=== PATIENT | male | born 1960 | race American Indian/Alaskan Native ===

== ENCOUNTER 2019-10-13 06:28 | Emergency (ER) | payer MEDICARE, OTHER ==
[2019-10-13] MEDS ORDERED: SODIUM CHLORIDE 0.9% 1000 ML 1,000 ML IV ONE (10:43)
[2019-10-13] MEDS ORDERED: MORPHINE 4 MG/1 ML INJ IV ONE (10:43)
[2019-10-13 11:26] LABS: Basophils # (Auto) 0.1 K/mm3 (0.0-0.1); Basophils % (Auto) 0.8 % (0.0-1.8); Eosinophils # (Auto) 0.1 K/mm3 (0.0-0.4); Eosinophils % (Auto) 1.4 % (0.0-4.3); Hemoglobin 14.2 gm/dl (11.8-15.2); Lymphocytes # (Auto) 3.1 K/mm3 (1.2-5.4); Lymphocytes % (Auto) 33.9 % (13.4-35.0); Mean Corpuscular HGB Conc 36 % (32-34); Mean Corpuscular Volume 87 fl (84-94); Monocytes # (Auto) 0.6 K/mm3 (0.0-0.8); Monocytes % (Auto) 6.9 % (0.0-7.3); Platelet Count 213 K/mm3 (140-440); Red Blood Count 4.61 M/mm3 (3.65-5.03); Red Cell Distribution Width 14.7 % (13.2-15.2)
--- NOTE | 2019-10-13 11:32 | Emergency Department Report ---
Abscess Boil HPI - HPI Chief Complaint: Skin/Abscess/Foreign Body Stated Complaint: BOIL/FEVER Time Seen by Provider: 10/13/19 10:08 Duration: 4 Days Location: Perianal Severity: Mild History: Yes Pain, No Fever, No Purulent Drainage, No Numbness, No Foreign Body, No Previous History, No Insect Bite HPI: This is a 59-year-old male nontoxic, well nourished in appearance, no acute signs of distress presents to the ED with c/o of redness, swelling, and pain left buttock area. Patient stated has some driange noted. Patient denies any fever, chills, nausea, vomiting, chest pain, shortness of breath, headache or stiff neck. Patient denies any allergies. PMH includes HIV but is compliant with antiviral and undetectable CD4. Home Medications: Home Medications Medication Instructions Recorded Confirmed Last Taken Atazanavir (Nf) [Reyataz] mg PO QDAY 08/06/13 08/06/13 08/05/13 21:00 Emtricitabin/Tenofovir [TRUVADA 1 tab PO QDAY 08/06/13 08/06/13 08/05/13 21:00 200-300 mg] Ritonavir [Norvir] mg PO QDAY 08/06/13 08/06/13 08/05/13 20:00 Previous Rx's Medication Instructions Recorded Last Taken Type Hydrocodone Bit/Acetaminophen 1 each PO Q4-6H PRN #12 tablet 08/06/13 Unknown Rx [Lortab 5-500 Tablet] Ibuprofen [Motrin 800 MG tab] 800 mg PO TID #30 tablet 08/06/13 Unknown Rx Sulfamethoxazole/Trimethoprim 1 each PO BID #20 tablet 08/06/13 Unknown Rx [Bactrim DS] Acetaminophen/Codeine [Tylenol 1 tab PO Q6H PRN #12 tab 10/13/19 Unknown Rx /Codeine # 3 tab] Amoxicillin/K Clav Tab [Augmentin 1 tab PO Q12HR #20 tab 10/13/19 Unknown Rx 875 mg] Allergies/Adverse Reactions: Allergies Allergy/AdvReac Type Severity Reaction Status Date / Time No Known Allergies Allergy Unverified 08/06/13 14:52 ED Review of Systems ROS: Stated complaint: BOIL/FEVER Other details as noted in HPI Constitutional: denies: chills, fever Eyes: denies: eye pain, eye discharge, vision change ENT: denies: ear pain, throat pain Respiratory: denies: cough, shortness of breath, wheezing Cardiovascular: denies: chest pain, palpitations Endocrine: no symptoms reported Gastrointestinal: denies: abdominal pain, nausea, diarrhea Genitourinary: denies: urgency, dysuria Musculoskeletal: denies: back pain, joint swelling, arthralgia Skin: denies: rash, lesions Neurological: denies: headache, weakness, paresthesias Psychiatric: denies: anxiety, depression Hematological/Lymphatic: denies: easy bleeding, easy bruising ED Past Medical Hx - Past Medical History Previous Medical History?: Yes Hx HIV: Yes Additional medical history: hiv - Surgical History Past Surgical History?: Yes Additional Surgical History: lyphomas removed. right knee surgery - Social History Smoking Status: Never Smoker Substance Use Type: None - Medications Home Medications: Home Medications Medication Instructions Recorded Confirmed Last Taken Type Atazanavir (Nf) [Reyataz] mg PO QDAY 08/06/13 08/06/13 08/05/13 21:00 History Emtricitabin/Tenofovir [TRUVADA 1 tab PO QDAY 08/06/13 08/06/13 08/05/13 21:00 History 200-300 mg] Hydrocodone Bit/Acetaminophen 1 each PO Q4-6H PRN #12 tablet 08/06/13 Unknown Rx [Lortab 5-500 Tablet] Ibuprofen [Motrin 800 MG tab] 800 mg PO TID #30 tablet 08/06/13 Unknown Rx Ritonavir [Norvir] mg PO QDAY 08/06/13 08/06/13 08/05/13 20:00 History Sulfamethoxazole/Trimethoprim 1 each PO BID #20 tablet 08/06/13 Unknown Rx [Bactrim DS] Acetaminophen/Codeine [Tylenol 1 tab PO Q6H PRN #12 tab 10/13/19 Unknown Rx /Codeine # 3 tab] Amoxicillin/K Clav Tab [Augmentin 1 tab PO Q12HR #20 tab 10/13/19 Unknown Rx 875 mg] ED Abscess Boil Physical Exam - Exam General: Vital signs noted. No distress. Alert and acting appropriately. Front/Back of Body, Lg (Color): 1 - abscess present Size: 4 cm Exam: Yes Tenderness, Yes Fluctuance, Yes Surrounding Cellulites/Erythema, Yes Normal Neurologic Exam, Yes Normal Circulation, No Lymphangitis, No Crepitation, No Heart Murmur I & D Note - I & D Note I & D Note: Under sterile field, I used Betadine to cleanse the area. I then used 2% lidocaine plain with 25-gauge 5/8 needle to inject area for anesthetic purposes. Total volume injected 3 mL. I then used an 11 blade to make a 1 cm incision. About 2 mL's of purulent drainage has been noted. I then used a hemostat to break the abscess formation. I then used sterile 0.9% normal saline flush to flush the wound with total volume of 40 mL used. I then put a 1/4 iodoform packing to the incision. A sterile 4 x 4 with tape has been applied as dressing. Bleeding is under control. Patient tolerated the procedure well with no signs of distress noted. ED Course Vital Signs 10/13/19 10/13/19 10/13/19 06:32 11:10 11:15 Temperature 98.1 F 98.3 F Pulse Rate 70 63 Respiratory 18 18 18 Rate Blood Pressure 155/95 Blood Pressure 135/88 [Left] O2 Sat by Pulse 96 98 98 Oximetry - Reevaluation(s) Reevaluation #1: 10/13/19 11:31 Patient is speaking in full sentences with no signs of distress noted. Critical care attestation.: If time is entered above; I have spent that time in minutes in the direct care of this critically ill patient, excluding procedure time. ED Medical Decision Making - Lab Data Result diagrams: 10/13/19 11:06 10/13/19 11:06 - Medical Decision Making This is a 59-year-old male that presents with left buttock abscess. Patient is stable and was examined by me. CT with contrast obtained and dictated by the radiologist. This is incision and drainage and has been performed and patient tolerated well. A sterile dressing has been applied. Patient was educated on proper wound care. Patient is discharged with Augmentin and Tylenol with codeine and was instructed not to operate any machinery while taking Tylenol with codeine due to drowsiness. Patient was instructed to return in 2 days for packing removal. Patient was instructed to refer to Follow-up with a primary care doctor in 3-5 days or if symptoms worsen and continue return to emergency room as soon as possible. At time of discharge, the patient does not seem toxic or ill in appearance. No acute signs of distress noted. Patient agrees to discharge treatment plan of care. No further questions noted by the patient. ED Disposition Clinical Impression: Abscess of right buttock, Encounter for incision and drainage procedure Disposition: TO HOME OR SELFCARE Is pt being admited?: No Does the pt Need Aspirin: No Condition: Stable Instructions: Abscess (ED), Abscess Incision and Drainage (ED), Acetaminophen/Codeine (By mouth) Additional Instructions: Follow-up with a primary care doctor in 3-5 days or if symptoms worsen and continue return to emergency room as soon as possible. Do not operate any machinery while taking Tylenol with codeine as this may cause drowsiness. Return in 2 days for packing removal. Prescriptions: Amoxicillin/K Clav Tab [Augmentin 875 mg] 1 tab PO Q12HR #20 tab Acetaminophen/Codeine [Tylenol /Codeine # 3 tab] 1 tab PO Q6H PRN #12 tab PRN Reason: Pain, Moderate (4-6) Referrals: PRIMARY MD ALVARO [Primary Care Provider] - 3-5 Days OSIEL ALBARADO MD [Staff Physician] - 3-5 Days [facility] [Outside] - 3-5 Days Forms: Work/School Release Form(ED)
[2019-10-13 11:45] LABS: BUN/Creatinine Ratio 13; Blood Urea Nitrogen 10 mg/dL (9-20); Calcium 9.3 mg/dL (8.4-10.2); Hemolysis Index 15
--- NOTE | 2019-10-13 12:52 | Cat Scan Report ---
CT ABDOMEN AND PELVIS WITH CONTRAST INDICATION: perianal pain and swelling. COMPARISON: CT abdomen and pelvis with contrast from 06/24/2012. TECHNIQUE: Axial, coronal and sagittal CT imaging of the abdomen and pelvis was performed after inje ction of 100 mL Omnipaque [address] scans at this location are performed using CT dose re duction for ALARA by means of automated exposure control. FINDINGS: LOWER CHEST: No significant abnormality. LIVER: Numerous subcentimeter cyst are seen throughout the liver. Posteriorly and superiorly along th e right hepatic lobe is a hyperenhancing round lesion measuring 1.2 x 1.2 cm on image 38 of series 2. Another hyperenhancing lesion is seen anteriorly and inferiorly along the right hepatic lobe on imag e 84 of series 2 measuring 8 x 7 mm. No additional significant abnormality. BILIARY: No significant abnormality. PANCREAS: No significant abnormality. SPLEEN: No significant abnormality. ADRENALS: No significant abnormality. KIDNEYS AND URETERS: There are simple appearing subcentimeter right renal cysts. No additional signif icant abnormality. GI TRACT: There is a small hiatal hernia without associated inflammation. No additional significant a bnormality of the stomach. No significant abnormality of the small bowel. Sigmoid diverticulosis is n oted without evidence of diverticulitis. No additional significant abnormality of the colon. The appe ndix is unremarkable. PERITONEUM: No free fluid. No free air. No fluid collection. LYMPH NODES: No significant adenopathy. VASCULATURE: No significant abnormality. URINARY BLADDER: Collapsed without a distinct abnormality. REPRODUCTIVE ORGANS: No significant abnormality. ADDITIONAL FINDINGS: There is marked bilateral peritoneal edema, right greater than left, without an organized drainable fluid collection or soft tissue gas. SKELETAL SYSTEM: No significant abnormality. IMPRESSION: 1. Marked bilateral peritoneal edema, right greater than left, without an organized drainable fluid c ollection or significant soft tissue gas. 2. Small hyperenhancing liver lesions as above may represent flash filling hemangiomas. A nonemergent CT of the abdomen with and without contrast (liver protocol) would be helpful for complete evaluatio n. 3. Additional findings as above. Signer Name: Delon Marcano MD Signed: 10/13/2019 12:48 PM Workstation Name: [id number]
[2019-10-13 14:08] VITALS: BP 158/101
== END 2019-10-13 14:08 | disposition home or self-care (01) ==
LOC: ED 06:28
DX: L02.31 Cutaneous abscess of buttock (principal); Z79.899 Other long term (current) drug therapy; Z98.890 Other specified postprocedural states
CPT/HCPCS: 10060; 36415; 74177; 80048; 85025; 96361; 96374; 99284; J2270; J7030; Q9967

== ENCOUNTER 2019-10-15 07:35 | Emergency (ER) | payer SELFPAY ==
[2019-10-15 07:48] VITALS: BP 125/89
--- NOTE | 2019-10-15 09:30 | Emergency Department Report ---
Suture/Staple Removal - [facility] Chief Complaint: Skin/Abscess/Foreign Body Stated Complaint: REMOVAL OF PACKAGE Time Seen by Provider: 10/15/19 08:48 When Sutures or Trenary Placed: 2 days Wound Location: right buttock ED Review of Systems ROS: Stated complaint: REMOVAL OF PACKAGE Other details as noted in HPI Constitutional: denies: chills, fever Eyes: denies: eye pain, eye discharge, vision change ENT: denies: ear pain, throat pain Respiratory: denies: cough, shortness of breath, wheezing Cardiovascular: denies: chest pain, palpitations Endocrine: no symptoms reported Gastrointestinal: denies: abdominal pain, nausea, diarrhea Genitourinary: denies: urgency, dysuria Musculoskeletal: denies: back pain, joint swelling, arthralgia Skin: denies: rash, lesions Neurological: denies: headache, weakness, paresthesias Psychiatric: denies: anxiety, depression Hematological/Lymphatic: denies: easy bleeding, easy bruising ED Past Medical Hx - Past Medical History Previous Medical History?: Yes Hx HIV: Yes Additional medical history: hiv - Surgical History Past Surgical History?: Yes Additional Surgical History: lyphomas removed. right knee surgery - Social History Smoking Status: Never Smoker Substance Use Type: None - Medications Home Medications: Home Medications Medication Instructions Recorded Confirmed Last Taken Type Atazanavir (Nf) [Reyataz] mg PO QDAY 08/06/13 08/06/13 08/05/13 21:00 History Emtricitabin/Tenofovir [TRUVADA 1 tab PO QDAY 08/06/13 08/06/13 08/05/13 21:00 History 200-300 mg] Hydrocodone Bit/Acetaminophen 1 each PO Q4-6H PRN #12 tablet 08/06/13 Unknown Rx [Lortab 5-500 Tablet] Ibuprofen [Motrin 800 MG tab] 800 mg PO TID #30 tablet 08/06/13 Unknown Rx Ritonavir [Norvir] mg PO QDAY 08/06/13 08/06/13 08/05/13 20:00 History Sulfamethoxazole/Trimethoprim 1 each PO BID #20 tablet 08/06/13 Unknown Rx [Bactrim DS] Acetaminophen/Codeine [Tylenol 1 tab PO Q6H PRN #12 tab 10/13/19 Unknown Rx /Codeine # 3 tab] Amoxicillin/K Clav Tab [Augmentin 1 tab PO Q12HR #20 tab 10/13/19 Unknown Rx 875 mg] Suture Removal Exam - Exam General: Vital signs noted. No distress. Alert and acting appropriately. Wound: No Pathologic Erythema, No Tenderness, No Drainage, No Pus, No Wound Dehiscence Other Systems: All other systems reviewed and are unremarkable. ED Course Vital Signs 10/15/19 07:47 Temperature 97.9 F Pulse Rate 77 Respiratory 18 Rate Blood Pressure 125/89 [Right] O2 Sat by Pulse 96 Oximetry - Reevaluation(s) Reevaluation #1: 10/15/19 09:28 Patient is speaking in full sentences with no signs of distress noted. ED Recheck [facility] - Medical Decision Making Iodoform packing has been removed for right buttock area. Patient followed well. Currently there is no swelling. Abscess is resolving. Patient stated he is taking antibiotics. Patient was educated on proper wound care. Patient was instructed to Follow-up with a primary care doctor in 3-5 days or if symptoms worsen and continue return to emergency room as soon as possible. At time of discharge, the patient does not seem toxic or ill in appearance. No acute signs of distress noted. Patient agrees to discharge treatment plan of care. No further questions noted by the patient. Critical care attestation.: If time is entered above; I have spent that time in minutes in the direct care of this critically ill patient, excluding procedure time. ED Disposition Clinical Impression: Abscess packing removal Disposition: DC-01 TO HOME OR SELFCARE Is pt being admited?: No Does the pt Need Aspirin: No Condition: Stable Instructions: Acute Wound Care (ED) Additional Instructions: Follow-up with a primary care doctor in 3-5 days or if symptoms worsen and continue return to emergency room as soon as possible. Referrals: PRIMARY MD ALVARO [Referring] - 3-5 Days OSIEL ALBARADO MD [Staff Physician] - 3-5 Days [facility] [Outside] - 3-5 Days
== END 2019-10-15 10:28 | disposition home or self-care (01) ==
LOC: ED 07:35
DX: L02.31 Cutaneous abscess of buttock (principal); Z21 Asymptomatic human immunodeficiency virus [HIV] infection status; Z98.890 Other specified postprocedural states; Z79.899 Other long term (current) drug therapy

== ENCOUNTER 2021-04-30 18:04 | Inpatient (IN) | payer OTHER, SELFPAY ==
[2021-04-30 20:09] LABS: Basophils % (Auto) 0.3 % (0.0-1.8); Eosinophils # (Auto) 0.1 K/mm3 (0.0-0.4); Eosinophils % (Auto) 2.1 % (0.0-4.3); Hematocrit 46.7 % (35.5-45.6); Lymphocytes % (Auto) 30.5 % (13.4-35.0); Mean Corpuscular HGB Conc 34 % (32-34); Mean Corpuscular Volume 87 fl (84-94); Monocytes # (Auto) 0.5 K/mm3 (0.0-0.8); Monocytes % (Auto) 8.1 % (0.0-7.3); Platelet Count 251 K/mm3 (140-440); Red Blood Count 5.38 M/mm3 (3.65-5.03); Red Cell Distribution Width 15.8 % (13.2-15.2)
[2021-04-30 20:27] LABS: Alanine Aminotransferase 13 units/L (7-56); Albumin 3.8 g/dL (3.9-5); BUN/Creatinine Ratio 19; Blood Urea Nitrogen 21 mg/dL (9-20); Calcium 9.4 mg/dL (8.4-10.2); Hemolysis Index 45
[2021-04-30 20:42] LABS: Bilirubin,Urine NEG (Negative); Blood,Urine MOD (Negative); Color,Urine Amber (Yellow); Hyaline Casts,Urine 3 /LPF; Mucus,Urine 3+ /HPF
[2021-04-30] MEDS ORDERED: SODIUM CHLORIDE 0.9% 1000 ML 1,000 ML IV ONE (21:27)
--- NOTE | 2021-04-30 21:29 | Event Note ---
ED Screening Note Date of service: 04/30/21 Time: 21:27 ED Screening Note: 60-year-old female patient with history of HIV presents to the emergency department with complaints of progressively worsening abdominal pain, nausea, vomiting, and diarrhea starting 3 days ago. No known sick contacts. No current steroid or antibiotic use. No recent travel. Surgical history includes multiple lipoma excisions from his abdominal wall. Patient is compliant with his antiretroviral therapy medication. Unsure of last CD4 count. Patient states his roommate told him that his "abdomen was sticking out more than usual." No known history of liver disease. Tachycardic in triage. General: Awake, appropriately interactive, no acute distress. Neck: Supple. Full range of motion intact. Cardiovascular: Normal peripheral perfusion. Pulmonary: No respiratory distress. Patient is speaking normally without use of accessory muscles. Abdomen: Left lower quadrant tenderness without rebound or guarding. Skin: No apparent rashes or lesions. Neurological: No facial asymmetry. Speech is clear. Follows commands. Patient is alert and oriented. Musculoskeletal: Moves all four extremities spontaneously with normal range of motion. Psych: Cooperative. Appropriate mood and affect. I have greeted and performed a focused rapid initial assessment of this patient. A comprehensive ED assessment and evaluation of the patient, analysis of all test results, and completion of the medical decision-making process will be conducted by additional ED providers. This initial assessment/diagnostic orders/clinical plan/treatment(s) is/are subject to change based on patients health status, clinical progression and re-assessment. Further treatment and workup at subsequent clinical provider's discretion. Patient/guardian urged not to elope from the ED as their condition may be serious if not clinically asses sed and managed.
--- NOTE | 2021-05-01 12:55 | Cat Scan Report ---
CT ABDOMEN AND PELVIS WITH CONTRAST INDICATION: abd pain, N/V/D, (+) HIV OMNIPAQUE 300 100ML CONTRAST: 100 cc Omnipaque 300 IV COMPARISON: 10/13/[address] scans at this location are performed using CT dose reduction for ALARA by means of automated e xposure control. FINDINGS: Lung bases are clear of infiltrates. No pneumoperitoneum is seen. Small hepatic cysts and p robable tiny hemangiomata are again seen. Small right renal cysts are noted. Gallbladder is distended without definite wall thickening or calculi. No biliary dilatation is seen. Pancreas appears within normal limits. No other masses are seen. No lymphadenopathy is noted. No free fluid is seen. No focal inflammatory changes are noted. Small bowel dilatation is seen now involving mid loops without wall thickening. Distal loops appear n ondilated. The appendix is dilated and inflamed with surrounding inflammation is seen. No evidence of perforatio n or abscess is noted. IMPRESSION: 1. Acute uncomplicated appendicitis 2. Mid small bowel dilatation suggesting small bowel obstruction but in the setting of acute appendic itis may just relate to localized adynamic ileus. Signer Name: oCrnelius Walsh MD Signed: 05/01/2021 12:51 PM Workstation Name: [id number]
[2021-05-01] MEDS ORDERED: PIPERACILLIN/TAZOBACTAM 3.375 3.375 GM/50 ML BAG IV ONE (14:54)
[2021-05-01] MEDS ORDERED: SODIUM CHLORIDE 0.9% 1000 ML 1,000 ML IV ONE (14:54)
[2021-05-01] MEDS ORDERED: ONDANSETRON 4 MG/2 ML INJ IM ONE (14:54)
--- NOTE | 2021-05-01 15:00 | Emergency Department Report ---
ED General Adult HPI - General Chief complaint: Abdominal Pain Stated complaint: AB PAIN/HAVEN'T EATEN Time Seen by Provider: 05/01/21 14:47 Source: patient Mode of arrival: Ambulatory Limitations: No Limitations - History of Present Illness Initial comments: 60-year-old female patient with history of HIV presents to the emergency department with complaints of progressively worsening abdominal pain, nausea, vomiting, and diarrhea starting 3 days ago. No known sick contacts. No current steroid or antibiotic use. No recent travel. Surgical history includes multiple lipoma excisions from his abdominal wall. Patient is compliant with his antiretroviral therapy medication. Unsure of last CD4 count. Patient states his roommate told him that his "abdomen was sticking out more than usual." No known history of liver disease. Patient reports that his pain has improved since yesterday when he came in. Patient states at that time the pain was severe to where it was hard for him to move. Onset/Timin -: days(s) Location: abdomen Severity scale (0 -10): 8 Quality: stabbing, sharp Consistency: constant Improves with: none Worsens with: none Associated Symptoms: nausea/vomiting, other (Diarrhea) - Related Data Home Medications Medication Instructions Recorded Confirmed Last Taken Atazanavir (Nf) [Reyataz] mg PO QDAY 08/06/13 08/06/13 08/05/13 21:00 Emtricitabin/Tenofovir [TRUVADA 1 tab PO QDAY 08/06/13 08/06/13 08/05/13 21:00 200-300 mg] Ritonavir [Norvir] mg PO QDAY 08/06/13 08/06/13 08/05/13 20:00 Previous Rx's Medication Instructions Recorded Last Taken Type Hydrocodone Bit/Acetaminophen 1 each PO Q4-6H PRN #12 tablet 08/06/13 Unknown Rx [Lortab 5-500 Tablet] Ibuprofen [Motrin 800 MG tab] 800 mg PO TID #30 tablet 08/06/13 Unknown Rx Sulfamethoxazole/Trimethoprim 1 each PO BID #20 tablet 08/06/13 Unknown Rx [Bactrim DS] Acetaminophen/Codeine [Tylenol 1 tab PO Q6H PRN #12 tab 10/13/19 Unknown Rx /Codeine # 3 tab] Amoxicillin/K Clav Tab [Augmentin 1 tab PO Q12HR #20 tab 10/13/19 Unknown Rx 875 mg] Allergies Allergy/AdvReac Type Severity Reaction Status Date / Time No Known Allergies Allergy Unverified 08/06/13 14:52 ED Review of Systems ROS: Stated complaint: AB PAIN/HAVEN'T EATEN Other details as noted in HPI Comment: All other systems reviewed and negative ED Past Medical Hx - Past Medical History Previous Medical History?: Yes Hx HIV: Yes Additional medical history: hiv - Surgical History Past Surgical History?: Yes Additional Surgical History: lyphomas removed. right knee surgery - Social History Smoking Status: Never Smoker Substance Use Type: None - Medications Home Medications: Home Medications Medication Instructions Recorded Confirmed Last Taken Type Atazanavir (Nf) [Reyataz] mg PO QDAY 08/06/13 08/06/13 08/05/13 21:00 History Emtricitabin/Tenofovir [TRUVADA 1 tab PO QDAY 08/06/13 08/06/13 08/05/13 21:00 History 200-300 mg] Hydrocodone Bit/Acetaminophen 1 each PO Q4-6H PRN #12 tablet 08/06/13 Unknown Rx [Lortab 5-500 Tablet] Ibuprofen [Motrin 800 MG tab] 800 mg PO TID #30 tablet 08/06/13 Unknown Rx Ritonavir [Norvir] mg PO QDAY 08/06/13 08/06/13 08/05/13 20:00 History Sulfamethoxazole/Trimethoprim 1 each PO BID #20 tablet 08/06/13 Unknown Rx [Bactrim DS] Acetaminophen/Codeine [Tylenol 1 tab PO Q6H PRN #12 tab 10/13/19 Unknown Rx /Codeine # 3 tab] Amoxicillin/K Clav Tab [Augmentin 1 tab PO Q12HR #20 tab 10/13/19 Unknown Rx 875 mg] ED Physical Exam - General Limitations: No Limitations General appearance: alert, in no apparent distress - Head Head exam: Present: atraumatic, normocephalic - Eye Eye exam: Present: normal appearance - ENT ENT exam: Present: mucous membranes moist - Neck Neck exam: Present: normal inspection, full ROM - Respiratory Respiratory exam: Present: normal lung sounds bilaterally, chest wall tenderness. Absent: accessory muscle use - Cardiovascular Cardiovascular Exam: Present: tachycardia - GI/Abdominal GI/Abdominal exam: Present: soft, tenderness (Mild right lower quadrant). Absent: distended - Extremities Exam Extremities exam: Present: normal inspection, full ROM - Back Exam Back exam: Present: normal inspection, full ROM - Neurological Exam Neurological exam: Present: alert, oriented X3, normal gait - Psychiatric Psychiatric exam: Present: normal affect, normal mood - Skin Skin exam: Present: warm, dry, intact, normal color. Absent: rash ED Course Vital Signs 04/30/21 19:41 Temperature 98.2 F Pulse Rate 101 H Respiratory 18 Rate Blood Pressure 165/92 O2 Sat by Pulse 97 Oximetry - Reevaluation(s) Reevaluation #1: 05/01/21 1430 Reevaluated patient he states that his pain is much better. Complains of being hungry at this time. No nausea and vomiting the last 6 hours. - Consultations Consultation #1: 05/01/21 15:[address] Johnson regarding my findings of the patient having an acute uncomplicated appendicitis and admit to small bowel dilatation suggestion of a small bowel obstruction. She is aware spoke to Dr. Novak general surgeon he states admit the patient to [facility] place patient on IV Zosyn n.p.o. and he will see him in the morning. Consultation #2: 05/01/21 15:[address] Eubanks hospitalist regarding admission. States that he will put admission orders in and will see patient. ED Medical Decision Making - Lab Data Result diagrams: 04/30/21 19:52 04/30/21 19:52 - Medical Decision Making 60-year-old female patient with history of HIV presents to the emergency department with complaints of progressively worsening abdominal pain, nausea, vomiting, and diarrhea starting 3 days ago. No known sick contacts. No current steroid or antibiotic use. No recent travel. Surgical history includes multiple lipoma excisions from his abdominal wall. Patient is compliant with his antiretroviral therapy medication. Unsure of last CD4 count. Patient states his roommate told him that his "abdomen was sticking out more than usual." No known history of liver disease. Patient reports that his pain has improved since yesterday when he came in. Patient states at that time the pain was severe to where it was hard for him to move. Spoke to Dr. Johnson ER attending she is aware of the admission. Spoke to Dr. Novak general surgeon he is aware of patient's patient CT results recommend admission Zosyn n.p.o. after midnight and he will evaluate patient in the morning. Spoke to Dr. Eubanks hospitalist regarding patient needing to be admitted to [facility] and Dr. Novak has already been consulted and will see the patient in the morning. Critical Care Time: Yes (35) Critical care attestation.: If time is entered above; I have spent that time in minutes in the direct care of this critically ill patient, excluding procedure time. ED Disposition Clinical Impression: Acute appendicitis, uncomplicated, Small bowel obstruction, HIV (human immunodeficiency virus infection) Disposition: 09 ADMITTED INPATIENT Is pt being admited?: Yes Does the pt Need Aspirin: No Condition: Stable Referrals: ZHANE,CARO [Other] - 3-5 Days
[2021-05-01] MEDS ORDERED: HYDROmorphone 1 MG/1 ML INJ IV PRN (15:01)
[2021-05-01] MEDS ORDERED: MORPHINE 2 MG/1 ML INJ IV PRN (15:01)
--- NOTE | 2021-05-01 15:01 | History and Physical Report ---
History of Present Illness Chief complaint: My stomach hurts History of present illness: 60 YO Male with HIV presents to ED for evaluation. Patient reports "my stomach hurts". Patient states that he has experienced abdominal pain, multiple episodes of nausea, multiple episodes of vomiting, and multiple loose stools over the past 3 days with persistent symptoms over the same timeframe. Patient transported to [facility] via private vehicle for further care and evaluation of the aforementioned symptoms. The patient was seen and evaluated in the emergency department. All lab and imaging studies reviewed. Patient with CT scan of the abdomen and pelvis which revealed evidence of acute appendicitis as well as concomitant partial small bowel obstruction. Patient placed in observation status and admitted to surgical floor due to increased risk of worsening symptoms. Patient initiated on IV antibiotic therapy. Surgical team consulted in ED. Patient denies fever, chills, chest pain, palpitation, productive cough, skin rash, recent contact, or known exposure to COVID-19. No prior admission for review. All medication listed at time of admission has been reconciled. Advanced care planning conducted in ED. Past History Past Medical History: HIV/AIDS, other (See HPI) Past Surgical History: Other (Lipoma excision, right knee surgery) Social history: single. denies: smoking, alcohol abuse, prescription drug abuse Family history: hypertension Medications and Allergies Allergies Allergy/AdvReac Type Severity Reaction Status Date / Time No Known Allergies Allergy Unverified 08/06/13 14:52 Home Medications Medication Instructions Recorded Confirmed Last Taken Type Atazanavir (Nf) [Reyataz] mg PO QDAY 08/06/13 08/06/13 08/05/13 21:00 History Emtricitabin/Tenofovir [TRUVADA 1 tab PO QDAY 08/06/13 08/06/13 08/05/13 21:00 History 200-300 mg] Hydrocodone Bit/Acetaminophen 1 each PO Q4-6H PRN #12 tablet 08/06/13 Unknown Rx [Lortab 5-500 Tablet] Ibuprofen [Motrin 800 MG tab] 800 mg PO TID #30 tablet 08/06/13 Unknown Rx Ritonavir [Norvir] mg PO QDAY 08/06/13 08/06/13 08/05/13 20:00 History Sulfamethoxazole/Trimethoprim 1 each PO BID #20 tablet 08/06/13 Unknown Rx [Bactrim DS] Acetaminophen/Codeine [Tylenol 1 tab PO Q6H PRN #12 tab 10/13/19 Unknown Rx /Codeine # 3 tab] Amoxicillin/K Clav Tab [Augmentin 1 tab PO Q12HR #20 tab 10/13/19 Unknown Rx 875 mg] Active Meds: Active Medications Piperacillin Sod/Tazobactam Sod (Zosyn/Ns 3.375gm/50ml) 3.375 gm in 50 mls @ 100 mls/hr IV ONCE ONE; Protocol Stop: 05/01/21 15:23 Sodium Chloride (Nacl 0.9% 1000 Ml) 1,000 mls @ 999 mls/hr IV BOLUS ONE Stop: 05/01/21 15:54 Review of Systems Constitutional: no weight loss Ears, nose, mouth and throat: no ear pain, no decreased hearing, no nose pain Cardiovascular: no chest pain, no orthopnea, no rapid/irregular heart beat, no edema Respiratory: no cough, no cough with sputum, no hemoptysis Gastrointestinal: abdominal pain, nausea, vomiting, diarrhea, no constipation, no BRBPR, no melena Genitourinary Male: no hematuria, no flank pain, no discharge, no urinary frequency, no urinary hesitancy Rectal: no pain, no incontinence, no bleeding Musculoskeletal: no neck pain, no shooting arm pain, no arm numbness/tingling, no low back pain, no shooting leg pain Integumentary: no rash, no pruritis, no sores, no jaundice, no boils Neurological: no head injury, no weakness, no parathesias, no tremors Psychiatric: no anxiety, no change in sleep habits, no insomnia, no hypersomnia, no change in appetite Endocrine: no cold intolerance, no polyphagia, no excessive thirst, no polyuria, no excessive sweating, no flushing Hematologic/Lymphatic: no easy bruising, no easy bleeding, no lymphadenopathy, no lymphedema Allergic/Immunologic: no urticaria, no wheezing, no angioedema Exam - Constitutional Vitals: Temp Pulse Resp BP Pulse Ox 98.2 F 101 H 18 165/92 97 04/30/21 19:41 04/30/21 19:41 04/30/21 19:41 04/30/21 19:41 04/30/21 19:41 General appearance: Present: mild distress - EENT Eyes: Present: PERRL ENT: hearing intact, clear oral mucosa - Neck Neck: Present: supple, normal ROM - Respiratory Respiratory effort: normal Respiratory: bilateral: CTA - Cardiovascular Heart Sounds: Present: S1 & S2. Absent: rub, click - Extremities Extremities: pulses symmetrical, No edema Peripheral Pulses: within normal limits - Abdominal General gastrointestinal: Present: soft, tender, normal bowel sounds Localized gastrointestinal: tender: diffuse Male genitourinary: Present: normal - Integumentary Integumentary: Present: clear, warm, dry - Musculoskeletal Musculoskeletal: gait normal, strength equal bilaterally - Psychiatric Psychiatric: appropriate mood/affect, intact judgment & insight - Neurologic Neurologic: CNII-XII intact, moves all extremities Results - Labs CBC & Chem 7: 04/30/21 19:52 04/30/21 19:52 Labs: Abnormal lab results 04/30/21 04/30/21 04/30/21 Range/Units 19:52 19:52 Unknown RBC 5.38 H (3.65-5.03) M/mm3 Hgb 16.0 H (11.8-15.2) gm/dl Hct 46.7 H (35.5-45.6) % RDW 15.8 H (13.2-15.2) % [place] % (Auto) 8.1 H (0.0-7.3) % BUN 21 H (9-20) mg/dL Total Protein 9.1 H (6.3-8.2) g/dL Albumin 3.8 L (3.9-5) g/dL Urine WBC (Auto) 7.0 H (0.0-6.0) /HPF Assessment and Plan - Patient Problems (1) Acute appendicitis, uncomplicated Current Visit: Yes Status: Acute Plan to address problem: Bowel rest, IV antibiotic therapy, CT scan abdomen and pelvis, surgery team consulted, serial abdominal exam, further care and intervention as per surgical team. Pain control, (2) HIV (human immunodeficiency virus infection) Current Visit: Yes Status: Acute Qualifiers: HIV symptom status: asymptomatic, with no history of HIV-related illness Qualified Code(s): Z21 - Asymptomatic human immunodeficiency virus [HIV] infection status Plan to address problem: Continue prehospital antiretroviral therapy, outpatient infectious disease follow-up. (3) Small bowel obstruction Current Visit: Yes Status: Acute Plan to address problem: CT scan abdomen pelvis, serial abdominal exam as per surgical team, supportive care, surgical intervention as per surgical team. Bowel rest, n.p.o. (4) DVT prophylaxis Current Visit: Yes Status: Acute Plan to address problem: SCD to bilateral lower extremities while in bed, patient is ambulatory (5) Advance care planning Current Visit: Yes Status: Acute Plan to address problem: Disease education conducted, care plan discussed, diagnosis discussed, prognosis discussed, patient is full code, patient knowledges understanding and agreement with care plan, +30 minutes.
--- NOTE | 2021-05-01 16:29 | Consultation ---
History of Present Illness Consult date: 05/01/21 - History of present illness History of present illness: 60 yo HIV+ male with 4 days of abdominal pain, generalized but now most severe in the RLQ. Past History Past Medical History: other (HIV +) Medications and Allergies Allergies Allergy/AdvReac Type Severity Reaction Status Date / Time No Known Allergies Allergy Unverified 08/06/13 14:52 Home Medications Medication Instructions Recorded Confirmed Last Taken Type Atazanavir (Nf) [Reyataz] mg PO QDAY 08/06/13 08/06/13 08/05/13 21:00 History Emtricitabin/Tenofovir [TRUVADA 1 tab PO QDAY 08/06/13 08/06/13 08/05/13 21:00 History 200-300 mg] Hydrocodone Bit/Acetaminophen 1 each PO Q4-6H PRN #12 tablet 08/06/13 Unknown Rx [Lortab 5-500 Tablet] Ibuprofen [Motrin 800 MG tab] 800 mg PO TID #30 tablet 08/06/13 Unknown Rx Ritonavir [Norvir] mg PO QDAY 08/06/13 08/06/13 08/05/13 20:00 History Sulfamethoxazole/Trimethoprim 1 each PO BID #20 tablet 08/06/13 Unknown Rx [Bactrim DS] Acetaminophen/Codeine [Tylenol 1 tab PO Q6H PRN #12 tab 10/13/19 Unknown Rx /Codeine # 3 tab] Amoxicillin/K Clav Tab [Augmentin 1 tab PO Q12HR #20 tab 10/13/19 Unknown Rx 875 mg] Active Meds: Active Medications Acetaminophen (Acetaminophen 325 Mg Tab) 650 mg PO Q4H PRN PRN Reason: Pain MILD(1-3)/Fever >100.5/SMALLS Atazanavir (Atazanavir 150 Mg Cap) 300 mg PO DAILY [place] Emtricitabine (Emtricitabine 200 Mg Cap) 200 mg PO QDAY [place] Hydromorphone HCl (Hydromorphone 1 Mg/1 Ml Inj) 0.5 mg IV Q12H PRN PRN Reason: Pain , Severe (7-10) Sodium Chloride (Nacl 0.9% 1000 Ml) 1,000 mls @ 125 mls/hr IV DIRECT [place] Morphine Sulfate (Morphine 2 Mg/1 Ml Inj) 2 mg IV Q8H PRN PRN Reason: Pain, Moderate (4-6) Ondansetron HCl (Ondansetron 4 Mg/2 Ml Inj) 4 mg IV Q8H PRN PRN Reason: Nausea And Vomiting Ritonavir (Ritonavir 100 Mg Tab) 100 mg PO QDAY [facility] Sodium Chloride (Sodium Chloride 0.9% 10 Ml Flush Syringe) 10 ml IV BID [place] Sodium Chloride (Sodium Chloride 0.9% 10 Ml Flush Syringe) 10 ml IV PRN PRN PRN Reason: LINE FLUSH Tenofovir Disoproxil Fumarate (Tenofovir 300 Mg Tab) 300 mg PO QDAY [facility] Review of Systems All systems: negative (none) Exam Vital Signs Temp Pulse Resp BP Pulse Ox 98.2 F 101 H 18 165/92 97 04/30/21 19:41 04/30/21 19:41 04/30/21 19:41 04/30/21 19:41 04/30/21 19:41 - General physical appearance Positive: well developed, well nourished, no distress - Eyes Positive: PERRL, normal occular movement - ENT Positive: normal pinna, normal nares, normal mucosa, no hearing loss, no congestion - Neck Positive: no masses, no bruits, trachea midline, no venous distension - Respiratory Positive: normal expansion, normal respiratory effort, clear to auscultation - Cardiovascular Rhythm: regular Heart Sounds: Present: S1 & S2. Absent: rub, click - Extremities Extremities: no ischemia, pulses symmetrical, No edema - Breasts Breasts: normal, no mass, no skin changes - Abdomen Abdomen: Present: soft, bowel sounds normal, other (Mildly tender in the RLQ without rebound or guarding.). Absent: distended Hernia: none - Genitourinary Male Genitourinary: normal Female Genitourinary: normal - Integumentary no rash, no growths, no abnormal pigmentation - Neurologic Neurologic: alert and oriented to time, place and person, motor strength and sensation are grossly intact - Musculoskeletal normal gait, normal posture - Psychiatric Psychiatric: appropriate mood/affect, intact judgment & insight Results - Labs 04/30/21 19:52 04/30/21 19:52 Abnormal lab results 04/30/21 04/30/21 04/30/21 Range/Units 19:52 19:52 Unknown RBC 5.38 H (3.65-5.03) M/mm3 Hgb 16.0 H (11.8-15.2) gm/dl Hct 46.7 H (35.5-45.6) % RDW 15.8 H (13.2-15.2) % Walsh % (Auto) 8.1 H (0.0-7.3) % BUN 21 H (9-20) mg/dL Total Protein 9.1 H (6.3-8.2) g/dL Albumin 3.8 L (3.9-5) g/dL Urine WBC (Auto) 7.0 H (0.0-6.0) /HPF Diabetes panel 04/30/21 Range/Units 19:52 Sodium 139 (137-145) mmol/L Potassium 4.0 (3.6-5.0) mmol/L Chloride 103.1 (98-107) mmol/L Carbon Dioxide 24 (22-30) mmol/L BUN 21 H (9-20) mg/dL Creatinine 1.1 (0.8-1.3) mg/dL Glucose 99 (75-100) mg/dL Calcium 9.4 (8.4-10.2) mg/dL AST 15 (5-40) units/L ALT 13 (7-56) units/L Alkaline Phosphatase 86 (35-129) units/L Total Protein 9.1 H (6.3-8.2) g/dL Albumin 3.8 L (3.9-5) g/dL Calcium panel 04/30/21 Range/Units 19:52 Calcium 9.4 (8.4-10.2) mg/dL Albumin 3.8 L (3.9-5) g/dL Pituitary panel 04/30/21 Range/Units 19:52 Sodium 139 (137-145) mmol/L Potassium 4.0 (3.6-5.0) mmol/L Chloride 103.1 (98-107) mmol/L Carbon Dioxide 24 (22-30) mmol/L BUN 21 H (9-20) mg/dL Creatinine 1.1 (0.8-1.3) mg/dL Glucose 99 (75-100) mg/dL Calcium 9.4 (8.4-10.2) mg/dL Adrenal panel 04/30/21 Range/Units 19:52 Sodium 139 (137-145) mmol/L Potassium 4.0 (3.6-5.0) mmol/L Chloride 103.1 (98-107) mmol/L Carbon Dioxide 24 (22-30) mmol/L BUN 21 H (9-20) mg/dL Creatinine 1.1 (0.8-1.3) mg/dL Glucose 99 (75-100) mg/dL Calcium 9.4 (8.4-10.2) mg/dL Total Bilirubin 0.80 (0.1-1.2) mg/dL AST 15 (5-40) units/L ALT 13 (7-56) units/L Alkaline Phosphatase 86 (35-129) units/L Total Protein 9.1 H (6.3-8.2) g/dL Albumin 3.8 L (3.9-5) g/dL - Imaging CT scan - abdomen: report reviewed CT scan - pelvis: report reviewed Assessment and Plan - Patient Problems (1) Acute appendicitis, uncomplicated Current Visit: Yes Status: Acute Plan to address problem: 1) IV Zosyn 2) NPO 3) Lap appy tomorrow
[2021-05-01] MEDS: PIPERACILLIN/TAZOBACTAM 3.375 3.375 GM/50 ML BAG IV SCH (22:55)
[2021-05-02] MEDS: SODIUM CHLORIDE 0.9% 1000 ML 1,000 ML IV SCH ×3 (01:00→23:21)
[2021-05-02] MEDS: PIPERACILLIN/TAZOBACTAM 3.375 3.375 GM/50 ML BAG IV SCH ×3 (07:00→23:38)
[2021-05-02 10:00] LABS: Basophils % (Auto) 0.4 % (0.0-1.8); Eosinophils # (Auto) 0.2 K/mm3 (0.0-0.4); Eosinophils % (Auto) 3.8 % (0.0-4.3); Hematocrit 36.9 % (35.5-45.6); Hemoglobin 12.9 gm/dl (11.8-15.2); Lymphocytes # (Auto) 1.7 K/mm3 (1.2-5.4); Lymphocytes % (Auto) 27.1 % (13.4-35.0); Mean Corpuscular HGB Conc 35 % (32-34); Mean Corpuscular Volume 86 fl (84-94); Monocytes # (Auto) 0.3 K/mm3 (0.0-0.8); Monocytes % (Auto) 5.2 % (0.0-7.3); Platelet Count 218 K/mm3 (140-440); Red Blood Count 4.32 M/mm3 (3.65-5.03); Red Cell Distribution Width 15.3 % (13.2-15.2)
[2021-05-02] MEDS ORDERED: [UNRECOGNIZED DRUG - OTHER] PO SCH (10:00)
[2021-05-02] MEDS ORDERED: ATAZANAVIR 200 MG PO SCH (10:00)
[2021-05-02] MEDS ORDERED: EMTRICITABINE PO SCH (10:00)
[2021-05-02 10:06] LABS: BUN/Creatinine Ratio 13; Blood Urea Nitrogen 15 mg/dL (9-20); Calcium 8.9 mg/dL (8.4-10.2); Hemolysis Index 0
[2021-05-02] MEDS: EMTRICITABINE 200 MG CAP PO SCH (12:29)
[2021-05-02] MEDS: RITONAVIR 100 MG TAB PO SCH (12:39)
[2021-05-02] MEDS: ATAZANAVIR 150 MG CAP PO SCH (12:39)
[2021-05-02] MEDS: TENOFOVIR 300 MG TAB PO SCH (12:39)
[2021-05-02] MEDS ORDERED: BUPIVACAINE/PF (0.5%) 5 MG/1 ML 30 ML VIAL INFILTRATI ONE (14:59)
[2021-05-02] MEDS ORDERED: LIDOCAINE 1%/EPINEPHRINE 1:100,000 VIAL (20 ML) INFILTRATI ONE (15:15)
--- NOTE | 2021-05-02 15:24 | Anesthesia Consultation ---
Anesthesia Consult and Med Hx Date of service: 05/02/21 - Airway Anesthetic Teeth Evaluation: Chipped (#6) ROM Head & Neck: Adequate Mental/Hyoid Distance: Adequate Mallampati Class: Class II Intubation Access Assessment: Probably Good - Pre-Operative Health Status ASA Pre-Surgery Classification: ASA2 Proposed Anesthetic Plan: General - Pulmonary Hx Asthma: No COPD: No Hx Pneumonia: No - Endocrine Hx End Stage Renal Disease: No - Additional Comments Anesthesia Medical History Comments: HIV positive. Acute appendicitis
--- NOTE | 2021-05-02 15:31 | Anesthesia Day of Surgery ---
Anesthesia Day of Surgery - Day of Surgery Patient Examined: Yes Patient H&P Reviewed: Yes Patient is NPO: Yes
[2021-05-02] MEDS ORDERED: ONDANSETRON 4 MG/2 ML INJ IV PRN ×2 (16:30→20:01)
[2021-05-02] MEDS ORDERED: HYDROmorphone 1 MG/1 ML INJ IV PRN ×2 (16:30)
[2021-05-02] MEDS ORDERED: HYDROmorphone 1 MG/1 ML INJ ONE ×3 (16:40→20:13)
[2021-05-02] MEDS ORDERED: LIDOCAINE MPF (2%) 20 MG/1 ML VIAL 5 ML ONE (16:40)
[2021-05-02] MEDS ORDERED: ONDANSETRON 4 MG/2 ML INJ ONE (16:40)
[2021-05-02] MEDS ORDERED: ROCURONIUM 50 MG/5 ML INJ IV ONE (16:40)
[2021-05-02] MEDS ORDERED: propofoL 200 MG/20 ML VIAL IV ONE (16:41)
[2021-05-02] MEDS ORDERED: SODIUM CHLORIDE 0.9% IRR 1,500 ML BOTTLE IR ONE (18:10)
[2021-05-02] MEDS ORDERED: GLYCOPYRROLATE 0.4 MG/2 ML INJ ONE (19:21)
[2021-05-02] MEDS ORDERED: NEOSTIGMINE 10MG/10 ML INJ MDV ONE (19:21)
[2021-05-02] MEDS ORDERED: LACTATED RINGERS 1,000 ML ONE (19:27)
--- NOTE | 2021-05-02 19:27 | Procedure Note ---
Date of procedure: 05/02/21 Pre-op diagnosis: acute appendicitis Post-op diagnosis: other (1) Acute appendicitis with abscess 2) Iatrogenic sigmoid colon injury) Procedure: 1) Diagnostic laparoscopy 2) Open appendectomy with drainage of appendiceal abscess 3) Open repair of iatrogenic sigmoid colon injury Description of procedure: Pt was placed supine on the OR table. GETA was administered. Abdomen was prepped and draped. A small infraumbilical incision was made and the peritoneal cavity carefully entered. A Lu port was inserted into the peritoneal cavity and pneumoperitoneum established. 5 mm suprapubic and LLQ ports were inserted into the peritoneal cavity under direct vision without incident. Pt was placed head and left side down. The sigmoid colon was noted to be densely adherent to the cecum. While attempting to free the sigmoid colon from the cecum, a 1.5 cm full thickness tear was created in the sigmoid colon without gross contamination. Because of this and because the sigmoid colon was still adherent to the cecum, I decided to convert to an open procedure. Peritoneal cavity was then entered via a vertical midline incision from the suprapubic area to just above the umbilicus. The sigmoid colon tear was identified. A mucosal repair was performed with a running 3-0 Vicryl. A seromuscular 2nd layer repair was then performed with multiple interrupted Limbert sutures of 3-0 silk. Attention was then directed to the cecum. The sigmoid colon was bluntly freed from the cecum with digital dissection. During this maneuver, a 1.5 cm abscess was encountered. This was collected for C&S and quickly suctioned without gross intraperitoneal contamination. Once the sigmoid colon was freed up, the appendix could still not be readily identified. The cecal area consisted of an inflamed tennis ball sized area of induration. The right colic attachments were incised and the cecum delivered to the midline. The retroperitoneal area was explored but there was no evidence of a retrocecal appendix. Slow, careful dissection (lasting about 1 hour) eventually resulted in identification of the appendix. The appendix was freed from adjacent tissue and a viable appendiceal stump identified. This was ligated with a 2-0 silk tie. Peritoneal cavity was irrigated with warm saline. Midline fascia was approximated with a running, looped #1 PDS. SQ tissue was packed open with a dilute Betadine moistened Kerlix roll followed by dry 4 X 4's and Medipore tape. Pt tolerated the procedure well. Pt was extubated in the OR and was taken to PACU in stable condition. Findings: The sigmoid colon was adherent to the cecal area. The appendix was difficult to identify, even using an open technique. There was a 1.5 cm abscess at the base of the appendix. The iatrogenic sigmoid colon injury was clean, linear and about 1.5 cm in length. Anesthesia: GETA Surgeon: ANA MEDLEY Estimated blood loss: minimal Pathology: list (Appendix) Specimen disposition: to lab Condition: stable Disposition: PACU
[2021-05-02] MEDS ORDERED: dexAMETHasone 20 MG/5 ML VIAL ONE (19:30)
[2021-05-02] MEDS: HYDROmorphone 1 MG/1 ML INJ IV PRN ×5 (19:50→20:45)
--- NOTE | 2021-05-02 20:14 | Post Anesthesia Evaluation ---
- Post Anesthesia Evaluation Patient Participated: Yes Airway Patent: Yes Stable Respiratory Function: Yes Nausea/Vomiting: No Temp > 96.8F: Yes Pain Manageable: Yes Adequeate Hydration: Yes Anesthesia Complications: No Block Receding Appropriately: Not Applicable Patient on Ventilator: No
[2021-05-02] MEDS ORDERED: HYDROmorphone 2 MG/1 ML INJ ONE (20:50)
[2021-05-02] MEDS ORDERED: hydrALAZINE 20 MG/1 ML INJ IV ONE (21:00)
--- NOTE | 2021-05-02 21:03 | Progress Note ---
Assessment and Plan - Patient Problems (1) Acute appendicitis, uncomplicated Current Visit: Yes Status: Acute Plan to address problem: Bowel rest, IV antibiotic therapy, CT scan abdomen and pelvis, surgery team consulted, serial abdominal exam, further care and intervention as per surgical team. Pain control, (2) HIV (human immunodeficiency virus infection) Current Visit: Yes Status: Acute Qualifiers: HIV symptom status: asymptomatic, with no history of HIV-related illness Qualified Code(s): Z21 - Asymptomatic human immunodeficiency virus [HIV] infection status Plan to address problem: Continue prehospital antiretroviral therapy, outpatient infectious disease follow-up. (3) Small bowel obstruction Current Visit: Yes Status: Acute Plan to address problem: CT scan abdomen pelvis, serial abdominal exam as per surgical team, supportive care, surgical intervention as per surgical team. Bowel rest, n.p.o. (4) DVT prophylaxis Current Visit: Yes Status: Acute Plan to address problem: SCD to bilateral lower extremities while in bed, patient is ambulatory (5) Advance care planning Current Visit: Yes Status: Acute Plan to address problem: Disease education conducted, care plan discussed, diagnosis discussed, prognosis discussed, patient is full code, patient knowledges understanding and agreement with care plan, +30 minutes. History Interval history: 60 YO Male HD #2 with acute appendicitis, HIV infection. Patient denies abdominal pain. Patient pending surgical intervention as per surgical team. No reported nursing events. Hospitalist Physical - Constitutional Vitals: Temp Pulse Resp BP Pulse Ox 97.6 F 87 20 161/98 95 05/02/21 20:35 05/02/21 20:50 05/02/21 20:50 05/02/21 20:50 05/02/21 20:50 General appearance: Present: mild distress - EENT Eyes: Present: PERRL, EOM intact ENT: hearing intact - Neck Neck: Present: supple - Respiratory Respiratory effort: normal Respiratory: bilateral: CTA - Cardiovascular Rhythm: regular Heart Sounds: Present: S1 & S2 - Extremities Extremities: no ischemia Peripheral Pulses: within normal limits - Abdominal General gastrointestinal: soft, tender, non-distended - Integumentary Integumentary: Present: clear, dry - Psychiatric Psychiatric: appropriate mood/affect, cooperative - Neurologic Neurologic: CNII-XII intact Results - Labs CBC & Chem 7: 05/02/21 08:32 05/02/21 08:32 Labs: Laboratory Last Values WBC 6.4 K/mm3 (4.5-11.0) 05/02/21 08:32 RBC 4.32 M/mm3 (3.65-5.03) 05/02/21 08:32 Hgb 12.9 gm/dl (11.8-15.2) D 05/02/21 08:32 Hct 36.9 % (35.5-45.6) D 05/02/21 08:32 MCV 86 fl (84-94) 05/02/21 08:32 MCH 30 pg (28-32) 05/02/21 08:32 MCHC 35 % (32-34) H 05/02/21 08:32 RDW 15.3 % (13.2-15.2) H 05/02/21 08:32 Plt Count 218 K/mm3 (140-440) 05/02/21 08:32 Lymph % (Auto) 27.1 % (13.4-35.0) 05/02/21 08:32 [place] % (Auto) 5.2 % (0.0-7.3) 05/02/21 08:32 Eos % (Auto) 3.8 % (0.0-4.3) 05/02/21 08:32 Baso % (Auto) 0.4 % (0.0-1.8) 05/02/21 08:32 Lymph # (Auto) 1.7 K/mm3 (1.2-5.4) 05/02/21 08:32 [place] # (Auto) 0.3 K/mm3 (0.0-0.8) 05/02/21 08:32 Eos # (Auto) 0.2 K/mm3 (0.0-0.4) 05/02/21 08:32 Baso # (Auto) 0.0 K/mm3 (0.0-0.1) 05/02/21 08:32 Seg Neutrophils % 63.5 % (40.0-70.0) 05/02/21 08:32 Seg Neutrophils # 4.0 K/mm3 (1.8-7.7) 05/02/21 08:32 Sodium 144 mmol/L (137-145) 05/02/21 08:32 Potassium 3.8 mmol/L (3.6-5.0) 05/02/21 08:32 Chloride 109.2 mmol/L (98-107) H 05/02/21 08:32 Carbon Dioxide 27 mmol/L (22-30) 05/02/21 08:32 Anion Gap 12 mmol/L 05/02/21 08:32 BUN 15 mg/dL (9-20) 05/02/21 08:32 Creatinine 1.2 mg/dL (0.8-1.3) 05/02/21 08:32 Estimated GFR > 60 ml/min 05/02/21 08:32 BUN/Creatinine Ratio 13 % 05/02/21 08:32 Glucose 73 mg/dL (75-100) L 05/02/21 08:32 Calcium 8.9 mg/dL (8.4-10.2) 05/02/21 08:32 Total Bilirubin 0.80 mg/dL (0.1-1.2) 04/30/21 19:52 AST 15 units/L (5-40) 04/30/21 19:52 ALT 13 units/L (7-56) 04/30/21 19:52 Alkaline Phosphatase 86 units/L (35-129) 04/30/21 19:52 Total Protein 9.1 g/dL (6.3-8.2) H 04/30/21 19:52 Albumin 3.8 g/dL (3.9-5) L 04/30/21 19:52 Albumin/Globulin Ratio 0.7 % 04/30/21 19:52 Lipase 25 units/L (13-60) 04/30/21 19:52 Urine Color Dory (Yellow) 04/30/21 Unknown Urine Turbidity Slightly-cloudy (Clear) 04/30/21 Unknown Urine pH 5.0 (5.0-7.0) 04/30/21 Unknown Ur Specific [place] 1.026 (1.003-1.030) 04/30/21 Unknown Urine Protein 100 mg/dl mg/dL (Negative) 04/30/21 Unknown Urine Glucose (UA) Neg mg/dL (Negative) 04/30/21 Unknown Urine Ketones Neg mg/dL (Negative) 04/30/21 Unknown Urine Blood Mod (Negative) 04/30/21 Unknown Urine Nitrite Neg (Negative) 04/30/21 Unknown Urine Bilirubin Neg (Negative) 04/30/21 Unknown Urine Urobilinogen 2.0 mg/dL (<2.0) 04/30/21 Unknown Ur Leukocyte Esterase Neg (Negative) 04/30/21 Unknown Urine WBC (Auto) 7.0 /HPF (0.0-6.0) H 04/30/21 Unknown Urine RBC (Auto) 6.0 /HPF (0.0-6.0) 04/30/21 Unknown U Epithel Cells (Auto) 1.0 /HPF (0-13.0) 04/30/21 Unknown Hyaline Casts 3 /LPF 04/30/21 Unknown Urine Mucus 3+ /HPF 04/30/21 Unknown Montoya/IV: Voiding Method Urinal Active Medications - Current Medications Current Medications: Generic Name Dose Route Start Last Admin Trade Name Freq PRN Reason Stop Dose Admin Acetaminophen 650 mg 05/01/21 15:01 Acetaminophen 325 Mg Tab PO Q4H PRN Pain MILD(1-3)/Fever >100.5/SMALLS Atazanavir 300 mg 05/02/21 10:00 05/02/21 12:39 Atazanavir 150 Mg Cap PO Not Given DAILY GULSHAN Emtricitabine 200 mg 05/02/21 10:00 05/02/21 12:29 Emtricitabine 200 Mg Cap PO Not Given QDAY GULSHAN Hydromorphone HCl 0.25 mg 05/02/21 20:01 05/02/21 20:45 Hydromorphone 1 Mg/1 Ml Inj IV 05/03/21 20:00 0.25 mg Q10MIN PRN Administration Pain, Moderate (4-6) Sodium Chloride 1,000 mls @ 125 mls/hr 05/01/21 15:15 05/02/21 12:23 Nacl 0.9% 1000 Ml IV 125 mls/hr DIRECT GULSHAN Administration Piperacillin Sod/Tazobactam Sod 3.375 gm in 50 mls @ 100 mls/hr 05/02/21 15:00 05/02/21 20:17 Zosyn/Ns 3.375gm/50ml IV 100 mls/hr Q6H GULSHAN Administration Protocol Morphine Sulfate 4 mg 05/02/21 19:33 Morphine 4 Mg/1 Ml Inj IV Q3H PRN Pain , Severe (7-10) Ondansetron HCl 4 mg 05/01/21 15:01 Ondansetron 4 Mg/2 Ml Inj IV Q8H PRN Nausea And Vomiting Ondansetron HCl 4 mg 05/02/21 16:30 Ondansetron 4 Mg/2 Ml Inj IV 05/03/21 16:29 ONCE PRN Nausea And Vomiting Ritonavir 100 mg 05/02/21 10:00 05/02/21 12:39 Ritonavir 100 Mg Tab PO Not Given QDAY GULSHAN Sodium Chloride 10 ml 05/01/21 22:00 05/02/21 12:24 Sodium Chloride 0.9% 10 Ml Flush Syringe IV 10 ml BID GULSHAN Administration Sodium Chloride 10 ml 05/01/21 15:01 Sodium Chloride 0.9% 10 Ml Flush Syringe IV PRN PRN LINE FLUSH Tenofovir Disoproxil Fumarate 300 mg 05/02/21 10:00 05/02/21 12:39 Tenofovir 300 Mg Tab PO Not Given QDAY GULSHAN Nutrition/Malnutrition Assess - Dietary Evaluation Nutrition/Malnutrition Findings: Nutrition Notes Start: 05/02/21 14:43 Freq: Status: Active Protocol: Document 05/02/21 14:43 (Rec: 05/02/21 14:51 [id number]) Nutrition Notes Need for Assessment generated from: 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 Pt reports not eating/drinking since the 04/26. Pt NPO for surgry this afternoon. Pt would like to speak with RD tomorrow to ensure diet advancement. He states he is very hungry. Current % PO Negligible Minimum of two criteria Yes Energy Intake (severe) < or equal to 50% Estimated Energy Requirement > or equal to 5 days Interpretation of Weight Loss (severe) >2% in 1 week #1 Nutrition Diagnosis Malnutrition Etiology SBO, acute appendicitis As Evidenced by Signs and Symptoms pt eating <50% of EER in >5 days, >2% wt loss in 1 week Is patient on ventilator? No Is Patient Ambulatory and/or Out of Bed Yes REE-([place]-ambulatory/OOB) [ 1941.511 NUTR.MSJOOB] Calculation Used for Recommendations Kristin Langford Additional Notes Protein: (1.2-1.5g/kg) 81-101g Fluid: 1 ml/kcal or per MD Nutrition Intervention Change Diet Order: Diet advancement as able Goal #1 Diet advancement Anticipated Discharge Needs: Regular Follow-Up By: 05/03/21 Additional Comments F/u: diet advancement and PO tolerance
[2021-05-02] MEDS: MORPHINE 4 MG/1 ML INJ IV PRN (23:23)
[2021-05-03] MEDS: PIPERACILLIN/TAZOBACTAM 3.375 3.375 GM/50 ML BAG IV SCH ×5 (03:24→21:26)
[2021-05-03] MEDS: HYDROmorphone 1 MG/1 ML INJ IV PRN (03:43)
--- NOTE | 2021-05-03 09:32 | Progress Note ---
Assessment and Plan - Patient Problems (1) Acute appendicitis, uncomplicated Current Visit: Yes Status: Acute (2) Acute appendicitis with appendiceal abscess Current Visit: Yes Status: Acute Plan to address problem: 1) Continue IV Zosyn 2) Begin dressing changes 3) Ambulate in halls qid 4) IS q1h [place] 5) F/u abscess C&S 6) Ice chips only Subjective Date of service: 05/03/21 Patient Reports: Positive: no new complaints, no flatus, no bowel movement, other (C/o mild nausea) Objective Vital Signs - 12hr 05/02/21 05/02/21 05/02/21 21:35 23:22 23:23 Temperature 97.8 F Pulse Rate 93 H 96 H 86 Respiratory 16 20 18 Rate Blood Pressure 149/63 155/101 155/101 O2 Sat by Pulse 99 99 Oximetry 05/03/21 05/03/21 05/03/21 00:00 03:43 03:51 Temperature 98.9 F Pulse Rate 86 110 H Respiratory 18 20 18 Rate Blood Pressure 140/92 O2 Sat by Pulse 98 98 Oximetry 05/03/21 05/03/21 07:28 08:28 Temperature 98.4 F Pulse Rate 102 H 102 H Respiratory 18 Rate Blood Pressure 144/93 O2 Sat by Pulse 98 100 Oximetry - Abdomen soft, bowel sounds hypoactive (Appropriately TTP), other (Appropriately TTP) - Labs 05/02/21 08:32 05/02/21 08:32 Diabetes panel 05/02/21 Range/Units 08:32 Sodium 144 (137-145) mmol/L Potassium 3.8 (3.6-5.0) mmol/L Chloride 109.2 H (98-107) mmol/L Carbon Dioxide 27 (22-30) mmol/L BUN 15 (9-20) mg/dL Creatinine 1.2 (0.8-1.3) mg/dL Glucose 73 L (75-100) mg/dL Calcium 8.9 (8.4-10.2) mg/dL Calcium panel 05/02/21 Range/Units 08:32 Calcium 8.9 (8.4-10.2) mg/dL Pituitary panel 05/02/21 Range/Units 08:32 Sodium 144 (137-145) mmol/L Potassium 3.8 (3.6-5.0) mmol/L Chloride 109.2 H (98-107) mmol/L Carbon Dioxide 27 (22-30) mmol/L BUN 15 (9-20) mg/dL Creatinine 1.2 (0.8-1.3) mg/dL Glucose 73 L (75-100) mg/dL Calcium 8.9 (8.4-10.2) mg/dL Adrenal panel 05/02/21 Range/Units 08:32 Sodium 144 (137-145) mmol/L Potassium 3.8 (3.6-5.0) mmol/L Chloride 109.2 H (98-107) mmol/L Carbon Dioxide 27 (22-30) mmol/L BUN 15 (9-20) mg/dL Creatinine 1.2 (0.8-1.3) mg/dL Glucose 73 L (75-100) mg/dL Calcium 8.9 (8.4-10.2) mg/dL
[2021-05-03] MEDS: MORPHINE 4 MG/1 ML INJ IV PRN ×3 (10:35→20:36)
--- NOTE | 2021-05-03 10:47 | Progress Note ---
Assessment and Plan Assessment and plan: -- Acute appendicitis with abscess Iatrogenic sigmoid colon injury Current Visit: Yes Status: Acute Surgery evaluated the patient s/p 1) Diagnostic laparoscopy 2) Open appendectomy with drainage of appendiceal abscess 3) Open repair of iatrogenic sigmoid colon injury Continue postop care patient is n.p.o. status Continue IV fluids, IV antibiotics Supportive care --Small bowel obstruction Current Visit: Yes Status: Acute Plan to address problem: CT scan abdomen pelvis, serial abdominal exam as per surgical team, supportive care, surgical intervention as per surgical team. Bowel rest, n.p.o. --History of HIV (human immunodeficiency virus infection) Current Visit: Yes Status: Chronic Continue prehospital antiretroviral therapy, outpatient infectious disease follow-up. Upon discharge --DVT prophylaxis Current Visit: Yes Status: Acute SCD to bilateral lower extremities while in bed, patient is ambulatory --Advance care planning Current Visit: Yes Status: Acute Disease education conducted, care plan discussed, diagnosis discussed, prognosis discussed, patient is full code, patient knowledges understanding and agreement with care plan, +30 minutes. History Interval history: I have seen and examined the patient at the bedside Patient's chart and medications reviewed Patient underwent open appendectomy retrocolic sigmoid: Injury Abscess base of the appendix. Patient complains of some pain Did not have flatus or bowel movement N.p.o. status Vital signs noted Hospitalist Physical - Constitutional Vitals: Temp Pulse Resp BP Pulse Ox 98.4 F 102 H 18 144/93 100 05/03/21 07:28 05/03/21 08:28 05/03/21 07:28 05/03/21 07:28 05/03/21 08:28 General appearance: Present: mild distress, well-nourished, obese - EENT Eyes: Present: PERRL, EOM intact - Neck Neck: Present: supple, normal ROM - Respiratory Respiratory effort: normal Respiratory: bilateral: diminished, negative: rales, rhonchi, wheezing - Cardiovascular Rhythm: regular Heart Sounds: Present: S1 & S2 - Extremities Extremities: no ischemia, No edema - Abdominal General gastrointestinal: soft, non-tender, non-distended, normal bowel sounds - Integumentary Integumentary: Present: clear, warm - Psychiatric Psychiatric: appropriate mood/affect, cooperative - Neurologic Neurologic: CNII-XII intact, moves all extremities Results - Labs CBC & Chem 7: 05/02/21 08:32 05/02/21 08:32 Labs: Laboratory Last Values WBC 6.4 K/mm3 (4.5-11.0) 05/02/21 08:32 RBC 4.32 M/mm3 (3.65-5.03) 05/02/21 08:32 Hgb 12.9 gm/dl (11.8-15.2) D 05/02/21 08:32 Hct 36.9 % (35.5-45.6) D 05/02/21 08:32 MCV 86 fl (84-94) 05/02/21 08:32 MCH 30 pg (28-32) 05/02/21 08:32 MCHC 35 % (32-34) H 05/02/21 08:32 RDW 15.3 % (13.2-15.2) H 05/02/21 08:32 Plt Count 218 K/mm3 (140-440) 05/02/21 08:32 Lymph % (Auto) 27.1 % (13.4-35.0) 05/02/21 08:32 [place] % (Auto) 5.2 % (0.0-7.3) 05/02/21 08:32 Eos % (Auto) 3.8 % (0.0-4.3) 05/02/21 08:32 Baso % (Auto) 0.4 % (0.0-1.8) 05/02/21 08:32 Lymph # (Auto) 1.7 K/mm3 (1.2-5.4) 05/02/21 08:32 [place] # (Auto) 0.3 K/mm3 (0.0-0.8) 05/02/21 08:32 Eos # (Auto) 0.2 K/mm3 (0.0-0.4) 05/02/21 08:32 Baso # (Auto) 0.0 K/mm3 (0.0-0.1) 05/02/21 08:32 Seg Neutrophils % 63.5 % (40.0-70.0) 05/02/21 08:32 Seg Neutrophils # 4.0 K/mm3 (1.8-7.7) 05/02/21 08:32 Sodium 144 mmol/L (137-145) 05/02/21 08:32 Potassium 3.8 mmol/L (3.6-5.0) 05/02/21 08:32 Chloride 109.2 mmol/L (98-107) H 05/02/21 08:32 Carbon Dioxide 27 mmol/L (22-30) 05/02/21 08:32 Anion Gap 12 mmol/L 05/02/21 08:32 BUN 15 mg/dL (9-20) 05/02/21 08:32 Creatinine 1.2 mg/dL (0.8-1.3) 05/02/21 08:32 Estimated GFR > 60 ml/min 05/02/21 08:32 BUN/Creatinine Ratio 13 % 05/02/21 08:32 Glucose 73 mg/dL (75-100) L 05/02/21 08:32 Calcium 8.9 mg/dL (8.4-10.2) 05/02/21 08:32 Total Bilirubin 0.80 mg/dL (0.1-1.2) 04/30/21 19:52 AST 15 units/L (5-40) 04/30/21 19:52 ALT 13 units/L (7-56) 04/30/21 19:52 Alkaline Phosphatase 86 units/L (35-129) 04/30/21 19:52 Total Protein 9.1 g/dL (6.3-8.2) H 04/30/21 19:52 Albumin 3.8 g/dL (3.9-5) L 04/30/21 19:52 Albumin/Globulin Ratio 0.7 % 04/30/21 19:52 Lipase 25 units/L (13-60) 04/30/21 19:52 Urine Color Dory (Yellow) 04/30/21 Unknown Urine Turbidity Slightly-cloudy (Clear) 04/30/21 Unknown Urine pH 5.0 (5.0-7.0) 04/30/21 Unknown Ur Specific [place] 1.026 (1.003-1.030) 04/30/21 Unknown Urine Protein 100 mg/dl mg/dL (Negative) 04/30/21 Unknown Urine Glucose (UA) Neg mg/dL (Negative) 04/30/21 Unknown Urine Ketones Neg mg/dL (Negative) 04/30/21 Unknown Urine Blood Mod (Negative) 04/30/21 Unknown Urine Nitrite Neg (Negative) 04/30/21 Unknown Urine Bilirubin Neg (Negative) 04/30/21 Unknown Urine Urobilinogen 2.0 mg/dL (<2.0) 04/30/21 Unknown Ur Leukocyte Esterase Neg (Negative) 04/30/21 Unknown Urine WBC (Auto) 7.0 /HPF (0.0-6.0) H 04/30/21 Unknown Urine RBC (Auto) 6.0 /HPF (0.0-6.0) 04/30/21 Unknown U Epithel Cells (Auto) 1.0 /HPF (0-13.0) 04/30/21 Unknown Hyaline Casts 3 /LPF 04/30/21 Unknown Urine Mucus 3+ /HPF 04/30/21 Unknown Montoya/IV: Voiding Method Urinal Active Medications - Current Medications Current Medications: Generic Name Dose Route Start Last Admin Trade Name Freq PRN Reason Stop Dose Admin Acetaminophen 650 mg 05/01/21 15:01 Acetaminophen 325 Mg Tab PO Q4H PRN Pain MILD(1-3)/Fever >100.5/SMALLS Atazanavir 300 mg 05/02/21 10:00 05/02/21 12:39 Atazanavir 150 Mg Cap PO Not Given DAILY GULSHAN Emtricitabine 200 mg 05/02/21 10:00 05/02/21 12:29 Emtricitabine 200 Mg Cap PO Not Given QDAY GULSHAN Hydromorphone HCl 0.25 mg 05/02/21 20:01 05/03/21 03:43 Hydromorphone 1 Mg/1 Ml Inj IV 05/03/21 20:00 0.25 mg Q10MIN PRN Administration Pain, Moderate (4-6) Sodium Chloride 1,000 mls @ 125 mls/hr 05/01/21 15:15 05/02/21 23:21 Nacl 0.9% 1000 Ml IV 125 mls/hr DIRECT GULSHAN Administration Piperacillin Sod/Tazobactam Sod 3.375 gm in 50 mls @ 100 mls/hr 05/02/21 15:00 05/03/21 10:35 Zosyn/Ns 3.375gm/50ml IV 100 mls/hr Q6H GULSHAN Administration Protocol Morphine Sulfate 4 mg 05/02/21 19:33 05/03/21 10:35 Morphine 4 Mg/1 Ml Inj IV 4 mg Q3H PRN Administration Pain , Severe (7-10) Ondansetron HCl 4 mg 05/01/21 15:01 Ondansetron 4 Mg/2 Ml Inj IV Q8H PRN Nausea And Vomiting Ondansetron HCl 4 mg 05/02/21 16:30 Ondansetron 4 Mg/2 Ml Inj IV 05/03/21 16:29 ONCE PRN Nausea And Vomiting Ritonavir 100 mg 05/02/21 10:00 05/02/21 12:39 Ritonavir 100 Mg Tab PO Not Given QDAY GULSHAN Sodium Chloride 10 ml 05/01/21 22:00 05/02/21 23:31 Sodium Chloride 0.9% 10 Ml Flush Syringe IV 10 ml BID GULSHAN Administration Sodium Chloride 10 ml 05/01/21 15:01 05/03/21 03:46 Sodium Chloride 0.9% 10 Ml Flush Syringe IV 10 ml PRN PRN Administration LINE FLUSH Sodium Hypochlorite 1 applic 05/03/21 10:00 Sodium Hypochlorite, Dakin's Full Strength (0.5%) 473 Ml Topical Soln TP Q12H PRN Wound Care Tenofovir Disoproxil Fumarate 300 mg 05/02/21 10:00 05/02/21 12:39 Tenofovir 300 Mg Tab PO Not Given QDAY GULSHAN Nutrition/Malnutrition Assess - Dietary Evaluation Nutrition/Malnutrition Findings: Nutrition Notes Start: 05/02/21 14:43 Freq: Status: Active Protocol: Document 05/02/21 14:43 (Rec: 05/02/21 14:51 [id number]) Nutrition Notes Need for Assessment generated from: 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 Pt reports not eating/drinking since the 04/26. Pt NPO for surgry this afternoon. Pt would like to speak with RD tomorrow to ensure diet advancement. He states he is very hungry. Current % PO Negligible Minimum of two criteria Yes Energy Intake (severe) < or equal to 50% Estimated Energy Requirement > or equal to 5 days Interpretation of Weight Loss (severe) >2% in 1 week #1 Nutrition Diagnosis Malnutrition Etiology SBO, acute appendicitis As Evidenced by Signs and Symptoms pt eating <50% of EER in >5 days, >2% wt loss in 1 week Is patient on ventilator? No Is Patient Ambulatory and/or Out of Bed Yes REE-([facility]-ambulatory/OOB) [ 1941.511 NUTR.MSJOOB] Calculation Used for Recommendations [facility] Additional Notes Protein: (1.2-1.5g/kg) 81-101g Fluid: 1 ml/kcal or per MD Nutrition Intervention Change Diet Order: Diet advancement as able Goal #1 Diet advancement Anticipated Discharge Needs: Regular Follow-Up By: 05/03/21 Additional Comments F/u: diet advancement and PO tolerance
[2021-05-03] MEDS: SODIUM CHLORIDE 0.9% 1000 ML 1,000 ML IV SCH (16:26)
[2021-05-03] MEDS: EMTRICITABINE 200 MG CAP PO SCH (16:27)
[2021-05-03] MEDS: RITONAVIR 100 MG TAB PO SCH (16:27)
[2021-05-03] MEDS: ATAZANAVIR 150 MG CAP PO SCH (16:27)
[2021-05-03] MEDS: TENOFOVIR 300 MG TAB PO SCH (16:28)
[2021-05-04] MEDS: PIPERACILLIN/TAZOBACTAM 3.375 3.375 GM/50 ML BAG IV SCH ×4 (02:27→22:14)
[2021-05-04] MEDS: MORPHINE 4 MG/1 ML INJ IV PRN ×3 (02:27→15:55)
[2021-05-04] MEDS: SODIUM CHLORIDE 0.9% 1000 ML 1,000 ML IV SCH ×3 (06:22→22:15)
[2021-05-04 06:34] LABS: Basophils % (Auto) 0.3 % (0.0-1.8); Eosinophils # (Auto) 0.2 K/mm3 (0.0-0.4); Eosinophils % (Auto) 1.9 % (0.0-4.3); Hematocrit 40.2 % (35.5-45.6); Hemoglobin 13.9 gm/dl (11.8-15.2); Lymphocytes # (Auto) 2.1 K/mm3 (1.2-5.4); Lymphocytes % (Auto) 25.4 % (13.4-35.0); Mean Corpuscular HGB Conc 35 % (32-34); Mean Corpuscular Volume 86 fl (84-94); Monocytes # (Auto) 0.7 K/mm3 (0.0-0.8); Monocytes % (Auto) 8.3 % (0.0-7.3); Platelet Count 234 K/mm3 (140-440); Red Blood Count 4.69 M/mm3 (3.65-5.03)
[2021-05-04 06:37] LABS: BUN/Creatinine Ratio 11; Blood Urea Nitrogen 10 mg/dL (9-20); Calcium 8.6 mg/dL (8.4-10.2); Hemolysis Index 3
[2021-05-04] MEDS: RITONAVIR 100 MG TAB PO SCH (09:49)
[2021-05-04] MEDS: ATAZANAVIR 150 MG CAP PO SCH (09:50)
[2021-05-04] MEDS: EMTRICITABINE 200 MG CAP PO SCH (09:50)
[2021-05-04] MEDS: TENOFOVIR 300 MG TAB PO SCH (09:58)
--- NOTE | 2021-05-04 10:42 | Progress Note ---
Assessment and Plan - Patient Problems (1) Acute appendicitis, uncomplicated Current Visit: Yes Status: Acute (2) Acute appendicitis with appendiceal abscess Current Visit: Yes Status: Acute Plan to address problem: 1) FLD 2) Percocet 3) Ambulate in halls 4) Pt to learn wound care 5) F/u abscess C&S 6) Possible discharge tomorrow Subjective Date of service: 05/04/21 Patient Reports: Positive: no new complaints, feels better, pain is less, tolerating liquids well, no flatus, no bowel movement Objective Vital Signs - 12hr 05/03/21 05/03/21 05/04/21 23:12 23:20 03:27 Temperature 98.1 F 98.0 F Pulse Rate 106 H 98 H Respiratory 16 14 Rate Blood Pressure 143/92 146/89 O2 Sat by Pulse 99 94 96 Oximetry 05/04/21 04:00 Temperature Pulse Rate 98 H Respiratory Rate Blood Pressure O2 Sat by Pulse Oximetry - Abdomen soft, bowel sounds normal (Minimally TTP) - Labs 05/04/21 05:49 05/04/21 05:49 Diabetes panel 05/04/21 Range/Units 05:49 Sodium 139 (137-145) mmol/L Potassium 3.6 (3.6-5.0) mmol/L Chloride 105.3 (98-107) mmol/L Carbon Dioxide 22 (22-30) mmol/L BUN 10 (9-20) mg/dL Creatinine 0.9 (0.8-1.3) mg/dL Glucose 77 (75-100) mg/dL Calcium 8.6 (8.4-10.2) mg/dL Calcium panel 05/04/21 Range/Units 05:49 Calcium 8.6 (8.4-10.2) mg/dL Pituitary panel 05/04/21 Range/Units 05:49 Sodium 139 (137-145) mmol/L Potassium 3.6 (3.6-5.0) mmol/L Chloride 105.3 (98-107) mmol/L Carbon Dioxide 22 (22-30) mmol/L BUN 10 (9-20) mg/dL Creatinine 0.9 (0.8-1.3) mg/dL Glucose 77 (75-100) mg/dL Calcium 8.6 (8.4-10.2) mg/dL Adrenal panel 08/25/21 Range/Units 05:49 Sodium 139 (137-145) mmol/L Potassium 3.6 (3.6-5.0) mmol/L Chloride 105.3 (98-107) mmol/L Carbon Dioxide 22 (22-30) mmol/L BUN 10 (9-20) mg/dL Creatinine 0.9 (0.8-1.3) mg/dL Glucose 77 (75-100) mg/dL Calcium 8.6 (8.4-10.2) mg/dL
[2021-05-04] MEDS: oxyCODONE /ACETAMINOPHEN 5-325MG TAB PO PRN ×2 (18:14→22:15)
--- NOTE | 2021-05-04 18:53 | Progress Note ---
Assessment and Plan Assessment and plan: -- Acute appendicitis with abscess Iatrogenic sigmoid colon injury Current Visit: Yes Status: Acute Surgery evaluated the patient s/p 1) Diagnostic laparoscopy 2) Open appendectomy with drainage of appendiceal abscess 3) Open repair of iatrogenic sigmoid colon injury Continue postop care Patient tolerated clear liquids, advance to full liquids today Continue IV fluids, IV antibiotics Supportive care --Small bowel obstruction Current Visit: Yes Status: Acute CT scan abdomen pelvis, serial abdominal exam as per surgical team, supportive care, surgical intervention as per surgical team. Advance diet to full liquid --History of HIV (human immunodeficiency virus infection) Current Visit: Yes Status: Chronic Continue prehospital antiretroviral therapy, outpatient infectious disease follow-up. Upon discharge --DVT prophylaxis Current Visit: Yes Status: Acute SCD to bilateral lower extremities while in bed, patient is ambulatory We will closely monitor the patient and adjust management as needed Crease ambulation as tolerated Possible discharge tomorrow if patient is stable and cleared by surgeon Plan of care reviewed with the patient and his nurse History Interval history: I seen and examined the patient at the bedside this morning during morning rounds Patient's chart and medications reviewed Patient tolerated clear liquids, pain little less Vital signs noted Hospitalist Physical - Constitutional Vitals: Temp Pulse Resp BP Pulse Ox 98.4 F 101 H 18 159/98 99 05/04/21 09:07 05/04/21 09:07 05/04/21 09:07 05/04/21 09:07 05/04/21 11:00 General appearance: Present: no acute distress, well-nourished, obese - EENT Eyes: Present: PERRL, EOM intact - Neck Neck: Present: supple, normal ROM - Respiratory Respiratory effort: normal Respiratory: bilateral: diminished, negative: rales, rhonchi, wheezing - Cardiovascular Rhythm: regular Heart Sounds: Present: S1 & S2 - Extremities Extremities: no ischemia, No edema - Abdominal General gastrointestinal: soft, non-tender, non-distended, normal bowel sounds, other (Surgical dressing in place) - Integumentary Integumentary: Present: clear, warm - Psychiatric Psychiatric: appropriate mood/affect, cooperative - Neurologic Neurologic: CNII-XII intact, moves all extremities Results - Labs CBC & Chem 7: 05/04/21 05:49 05/04/21 05:49 Labs: Laboratory Last Values WBC 8.1 K/mm3 (4.5-11.0) 05/04/21 05:49 RBC 4.69 M/mm3 (3.65-5.03) 05/04/21 05:49 Hgb 13.9 gm/dl (11.8-15.2) 05/04/21 05:49 Hct 40.2 % (35.5-45.6) 05/04/21 05:49 MCV 86 fl (84-94) 05/04/21 05:49 MCH 30 pg (28-32) 05/04/21 05:49 MCHC 35 % (32-34) H 05/04/21 05:49 RDW 15.0 % (13.2-15.2) 05/04/21 05:49 Plt Count 234 K/mm3 (140-440) 05/04/21 05:49 Lymph % (Auto) 25.4 % (13.4-35.0) 05/04/21 05:49 [place] % (Auto) 8.3 % (0.0-7.3) H 05/04/21 05:49 Eos % (Auto) 1.9 % (0.0-4.3) 05/04/21 05:49 Baso % (Auto) 0.3 % (0.0-1.8) 05/04/21 05:49 Lymph # (Auto) 2.1 K/mm3 (1.2-5.4) 05/04/21 05:49 [place] # (Auto) 0.7 K/mm3 (0.0-0.8) 05/04/21 05:49 Eos # (Auto) 0.2 K/mm3 (0.0-0.4) 05/04/21 05:49 Baso # (Auto) 0.0 K/mm3 (0.0-0.1) 05/04/21 05:49 Seg Neutrophils % 64.1 % (40.0-70.0) 05/04/21 05:49 Seg Neutrophils # 5.2 K/mm3 (1.8-7.7) 05/04/21 05:49 Sodium 139 mmol/L (137-145) 05/04/21 05:49 Potassium 3.6 mmol/L (3.6-5.0) 05/04/21 05:49 Chloride 105.3 mmol/L (98-107) 05/04/21 05:49 Carbon Dioxide 22 mmol/L (22-30) 05/04/21 05:49 Anion Gap 15 mmol/L 05/04/21 05:49 BUN 10 mg/dL (9-20) 05/04/21 05:49 Creatinine 0.9 mg/dL (0.8-1.3) 05/04/21 05:49 Estimated GFR > 60 ml/min 05/04/21 05:49 BUN/Creatinine Ratio 11 % 05/04/21 05:49 Glucose 77 mg/dL (75-100) 05/04/21 05:49 Calcium 8.6 mg/dL (8.4-10.2) 05/04/21 05:49 Total Bilirubin 0.80 mg/dL (0.1-1.2) 04/30/21 19:52 AST 15 units/L (5-40) 04/30/21 19:52 ALT 13 units/L (7-56) 04/30/21 19:52 Alkaline Phosphatase 86 units/L (35-129) 04/30/21 19:52 Total Protein 9.1 g/dL (6.3-8.2) H 04/30/21 19:52 Albumin 3.8 g/dL (3.9-5) L 04/30/21 19:52 Albumin/Globulin Ratio 0.7 % 04/30/21 19:52 Lipase 25 units/L (13-60) 04/30/21 19:52 Urine Color Dory (Yellow) 04/30/21 Unknown Urine Turbidity Slightly-cloudy (Clear) 04/30/21 Unknown Urine pH 5.0 (5.0-7.0) 04/30/21 Unknown Ur Specific [place] 1.026 (1.003-1.030) 04/30/21 Unknown Urine Protein 100 mg/dl mg/dL (Negative) 04/30/21 Unknown Urine Glucose (UA) Neg mg/dL (Negative) 04/30/21 Unknown Urine Ketones Neg mg/dL (Negative) 04/30/21 Unknown Urine Blood Mod (Negative) 04/30/21 Unknown Urine Nitrite Neg (Negative) 04/30/21 Unknown Urine Bilirubin Neg (Negative) 04/30/21 Unknown Urine Urobilinogen 2.0 mg/dL (<2.0) 04/30/21 Unknown Ur Leukocyte Esterase Neg (Negative) 04/30/21 Unknown Urine WBC (Auto) 7.0 /HPF (0.0-6.0) H 04/30/21 Unknown Urine RBC (Auto) 6.0 /HPF (0.0-6.0) 04/30/21 Unknown U Epithel Cells (Auto) 1.0 /HPF (0-13.0) 04/30/21 Unknown Hyaline Casts 3 /LPF 04/30/21 Unknown Urine Mucus 3+ /HPF 04/30/21 Unknown Microbiology: Microbiology 05/02/21 Unknown Abdomen Surgical Culture - Preliminary Beta Hemolytic Strep Group C Gram Negative Deepak 05/02/21 Unknown Abdomen Anaerobic Culture - Preliminary Montoya/IV: Voiding Method Urinal Active Medications - Current Medications Current Medications: Generic Name Dose Route Start Last Admin Trade Name Freq PRN Reason Stop Dose Admin Acetaminophen 650 mg 05/01/21 15:01 Acetaminophen 325 Mg Tab PO Q4H PRN Pain MILD(1-3)/Fever >100.5/SMALLS Atazanavir 300 mg 05/02/21 10:00 05/04/21 09:50 Atazanavir 150 Mg Cap PO 300 mg DAILY GULSHAN Administration Emtricitabine 200 mg 05/02/21 10:00 05/04/21 09:50 Emtricitabine 200 Mg Cap PO 200 mg QDAY GULSHAN Administration Sodium Chloride 1,000 mls @ 125 mls/hr 05/01/21 15:15 05/04/21 16:11 Nacl 0.9% 1000 Ml IV 125 mls/hr DIRECT GULSHAN Administration Piperacillin Sod/Tazobactam Sod 3.375 gm in 50 mls @ 100 mls/hr 05/02/21 15:00 05/04/21 16:11 Zosyn/Ns 3.375gm/50ml IV 100 mls/hr Q6H GULSHAN Administration Protocol Morphine Sulfate 4 mg 05/02/21 19:33 05/04/21 15:55 Morphine 4 Mg/1 Ml Inj IV 4 mg Q3H PRN Administration Pain , Severe (7-10) Ondansetron HCl 4 mg 05/01/21 15:01 Ondansetron 4 Mg/2 Ml Inj IV Q8H PRN Nausea And Vomiting Oxycodone/Acetaminophen 2 tab 05/04/21 11:00 05/04/21 18:14 Oxycodone /Acetaminophen 5-325mg Tab PO 2 tab Q4H PRN Administration Pain, Moderate (4-6) Ritonavir 100 mg 05/02/21 10:00 05/04/21 09:49 Ritonavir 100 Mg Tab PO 100 mg QDAY GULSHAN Administration Sodium Chloride 10 ml 05/01/21 22:00 05/04/21 09:53 Sodium Chloride 0.9% 10 Ml Flush Syringe IV 10 ml BID GULSHAN Administration Sodium Chloride 10 ml 05/01/21 15:01 05/03/21 03:46 Sodium Chloride 0.9% 10 Ml Flush Syringe IV 10 ml PRN PRN Administration LINE FLUSH Sodium Hypochlorite 1 applic 05/03/21 10:00 Sodium Hypochlorite, Dakin's Full Strength (0.5%) 473 Ml Topical Soln TP Q12H PRN Wound Care Tenofovir Disoproxil Fumarate 300 mg 05/02/21 10:00 05/04/21 09:58 Tenofovir 300 Mg Tab PO Not Given QDAY GULSHAN Nutrition/Malnutrition Assess - Dietary Evaluation Nutrition/Malnutrition Findings: Nutrition Notes Start: 05/02/21 14:43 Freq: Status: Active Protocol: Document 05/03/21 11:15 MARIPOSA (Rec: 05/03/21 11:16 [facility] [id number]) Nutrition Notes Initial or Follow up Brief Note Current Diet NPO Subjective/Other Information Pt remains on bowel rest. Pt s/p appendectomy and repair of sigmoid colon injury. Nutrition Intervention Follow-Up By: 05/05/21 Additional Comments F/U: diet advancement, POC
[2021-05-05] MEDS: oxyCODONE /ACETAMINOPHEN 5-325MG TAB PO PRN (02:20)
[2021-05-05] MEDS: PIPERACILLIN/TAZOBACTAM 3.375 3.375 GM/50 ML BAG IV SCH ×4 (02:20→23:06)
[2021-05-05 05:41] LABS: Basophils % (Auto) 0.5 % (0.0-1.8); Eosinophils # (Auto) 0.2 K/mm3 (0.0-0.4); Eosinophils % (Auto) 3.7 % (0.0-4.3); Hematocrit 40.8 % (35.5-45.6); Hemoglobin 14.1 gm/dl (11.8-15.2); Lymphocytes # (Auto) 1.5 K/mm3 (1.2-5.4); Lymphocytes % (Auto) 26.3 % (13.4-35.0); Mean Corpuscular HGB Conc 35 % (32-34); Mean Corpuscular Volume 86 fl (84-94); Monocytes # (Auto) 0.6 K/mm3 (0.0-0.8); Monocytes % (Auto) 10.9 % (0.0-7.3); Platelet Count 234 K/mm3 (140-440); Red Blood Count 4.77 M/mm3 (3.65-5.03); Red Cell Distribution Width 15.2 % (13.2-15.2)
[2021-05-05 05:56] LABS: BUN/Creatinine Ratio 9; Blood Urea Nitrogen 7 mg/dL (9-20); Calcium 9.1 mg/dL (8.4-10.2); Hemolysis Index 2
[2021-05-05] MEDS: MORPHINE 4 MG/1 ML INJ IV PRN ×2 (11:25→18:52)
[2021-05-05] MEDS: EMTRICITABINE 200 MG CAP PO SCH (11:30)
[2021-05-05] MEDS: ATAZANAVIR 150 MG CAP PO SCH (11:30)
[2021-05-05] MEDS: RITONAVIR 100 MG TAB PO SCH (11:31)
[2021-05-05] MEDS: TENOFOVIR 300 MG TAB PO SCH (11:31)
[2021-05-05] MEDS: ONDANSETRON 4 MG/2 ML INJ IV PRN (11:43)
--- NOTE | 2021-05-05 12:08 | Progress Note ---
Assessment and Plan - Patient Problems (1) Acute appendicitis, uncomplicated Current Visit: Yes Status: Acute (2) Acute appendicitis with appendiceal abscess Current Visit: Yes Status: Acute Plan to address problem: 1) Okay for discharge from my perspective. Pt says he doesn't have a ride home until tomorrow. 2) F/u in my office in 2 weeks. 3) No lifting or straining 4) Regular diet 5) Pt to do daily dressing changes with 0.5% Dakin's solution 6) Discharge Rx's: 1) Percocet 5/325, 1-2 po q4h prn pain, #40. 2) Cipro, 500 mg po bid X 7 days, #14 (unless indicated otherwise by C&S results). 7) I will be out of town tomorrow and will not round on pt. Hospitalist can call me if any questions arise at [phone]. Subjective Date of service: 05/05/21 Patient Reports: Positive: no new complaints, feels better, pain is less, flatus (Tolerating FLD without problems. Tolerated dressing change without problems.) Objective Vital Signs - 12hr 05/05/21 05/05/21 05/05/21 03:04 07:50 11:28 Temperature 98.0 F 98.0 F 97.9 F Pulse Rate 87 104 H 93 H Respiratory 14 18 18 Rate Blood Pressure 132/84 137/101 146/93 O2 Sat by Pulse 97 96 95 Oximetry - Abdomen soft, bowel sounds normal (NT, ND) - Labs 05/05/21 04:37 05/05/21 04:37 Diabetes panel 05/05/21 Range/Units 04:37 Sodium 138 (137-145) mmol/L Potassium 3.7 (3.6-5.0) mmol/L Chloride 102.1 (98-107) mmol/L Carbon Dioxide 28 (22-30) mmol/L BUN 7 L (9-20) mg/dL Creatinine 0.8 (0.8-1.3) mg/dL Glucose 92 (75-100) mg/dL Calcium 9.1 (8.4-10.2) mg/dL Calcium panel 05/05/21 Range/Units 04:37 Calcium 9.1 (8.4-10.2) mg/dL Pituitary panel 05/05/21 Range/Units 04:37 Sodium 138 (137-145) mmol/L Potassium 3.7 (3.6-5.0) mmol/L Chloride 102.1 (98-107) mmol/L Carbon Dioxide 28 (22-30) mmol/L BUN 7 L (9-20) mg/dL Creatinine 0.8 (0.8-1.3) mg/dL Glucose 92 (75-100) mg/dL Calcium 9.1 (8.4-10.2) mg/dL Adrenal panel 05/05/21 Range/Units 04:37 Sodium 138 (137-145) mmol/L Potassium 3.7 (3.6-5.0) mmol/L Chloride 102.1 (98-107) mmol/L Carbon Dioxide 28 (22-30) mmol/L BUN 7 L (9-20) mg/dL Creatinine 0.8 (0.8-1.3) mg/dL Glucose 92 (75-100) mg/dL Calcium 9.1 (8.4-10.2) mg/dL
[2021-05-05] MEDS: SODIUM CHLORIDE 0.9% 1000 ML 1,000 ML IV SCH ×2 (12:09→22:00)
--- NOTE | 2021-05-05 15:18 | Progress Note ---
Assessment and Plan Assessment and plan: -- Acute appendicitis with abscess Iatrogenic sigmoid colon injury Current Visit: Yes Status: Acute Surgery evaluated the patient s/p 1) Diagnostic laparoscopy 2) Open appendectomy with drainage of appendiceal abscess 3) Open repair of iatrogenic sigmoid colon injury Continue postop care Surgeon evaluated the patient today, cleared for discharge today However patient reported that he did not have a ride Hence discharge postponed to tomorrow by Dr. Novak's Diet advanced to regular diet Continue IV fluids, IV antibiotics Supportive care --Small bowel obstruction Current Visit: Yes Status: Acute CT scan abdomen pelvis, serial abdominal exam as per surgical team, supportive care, surgical intervention as per surgical team. Advance diet to full liquid --History of HIV (human immunodeficiency virus infection) Current Visit: Yes Status: Chronic Continue prehospital antiretroviral therapy, outpatient infectious disease follow-up. Upon discharge --DVT prophylaxis Current Visit: Yes Status: Acute SCD to bilateral lower extremities while in bed, patient is ambulatory We will closely monitor the patient and adjust management as needed Crease ambulation as tolerated Possible discharge tomorrow if patient is stable and cleared by surgeon Plan of care reviewed with the patient and his nurse 05/05/2021; Dr. Novak evaluated the patient, cleared for discharge for tomorrow However no ride available Plan of care reviewed with the patient and his nurse I also discussed the DC planning with case management Possible discharge tomorrow morning if stable History Interval history: I have seen and examined the patient at the bedside this morning Patient's chart and medications reviewed Patient complains of pain and asking for more morphine Also has mild nausea Vital signs noted Hospitalist Physical - Constitutional Vitals: Temp Pulse Resp BP Pulse Ox 97.9 F 93 H 18 146/93 95 05/05/21 11:28 05/05/21 11:28 05/05/21 11:28 05/05/21 11:28 05/05/21 11:28 General appearance: Present: mild distress, well-nourished, obese - EENT Eyes: Present: PERRL, EOM intact ENT: hearing intact, clear oral mucosa, dentition normal - Respiratory Respiratory effort: normal Respiratory: bilateral: diminished, rales, negative: rhonchi, wheezing - Cardiovascular Rhythm: regular Heart Sounds: Present: S1 & S2 - Extremities Extremities: no ischemia, No edema - Abdominal General gastrointestinal: soft, non-tender, non-distended, normal bowel sounds - Integumentary Integumentary: Present: clear, warm - Psychiatric Psychiatric: appropriate mood/affect, cooperative - Neurologic Neurologic: CNII-XII intact, moves all extremities Results - Labs CBC & Chem 7: 05/05/21 04:37 05/05/21 04:37 Labs: Laboratory Last Values WBC 5.8 K/mm3 (4.5-11.0) 05/05/21 04:37 RBC 4.77 M/mm3 (3.65-5.03) 05/05/21 04:37 Hgb 14.1 gm/dl (11.8-15.2) 05/05/21 04:37 Hct 40.8 % (35.5-45.6) 05/05/21 04:37 MCV 86 fl (84-94) 05/05/21 04:37 MCH 30 pg (28-32) 05/05/21 04:37 MCHC 35 % (32-34) H 05/05/21 04:37 RDW 15.2 % (13.2-15.2) 05/05/21 04:37 Plt Count 234 K/mm3 (140-440) 05/05/21 04:37 Lymph % (Auto) 26.3 % (13.4-35.0) 05/05/21 04:37 [place] % (Auto) 10.9 % (0.0-7.3) H 05/05/21 04:37 Eos % (Auto) 3.7 % (0.0-4.3) 05/05/21 04:37 Baso % (Auto) 0.5 % (0.0-1.8) 05/05/21 04:37 Lymph # (Auto) 1.5 K/mm3 (1.2-5.4) 05/05/21 04:37 [place] # (Auto) 0.6 K/mm3 (0.0-0.8) 05/05/21 04:37 Eos # (Auto) 0.2 K/mm3 (0.0-0.4) 05/05/21 04:37 Baso # (Auto) 0.0 K/mm3 (0.0-0.1) 05/05/21 04:37 Seg Neutrophils % 58.6 % (40.0-70.0) 05/05/21 04:37 Seg Neutrophils # 3.4 K/mm3 (1.8-7.7) 05/05/21 04:37 Sodium 138 mmol/L (137-145) 05/05/21 04:37 Potassium 3.7 mmol/L (3.6-5.0) 05/05/21 04:37 Chloride 102.1 mmol/L (98-107) 05/05/21 04:37 Carbon Dioxide 28 mmol/L (22-30) 05/05/21 04:37 Anion Gap 12 mmol/L 05/05/21 04:37 BUN 7 mg/dL (9-20) L 05/05/21 04:37 Creatinine 0.8 mg/dL (0.8-1.3) 05/05/21 04:37 Estimated GFR > 60 ml/min 05/05/21 04:37 BUN/Creatinine Ratio 9 % 05/05/21 04:37 Glucose 92 mg/dL (75-100) 05/05/21 04:37 Calcium 9.1 mg/dL (8.4-10.2) 05/05/21 04:37 Total Bilirubin 0.80 mg/dL (0.1-1.2) 04/30/21 19:52 AST 15 units/L (5-40) 04/30/21 19:52 ALT 13 units/L (7-56) 04/30/21 19:52 Alkaline Phosphatase 86 units/L (35-129) 04/30/21 19:52 Total Protein 9.1 g/dL (6.3-8.2) H 04/30/21 19:52 Albumin 3.8 g/dL (3.9-5) L 04/30/21 19:52 Albumin/Globulin Ratio 0.7 % 04/30/21 19:52 Lipase 25 units/L (13-60) 04/30/21 19:52 Urine Color [place] (Yellow) 04/30/21 Unknown Urine Turbidity Slightly-cloudy (Clear) 04/30/21 Unknown Urine pH 5.0 (5.0-7.0) 04/30/21 Unknown Ur Specific [place] 1.026 (1.003-1.030) 04/30/21 Unknown Urine Protein 100 mg/dl mg/dL (Negative) 04/30/21 Unknown Urine Glucose (UA) Neg mg/dL (Negative) 04/30/21 Unknown Urine Ketones Neg mg/dL (Negative) 04/30/21 Unknown Urine Blood Mod (Negative) 04/30/21 Unknown Urine Nitrite Neg (Negative) 04/30/21 Unknown Urine Bilirubin Neg (Negative) 04/30/21 Unknown Urine Urobilinogen 2.0 mg/dL (<2.0) 04/30/21 Unknown Ur Leukocyte Esterase Neg (Negative) 04/30/21 Unknown Urine WBC (Auto) 7.0 /HPF (0.0-6.0) H 04/30/21 Unknown Urine RBC (Auto) 6.0 /HPF (0.0-6.0) 04/30/21 Unknown U Epithel Cells (Auto) 1.0 /HPF (0-13.0) 04/30/21 Unknown Hyaline Casts 3 /LPF 04/30/21 Unknown Urine Mucus 3+ /HPF 04/30/21 Unknown Microbiology: Microbiology 05/02/21 Unknown Abdomen Surgical Culture - Preliminary Beta Hemolytic Strep Group C Gram Negative Deepak Montoya/IV: Voiding Method Urinal Active Medications - Current Medications Current Medications: Generic Name Dose Route Start Last Admin Trade Name Freq PRN Reason Stop Dose Admin Acetaminophen 650 mg 05/01/21 15:01 Acetaminophen 325 Mg Tab PO Q4H PRN Pain MILD(1-3)/Fever >100.5/SMALLS Atazanavir 300 mg 05/02/21 10:00 05/05/21 11:30 Atazanavir 150 Mg Cap PO Not Given DAILY GULSHAN Emtricitabine 200 mg 05/02/21 10:00 05/05/21 11:30 Emtricitabine 200 Mg Cap PO Not Given QDAY GULSHAN Sodium Chloride 1,000 mls @ 125 mls/hr 05/01/21 15:15 05/05/21 12:09 Nacl 0.9% 1000 Ml IV 125 mls/hr DIRECT GULSHAN Administration Piperacillin Sod/Tazobactam Sod 3.375 gm in 50 mls @ 100 mls/hr 05/02/21 15:00 05/05/21 12:08 Zosyn/Ns 3.375gm/50ml IV 100 mls/hr Q6H GULSHAN Administration Protocol Magnesium Hydroxide 30 ml 05/05/21 13:00 Magnesium Hydroxide (Mom) Oral Liqd Udc PO QDAY PRN Constipation Morphine Sulfate 4 mg 05/02/21 19:33 05/05/21 11:25 Morphine 4 Mg/1 Ml Inj IV 4 mg Q3H PRN Administration Pain , Severe (7-10) Ondansetron HCl 4 mg 05/01/21 15:01 05/05/21 11:43 Ondansetron 4 Mg/2 Ml Inj IV 4 mg Q8H PRN Administration Nausea And Vomiting Oxycodone/Acetaminophen 2 tab 05/04/21 11:00 05/05/21 02:20 Oxycodone /Acetaminophen 5-325mg Tab PO 2 tab Q4H PRN Administration Pain, Moderate (4-6) Ritonavir 100 mg 05/02/21 10:00 05/05/21 11:31 Ritonavir 100 Mg Tab PO Not Given QDAY GULSHAN Sodium Chloride 10 ml 05/01/21 22:00 05/05/21 11:29 Sodium Chloride 0.9% 10 Ml Flush Syringe IV 10 ml BID GULSHAN Administration Sodium Chloride 10 ml 05/01/21 15:01 05/03/21 03:46 Sodium Chloride 0.9% 10 Ml Flush Syringe IV 10 ml PRN PRN Administration LINE FLUSH Sodium Hypochlorite 1 applic 05/03/21 10:00 Sodium Hypochlorite, Dakin's Full Strength (0.5%) 473 Ml Topical Soln TP Q12H PRN Wound Care Tenofovir Disoproxil Fumarate 300 mg 05/02/21 10:00 05/05/21 11:31 Tenofovir 300 Mg Tab PO Not Given QDAY [facility] Nutrition/Malnutrition Assess - Dietary Evaluation Nutrition/Malnutrition Findings: Nutrition Notes Start: 05/02/21 14:43 Freq: Status: Active Protocol: Document 05/05/21 12:49 MARIPOSA (Rec: 05/05/21 12:50 MARIPOSA [id number]) Nutrition Notes Initial or Follow up Brief Note Current Diet [place] Weight change and time frame Pt tolerating PO diet. May D/ C tomorrow. Nutrition Intervention Follow-Up By: 05/09/21 Additional Comments F/U: intakes, diet advancement
--- NOTE | 2021-05-05 15:33 | Discharge Summary ---
Providers - Providers Date of Admission: 05/03/21 11:28 Date of discharge: 05/06/21 Attending physician: BEBE FLORES 05/01/21 14:55 Consult to Physician [CONS] Urgent Comment: Consulting Provider: ANA NOVAK Physician Instructions: Reason For Exam: Acute uncomplicated appendicitis , sbo Hospitalization Condition: Stable Core Measure Documentation - Palliative Care Palliative Care/ Comfort Measures: Not Applicable - Core Measures Any of the following diagnoses?: none Exam - Constitutional Vitals: Temp Pulse Resp BP Pulse Ox 97.9 F 93 H 18 146/93 95 05/05/21 11:28 05/05/21 11:28 05/05/21 11:28 05/05/21 11:28 05/05/21 11:28 Plan Activity: advance as tolerated Diet: regular Additional Instructions: F/u in Dr. Novak office in 2 weeks. No lifting or straining. Regular diet as tolerated. Advised pt to do daily dressing changes with 0.5% Dakin's solution Follow up with: CARO PHELAN [Other] - 3-5 Days ANA NOVAK MD [Staff Physician] - 14 Days Prescriptions: Ciprofloxacin HCl 500 mg PO BID #14 tablet oxyCODONE /ACETAMINOPHEN [Percocet 5/325 mg] 1 tab PO Q6H PRN #20 tablet PRN Reason: Pain, Moderate (4-6)
[2021-05-05] MEDS: MAGNESIUM HYDROXIDE (MOM) ORAL LIQD UDC PO PRN (18:52)
[2021-05-05] MEDS: chlorproMAZINE 25 MG TAB PO PRN (23:07)
[2021-05-06] MEDS: MORPHINE 4 MG/1 ML INJ IV PRN (02:01)
[2021-05-06] MEDS ORDERED: MORPHINE 2 MG/1 ML INJ IV PRN (02:21)
[2021-05-06] MEDS: PIPERACILLIN/TAZOBACTAM 3.375 3.375 GM/50 ML BAG IV SCH ×2 (06:11→10:35)
--- NOTE | 2021-05-06 09:26 | Event Note ---
Date: 05/06/21 Patient is discharged this morning cleared by surgeon, however surgical cultures came back ESBL positive Consult ID, informed Dr. Caballero, any possible oral antibiotics at discharge as patient is hemodynamically and clinically stable. If none feasible, will hold discharge and start IV antibiotics Informed the patient and his nurse
[2021-05-06] MEDS: oxyCODONE /ACETAMINOPHEN 5-325MG TAB PO PRN (10:35)
--- NOTE | 2021-05-06 12:53 | Consultation ---
History of Present Illness - Reason for Consult Consult date: 05/06/21 abx recs Requesting physician: BEBE FLORES - History of Present Illness The patient is a 61-year-old male with HIV was admitted to the hospital on 05/01/[address] scan showed acute appendicitis. Was seen by general surgery, underwent an open appendectomy with drainage of appendiceal abscess. As per the operative report, sigmoid colon was densely adherent to the cecum, while attempting to free the sigmoid colon from the cecum, a 1.5 cm full- thickness tear was created in the sigmoid colon without cross-contamination. The sigmoid colon was bluntly freed from the cecum, subsequently a 1.5 cm abscess was encountered and was sent for culture. Cultures grew ESBL producing E. coli, group C streptococcus, infectious diseases was consulted for antibiotic recommendations. Patient otherwise has been afebrile. Labs without leukocytosis. Reports some abdominal discomfort, has not had a bowel movement since the surgery. Regarding HIV, reports being on treatment for almost 30+ years, well-controlled, on Biktarvy. Follows at [facility]. Review of Systems: Per HPI Past History Past Medical History: HIV/AIDS, other (See HPI) Past Surgical History: Other (Lipoma excision, right knee surgery) Social history: single. denies: smoking, alcohol abuse, prescription drug abuse Family history: hypertension Medications and Allergies Allergies Allergy/AdvReac Type Severity Reaction Status Date / Time No Known Allergies Allergy Unverified 08/06/13 14:52 Home Medications Medication Instructions Recorded Confirmed Last Taken Type Atazanavir (Nf) [Reyataz] 200 mg PO QDAY 08/06/13 05/04/21 08/05/13 21:00 History Emtricitabin/Tenofovir [TRUVADA 1 tab PO QDAY 08/06/13 05/04/21 08/05/13 21:00 History 200-300 mg] Ibuprofen [Motrin 800 MG tab] 800 mg PO TID #30 tablet 08/06/13 05/04/21 Unknown Rx Ritonavir [Norvir] 100 mg PO QDAY 08/06/13 05/04/21 08/05/13 20:00 History oxyCODONE /ACETAMINOPHEN [Percocet 1 tab PO Q6H PRN #20 tablet 05/05/21 Unknown Rx 5/325 mg] Active Meds: Active Medications Acetaminophen (Acetaminophen 325 Mg Tab) 650 mg PO Q4H PRN PRN Reason: Pain MILD(1-3)/Fever >100.5/SMALLS Atazanavir (Atazanavir 150 Mg Cap) 300 mg PO DAILY [facility] Last Admin: 05/05/21 11:30 Dose: Not Given Documented by: Chlorpromazine HCl (Chlorpromazine 25 Mg Tab) 25 mg PO Q6H PRN PRN Reason: Hiccups Last Admin: 05/05/21 23:07 Dose: 25 mg Documented by: Emtricitabine (Emtricitabine 200 Mg Cap) 200 mg PO QDAY [facility] Last Admin: 05/05/21 11:30 Dose: Not Given Documented by: Sodium Chloride (Nacl 0.9% 1000 Ml) 1,000 mls @ 125 mls/hr IV DIRECT [facility] Last Admin: 05/05/21 22:00 Dose: 125 mls/hr Documented by: Piperacillin Sod/Tazobactam Sod (Zosyn/Ns 3.375gm/50ml) 3.375 gm in 50 mls @ 100 mls/hr IV Q6H [facility]; Protocol Last Admin: 05/06/21 10:35 Dose: 100 mls/hr Documented by: Magnesium Hydroxide (Magnesium Hydroxide (Mom) Oral Liqd Udc) 30 ml PO QDAY PRN PRN Reason: Constipation Last Admin: 05/05/21 18:52 Dose: 30 ml Documented by: Morphine Sulfate (Morphine 2 Mg/1 Ml Inj) 2 mg IV Q6H PRN PRN Reason: Pain, Moderate (4-6) Ondansetron HCl (Ondansetron 4 Mg/2 Ml Inj) 4 mg IV Q8H PRN PRN Reason: Nausea And Vomiting Last Admin: 05/05/21 11:43 Dose: 4 mg Documented by: Oxycodone/Acetaminophen (Oxycodone /Acetaminophen 5-325mg Tab) 2 tab PO Q4H PRN PRN Reason: Pain, Moderate (4-6) Last Admin: 05/06/21 10:35 Dose: 2 tab Documented by: Ritonavir (Ritonavir 100 Mg Tab) 100 mg PO QDAY [facility] Last Admin: 05/05/21 11:31 Dose: Not Given Documented by: Sodium Chloride (Sodium Chloride 0.9% 10 Ml Flush Syringe) 10 ml IV BID [facility] Last Admin: 05/05/21 22:00 Dose: Not Given Documented by: Sodium Chloride (Sodium Chloride 0.9% 10 Ml Flush Syringe) 10 ml IV PRN PRN PRN Reason: LINE FLUSH Last Admin: 05/03/21 03:46 Dose: 10 ml Documented by: Sodium Hypochlorite (Sodium Hypochlorite, Dakin's Full Strength (0.5%) 473 Ml Topical Soln) 1 applic TP Q12H PRN PRN Reason: Wound Care Tenofovir Disoproxil Fumarate (Tenofovir 300 Mg Tab) 300 mg PO QDAY [facility] Last Admin: 05/05/21 11:31 Dose: Not Given Documented by: Physical Examination - Physical Exam Narrative exam: Physical Exam: Constitutional: Alert, cooperative. No acute distress Head, Ears, Nose: Normocephalic, atraumatic. External ears, nose normal Eyes: Conjunctivae/corneas clear. No icterus. No ptosis. Neck: Supple, no meningeal signs Cardiovascular: S1, S2 + Respiratory: Good air entry, clear to auscultation bilaterally GI: Soft, large midline incision with dressing. Mild distention. Bowel sounds present Musculoskeletal: No pedal edema, no cyanosis. Skin: No rash or abscess Hem/Lymphatic: No palpable cervical or supraclavicular nodes. No lymphangitis Psych: Mood ok. Affect normal Neurological: Awake, alert, oriented. No gross abnormality - Constitutional Vitals: Vital Signs Temp Pulse Resp BP Pulse Ox 97.9 F 63 16 125/92 99 05/06/21 12:02 05/06/21 12:02 05/06/21 12:02 05/06/21 12:02 05/06/21 12:02 Temperature -Last 24 Hours Temperature 97.9 F Temperature 98.1 F Temperature 98.6 F Temperature 98.4 F Temperature 98.9 F Temperature 97.9 F Results - Labs CBC & Chem 7: 05/05/21 04:37 05/05/21 04:37 Assessment and Plan Cultures: 05/02/2021 surgical culture: ESBL E. coli, group C streptococcus A/P: 61-year-old male with HIV admitted with: #Acute appendicitis, appendiceal abscess: Surgery complicated by "1.5 cm full- thickness tear was created in the sigmoid colon without cross-contamination", needed open appendectomy. 1.5 cm appendiceal abscess which was drained. #HIV: reports being on treatment for almost 30+ years, well-controlled, on Biktarvy. Follows at [facility] Recs: -Considering above, will set up IV meropenem 1 g every 8 hours for 7 days via midline ending 05/13/2021. Patient has no transportation for IV abx at an infusion center -Case management orders placed -Midline ordered -Patient is taking his own Biktarvy, continue since it is non-formulary here Hugh Caballero MD, FACP [facility] ([facility] O: [phone] F: [phone]
[2021-05-06] MEDS ORDERED: MEROPENEM/NS 1 GRAM/100 ML 1 GRAM/100 ML BAG IV SCH (13:00)
[2021-05-06] MEDS: EMTRICITABINE 200 MG CAP PO SCH (14:51)
[2021-05-06] MEDS: RITONAVIR 100 MG TAB PO SCH (14:51)
[2021-05-06] MEDS: ATAZANAVIR 150 MG CAP PO SCH (14:51)
[2021-05-06] MEDS: TENOFOVIR 300 MG TAB PO SCH (14:52)
[2021-05-06] MEDS: MORPHINE 2 MG/1 ML INJ IV PRN ×2 (15:35→21:29)
[2021-05-06] MEDS: SODIUM CHLORIDE 0.9% 1000 ML 1,000 ML IV SCH ×2 (15:47→21:49)
--- NOTE | 2021-05-06 16:38 | Progress Note ---
Assessment and Plan Assessment and plan: -ESBL positive surgical wound culture; Current Visit: Yes Status: Acute ID evaluation recommendation noted and appreciated Antibiotics changed to IV meropenem Supportive care -- Acute appendicitis with abscess Iatrogenic sigmoid colon injury Current Visit: Yes Status: Acute Surgery evaluated the patient s/p 1) Diagnostic laparoscopy 2) Open appendectomy with drainage of appendiceal abscess 3) Open repair of iatrogenic sigmoid colon injury Plan to discharge the patient today per Dr. Novak's recommendation However wound cultures came back positive for ESBL Discharge held ID evaluated, started on meropenem Contact isolation, closely monitor --Small bowel obstruction Current Visit: Yes Status: Acute Resolved, surgeon advance diet --History of HIV (human immunodeficiency virus infection) Current Visit: Yes Status: Chronic Continue prehospital antiretroviral therapy, outpatient infectious disease follow-up. Upon discharge --DVT prophylaxis Current Visit: Yes Status: Acute SCD to bilateral lower extremities while in bed, patient is ambulatory Discharge held due to positive ESBL surgical cultures, ID consulted Plan of care reviewed with the patient and his nurse 05/05/2021; Dr. Novak evaluated the patient, cleared for discharge for tomorrow However no ride available 05/06/2021; Patient's discharge is held due to positive ESBL surgical cultures ID consulted, started on meropenem, continue supportive care History Interval history: I seen and examined the patient at the bedside early this morning. Initially planned discharge on oral antibiotics and pain medications per surgery Dr. Novak's recommendation However even as before processing discharge, blood cultures came positive for ESBL ID consulted, has no oral antibiotics are available to treat this infection, decided to hold the discharge And follow IDs recommendations Hospitalist Physical - Constitutional Vitals: Temp Pulse Resp BP Pulse Ox 98.9 F 112 H 18 145/97 100 05/06/21 15:41 05/06/21 15:41 05/06/21 15:41 05/06/21 15:41 05/06/21 15:41 General appearance: Present: mild distress, well-nourished, obese - EENT Eyes: Present: PERRL, EOM intact - Neck Neck: Present: supple, normal ROM - Respiratory Respiratory effort: normal Respiratory: bilateral: diminished, negative: rales, rhonchi, wheezing - Cardiovascular Rhythm: regular Heart Sounds: Present: S1 & S2 - Extremities Extremities: no ischemia, No edema - Abdominal General gastrointestinal: soft, non-tender, non-distended, normal bowel sounds, other (Surgical dressing in place) - Integumentary Integumentary: Present: clear, warm - Psychiatric Psychiatric: appropriate mood/affect, cooperative - Neurologic Neurologic: moves all extremities Results - Labs CBC & Chem 7: 05/05/21 04:37 05/05/21 04:37 Labs: Laboratory Last Values WBC 5.8 K/mm3 (4.5-11.0) 05/05/21 04:37 RBC 4.77 M/mm3 (3.65-5.03) 05/05/21 04:37 Hgb 14.1 gm/dl (11.8-15.2) 05/05/21 04:37 Hct 40.8 % (35.5-45.6) 05/05/21 04:37 MCV 86 fl (84-94) 05/05/21 04:37 MCH 30 pg (28-32) 05/05/21 04:37 MCHC 35 % (32-34) H 05/05/21 04:37 RDW 15.2 % (13.2-15.2) 05/05/21 04:37 Plt Count 234 K/mm3 (140-440) 05/05/21 04:37 Lymph % (Auto) 26.3 % (13.4-35.0) 05/05/21 04:37 [place] % (Auto) 10.9 % (0.0-7.3) H 05/05/21 04:37 Eos % (Auto) 3.7 % (0.0-4.3) 05/05/21 04:37 Baso % (Auto) 0.5 % (0.0-1.8) 05/05/21 04:37 Lymph # (Auto) 1.5 K/mm3 (1.2-5.4) 05/05/21 04:37 [place]da # (Auto) 0.6 K/mm3 (0.0-0.8) 05/05/21 04:37 Eos # (Auto) 0.2 K/mm3 (0.0-0.4) 05/05/21 04:37 Baso # (Auto) 0.0 K/mm3 (0.0-0.1) 05/05/21 04:37 Seg Neutrophils % 58.6 % (40.0-70.0) 05/05/21 04:37 Seg Neutrophils # 3.4 K/mm3 (1.8-7.7) 05/05/21 04:37 Sodium 138 mmol/L (137-145) 05/05/21 04:37 Potassium 3.7 mmol/L (3.6-5.0) 05/05/21 04:37 Chloride 102.1 mmol/L (98-107) 05/05/21 04:37 Carbon Dioxide 28 mmol/L (22-30) 05/05/21 04:37 Anion Gap 12 mmol/L 05/05/21 04:37 BUN 7 mg/dL (9-20) L 05/05/21 04:37 Creatinine 0.8 mg/dL (0.8-1.3) 05/05/21 04:37 Estimated GFR > 60 ml/min 05/05/21 04:37 BUN/Creatinine Ratio 9 % 05/05/21 04:37 Glucose 92 mg/dL (75-100) 05/05/21 04:37 Calcium 9.1 mg/dL (8.4-10.2) 05/05/21 04:37 Total Bilirubin 0.80 mg/dL (0.1-1.2) 04/30/21 19:52 AST 15 units/L (5-40) 04/30/21 19:52 ALT 13 units/L (7-56) 04/30/21 19:52 Alkaline Phosphatase 86 units/L (35-129) 04/30/21 19:52 Total Protein 9.1 g/dL (6.3-8.2) H 04/30/21 19:52 Albumin 3.8 g/dL (3.9-5) L 04/30/21 19:52 Albumin/Globulin Ratio 0.7 % 04/30/21 19:52 Lipase 25 units/L (13-60) 04/30/21 19:52 Urine Color Dory (Yellow) 04/30/21 Unknown Urine Turbidity Slightly-cloudy (Clear) 04/30/21 Unknown Urine pH 5.0 (5.0-7.0) 04/30/21 Unknown Ur Specific [place] 1.026 (1.003-1.030) 04/30/21 Unknown Urine Protein 100 mg/dl mg/dL (Negative) 04/30/21 Unknown Urine Glucose (UA) Neg mg/dL (Negative) 04/30/21 Unknown Urine Ketones Neg mg/dL (Negative) 04/30/21 Unknown Urine Blood Mod (Negative) 04/30/21 Unknown Urine Nitrite Neg (Negative) 04/30/21 Unknown Urine Bilirubin Neg (Negative) 04/30/21 Unknown Urine Urobilinogen 2.0 mg/dL (<2.0) 04/30/21 Unknown Ur Leukocyte Esterase Neg (Negative) 04/30/21 Unknown Urine WBC (Auto) 7.0 /HPF (0.0-6.0) H 04/30/21 Unknown Urine RBC (Auto) 6.0 /HPF (0.0-6.0) 04/30/21 Unknown U Epithel Cells (Auto) 1.0 /HPF (0-13.0) 04/30/21 Unknown Hyaline Casts 3 /LPF 04/30/21 Unknown Urine Mucus 3+ /HPF 04/30/21 Unknown Microbiology: Microbiology 05/02/21 Unknown Abdomen Surgical Culture - Final Beta Hemolytic Strep Group C Escherichia Coli 05/02/21 Unknown Abdomen Anaerobic Culture - Final Montoya/IV: Voiding Method Urinal Active Medications - Current Medications Current Medications: Generic Name Dose Route Start Last Admin Trade Name Freq PRN Reason Stop Dose Admin Acetaminophen 650 mg 05/01/21 15:01 Acetaminophen 325 Mg Tab PO Q4H PRN Pain MILD(1-3)/Fever >100.5/SMALLS Atazanavir 300 mg 05/02/21 10:00 05/06/21 14:51 Atazanavir 150 Mg Cap PO Not Given DAILY [facility] Chlorpromazine HCl 25 mg 05/05/21 22:15 05/05/21 23:07 Chlorpromazine 25 Mg Tab PO 25 mg Q6H PRN Administration Hiccups Emtricitabine 200 mg 05/02/21 10:00 05/06/21 14:51 Emtricitabine 200 Mg Cap PO Not Given QDAY [facility] Sodium Chloride 1,000 mls @ 125 mls/hr 05/01/21 15:15 05/05/21 22:00 Nacl 0.9% 1000 Ml IV 125 mls/hr DIRECT [facility] Administration MEROPENEM/NS 1 GRAM/100 ML 1 gram in 100 mls @ 100 mls/hr 05/06/21 13:00 Merrem/Ns 1 Gram/100 Ml IV Q8H [facility] Protocol Magnesium Hydroxide 30 ml 05/05/21 13:00 05/05/21 18:52 Magnesium Hydroxide (Mom) Oral Liqd Udc PO 30 ml QDAY PRN Administration Constipation Morphine Sulfate 2 mg 05/06/21 09:30 Morphine 2 Mg/1 Ml Inj IV Q6H PRN Pain, Moderate (4-6) Ondansetron HCl 4 mg 05/01/21 15:01 05/05/21 11:43 Ondansetron 4 Mg/2 Ml Inj IV 4 mg Q8H PRN Administration Nausea And Vomiting Oxycodone/Acetaminophen 2 tab 05/04/21 11:00 05/06/21 10:35 Oxycodone /Acetaminophen 5-325mg Tab PO 2 tab Q4H PRN Administration Pain, Moderate (4-6) Ritonavir 100 mg 05/02/21 10:00 05/06/21 14:51 Ritonavir 100 Mg Tab PO Not Given QDAY [facility] Sodium Chloride 10 ml 05/01/21 22:00 05/05/21 22:00 Sodium Chloride 0.9% 10 Ml Flush Syringe IV Not Given BID GUL[facility]AN Sodium Chloride 10 ml 05/01/21 15:01 05/03/21 03:46 Sodium Chloride 0.9% 10 Ml Flush Syringe IV 10 ml PRN PRN Administration LINE FLUSH Sodium Hypochlorite 1 applic 05/03/21 10:00 Sodium Hypochlorite, Dakin's Full Strength (0.5%) 473 Ml Topical Soln TP Q12H PRN Wound Care Tenofovir Disoproxil Fumarate 300 mg 05/02/21 10:00 05/06/21 14:52 Tenofovir 300 Mg Tab PO Not Given QDAY [facility] Nutrition/Malnutrition Assess - Dietary Evaluation Nutrition/Malnutrition Findings: Nutrition Notes Start: 05/02/21 14:43 Freq: Status: Active Protocol: Document 05/05/21 12:49 MARIPOSA (Rec: 05/05/21 12:50 MARIPOSA [id number]) Nutrition Notes Initial or Follow up Brief Note Current Diet [place] Weight change and time frame Pt tolerating PO diet. May D/ C tomorrow. Nutrition Intervention Follow-Up By: 05/09/21 Additional Comments F/U: intakes, diet advancement
[2021-05-06] MEDS: ONDANSETRON 4 MG/2 ML INJ IV PRN ×2 (16:56→21:28)
[2021-05-06] MEDS: ENOXAPARIN 40 MG/0.4 ML INJ SUB-Q SCH (21:27)
[2021-05-06] MEDS: MAGNESIUM HYDROXIDE (MOM) ORAL LIQD UDC PO PRN (21:39)
[2021-05-06] MEDS: MEROPENEM/NS 1 GRAM/100 ML 1 GRAM/100 ML BAG IV SCH (21:43)
[2021-05-07] MEDS: MORPHINE 2 MG/1 ML INJ IV PRN ×4 (02:55→23:08)
[2021-05-07] MEDS: SIMETHICONE 80 MG CHEW TAB PO PRN ×2 (03:12→09:44)
[2021-05-07] MEDS: chlorproMAZINE 25 MG TAB PO PRN ×2 (04:47→21:20)
[2021-05-07] MEDS: MEROPENEM/NS 1 GRAM/100 ML 1 GRAM/100 ML BAG IV SCH ×3 (06:34→21:20)
--- NOTE | 2021-05-07 08:12 | Progress Note ---
Assessment and Plan Assessment and plan: --Hiccups; Current Visit: Yes Status: Acute IV and oral Thorazine Advised to drink plenty of oral fluids Sitting the chair upright after every meal for half an hour --ESBL positive surgical wound culture; Current Visit: Yes Status: Acute ID evaluation recommendation noted and appreciated Antibiotics changed to IV meropenem for total 7 days Midline is placed Case management to assist with setting up IV meds and discharge planning --Sepsis due to ESBL infection Current Visit: Yes Status: Acute ID evaluation noted, total 7 days of IV meropenem every 8 hours -- Acute appendicitis with abscess Iatrogenic sigmoid colon injury Current Visit: Yes Status: Acute Surgery evaluated the patient s/p surgery 05/02/2021 1) Diagnostic laparoscopy 2) Open appendectomy with drainage of appendiceal abscess 3) Open repair of iatrogenic sigmoid colon injury Plan to discharge the patient today per Dr. Novak's recommendation However wound cultures came back positive for ESBL Discharge held ID evaluated, started on meropenem Contact isolation, closely monitor --Small bowel obstruction Current Visit: Yes Status: Acute Resolved, surgeon advance diet --History of HIV (human immunodeficiency virus infection) Current Visit: Yes Status: Chronic Continue prehospital antiretroviral therapy, outpatient infectious disease follow-up. Upon discharge --DVT prophylaxis Current Visit: Yes Status: Acute Subcu Lovenox Discharge held due to positive ESBL surgical cultures, ID recommend total 7 days of IV meropenem Midline requested, DC planning per case management We will closely monitor the patient and adjust the management as needed Daily hospital course; 05/05/2021; Dr. Novak evaluated the patient, cleared for discharge for tomorrow However no ride available 05/06/2021; Patient's discharge is held due to positive ESBL surgical cultures ID consulted, started on meropenem, continue supportive care 05/07/2021; Patient is receiving imipenem as recommended by ID Total 8 days of IV meropenem, midline requested case management to assist with discharge planning and medications DC planning per CM ,disposition per surgery Patient has hiccups, Thorazine ordered History Interval history: I seen and examined the patient at the bedside Patient's chart and medications reviewed Patient status post appendectomy, ESBL positive cultures On meropenem IV antibiotics Patient feels slightly better tolerating diet. However he complains of hiccups Vital signs reviewed Hospitalist Physical - Constitutional Vitals: Temp Pulse Resp BP Pulse Ox 98.0 F 105 H 18 133/93 98 05/07/21 04:38 05/07/21 07:41 05/07/21 04:38 05/07/21 04:38 05/07/21 07:41 General appearance: Present: no acute distress, well-nourished, obese - EENT Eyes: Present: PERRL, EOM intact - Neck Neck: Present: supple, normal ROM - Respiratory Respiratory effort: normal Respiratory: bilateral: diminished, negative: rales, rhonchi, wheezing - Cardiovascular Rhythm: regular Heart Sounds: Present: S1 & S2 - Extremities Extremities: no ischemia, No edema - Abdominal General gastrointestinal: soft, non-tender, non-distended, normal bowel sounds - Integumentary Integumentary: Present: clear, warm - Psychiatric Psychiatric: appropriate mood/affect, cooperative - Neurologic Neurologic: moves all extremities Results - Labs CBC & Chem 7: 05/05/21 04:37 05/05/21 04:37 Labs: Laboratory Last Values WBC 5.8 K/mm3 (4.5-11.0) 05/05/21 04:37 RBC 4.77 M/mm3 (3.65-5.03) 05/05/21 04:37 Hgb 14.1 gm/dl (11.8-15.2) 05/05/21 04:37 Hct 40.8 % (35.5-45.6) 05/05/21 04:37 MCV 86 fl (84-94) 05/05/21 04:37 MCH 30 pg (28-32) 05/05/21 04:37 MCHC 35 % (32-34) H 05/05/21 04:37 RDW 15.2 % (13.2-15.2) 05/05/21 04:37 Plt Count 234 K/mm3 (140-440) 05/05/21 04:37 Lymph % (Auto) 26.3 % (13.4-35.0) 05/05/21 04:37 [place] % (Auto) 10.9 % (0.0-7.3) H 05/05/21 04:37 Eos % (Auto) 3.7 % (0.0-4.3) 05/05/21 04:37 Baso % (Auto) 0.5 % (0.0-1.8) 05/05/21 04:37 Lymph # (Auto) 1.5 K/mm3 (1.2-5.4) 05/05/21 04:37 [place] # (Auto) 0.6 K/mm3 (0.0-0.8) 05/05/21 04:37 Eos # (Auto) 0.2 K/mm3 (0.0-0.4) 05/05/21 04:37 Baso # (Auto) 0.0 K/mm3 (0.0-0.1) 05/05/21 04:37 Seg Neutrophils % 58.6 % (40.0-70.0) 05/05/21 04:37 Seg Neutrophils # 3.4 K/mm3 (1.8-7.7) 05/05/21 04:37 Sodium 138 mmol/L (137-145) 05/05/21 04:37 Potassium 3.7 mmol/L (3.6-5.0) 05/05/21 04:37 Chloride 102.1 mmol/L (98-107) 05/05/21 04:37 Carbon Dioxide 28 mmol/L (22-30) 05/05/21 04:37 Anion Gap 12 mmol/L 05/05/21 04:37 BUN 7 mg/dL (9-20) L 05/05/21 04:37 Creatinine 0.8 mg/dL (0.8-1.3) 05/05/21 04:37 Estimated GFR > 60 ml/min 05/05/21 04:37 BUN/Creatinine Ratio 9 % 05/05/21 04:37 Glucose 92 mg/dL (75-100) 05/05/21 04:37 Calcium 9.1 mg/dL (8.4-10.2) 05/05/21 04:37 Total Bilirubin 0.80 mg/dL (0.1-1.2) 04/30/21 19:52 AST 15 units/L (5-40) 04/30/21 19:52 ALT 13 units/L (7-56) 04/30/21 19:52 Alkaline Phosphatase 86 units/L (35-129) 04/30/21 19:52 Total Protein 9.1 g/dL (6.3-8.2) H 04/30/21 19:52 Albumin 3.8 g/dL (3.9-5) L 04/30/21 19:52 Albumin/Globulin Ratio 0.7 % 04/30/21 19:52 Lipase 25 units/L (13-60) 04/30/21 19:52 Urine Color Dory (Yellow) 04/30/21 Unknown Urine Turbidity Slightly-cloudy (Clear) 04/30/21 Unknown Urine pH 5.0 (5.0-7.0) 04/30/21 Unknown Ur Specific [place] 1.026 (1.003-1.030) 04/30/21 Unknown Urine Protein 100 mg/dl mg/dL (Negative) 04/30/21 Unknown Urine Glucose (UA) Neg mg/dL (Negative) 04/30/21 Unknown Urine Ketones Neg mg/dL (Negative) 04/30/21 Unknown Urine Blood Mod (Negative) 04/30/21 Unknown Urine Nitrite Neg (Negative) 04/30/21 Unknown Urine Bilirubin Neg (Negative) 04/30/21 Unknown Urine Urobilinogen 2.0 mg/dL (<2.0) 04/30/21 Unknown Ur Leukocyte Esterase Neg (Negative) 04/30/21 Unknown Urine WBC (Auto) 7.0 /HPF (0.0-6.0) H 04/30/21 Unknown Urine RBC (Auto) 6.0 /HPF (0.0-6.0) 04/30/21 Unknown U Epithel Cells (Auto) 1.0 /HPF (0-13.0) 04/30/21 Unknown Hyaline Casts 3 /LPF 04/30/21 Unknown Urine Mucus 3+ /HPF 04/30/21 Unknown Microbiology: Microbiology 05/02/21 Unknown Abdomen Surgical Culture - Final Beta Hemolytic Strep Group C Escherichia Coli 05/02/21 Unknown Abdomen Anaerobic Culture - Final Montoya/IV: Voiding Method Urinal Active Medications - Current Medications Current Medications: Generic Name Dose Route Start Last Admin Trade Name Freq PRN Reason Stop Dose Admin Acetaminophen 650 mg 05/01/21 15:01 Acetaminophen 325 Mg Tab PO Q4H PRN Pain MILD(1-3)/Fever >100.5/SMALLS Atazanavir 300 mg 05/02/21 10:00 05/06/21 14:51 Atazanavir 150 Mg Cap PO Not Given DAILY [facility] Chlorpromazine HCl 25 mg 05/05/21 22:15 05/07/21 04:47 Chlorpromazine 25 Mg Tab PO 25 mg Q6H PRN Administration Hiccups Emtricitabine 200 mg 05/02/21 10:00 05/06/21 14:51 Emtricitabine 200 Mg Cap PO Not Given QDAY [facility] Enoxaparin Sodium 40 mg 05/06/21 22:00 05/06/21 21:27 Enoxaparin 40 Mg/0.4 Ml Inj SUB-Q 40 mg QDAY@2200 GUL[facility] Administration Protocol Sodium Chloride 1,000 mls @ 125 mls/hr 05/01/21 15:15 05/06/21 21:49 Nacl 0.9% 1000 Ml IV 125 mls/hr DIRECT G[facility] Administration MEROPENEM/NS 1 GRAM/100 ML 1 gram in 100 mls @ 100 mls/hr 05/06/21 22:00 05/07/21 06:34 Merrem/Ns 1 Gram/100 Ml IV 100 mls/hr Q8H [facility] Administration Protocol Magnesium Hydroxide 30 ml 05/05/21 13:00 05/06/21 21:39 Magnesium Hydroxide (Mom) Oral Liqd Udc PO 30 ml QDAY PRN Administration Constipation Morphine Sulfate 2 mg 05/06/21 09:30 05/07/21 02:55 Morphine 2 Mg/1 Ml Inj IV 2 mg Q6H PRN Administration Pain, Moderate (4-6) Ondansetron HCl 4 mg 05/01/21 15:01 05/06/21 21:28 Ondansetron 4 Mg/2 Ml Inj IV 4 mg Q8H PRN Administration Nausea And Vomiting Oxycodone/Acetaminophen 2 tab 05/04/21 11:00 05/06/21 10:35 Oxycodone /Acetaminophen 5-325mg Tab PO 2 tab Q4H PRN Administration Pain, Moderate (4-6) Ritonavir 100 mg 05/02/21 10:00 05/06/21 14:51 Ritonavir 100 Mg Tab PO Not Given QDAY [facility] Simethicone 80 mg 05/07/21 03:05 05/07/21 03:12 Simethicone 80 Mg Chew Tab PO 80 mg Q6H PRN Administration Gas pain Sodium Chloride 10 ml 05/01/21 22:00 05/06/21 21:27 Sodium Chloride 0.9% 10 Ml Flush Syringe IV 10 ml BID [facility] Administration Sodium Chloride 10 ml 05/01/21 15:01 05/03/21 03:46 Sodium Chloride 0.9% 10 Ml Flush Syringe IV 10 ml PRN PRN Administration LINE FLUSH Sodium Hypochlorite 1 applic 05/03/21 10:00 Sodium Hypochlorite, Dakin's Full Strength (0.5%) 473 Ml Topical Soln TP Q12H PRN Wound Care Tenofovir Disoproxil Fumarate 300 mg 05/02/21 10:00 05/06/21 14:52 Tenofovir 300 Mg Tab PO Not Given QDAY [facility] Nutrition/Malnutrition Assess - Dietary Evaluation Nutrition/Malnutrition Findings: Nutrition Notes Start: 05/02/21 14:43 Freq: Status: Active Protocol: Document 05/05/21 12:49 MARIPOSA (Rec: 05/05/21 12:50 MARIPOSA [id number]) Nutrition Notes Initial or Follow up Brief Note Current Diet [place] Weight change and time frame Pt tolerating PO diet. May D/ C tomorrow. Nutrition Intervention Follow-Up By: 05/09/21 Additional Comments F/U: intakes, diet advancement
[2021-05-07] MEDS: ONDANSETRON 4 MG/2 ML INJ IV PRN ×2 (09:44→18:31)
[2021-05-07] MEDS: EMTRICITABINE 200 MG CAP PO SCH (16:30)
[2021-05-07] MEDS: ATAZANAVIR 150 MG CAP PO SCH (16:30)
[2021-05-07] MEDS: RITONAVIR 100 MG TAB PO SCH (16:31)
[2021-05-07] MEDS: TENOFOVIR 300 MG TAB PO SCH (16:31)
[2021-05-07] MEDS: SODIUM CHLORIDE 0.9% 1000 ML 1,000 ML IV SCH (16:52)
[2021-05-07] MEDS ORDERED: chlorproMAZINE 25 MG in SODIUM CHLORIDE 0.9% 50 ML IV ONE (19:06)
--- NOTE | 2021-05-07 19:18 | Event Note ---
Date: 05/07/21 After I took permission from the patient ,I called and spoke to the patient's sister Katie Jung at [phone] and discussed in detail patient's condition, tests and reports, positive cultures Klebsiella, ID recommendations of IV meropenem for 7 days, midline placement and discharge planning. Ms. Jung has numerous questions about discharge planning, I encouraged her to call back in the morning to discuss with the case management. She verbalized understanding. I informed the patient about my conversation with his sister
[2021-05-07] MEDS: ENOXAPARIN 40 MG/0.4 ML INJ SUB-Q SCH (21:20)
[2021-05-08] MEDS: MORPHINE 2 MG/1 ML INJ IV PRN ×3 (05:00→22:31)
[2021-05-08] MEDS: ONDANSETRON 4 MG/2 ML INJ IV PRN ×3 (05:00→23:07)
[2021-05-08] MEDS: MEROPENEM/NS 1 GRAM/100 ML 1 GRAM/100 ML BAG IV SCH ×3 (05:00→22:15)
--- NOTE | 2021-05-08 07:54 | Progress Note ---
Assessment and Plan Assessment and plan: --Hiccups; Current Visit: Yes Status: Acute IV and oral Thorazine Advised to drink plenty of oral fluids Sitting the chair upright after every meal for half an hour --ESBL positive surgical wound culture; Current Visit: Yes Status: Acute ID evaluation recommendation noted and appreciated Antibiotics changed to IV meropenem for total 7 days Midline is placed Case management to assist with setting up IV meds and discharge planning --Sepsis due to ESBL infection Current Visit: Yes Status: Acute ID evaluation noted, total 7 days of IV meropenem every 8 hours -- Acute appendicitis with abscess Iatrogenic sigmoid colon injury Current Visit: Yes Status: Acute Surgery evaluated the patient s/p surgery 05/02/2021 1) Diagnostic laparoscopy 2) Open appendectomy with drainage of appendiceal abscess 3) Open repair of iatrogenic sigmoid colon injury Plan to discharge the patient today per Dr. Novak's recommendation However wound cultures came back positive for ESBL Discharge held ID evaluated, started on meropenem Contact isolation, closely monitor --Small bowel obstruction Current Visit: Yes Status: Acute Resolved, surgeon advance diet --History of HIV (human immunodeficiency virus infection) Current Visit: Yes Status: Chronic Continue prehospital antiretroviral therapy, outpatient infectious disease follow-up. Upon discharge --DVT prophylaxis Current Visit: Yes Status: Acute Subcu Lovenox Discharge held due to positive ESBL surgical cultures, ID recommend total 7 days of IV meropenem Midline requested, DC planning per case management We will closely monitor the patient and adjust the management as needed Daily hospital course; 05/05/2021; Dr. Novak evaluated the patient, cleared for discharge for tomorrow However no ride available 05/06/2021; Patient's discharge is held due to positive ESBL surgical cultures ID consulted, started on meropenem, continue supportive care 05/07/2021; Patient is receiving imipenem as recommended by ID Total 8 days of IV meropenem, midline requested case management to assist with discharge planning and medications DC planning per CM ,disposition per surgery Patient has hiccups, Thorazine ordered I spoke with patient's sister Ms. Jung and discussed in detail patient's condition treatment and discharge plan She had many questions about DC planning, advised her to call back tomorrow and speak with the case management. She verbalized understanding 05/08/2021; Patient is receiving meropenem day 2/7 Case management assisting with home antibiotics Received midline,Intermittent hiccups, continue Thorazine Ambulate in the hallway as tolerated History Interval history: I have seen and examined the patient at the bedside Patient's chart and medications reviewed Patient complains of some heartburn and gas Had bowel movement vital signs noted Hospitalist Physical - Constitutional Vitals: Temp Pulse Resp BP Pulse Ox 99.6 F 133 H 18 132/96 98 05/08/21 03:56 05/08/21 07:43 05/08/21 05:00 05/08/21 03:56 05/08/21 07:43 General appearance: Present: mild distress, well-nourished, obese - EENT Eyes: Present: PERRL, EOM intact - Neck Neck: Present: supple, normal ROM - Respiratory Respiratory effort: normal Respiratory: bilateral: diminished, negative: rales, rhonchi, wheezing - Cardiovascular Rhythm: regular Heart Sounds: Present: S1 & S2 - Extremities Extremities: no ischemia, No edema - Abdominal General gastrointestinal: soft, non-tender, non-distended, normal bowel sounds, other (Surgical dressing in place) - Integumentary Integumentary: Present: clear, warm - Psychiatric Psychiatric: appropriate mood/affect, cooperative - Neurologic Neurologic: CNII-XII intact, moves all extremities Results - Labs CBC & Chem 7: 05/05/21 04:37 05/05/21 04:37 Labs: Laboratory Last Values WBC 5.8 K/mm3 (4.5-11.0) 05/05/21 04:37 RBC 4.77 M/mm3 (3.65-5.03) 05/05/21 04:37 Hgb 14.1 gm/dl (11.8-15.2) 05/05/21 04:37 Hct 40.8 % (35.5-45.6) 05/05/21 04:37 MCV 86 fl (84-94) 05/05/21 04:37 MCH 30 pg (28-32) 05/05/21 04:37 MCHC 35 % (32-34) H 05/05/21 04:37 RDW 15.2 % (13.2-15.2) 05/05/21 04:37 Plt Count 234 K/mm3 (140-440) 05/05/21 04:37 Lymph % (Auto) 26.3 % (13.4-35.0) 05/05/21 04:37 [place] % (Auto) 10.9 % (0.0-7.3) H 05/05/21 04:37 Eos % (Auto) 3.7 % (0.0-4.3) 05/05/21 04:37 Baso % (Auto) 0.5 % (0.0-1.8) 05/05/21 04:37 Lymph # (Auto) 1.5 K/mm3 (1.2-5.4) 05/05/21 04:37 [place] # (Auto) 0.6 K/mm3 (0.0-0.8) 05/05/21 04:37 Eos # (Auto) 0.2 K/mm3 (0.0-0.4) 05/05/21 04:37 Baso # (Auto) 0.0 K/mm3 (0.0-0.1) 05/05/21 04:37 Seg Neutrophils % 58.6 % (40.0-70.0) 05/05/21 04:37 Seg Neutrophils # 3.4 K/mm3 (1.8-7.7) 05/05/21 04:37 Sodium 138 mmol/L (137-145) 05/05/21 04:37 Potassium 3.7 mmol/L (3.6-5.0) 05/05/21 04:37 Chloride 102.1 mmol/L (98-107) 05/05/21 04:37 Carbon Dioxide 28 mmol/L (22-30) 05/05/21 04:37 Anion Gap 12 mmol/L 05/05/21 04:37 BUN 7 mg/dL (9-20) L 05/05/21 04:37 Creatinine 0.8 mg/dL (0.8-1.3) 05/05/21 04:37 Estimated GFR > 60 ml/min 05/05/21 04:37 BUN/Creatinine Ratio 9 % 05/05/21 04:37 Glucose 92 mg/dL (75-100) 05/05/21 04:37 Calcium 9.1 mg/dL (8.4-10.2) 05/05/21 04:37 Total Bilirubin 0.80 mg/dL (0.1-1.2) 04/30/21 19:52 AST 15 units/L (5-40) 04/30/21 19:52 ALT 13 units/L (7-56) 04/30/21 19:52 Alkaline Phosphatase 86 units/L (35-129) 04/30/21 19:52 Total Protein 9.1 g/dL (6.3-8.2) H 04/30/21 19:52 Albumin 3.8 g/dL (3.9-5) L 04/30/21 19:52 Albumin/Globulin Ratio 0.7 % 04/30/21 19:52 Lipase 25 units/L (13-60) 04/30/21 19:52 Urine Color Dory (Yellow) 04/30/21 Unknown Urine Turbidity Slightly-cloudy (Clear) 04/30/21 Unknown Urine pH 5.0 (5.0-7.0) 04/30/21 Unknown Ur Specific [place] 1.026 (1.003-1.030) 04/30/21 Unknown Urine Protein 100 mg/dl mg/dL (Negative) 04/30/21 Unknown Urine Glucose (UA) Neg mg/dL (Negative) 04/30/21 Unknown Urine Ketones Neg mg/dL (Negative) 04/30/21 Unknown Urine Blood Mod (Negative) 04/30/21 Unknown Urine Nitrite Neg (Negative) 04/30/21 Unknown Urine Bilirubin Neg (Negative) 04/30/21 Unknown Urine Urobilinogen 2.0 mg/dL (<2.0) 04/30/21 Unknown Ur Leukocyte Esterase Neg (Negative) 04/30/21 Unknown Urine WBC (Auto) 7.0 /HPF (0.0-6.0) H 04/30/21 Unknown Urine RBC (Auto) 6.0 /HPF (0.0-6.0) 04/30/21 Unknown U Epithel Cells (Auto) 1.0 /HPF (0-13.0) 04/30/21 Unknown Hyaline Casts 3 /LPF 04/30/21 Unknown Urine Mucus 3+ /HPF 04/30/21 Unknown Montoya/IV: Voiding Method Urinal Active Medications - Current Medications Current Medications: Generic Name Dose Route Start Last Admin Trade Name Freq PRN Reason Stop Dose Admin Acetaminophen 650 mg 05/01/21 15:01 Acetaminophen 325 Mg Tab PO Q4H PRN Pain MILD(1-3)/Fever >100.5/SMALLS Atazanavir 300 mg 05/02/21 10:00 05/07/21 16:30 Atazanavir 150 Mg Cap PO Not Given DAILY GULSHAN Chlorpromazine HCl 25 mg 05/05/21 22:15 05/07/21 21:20 Chlorpromazine 25 Mg Tab PO 25 mg Q6H PRN Administration Hiccups Emtricitabine 200 mg 05/02/21 10:00 05/07/21 16:30 Emtricitabine 200 Mg Cap PO Not Given QDAY GULSHAN Enoxaparin Sodium 40 mg 05/06/21 22:00 05/07/21 21:20 Enoxaparin 40 Mg/0.4 Ml Inj SUB-Q 40 mg QDAY@2200 GULSHAN Administration Protocol Sodium Chloride 1,000 mls @ 125 mls/hr 05/01/21 15:15 05/07/21 16:52 Nacl 0.9% 1000 Ml IV 125 mls/hr DIRECT GULSHAN Administration MEROPENEM/NS 1 GRAM/100 ML 1 gram in 100 mls @ 100 mls/hr 05/06/21 22:00 05/08/21 05:00 Merrem/Ns 1 Gram/100 Ml IV 05/13/21 14:59 100 mls/hr Q8H GULSHAN Administration Protocol Magnesium Hydroxide 30 ml 05/05/21 13:00 05/06/21 21:39 Magnesium Hydroxide (Mom) Oral Liqd Udc PO 30 ml QDAY PRN Administration Constipation Morphine Sulfate 2 mg 05/08/21 07:42 Morphine 2 Mg/1 Ml Inj IV Q12H PRN Pain, Moderate (4-6) Ondansetron HCl 4 mg 05/01/21 15:01 05/08/21 05:00 Ondansetron 4 Mg/2 Ml Inj IV 4 mg Q8H PRN Administration Nausea And Vomiting Oxycodone/Acetaminophen 2 tab 05/04/21 11:00 05/06/21 10:35 Oxycodone /Acetaminophen 5-325mg Tab PO 2 tab Q4H PRN Administration Pain, Moderate (4-6) Ritonavir 100 mg 05/02/21 10:00 05/07/21 16:31 Ritonavir 100 Mg Tab PO Not Given QDAY [facility] Simethicone 80 mg 05/07/21 03:05 05/07/21 09:44 Simethicone 80 Mg Chew Tab PO 80 mg Q6H PRN Administration Gas pain Sodium Chloride 10 ml 05/01/21 22:00 05/07/21 21:21 Sodium Chloride 0.9% 10 Ml Flush Syringe IV 10 ml BID GULSHAN Administration Sodium Chloride 10 ml 05/01/21 15:01 05/03/21 03:46 Sodium Chloride 0.9% 10 Ml Flush Syringe IV 10 ml PRN PRN Administration LINE FLUSH Sodium Hypochlorite 1 applic 05/03/21 10:00 Sodium Hypochlorite, Dakin's Full Strength (0.5%) 473 Ml Topical Soln TP Q12H PRN Wound Care Tenofovir Disoproxil Fumarate 300 mg 05/02/21 10:00 05/07/21 16:31 Tenofovir 300 Mg Tab PO Not Given QDAY [facility] Nutrition/Malnutrition Assess - Dietary Evaluation Nutrition/Malnutrition Findings: Nutrition Notes Start: 05/02/21 14:43 Freq: Status: Active Protocol: Document 05/05/21 12:49 MARIPOSA (Rec: 05/05/21 12:50 [email or web address] [id number]) Nutrition Notes Initial or Follow up Brief Note Current Diet [place] Weight change and time frame Pt tolerating PO diet. May D/ C tomorrow. Nutrition Intervention Follow-Up By: 05/09/21 Additional Comments F/U: intakes, diet advancement
[2021-05-08] MEDS: MAGNESIUM HYDROXIDE (MOM) ORAL LIQD UDC PO PRN (08:19)
[2021-05-08] MEDS: SIMETHICONE 80 MG CHEW TAB PO PRN ×2 (08:19→17:30)
[2021-05-08] MEDS: ATAZANAVIR 150 MG CAP PO SCH (12:49)
[2021-05-08] MEDS: RITONAVIR 100 MG TAB PO SCH (12:49)
[2021-05-08] MEDS: EMTRICITABINE 200 MG CAP PO SCH (12:49)
[2021-05-08] MEDS: TENOFOVIR 300 MG TAB PO SCH (12:50)
[2021-05-08] MEDS: SODIUM HYPOCHLORITE, DAKIN'S FULL STRENGTH (0.5%) 473 ML TOPICAL SOLN TP PRN (16:02)
[2021-05-08] MEDS: chlorproMAZINE 25 MG TAB PO PRN (17:31)
[2021-05-08] MEDS: ENOXAPARIN 40 MG/0.4 ML INJ SUB-Q SCH (22:14)
[2021-05-08] MEDS: SODIUM CHLORIDE 0.9% 1000 ML 1,000 ML IV SCH (22:16)
[2021-05-09] MEDS: MEROPENEM/NS 1 GRAM/100 ML 1 GRAM/100 ML BAG IV SCH ×3 (05:07→22:02)
[2021-05-09] MEDS: MORPHINE 2 MG/1 ML INJ IV PRN ×2 (05:07→17:15)
[2021-05-09] MEDS: MAGNESIUM HYDROXIDE (MOM) ORAL LIQD UDC PO PRN (05:08)
[2021-05-09] MEDS: ONDANSETRON 4 MG/2 ML INJ IV PRN (05:08)
[2021-05-09 06:30] LABS: Basophils % (Auto) 0.3 % (0.0-1.8); Eosinophils % (Auto) 0.1 % (0.0-4.3); Hematocrit 41.7 % (35.5-45.6); Hemoglobin 14.3 gm/dl (11.8-15.2); Lymphocytes # (Auto) 2.3 K/mm3 (1.2-5.4); Lymphocytes % (Auto) 28.9 % (13.4-35.0); Mean Corpuscular HGB Conc 34 % (32-34); Mean Corpuscular Volume 86 fl (84-94); Monocytes # (Auto) 0.6 K/mm3 (0.0-0.8); Monocytes % (Auto) 7.2 % (0.0-7.3); Platelet Count 266 K/mm3 (140-440); Red Blood Count 4.84 M/mm3 (3.65-5.03); Red Cell Distribution Width 14.9 % (13.2-15.2)
[2021-05-09 06:43] LABS: BUN/Creatinine Ratio 14; Blood Urea Nitrogen 13 mg/dL (9-20); Calcium 8.6 mg/dL (8.4-10.2); Hemolysis Index 2
[2021-05-09] MEDS ORDERED: POTASSIUM CHLORIDE ER 20 MEQ TAB PO NR (10:32)
[2021-05-09] MEDS: ATAZANAVIR 150 MG CAP PO SCH ×2 (10:39→10:47)
[2021-05-09] MEDS: TENOFOVIR 300 MG TAB PO SCH ×2 (10:39→10:44)
[2021-05-09] MEDS: EMTRICITABINE 200 MG CAP PO SCH ×2 (10:39→10:47)
[2021-05-09] MEDS: RITONAVIR 100 MG TAB PO SCH (10:40)
--- NOTE | 2021-05-09 13:04 | Progress Note ---
Assessment and Plan Cultures: 05/02/2021 surgical culture: ESBL E. coli, group C streptococcus A/P: 61-year-old male with HIV admitted with: #Acute appendicitis, appendiceal abscess: Surgery complicated by "1.5 cm full- thickness tear was created in the sigmoid colon without cross-contamination", needed open appendectomy. 1.5 cm appendiceal abscess which was drained. #HIV: reports being on treatment for almost 30+ years, well-controlled, on Biktarvy. Follows at [place] AID Recs: -Considering above, will set up IV meropenem 1 g every 8 hours for 7 days via midline ending 05/13/2021. Patient has no transportation for IV abx at an infusion center -Case management orders placed -Midline ordered -Patient is taking his own Biktarvy, continue since it is non-formulary here Okay for discharge midline in place and home antibiotics arranged. ID will sign off, please call if questions. Brett Manzo MD [facility], [place], [facility] ([facility] O: [phone] F: [phone] Subjective Date of service: 05/09/21 Interval history: Afebrile, normal white count. Objective - Exam Narrative Exam: Physical Exam: Constitutional: Alert, cooperative. No acute distress Head, Ears, Nose: Normocephalic, atraumatic. External ears, nose normal Eyes: Conjunctivae/corneas clear. No icterus. No ptosis. Neck: Supple, no meningeal signs Oral: dentition fair, no thrush Cardiovascular: S1, S2 normal. Respiratory: Good air entry, clear to auscultation bilaterally GI: Midline incision with surgical dressing Musculoskeletal: No pedal edema, no cyanosis. Skin: No rash or abscess Hem/Lymphatic: No palpable cervical or supraclavicular nodes. No lymphangitis Psych: Mood ok. Affect normal Neurological: Awake, alert, oriented. No gross abnormality - Constitutional Vitals: Vital Signs Temp Pulse Resp BP Pulse Ox 98.7 F 115 H 16 138/94 93 05/09/21 11:03 05/09/21 11:03 05/09/21 11:03 05/09/21 11:03 05/09/21 11:03 Temperature -Last 24 Hours Temperature 98.7 F Temperature 98.2 F Temperature 99.4 F Temperature 98.0 F - Labs CBC & Chem 7: 05/09/21 04:27 05/09/21 04:27 Labs: Abnormal lab results 05/09/21 Range/Units 04:27 Potassium 3.1 L (3.6-5.0) mmol/L Magnesium 2.50 H (1.7-2.3) mg/dL
[2021-05-09] MEDS: SODIUM CHLORIDE 0.9% 1000 ML 1,000 ML IV SCH (17:16)
--- NOTE | 2021-05-09 20:41 | Progress Note ---
Assessment and Plan Assessment and plan: --Hiccups; Current Visit: Yes Status: Acute IV and oral Thorazine Advised to drink plenty of oral fluids Sitting the chair upright after every meal for half an hour --ESBL positive surgical wound culture; Current Visit: Yes Status: Acute ID evaluation recommendation noted and appreciated Antibiotics changed to IV meropenem for total 7 days Midline is placed Case management to assist with setting up IV meds and discharge planning --Sepsis due to ESBL infection Current Visit: Yes Status: Acute ID evaluation noted, total 7 days of IV meropenem every 8 hours -- Acute appendicitis with abscess Iatrogenic sigmoid colon injury Current Visit: Yes Status: Acute Surgery evaluated the patient s/p surgery 05/02/2021 1) Diagnostic laparoscopy 2) Open appendectomy with drainage of appendiceal abscess 3) Open repair of iatrogenic sigmoid colon injury Plan to discharge the patient today per Dr. Novak's recommendation However wound cultures came back positive for ESBL Discharge held ID evaluated, started on meropenem Contact isolation, closely monitor --Small bowel obstruction Current Visit: Yes Status: Acute Resolved, surgeon advance diet --History of HIV (human immunodeficiency virus infection) Current Visit: Yes Status: Chronic Continue prehospital antiretroviral therapy, outpatient infectious disease follow-up. Upon discharge --DVT prophylaxis Current Visit: Yes Status: Acute Subcu Lovenox Discharge held due to positive ESBL surgical cultures, ID recommend total 7 days of IV meropenem Midline requested, DC planning per case management We will closely monitor the patient and adjust the management as needed Daily hospital course; 05/05/2021; Dr. Novak evaluated the patient, cleared for discharge for tomorrow However no ride available 05/06/2021; Patient's discharge is held due to positive ESBL surgical cultures ID consulted, started on meropenem, continue supportive care 05/07/2021; Patient is receiving imipenem as recommended by ID Total 8 days of IV meropenem, midline requested case management to assist with discharge planning and medications DC planning per CM ,disposition per surgery Patient has hiccups, Thorazine ordered I spoke with patient's sister Ms. Jung and discussed in detail patient's condition treatment and discharge plan She had many questions about DC planning, advised her to call back tomorrow and speak with the case management. She verbalized understanding 05/08/2021; Patient is receiving meropenem day 2/7 Case management assisting with home antibiotics Received midline,Intermittent hiccups, continue Thorazine Ambulate in the hallway as tolerated 05/09/2021 Patient feels better, hiccups have significantly improved Continue IV antibiotics, complete total 7 days History Interval history: I have seen and examined the patient Feels better no new complaints Vital signs noted Hospitalist Physical - Constitutional Vitals: Temp Pulse Resp BP Pulse Ox 98.6 F 92 H 16 136/92 99 05/09/21 16:38 05/09/21 16:38 05/09/21 16:38 05/09/21 16:38 05/09/21 16:38 General appearance: Present: mild distress, well-nourished, obese - EENT Eyes: Present: PERRL, EOM intact - Neck Neck: Present: supple, normal ROM - Respiratory Respiratory effort: normal Respiratory: bilateral: diminished, negative: rales, rhonchi, wheezing - Cardiovascular Rhythm: regular Heart Sounds: Present: S1 & S2 - Extremities Extremities: no ischemia, No edema - Abdominal General gastrointestinal: soft, non-tender, non-distended, normal bowel sounds - Integumentary Integumentary: Present: clear, warm - Psychiatric Psychiatric: appropriate mood/affect, cooperative - Neurologic Neurologic: CNII-XII intact, moves all extremities Results - Labs CBC & Chem 7: 05/09/21 04:27 05/09/21 04:27 Labs: Laboratory Last Values WBC 8.0 K/mm3 (4.5-11.0) 05/09/21 04:27 RBC 4.84 M/mm3 (3.65-5.03) 05/09/21 04:27 Hgb 14.3 gm/dl (11.8-15.2) 05/09/21 04:27 Hct 41.7 % (35.5-45.6) 05/09/21 04:27 MCV 86 fl (84-94) 05/09/21 04:27 MCH 30 pg (28-32) 05/09/21 04:27 MCHC 34 % (32-34) 05/09/21 04:27 RDW 14.9 % (13.2-15.2) 05/09/21 04:27 Plt Count 266 K/mm3 (140-440) 05/09/21 04:27 Lymph % (Auto) 28.9 % (13.4-35.0) 05/09/21 04:27 [place] % (Auto) 7.2 % (0.0-7.3) 05/09/21 04:27 Eos % (Auto) 0.1 % (0.0-4.3) 05/09/21 04:27 Baso % (Auto) 0.3 % (0.0-1.8) 05/09/21 04:27 Lymph # (Auto) 2.3 K/mm3 (1.2-5.4) 05/09/21 04:27 [place] # (Auto) 0.6 K/mm3 (0.0-0.8) 05/09/21 04:27 Eos # (Auto) 0.0 K/mm3 (0.0-0.4) 05/09/21 04:27 Baso # (Auto) 0.0 K/mm3 (0.0-0.1) 05/09/21 04:27 Seg Neutrophils % 63.5 % (40.0-70.0) 05/09/21 04:27 Seg Neutrophils # 5.1 K/mm3 (1.8-7.7) 05/09/21 04:27 Sodium 139 mmol/L (137-145) 05/09/21 04:27 Potassium 3.1 mmol/L (3.6-5.0) L 05/09/21 04:27 Chloride 100.7 mmol/L (98-107) 05/09/21 04:27 Carbon Dioxide 28 mmol/L (22-30) 05/09/21 04:27 Anion Gap 13 mmol/L 05/09/21 04:27 BUN 13 mg/dL (9-20) 05/09/21 04:27 Creatinine 0.9 mg/dL (0.8-1.3) 05/09/21 04:27 Estimated GFR > 60 ml/min 05/09/21 04:27 BUN/Creatinine Ratio 14 % 05/09/21 04:27 Glucose 93 mg/dL (75-100) 05/09/21 04:27 Calcium 8.6 mg/dL (8.4-10.2) 05/09/21 04:27 Magnesium 2.50 mg/dL (1.7-2.3) H 05/09/21 04:27 Total Bilirubin 0.80 mg/dL (0.1-1.2) 04/30/21 19:52 AST 15 units/L (5-40) 04/30/21 19:52 ALT 13 units/L (7-56) 04/30/21 19:52 Alkaline Phosphatase 86 units/L (35-129) 04/30/21 19:52 Total Protein 9.1 g/dL (6.3-8.2) H 04/30/21 19:52 Albumin 3.8 g/dL (3.9-5) L 04/30/21 19:52 Albumin/Globulin Ratio 0.7 % 04/30/21 19:52 Lipase 25 units/L (13-60) 04/30/21 19:52 Urine Color [place] (Yellow) 04/30/21 Unknown Urine Turbidity Slightly-cloudy (Clear) 04/30/21 Unknown Urine pH 5.0 (5.0-7.0) 04/30/21 Unknown Ur Specific [place] 1.026 (1.003-1.030) 04/30/21 Unknown Urine Protein 100 mg/dl mg/dL (Negative) 04/30/21 Unknown Urine Glucose (UA) Neg mg/dL (Negative) 04/30/21 Unknown Urine Ketones Neg mg/dL (Negative) 04/30/21 Unknown Urine Blood Mod (Negative) 04/30/21 Unknown Urine Nitrite Neg (Negative) 04/30/21 Unknown Urine Bilirubin Neg (Negative) 04/30/21 Unknown Urine Urobilinogen 2.0 mg/dL (<2.0) 04/30/21 Unknown Ur Leukocyte Esterase Neg (Negative) 04/30/21 Unknown Urine WBC (Auto) 7.0 /HPF (0.0-6.0) H 04/30/21 Unknown Urine RBC (Auto) 6.0 /HPF (0.0-6.0) 04/30/21 Unknown U Epithel Cells (Auto) 1.0 /HPF (0-13.0) 04/30/21 Unknown Hyaline Casts 3 /LPF 04/30/21 Unknown Urine Mucus 3+ /HPF 04/30/21 Unknown Montoya/IV: Voiding Method Urinal Active Medications - Current Medications Current Medications: Generic Name Dose Route Start Last Admin Trade Name Freq PRN Reason Stop Dose Admin Acetaminophen 650 mg 05/01/21 15:01 Acetaminophen 325 Mg Tab PO Q4H PRN Pain MILD(1-3)/Fever >100.5/SMALLS Atazanavir 300 mg 05/02/21 10:00 05/09/21 10:47 Atazanavir 150 Mg Cap PO Not Given DAILY [facility] Chlorpromazine HCl 25 mg 05/05/21 22:15 05/08/21 17:31 Chlorpromazine 25 Mg Tab PO 25 mg Q6H PRN Administration Hiccups Emtricitabine 200 mg 05/02/21 10:00 05/09/21 10:47 Emtricitabine 200 Mg Cap PO Not Given QDAY GULSHAN Enoxaparin Sodium 40 mg 05/06/21 22:00 05/08/21 22:14 Enoxaparin 40 Mg/0.4 Ml Inj SUB-Q 40 mg QDAY@2200 GULSHAN Administration Protocol Sodium Chloride 1,000 mls @ 125 mls/hr 05/01/21 15:15 05/09/21 17:16 Nacl 0.9% 1000 Ml IV 125 mls/hr DIRECT GULSHAN Administration MEROPENEM/NS 1 GRAM/100 ML 1 gram in 100 mls @ 100 mls/hr 05/06/21 22:00 05/09/21 15:47 Merrem/Ns 1 Gram/100 Ml IV 05/13/21 14:59 100 mls/hr Q8H GULSHAN Administration Protocol Magnesium Hydroxide 30 ml 05/05/21 13:00 05/09/21 05:08 Magnesium Hydroxide (Mom) Oral Liqd Udc PO 30 ml QDAY PRN Administration Constipation Morphine Sulfate 2 mg 05/08/21 07:42 05/09/21 17:15 Morphine 2 Mg/1 Ml Inj IV 2 mg Q12H PRN Administration Pain, Moderate (4-6) Ondansetron HCl 4 mg 05/01/21 15:01 05/09/21 05:08 Ondansetron 4 Mg/2 Ml Inj IV 4 mg Q8H PRN Administration Nausea And Vomiting Oxycodone/Acetaminophen 2 tab 05/04/21 11:00 05/06/21 10:35 Oxycodone /Acetaminophen 5-325mg Tab PO 2 tab Q4H PRN Administration Pain, Moderate (4-6) Ritonavir 100 mg 05/02/21 10:00 05/08/21 12:49 Ritonavir 100 Mg Tab PO Not Given QDAY GULSHAN Simethicone 80 mg 05/07/21 03:05 05/08/21 17:30 Simethicone 80 Mg Chew Tab PO 80 mg Q6H PRN Administration Gas pain Sodium Chloride 10 ml 05/01/21 22:00 05/09/21 15:48 Sodium Chloride 0.9% 10 Ml Flush Syringe IV 10 ml BID GULSHAN Administration Sodium Chloride 10 ml 05/01/21 15:01 05/09/21 17:16 Sodium Chloride 0.9% 10 Ml Flush Syringe IV 10 ml PRN PRN Administration LINE FLUSH Sodium Hypochlorite 1 applic 05/03/21 10:00 05/08/21 16:02 Sodium Hypochlorite, Dakin's Full Strength (0.5%) 473 Ml Topical Soln TP 1 bottle Q12H PRN Administration Wound Care Tenofovir Disoproxil Fumarate 300 mg 05/02/21 10:00 05/09/21 10:44 Tenofovir 300 Mg Tab PO Not Given QDAY [facility] Nutrition/Malnutrition Assess - Dietary Evaluation Nutrition/Malnutrition Findings: Nutrition Notes Start: 05/02/21 14:43 Freq: Status: Active Protocol: Document 05/09/21 13:29 (Rec: 05/09/21 13:32 [id number]) Nutrition Notes Initial or Follow up Reassessment Current Diagnosis Small Bowel Obstruction Other Pertinent Diagnosis HIV, acute appendicitis Current Diet [facility] soft Labs/Tests K 3.1 Pertinent Medications Zofran Height 5 ft 10 in Weight 72.8 kg Reading Body Weight (kg) 75.45 BMI 23.0 Weight Status Appropriate Subjective/Other Information Diet advanced on 05/07. Per chart, pt ate 50% of breakfast yesterday. Unable to speak with pt. Burn Absent Trauma Absent Current % PO Fair (50-74%) Minimum of two criteria Yes Energy Intake (severe) < or equal to 50% Estimated Energy Requirement > or equal to 5 days Interpretation of Weight Loss (severe) >2% in 1 week #1 Nutrition Diagnosis Malnutrition As Evidenced by Signs and Symptoms pt eating 50% of meals Diagnosis Progress(for reassessment Improved documentation) Is patient on ventilator? No Is Patient Ambulatory and/or Out of Bed Yes REE-([facility]. Primitivo-ambulatory/OOB) [ 2007.525 [id number]] Calculation Used for Recommendations Atkinson-St Jeor Additional Notes Protein: (1.2-1.5g/kg) 81-101g Fluid: 1 ml/kcal or per MD Nutrition Intervention Change Diet Order: continue Add Supplement/Snack (indicate name/kcal Ensure Enlive daily /protein ) Provides kCal: 350 Provides Protein (gm) 20 Goal #1 Meet at least 75% of protein and kcal needs via PO and ONS intakes. Anticipated Discharge Needs: Regular Follow-Up By: 05/11/21 Additional Comments F/U: intakes and ONS tolerance
[2021-05-09] MEDS: SIMETHICONE 80 MG CHEW TAB PO PRN (22:00)
[2021-05-09] MEDS: ENOXAPARIN 40 MG/0.4 ML INJ SUB-Q SCH (22:02)
[2021-05-10] MEDS: SODIUM HYPOCHLORITE, DAKIN'S FULL STRENGTH (0.5%) 473 ML TOPICAL SOLN TP PRN (02:30)
[2021-05-10] MEDS: chlorproMAZINE 25 MG TAB PO PRN ×2 (02:35→10:18)
[2021-05-10] MEDS: SODIUM CHLORIDE 0.9% 1000 ML 1,000 ML IV SCH ×2 (03:50→12:30)
[2021-05-10] MEDS: SIMETHICONE 80 MG CHEW TAB PO PRN ×3 (03:51→20:50)
[2021-05-10] MEDS: MORPHINE 2 MG/1 ML INJ IV PRN ×2 (04:39→20:50)
[2021-05-10] MEDS: ONDANSETRON 4 MG/2 ML INJ IV PRN ×2 (04:39→20:51)
[2021-05-10] MEDS: MEROPENEM/NS 1 GRAM/100 ML 1 GRAM/100 ML BAG IV SCH ×3 (06:13→22:51)
[2021-05-10] MEDS: EMTRICITABINE 200 MG CAP PO SCH (10:20)
[2021-05-10] MEDS: ATAZANAVIR 150 MG CAP PO SCH (10:20)
[2021-05-10] MEDS: TENOFOVIR 300 MG TAB PO SCH (10:21)
--- NOTE | 2021-05-10 20:03 | Progress Note ---
Assessment and Plan Assessment and plan: --ESBL positive surgical wound culture; Current Visit: Yes Status: Acute ID ID recommended 7 days of meropenem starting from 05/06/2021 evening dose, Midline is placed patient is self-pay and cannot afford these antibiotics patient will complete antibiotics inpatient --Sepsis due to ESBL infection Current Visit: Yes Status: Acute ID evaluation noted, total 7 days of IV meropenem every 8 hours -- Acute appendicitis with abscess Iatrogenic sigmoid colon injury Current Visit: Yes Status: Acute Surgery evaluated the patient s/p surgery 05/02/2021 1) Diagnostic laparoscopy 2) Open appendectomy with drainage of appendiceal abscess 3) Open repair of iatrogenic sigmoid colon injury Plan to discharge the patient today per Dr. Novak's recommendation However wound cultures came back positive for ESBL Discharge held ID evaluated, started on meropenem Contact isolation, closely monitor --Hiccups; Current Visit: Yes Status: Acute IV and oral Thorazine Advised to drink plenty of oral fluids Sitting the chair upright after every meal for half an hour --Small bowel obstruction Current Visit: Yes Status: Acute Resolved, surgeon advance diet --History of HIV (human immunodeficiency virus infection) Current Visit: Yes Status: Chronic Continue prehospital antiretroviral therapy, outpatient infectious disease follow-up. Upon discharge --DVT prophylaxis Current Visit: Yes Status: Acute Subcu Lovenox Discharge held due to positive ESBL surgical cultures, ID recommend total 7 days of IV meropenem Midline requested, DC planning per case management We will closely monitor the patient and adjust the management as needed Daily hospital course; 05/05/2021; Dr. Novak evaluated the patient, cleared for discharge for tomorrow However no ride available 05/06/2021; Patient's discharge is held due to positive ESBL surgical cultures ID consulted, started on meropenem, continue supportive care 05/07/2021; Patient is receiving imipenem as recommended by ID Total 8 days of IV meropenem, midline requested case management to assist with discharge planning and medications DC planning per CM ,disposition per surgery Patient has hiccups, Thorazine ordered I spoke with patient's sister Ms. Jung and discussed in detail patient's condition treatment and discharge plan She had many questions about DC planning, advised her to call back tomorrow and speak with the case management. She verbalized understanding 05/08/2021; Patient is receiving meropenem day 2/7 Case management assisting with home antibiotics Received midline,Intermittent hiccups, continue Thorazine Ambulate in the hallway as tolerated 05/09/2021 Patient feels better, hiccups have significantly improved Continue IV antibiotics, complete total 7 days February 07, 2021; continue antibiotics day 4/ follow ID, surgery recommendations disposition discharge when stable and cleared by surgery and ID History Interval history: Patient feels better no new complaints Hospitalist Physical - Constitutional Vitals: Temp Pulse Resp BP Pulse Ox 99.7 F H 131 H 20 168/68 89 05/10/21 19:11 05/10/21 19:11 05/10/21 19:11 05/10/21 19:11 05/10/21 19:11 General appearance: Present: no acute distress, well-nourished, obese - EENT Eyes: Present: PERRL, EOM intact - Neck Neck: Present: supple, normal ROM - Respiratory Respiratory effort: normal Respiratory: bilateral: diminished, negative: rales, rhonchi, wheezing - Cardiovascular Rhythm: regular Heart Sounds: Present: S1 & S2 - Extremities Extremities: no ischemia, No edema - Abdominal General gastrointestinal: soft, non-tender, non-distended, normal bowel sounds - Integumentary Integumentary: Present: clear, warm - Psychiatric Psychiatric: appropriate mood/affect, cooperative - Neurologic Neurologic: CNII-XII intact, moves all extremities Results - Labs CBC & Chem 7: 05/09/21 04:27 05/09/21 04:27 Labs: Laboratory Last Values WBC 8.0 K/mm3 (4.5-11.0) 05/09/21 04:27 RBC 4.84 M/mm3 (3.65-5.03) 05/09/21 04:27 Hgb 14.3 gm/dl (11.8-15.2) 05/09/21 04:27 Hct 41.7 % (35.5-45.6) 05/09/21 04:27 MCV 86 fl (84-94) 05/09/21 04:27 MCH 30 pg (28-32) 05/09/21 04:27 MCHC 34 % (32-34) 05/09/21 04:27 RDW 14.9 % (13.2-15.2) 05/09/21 04:27 Plt Count 266 K/mm3 (140-440) 05/09/21 04:27 Lymph % (Auto) 28.9 % (13.4-35.0) 05/09/21 04:27 [place] % (Auto) 7.2 % (0.0-7.3) 05/09/21 04:27 Eos % (Auto) 0.1 % (0.0-4.3) 05/09/21 04:27 Baso % (Auto) 0.3 % (0.0-1.8) 05/09/21 04:27 Lymph # (Auto) 2.3 K/mm3 (1.2-5.4) 05/09/21 04:27 [place] # (Auto) 0.6 K/mm3 (0.0-0.8) 05/09/21 04:27 Eos # (Auto) 0.0 K/mm3 (0.0-0.4) 05/09/21 04:27 Baso # (Auto) 0.0 K/mm3 (0.0-0.1) 05/09/21 04:27 Seg Neutrophils % 63.5 % (40.0-70.0) 05/09/21 04:27 Seg Neutrophils # 5.1 K/mm3 (1.8-7.7) 05/09/21 04:27 Sodium 139 mmol/L (137-145) 05/09/21 04:27 Potassium 3.1 mmol/L (3.6-5.0) L 05/09/21 04:27 Chloride 100.7 mmol/L (98-107) 05/09/21 04:27 Carbon Dioxide 28 mmol/L (22-30) 05/09/21 04:27 Anion Gap 13 mmol/L 05/09/21 04:27 BUN 13 mg/dL (9-20) 05/09/21 04:27 Creatinine 0.9 mg/dL (0.8-1.3) 05/09/21 04:27 Estimated GFR > 60 ml/min 05/09/21 04:27 BUN/Creatinine Ratio 14 % 05/09/21 04:27 Glucose 93 mg/dL (75-100) 05/09/21 04:27 Calcium 8.6 mg/dL (8.4-10.2) 05/09/21 04:27 Magnesium 2.50 mg/dL (1.7-2.3) H 05/09/21 04:27 Total Bilirubin 0.80 mg/dL (0.1-1.2) 04/30/21 19:52 AST 15 units/L (5-40) 04/30/21 19:52 ALT 13 units/L (7-56) 04/30/21 19:52 Alkaline Phosphatase 86 units/L (35-129) 04/30/21 19:52 Total Protein 9.1 g/dL (6.3-8.2) H 04/30/21 19:52 Albumin 3.8 g/dL (3.9-5) L 04/30/21 19:52 Albumin/Globulin Ratio 0.7 % 04/30/21 19:52 Lipase 25 units/L (13-60) 04/30/21 19:52 Urine Color Dory (Yellow) 04/30/21 Unknown Urine Turbidity Slightly-cloudy (Clear) 04/30/21 Unknown Urine pH 5.0 (5.0-7.0) 04/30/21 Unknown Ur Specific [place] 1.026 (1.003-1.030) 04/30/21 Unknown Urine Protein 100 mg/dl mg/dL (Negative) 04/30/21 Unknown Urine Glucose (UA) Neg mg/dL (Negative) 04/30/21 Unknown Urine Ketones Neg mg/dL (Negative) 04/30/21 Unknown Urine Blood Mod (Negative) 04/30/21 Unknown Urine Nitrite Neg (Negative) 04/30/21 Unknown Urine Bilirubin Neg (Negative) 04/30/21 Unknown Urine Urobilinogen 2.0 mg/dL (<2.0) 04/30/21 Unknown Ur Leukocyte Esterase Neg (Negative) 04/30/21 Unknown Urine WBC (Auto) 7.0 /HPF (0.0-6.0) H 04/30/21 Unknown Urine RBC (Auto) 6.0 /HPF (0.0-6.0) 04/30/21 Unknown U Epithel Cells (Auto) 1.0 /HPF (0-13.0) 04/30/21 Unknown Hyaline Casts 3 /LPF 04/30/21 Unknown Urine Mucus 3+ /HPF 04/30/21 Unknown Montoya/IV: Voiding Method Urinal Active Medications - Current Medications Current Medications: Generic Name Dose Route Start Last Admin Trade Name Freq PRN Reason Stop Dose Admin Acetaminophen 650 mg 05/01/21 15:01 Acetaminophen 325 Mg Tab PO Q4H PRN Pain MILD(1-3)/Fever >100.5/SMALLS Atazanavir 300 mg 05/02/21 10:00 05/10/21 10:20 Atazanavir 150 Mg Cap PO Not Given DAILY GULSHAN Chlorpromazine HCl 25 mg 05/05/21 22:15 05/10/21 10:18 Chlorpromazine 25 Mg Tab PO 25 mg Q6H PRN Administration Hiccups Emtricitabine 200 mg 05/02/21 10:00 05/10/21 10:20 Emtricitabine 200 Mg Cap PO Not Given QDAY GULSHAN Enoxaparin Sodium 40 mg 05/06/21 22:00 05/09/21 22:02 Enoxaparin 40 Mg/0.4 Ml Inj SUB-Q 40 mg QDAY@2200 GULSHAN Administration Protocol Sodium Chloride 1,000 mls @ 125 mls/hr 05/01/21 15:15 05/10/21 12:30 Nacl 0.9% 1000 Ml IV 125 mls/hr DIRECT GULSHAN Administration MEROPENEM/NS 1 GRAM/100 ML 1 gram in 100 mls @ 100 mls/hr 05/06/21 22:00 05/10/21 15:30 Merrem/Ns 1 Gram/100 Ml IV 05/13/21 14:59 100 mls/hr Q8H GULSHAN Administration Protocol Magnesium Hydroxide 30 ml 05/05/21 13:00 05/09/21 05:08 Magnesium Hydroxide (Mom) Oral Liqd Udc PO 30 ml QDAY PRN Administration Constipation Morphine Sulfate 2 mg 05/08/21 07:42 05/10/21 04:39 Morphine 2 Mg/1 Ml Inj IV 2 mg Q12H PRN Administration Pain, Moderate (4-6) Ondansetron HCl 4 mg 05/01/21 15:01 05/10/21 04:39 Ondansetron 4 Mg/2 Ml Inj IV 4 mg Q8H PRN Administration Nausea And Vomiting Oxycodone/Acetaminophen 2 tab 05/04/21 11:00 05/06/21 10:35 Oxycodone /Acetaminophen 5-325mg Tab PO 2 tab Q4H PRN Administration Pain, Moderate (4-6) Ritonavir 100 mg 05/02/21 10:00 05/08/21 12:49 Ritonavir 100 Mg Tab PO Not Given QDAY GULSHAN Simethicone 80 mg 05/07/21 03:05 05/10/21 10:18 Simethicone 80 Mg Chew Tab PO 80 mg Q6H PRN Administration Gas pain Sodium Chloride 10 ml 05/01/21 22:00 05/10/21 10:21 Sodium Chloride 0.9% 10 Ml Flush Syringe IV 10 ml BID GULSHAN Administration Sodium Chloride 10 ml 05/01/21 15:01 05/09/21 17:16 Sodium Chloride 0.9% 10 Ml Flush Syringe IV 10 ml PRN PRN Administration LINE FLUSH Sodium Hypochlorite 1 applic 05/03/21 10:00 05/10/21 02:30 Sodium Hypochlorite, Dakin's Full Strength (0.5%) 473 Ml Topical Soln TP 1 bottle Q12H PRN Administration Wound Care Tenofovir Disoproxil Fumarate 300 mg 05/02/21 10:00 05/10/21 10:21 Tenofovir 300 Mg Tab PO Not Given QDAY [facility] Nutrition/Malnutrition Assess - Dietary Evaluation Nutrition/Malnutrition Findings: Nutrition Notes Start: 05/02/21 14:43 Freq: Status: Active Protocol: Document 05/09/21 13:29 (Rec: 05/09/21 13:32 [id number]) Nutrition Notes Initial or Follow up Reassessment Current Diagnosis Small Bowel Obstruction Other Pertinent Diagnosis HIV, acute appendicitis Current Diet [facility] soft Labs/Tests K 3.1 Pertinent Medications Zofran Height 5 ft 10 in Weight 72.8 kg [place] Body Weight (kg) 75.45 BMI 23.0 Weight Status Appropriate Subjective/Other Information Diet advanced on 05/07. Per chart, pt ate 50% of breakfast yesterday. Unable to speak with pt. Burn Absent Trauma Absent Current % PO Fair (50-74%) Minimum of two criteria Yes Energy Intake (severe) < or equal to 50% Estimated Energy Requirement > or equal to 5 days Interpretation of Weight Loss (severe) >2% in 1 week #1 Nutrition Diagnosis Malnutrition As Evidenced by Signs and Symptoms pt eating 50% of meals Diagnosis Progress(for reassessment Improved documentation) Is patient on ventilator? No Is Patient Ambulatory and/or Out of Bed Yes REE-([facility]-ambulatory/OOB) [ 2007.525 NUTR.MSJOOB] Calculation Used for Recommendations [facility] Additional Notes Protein: (1.2-1.5g/kg) 81-101g Fluid: 1 ml/kcal or per MD Nutrition Intervention Change Diet Order: continue Add Supplement/Snack (indicate name/kcal Ensure Enlive daily /protein ) Provides kCal: 350 Provides Protein (gm) 20 Goal #1 Meet at least 75% of protein and kcal needs via PO and ONS intakes. Anticipated Discharge Needs: Regular Follow-Up By: 05/11/21 Additional Comments F/U: intakes and ONS tolerance
[2021-05-10] MEDS: ENOXAPARIN 40 MG/0.4 ML INJ SUB-Q SCH (22:51)
[2021-05-10] MEDS: ACETAMINOPHEN 325 MG TAB PO PRN (23:46)
[2021-05-11] MEDS: chlorproMAZINE 25 MG TAB PO PRN (01:20)
[2021-05-11] MEDS: MEROPENEM/NS 1 GRAM/100 ML 1 GRAM/100 ML BAG IV SCH ×3 (06:05→21:30)
[2021-05-11] MEDS: RITONAVIR 100 MG TAB PO SCH ×3 (08:10→09:59)
[2021-05-11] MEDS: TENOFOVIR 300 MG TAB PO SCH (09:59)
[2021-05-11] MEDS: ATAZANAVIR 150 MG CAP PO SCH (09:59)
[2021-05-11] MEDS: EMTRICITABINE 200 MG CAP PO SCH (09:59)
[2021-05-11] MEDS: ACETAMINOPHEN 325 MG TAB PO PRN ×2 (10:02→20:56)
[2021-05-11] MEDS: SODIUM CHLORIDE 0.9% 1000 ML 1,000 ML IV SCH (12:00)
[2021-05-11] MEDS: oxyCODONE /ACETAMINOPHEN 5-325MG TAB PO PRN (13:13)
[2021-05-11] MEDS: MORPHINE 2 MG/1 ML INJ IV PRN (13:35)
[2021-05-11 14:27] LABS: Alanine Aminotransferase 13 units/L (7-56); Albumin 2.3 g/dL (3.9-5); Blood Urea Nitrogen 12 mg/dL (9-20); Calcium 7.5 mg/dL (8.4-10.2); Hemolysis Index 15
[2021-05-11 14:39] LABS: BUN/Creatinine Ratio 17
[2021-05-11 14:45] LABS: Basophils % (Auto) 0.2 % (0.0-1.8); Eosinophils % (Auto) 0.5 % (0.0-4.3); Hematocrit 33.4 % (35.5-45.6); Hemoglobin 11.4 gm/dl (11.8-15.2); Lymphocytes # (Auto) 1.5 K/mm3 (1.2-5.4); Lymphocytes % (Auto) 38.1 % (13.4-35.0); Mean Corpuscular HGB Conc 34 % (32-34); Mean Corpuscular Volume 86 fl (84-94); Monocytes # (Auto) 0.2 K/mm3 (0.0-0.8); Monocytes % (Auto) 4.2 % (0.0-7.3); Platelet Count 195 K/mm3 (140-440); Red Cell Distribution Width 14.7 % (13.2-15.2)
--- NOTE | 2021-05-11 18:56 | Progress Note ---
Assessment and Plan Assessment and plan: 61-year-old male with HIV was admitted to the hospital on 05/01/[address] scan showed acute appendicitis. Was seen by general surgery, underwent an open appendectomy with drainage of appendiceal abscess. As per the operative report, sigmoid colon was densely adherent to the cecum, while attempting to free the sigmoid colon from the cecum, a 1.5 cm full- thickness tear was created in the sigmoid colon without cross-contamination. The sigmoid colon was bluntly freed from the cecum, subsequently a 1.5 cm abscess was encountered and was sent for culture. Cultures grew ESBL producing E. coli, group C streptococcus, infectious diseases was consulted for antibiotic recommendations. Patient otherwise has been afebrile. Labs without leukocytosis. Reports some abdominal discomfort, has not had a bowel movement since the surgery. Regarding HIV, reports being on treatment for almost 30+ years, well-controlled, on Biktarvy. Follows at [facility]. #Acute appendicitis, appendiceal abscess: Surgery complicated by "1.5 cm full- thickness tear was created in the sigmoid colon without cross-contamination", needed open appendectomy. 1.5 cm appendiceal abscess which was drained. #HIV: reports being on treatment for almost 30+ years, well-controlled, on Biktarvy. Follows at [facility] --ESBL positive surgical wound culture; Current Visit: Yes Status: Acute ID ID recommended 7 days of meropenem starting from 05/06/2021 evening dose, Midline is placed patient is self-pay and cannot afford these antibiotics patient will complete antibiotics inpatient -- Acute appendicitis with abscess Iatrogenic sigmoid colon injury Current Visit: Yes Status: Acute Surgery evaluated the patient s/p surgery 05/02/2021 1) Diagnostic laparoscopy 2) Open appendectomy with drainage of appendiceal abscess 3) Open repair of iatrogenic sigmoid colon injury Plan to discharge the patient today per Dr. Novak's recommendation However wound cultures came back positive for ESBL Discharge held ID evaluated, started on meropenem Contact isolation, closely monitor --Hiccups;Current Visit: Yes Status: Acute IV and oral Thorazine Advised to drink plenty of oral fluids Sitting the chair upright after every meal for half an hour --Small bowel obstruction Resolved, surgeon advance diet --History of HIV (human immunodeficiency virus infection) Continue prehospital antiretroviral therapy, outpatient infectious disease follow-up. Upon discharge --DVT prophylaxis Subcu Lovenox Discharge held due to positive ESBL surgical cultures, ID recommend total 7 days of IV meropenem Midline requested, DC planning per case management We will closely monitor the patient and adjust the management as needed Daily hospital course; 05/05/2021; Dr. Novak evaluated the patient, cleared for discharge for tomorrow However no ride available 05/06/2021; Patient's discharge is held due to positive ESBL surgical cultures ID consulted, started on meropenem, continue supportive care 05/07/2021; Patient is receiving imipenem as recommended by ID Total 8 days of IV meropenem, midline requested case management to assist with discharge planning and medications DC planning per CM ,disposition per surgery Patient has hiccups, Thorazine ordered I spoke with patient's sister Ms. Jung and discussed in detail patient's condition treatment and discharge plan She had many questions about DC planning, advised her to call back tomorrow and speak with the case management. She verbalized understanding 05/08/2021; Patient is receiving meropenem day 2/7 Case management assisting with home antibiotics Received midline,Intermittent hiccups, continue Thorazine Ambulate in the hallway as tolerated 05/09/2021 Patient feels better, hiccups have significantly improved Continue IV antibiotics, complete total 7 days 2020; continue antibiotics day 4 follow ID, surgery recommendations 05/11/2021: Patient reports slowly doing better. Tolerating soft diet. Having a couple of loose BMs. Is able to walk to the door. Discharge held for completion of meropenem until 05/13. Patient has a fever today. Denies cough, purulent sputum, abdominal pain, dysuria. Abdominal wound is open and being packed. No significant drainage. The etiology of fever is unclear since he is on meropenem. Will obtain pancultures and chest x-ray. May need to repeat CT abdomen to reassess since patient had an abscess there. disposition discharge when stable and cleared by surgery and ID History Interval history: Patient reports slowly doing better. Tolerating soft diet. Having a couple of loose BMs. Is able to walk to the door. Discharge held for completion of meropenem until 05/13. Patient has a fever today. Denies cough, purulent sputum, abdominal pain, dysuria. Abdominal wound is open and being packed. No significant drainage. Hospitalist Physical - Constitutional Vitals: Temp Pulse Resp BP Pulse Ox 99.3 F 102 H 18 101/51 96 05/11/21 03:26 05/11/21 07:20 05/11/21 10:00 05/11/21 03:26 05/11/21 10:00 General appearance: Present: no acute distress, other (Debilitated/malnourished) - EENT Eyes: Present: PERRL. Absent: scleral icterus ENT: clear oral mucosa - Neck Neck: Present: supple - Respiratory Respiratory effort: normal Respiratory: bilateral: CTA - Cardiovascular Rhythm: regular - Extremities Extremities: No edema - Abdominal General gastrointestinal: soft, non-tender, tender, normal bowel sounds, other (Infraumbilical midline incision open/packed, no drainage currently) - Integumentary Integumentary: Absent: rash - Psychiatric Psychiatric: cooperative - Neurologic Neurologic: moves all extremities Results - Labs CBC & Chem 7: 05/12/21 14:15 05/12/21 14:15 Labs: Laboratory Last Values WBC 4.1 K/mm3 (4.5-11.0) L 05/11/21 13:00 RBC 3.90 M/mm3 (3.65-5.03) 05/11/21 13:00 Hgb 11.4 gm/dl (11.8-15.2) L 05/11/21 13:00 Hct 33.4 % (35.5-45.6) L D 05/11/21 13:00 MCV 86 fl (84-94) 05/11/21 13:00 MCH 29 pg (28-32) 05/11/21 13:00 MCHC 34 % (32-34) 05/11/21 13:00 RDW 14.7 % (13.2-15.2) 05/11/21 13:00 Plt Count 195 K/mm3 (140-440) 05/11/21 13:00 Lymph % (Auto) 38.1 % (13.4-35.0) H 05/11/21 13:00 [place] % (Auto) 4.2 % (0.0-7.3) 05/11/21 13:00 Eos % (Auto) 0.5 % (0.0-4.3) 05/11/21 13:00 Baso % (Auto) 0.2 % (0.0-1.8) 05/11/21 13:00 Lymph # (Auto) 1.5 K/mm3 (1.2-5.4) 05/11/21 13:00 [place] # (Auto) 0.2 K/mm3 (0.0-0.8) 05/11/21 13:00 Eos # (Auto) 0.0 K/mm3 (0.0-0.4) 05/11/21 13:00 Baso # (Auto) 0.0 K/mm3 (0.0-0.1) 05/11/21 13:00 Seg Neutrophils % 57.0 % (40.0-70.0) 05/11/21 13:00 Seg Neutrophils # 2.3 K/mm3 (1.8-7.7) 05/11/21 13:00 Sodium 138 mmol/L (137-145) 05/11/21 13:00 Potassium 3.0 mmol/L (3.6-5.0) L 05/11/21 13:00 Chloride 106.6 mmol/L (98-107) 05/11/21 13:00 Carbon Dioxide 24 mmol/L (22-30) 05/11/21 13:00 Anion Gap 10 mmol/L 05/11/21 13:00 BUN 12 mg/dL (9-20) 05/11/21 13:00 Creatinine 0.7 mg/dL (0.8-1.3) L 05/11/21 13:00 Estimated GFR > 60 ml/min 05/11/21 13:00 BUN/Creatinine Ratio 17 % 05/11/21 13:00 Glucose 96 mg/dL (75-100) 05/11/21 13:00 Calcium 7.5 mg/dL (8.4-10.2) L 05/11/21 13:00 Magnesium 2.10 mg/dL (1.7-2.3) 05/11/21 13:00 Total Bilirubin 0.30 mg/dL (0.1-1.2) 05/11/21 13:00 AST 39 units/L (5-40) 05/11/21 13:00 ALT 13 units/L (7-56) 05/11/21 13:00 Alkaline Phosphatase 36 units/L (35-129) 05/11/21 13:00 Total Protein 5.8 g/dL (6.3-8.2) L 05/11/21 13:00 Albumin 2.3 g/dL (3.9-5) L 05/11/21 13:00 Albumin/Globulin Ratio 0.7 % 05/11/21 13:00 Lipase 25 units/L (13-60) 04/30/21 19:52 Urine Color [place] (Yellow) 04/30/21 Unknown Urine Turbidity Slightly-cloudy (Clear) 04/30/21 Unknown Urine pH 5.0 (5.0-7.0) 04/30/21 Unknown Ur Specific [place] 1.026 (1.003-1.030) 04/30/21 Unknown Urine Protein 100 mg/dl mg/dL (Negative) 04/30/21 Unknown Urine Glucose (UA) Neg mg/dL (Negative) 04/30/21 Unknown Urine Ketones Neg mg/dL (Negative) 04/30/21 Unknown Urine Blood Mod (Negative) 04/30/21 Unknown Urine Nitrite Neg (Negative) 04/30/21 Unknown Urine Bilirubin Neg (Negative) 04/30/21 Unknown Urine Urobilinogen 2.0 mg/dL (<2.0) 04/30/21 Unknown Ur Leukocyte Esterase Neg (Negative) 04/30/21 Unknown Urine WBC (Auto) 7.0 /HPF (0.0-6.0) H 04/30/21 Unknown Urine RBC (Auto) 6.0 /HPF (0.0-6.0) 04/30/21 Unknown U Epithel Cells (Auto) 1.0 /HPF (0-13.0) 04/30/21 Unknown Hyaline Casts 3 /LPF 04/30/21 Unknown Urine Mucus 3+ /HPF 04/30/21 Unknown Microbiology: Microbiology 05/11/21 13:00 Peripheral/Venous Blood Culture - Preliminary Culture in Progress 05/11/21 13:45 Peripheral/Venous Blood Culture - Preliminary Culture in Progress Montoya/IV: Voiding Method Bedpan Active Medications - Current Medications Current Medications: Generic Name Dose Route Start Last Admin Trade Name Freq PRN Reason Stop Dose Admin Acetaminophen 650 mg 05/01/21 15:01 05/11/21 10:02 Acetaminophen 325 Mg Tab PO 650 mg Q4H PRN Administration Pain MILD(1-3)/Fever >100.5/SMALLS Atazanavir 300 mg 05/02/21 10:00 05/11/21 09:59 Atazanavir 150 Mg Cap PO Not Given DAILY GULSHAN Chlorpromazine HCl 25 mg 05/05/21 22:15 05/11/21 01:20 Chlorpromazine 25 Mg Tab PO 25 mg Q6H PRN Administration Hiccups Emtricitabine 200 mg 05/02/21 10:00 05/11/21 09:59 Emtricitabine 200 Mg Cap PO Not Given QDAY GULSHAN Enoxaparin Sodium 40 mg 05/06/21 22:00 05/10/21 22:51 Enoxaparin 40 Mg/0.4 Ml Inj SUB-Q 40 mg QDAY@2200 GULSHAN Administration Protocol Sodium Chloride 1,000 mls @ 125 mls/hr 05/01/21 15:15 05/11/21 12:00 Nacl 0.9% 1000 Ml IV 125 mls/hr DIRECT GULSHAN Administration MEROPENEM/NS 1 GRAM/100 ML 1 gram in 100 mls @ 100 mls/hr 05/06/21 22:00 05/11/21 13:13 Merrem/Ns 1 Gram/100 Ml IV 05/13/21 14:59 100 mls/hr Q8H GULSHAN Administration Protocol Magnesium Hydroxide 30 ml 05/05/21 13:00 05/09/21 05:08 Magnesium Hydroxide (Mom) Oral Liqd Udc PO 30 ml QDAY PRN Administration Constipation Morphine Sulfate 2 mg 05/08/21 07:42 05/11/21 13:35 Morphine 2 Mg/1 Ml Inj IV 2 mg Q12H PRN Administration Pain, Moderate (4-6) Ondansetron HCl 4 mg 05/01/21 15:01 05/10/21 20:51 Ondansetron 4 Mg/2 Ml Inj IV 4 mg Q8H PRN Administration Nausea And Vomiting Oxycodone/Acetaminophen 2 tab 05/04/21 11:00 05/06/21 10:35 Oxycodone /Acetaminophen 5-325mg Tab PO 2 tab Q4H PRN Administration Pain, Moderate (4-6) Ritonavir 100 mg 05/02/21 10:00 05/11/21 09:59 Ritonavir 100 Mg Tab PO Not Given QDAY [facility] Simethicone 80 mg 05/07/21 03:05 05/10/21 20:50 Simethicone 80 Mg Chew Tab PO 80 mg Q6H PRN Administration Gas pain Sodium Chloride 10 ml 05/01/21 22:00 05/11/21 09:59 Sodium Chloride 0.9% 10 Ml Flush Syringe IV 10 ml BID GULSHAN Administration Sodium Chloride 10 ml 05/01/21 15:01 05/09/21 17:16 Sodium Chloride 0.9% 10 Ml Flush Syringe IV 10 ml PRN PRN Administration LINE FLUSH Sodium Hypochlorite 1 applic 05/03/21 10:00 05/10/21 02:30 Sodium Hypochlorite, Dakin's Full Strength (0.5%) 473 Ml Topical Soln TP 1 bottle Q12H PRN Administration Wound Care Tenofovir Disoproxil Fumarate 300 mg 05/02/21 10:00 05/11/21 09:59 Tenofovir 300 Mg Tab PO Not Given QDAY GULSHAN Nutrition/Malnutrition Assess - Dietary Evaluation Nutrition/Malnutrition Findings: Nutrition Notes Start: 05/02/21 14:43 Freq: Status: Active Protocol: Document 05/09/21 13:29 (Rec: 05/09/21 13:32 [id number]) Nutrition Notes Initial or Follow up Reassessment Current Diagnosis Small Bowel Obstruction Other Pertinent Diagnosis HIV, acute appendicitis Current Diet [facility] soft Labs/Tests K 3.1 Pertinent Medications Zofran Height 5 ft 10 in Weight 72.8 kg [place] Body Weight (kg) 75.45 BMI 23.0 Weight Status Appropriate Subjective/Other Information Diet advanced on 05/07. Per chart, pt ate 50% of breakfast yesterday. Unable to speak with pt. Burn Absent Trauma Absent Current % PO Fair (50-74%) Minimum of two criteria Yes Energy Intake (severe) < or equal to 50% Estimated Energy Requirement > or equal to 5 days Interpretation of Weight Loss (severe) >2% in 1 week #1 Nutrition Diagnosis Malnutrition As Evidenced by Signs and Symptoms pt eating 50% of meals Diagnosis Progress(for reassessment Improved documentation) Is patient on ventilator? No Is Patient Ambulatory and/or Out of Bed Yes REE-([facility]-ambulatory/OOB) [ 2007.525 NUTR.MSJOOB] Calculation Used for Recommendations [facility] Additional Notes Protein: (1.2-1.5g/kg) 81-101g Fluid: 1 ml/kcal or per MD Nutrition Intervention Change Diet Order: continue Add Supplement/Snack (indicate name/kcal Ensure Enlive daily /protein ) Provides kCal: 350 Provides Protein (gm) 20 Goal #1 Meet at least 75% of protein and kcal needs via PO and ONS intakes. Anticipated Discharge Needs: Regular Follow-Up By: 05/11/21 Additional Comments F/U: intakes and ONS tolerance
[2021-05-11] MEDS: ONDANSETRON 4 MG/2 ML INJ IV PRN (20:58)
[2021-05-11] MEDS: ENOXAPARIN 40 MG/0.4 ML INJ SUB-Q SCH (21:00)
--- NOTE | 2021-05-11 21:25 | XRay Report ---
CHEST 1 VIEW INDICATION / CLINICAL INFORMATION: hypoxia. COMPARISON: None available. FINDINGS: SUPPORT DEVICES: None. HEART / MEDIASTINUM: No significant abnormality. LUNGS / PLEURA: Streaky opacities involving the mid and lower lung zones bilaterally. No significant effusion. No pneumothorax. ADDITIONAL FINDINGS: No significant additional findings. IMPRESSION: Multilobar pneumonia. Signer Name: Eric Ascencio MD Signed: 05/11/2021 9:21 PM Workstation Name: [id number]
[2021-05-12] MEDS: MORPHINE 2 MG/1 ML INJ IV PRN ×2 (01:36→14:29)
[2021-05-12] MEDS ORDERED: LIP THERAPY VASELINE TP PRN (03:37)
[2021-05-12] MEDS: SODIUM CHLORIDE 0.9% 1000 ML 1,000 ML IV SCH (04:55)
[2021-05-12] MEDS: ONDANSETRON 4 MG/2 ML INJ IV PRN ×2 (04:57→14:30)
[2021-05-12] MEDS: MEROPENEM/NS 1 GRAM/100 ML 1 GRAM/100 ML BAG IV SCH ×3 (06:30→21:24)
[2021-05-12] MEDS: EMTRICITABINE 200 MG CAP PO SCH (10:18)
[2021-05-12] MEDS: ATAZANAVIR 150 MG CAP PO SCH (10:18)
[2021-05-12] MEDS: TENOFOVIR 300 MG TAB PO SCH (10:19)
[2021-05-12] MEDS: RITONAVIR 100 MG TAB PO SCH (10:27)
[2021-05-12] MEDS ORDERED: POTASSIUM CHLORIDE ER 20 MEQ TAB PO ONE (11:00)
[2021-05-12 14:29] LABS: Basophils % (Auto) 0.4 % (0.0-1.8); Eosinophils % (Auto) 0.1 % (0.0-4.3); Hematocrit 39.3 % (35.5-45.6); Hemoglobin 13.4 gm/dl (11.8-15.2); Lymphocytes # (Auto) 1.6 K/mm3 (1.2-5.4); Lymphocytes % (Auto) 36.5 % (13.4-35.0); Mean Corpuscular HGB Conc 34 % (32-34); Mean Corpuscular Volume 86 fl (84-94); Monocytes # (Auto) 0.2 K/mm3 (0.0-0.8); Monocytes % (Auto) 4.1 % (0.0-7.3); Platelet Count 212 K/mm3 (140-440); Red Cell Distribution Width 14.9 % (13.2-15.2)
[2021-05-12 14:49] LABS: Alanine Aminotransferase 23 units/L (7-56); Albumin 2.6 g/dL (3.9-5); Blood Urea Nitrogen 9 mg/dL (9-20); Calcium 8.2 mg/dL (8.4-10.2); Hemolysis Index 14
[2021-05-12 15:11] LABS: BUN/Creatinine Ratio 15
--- NOTE | 2021-05-12 18:12 | Cat Scan Report ---
CTA CHEST WITH CONTRAST INDICATION / CLINICAL INFORMATION: fever 103 with recent intra-abdominal abscess 100 ml [id number]. TECHNIQUE: Axial CT images were obtained through the chest after injection of 100 mL's of Omnipaque 3 50 IV contrast. 3 plane MIP and/or 3D reconstructions were produced. All CT scans at this location ar e performed using CT dose reduction for ALARA by means of automated exposure control. COMPARISON: 05/11/2021 FINDINGS: PULMONARY ARTERIES: No pulmonary emboli. THORACIC AORTA: No significant abnormality. HEART: No significant abnormality. CORONARY ARTERY CALCIFICATION: None. MEDIASTINUM / LILLIAM: No significant abnormality. PLEURA: Bilateral, left greater than right pleural effusions. No pneumothorax. LUNGS: There are scattered groundglass opacities throughout the bilateral lungs. ADDITIONAL FINDINGS: None. SKELETAL STRUCTURES: No significant osseous abnormality. IMPRESSION: 1. No CT evidence for pulmonary embolism. 2. Diffuse scattered groundglass opacities throughout bilateral lungs which can be seen with Covid pn eumonia. CT ABDOMEN AND PELVIS WITH CONTRAST INDICATION / CLINICAL INFORMATION: fever 103 with recent intra-abdominal abscess 100 ml [id number]. TECHNIQUE: Axial CT images were obtained through the abdomen and pelvis after 100 mL's of Omnipaque [address] scans at this location are performed using CT dose reduction for ALARA by daren ns of automated exposure control. COMPARISON: 04/30/2021 FINDINGS: AORTA / ARTERIES: Mild atherosclerotic calcification without acute abnormality. IVC / VEINS: No significant abnormality. LYMPH NODES: No significant adenopathy. COLON: No significant abnormality. APPENDIX: Not visualized. STOMACH / SMALL BOWEL: There are numerous fluid-filled loops of small bowel throughout the abdomen. PERITONEUM: No free fluid. No free air. No fluid collection. LIVER: Multiple hepatic cysts. GALLBLADDER: No significant abnormality. BILE DUCTS: No significant abnormality. PANCREAS: No significant abnormality. SPLEEN: No significant abnormality. ADRENALS: No significant abnormality. RIGHT KIDNEY / URETER: Multiple cysts. LEFT KIDNEY / URETER: No significant abnormality. URINARY BLADDER: No significant abnormality. REPRODUCTIVE ORGANS: No significant abnormality. SKELETAL SYSTEM: Bilateral hip degeneration ADDITIONAL FINDINGS: None. IMPRESSION: 1. Numerous fluid filled loops of bowel throughout the abdomen which can be seen with postinfectious or postinflammatory process. 2. Other findings as above Signer Name: Lito Lerma DO Signed: 05/12/2021 6:07 PM Workstation Name: [id number]
--- NOTE | 2021-05-12 18:12 | Cat Scan Report ---
CTA CHEST WITH CONTRAST INDICATION / CLINICAL INFORMATION: fever 103 with recent intra-abdominal abscess 100 ml [id number]. TECHNIQUE: Axial CT images were obtained through the chest after injection of 100 mL's of Omnipaque 3 50 IV contrast. 3 plane MIP and/or 3D reconstructions were produced. All CT scans at this location ar e performed using CT dose reduction for ALARA by means of automated exposure control. COMPARISON: 05/11/2021 FINDINGS: PULMONARY ARTERIES: No pulmonary emboli. THORACIC AORTA: No significant abnormality. HEART: No significant abnormality. CORONARY ARTERY CALCIFICATION: None. MEDIASTINUM / LILLIAM: No significant abnormality. PLEURA: Bilateral, left greater than right pleural effusions. No pneumothorax. LUNGS: There are scattered groundglass opacities throughout the bilateral lungs. ADDITIONAL FINDINGS: None. SKELETAL STRUCTURES: No significant osseous abnormality. IMPRESSION: 1. No CT evidence for pulmonary embolism. 2. Diffuse scattered groundglass opacities throughout bilateral lungs which can be seen with Covid pn eumonia. CT ABDOMEN AND PELVIS WITH CONTRAST INDICATION / CLINICAL INFORMATION: fever 103 with recent intra-abdominal abscess 100 ml [id number]. TECHNIQUE: Axial CT images were obtained through the abdomen and pelvis after 100 mL's of Omnipaque [address] scans at this location are performed using CT dose reduction for ALARA by daren ns of automated exposure control. COMPARISON: 04/30/2021 FINDINGS: AORTA / ARTERIES: Mild atherosclerotic calcification without acute abnormality. IVC / VEINS: No significant abnormality. LYMPH NODES: No significant adenopathy. COLON: No significant abnormality. APPENDIX: Not visualized. STOMACH / SMALL BOWEL: There are numerous fluid-filled loops of small bowel throughout the abdomen. PERITONEUM: No free fluid. No free air. No fluid collection. LIVER: Multiple hepatic cysts. GALLBLADDER: No significant abnormality. BILE DUCTS: No significant abnormality. PANCREAS: No significant abnormality. SPLEEN: No significant abnormality. ADRENALS: No significant abnormality. RIGHT KIDNEY / URETER: Multiple cysts. LEFT KIDNEY / URETER: No significant abnormality. URINARY BLADDER: No significant abnormality. REPRODUCTIVE ORGANS: No significant abnormality. SKELETAL SYSTEM: Bilateral hip degeneration ADDITIONAL FINDINGS: None. IMPRESSION: 1. Numerous fluid filled loops of bowel throughout the abdomen which can be seen with postinfectious or postinflammatory process. 2. Other findings as above Signer Name: Lito Lerma DO Signed: 05/12/2021 6:07 PM Workstation Name: [id number]
--- NOTE | 2021-05-12 18:47 | Progress Note ---
Assessment and Plan Assessment and plan: 61-year-old male with HIV was admitted to the hospital on 05/01/[address] scan showed acute appendicitis. Was seen by general surgery, underwent an open appendectomy with drainage of appendiceal abscess. As per the operative report, sigmoid colon was densely adherent to the cecum, while attempting to free the sigmoid colon from the cecum, a 1.5 cm full- thickness tear was created in the sigmoid colon without cross-contamination. The sigmoid colon was bluntly freed from the cecum, subsequently a 1.5 cm abscess was encountered and was sent for culture. Cultures grew ESBL producing E. coli, group C streptococcus, infectious diseases was consulted for antibiotic recommendations. Patient otherwise has been afebrile. Labs without leukocytosis. Reports some abdominal discomfort, has not had a bowel movement since the surgery. Regarding HIV, reports being on treatment for almost 30+ years, well-controlled, on Biktarvy. Follows at [facility]. #Acute appendicitis, appendiceal abscess: Surgery complicated by "1.5 cm full- thickness tear was created in the sigmoid colon without cross-contamination", needed open appendectomy. 1.5 cm appendiceal abscess which was drained. #HIV: reports being on treatment for almost 30+ years, well-controlled, on Biktarvy. Follows at [facility] --ESBL positive surgical wound culture; Current Visit: Yes Status: Acute ID ID recommended 7 days of meropenem starting from 05/06/2021 evening dose, Midline is placed patient is self-pay and cannot afford these antibiotics patient will complete antibiotics inpatient -- Acute appendicitis with abscess Iatrogenic sigmoid colon injury Current Visit: Yes Status: Acute Surgery evaluated the patient s/p surgery 05/02/2021 1) Diagnostic laparoscopy 2) Open appendectomy with drainage of appendiceal abscess 3) Open repair of iatrogenic sigmoid colon injury Plan to discharge the patient today per Dr. Novak's recommendation However wound cultures came back positive for ESBL Discharge held ID evaluated, started on meropenem Contact isolation, closely monitor --Hiccups;Current Visit: Yes Status: Acute Likely related to current intra-abdominal process. IV and oral Thorazine Advised to drink plenty of oral fluids Sitting the chair upright after every meal for half an hour --Small bowel obstruction improved clinically and the general surgery advance diet, tolerating --History of HIV (human immunodeficiency virus infection) Continue prehospital antiretroviral therapy, outpatient infectious disease follow-up. Upon discharge high fever with acute hypoxic respiratory failure on 05/11 ABG 7.52, 30, 66, FiO2 100% on NRB, T-max 103 No gross acute changes on chest x-ray, CTA showed no PE but bilateral groundglass opacities CT abdomen showed fluid-filled small bowel loops, likely not acute given the his history. CBC remarkable for mild leukopenia and CMP unremarkable. Midline and left arm looks unremarkable. He is already on broad-spectrum antibiotic, meropenem Concerning for COVID-19 pneumonia, ordered Covid test and isolation as per PUI Patient is very closely monitored for worsening of hypoxia/respiratory decompensation Ordered stool C. difficile Charge nurse advised for possible transfer to [facility] --DVT prophylaxis Subcu Lovenox Discharge held due to positive ESBL surgical cultures, ID recommend total 7 days of IV meropenem Midline requested, DC planning per case management We will closely monitor the patient and adjust the management as needed Daily hospital course; 05/05/2021; Dr. Novak evaluated the patient, cleared for discharge for tomorrow However no ride available 05/06/2021; Patient's discharge is held due to positive ESBL surgical cultures ID consulted, started on meropenem, continue supportive care 05/07/2021; Patient is receiving imipenem as recommended by ID Total 8 days of IV meropenem, midline requested case management to assist with discharge planning and medications DC planning per CM ,disposition per surgery Patient has hiccups, Thorazine ordered I spoke with patient's sister Ms. Jung and discussed in detail patient's condition treatment and discharge plan She had many questions about DC planning, advised her to call back tomorrow and speak with the case management. She verbalized understanding 05/08/2021; Patient is receiving meropenem day 2/7 Case management assisting with home antibiotics Received midline,Intermittent hiccups, continue Thorazine Ambulate in the hallway as tolerated 05/09/2021 Patient feels better, hiccups have significantly improved Continue IV antibiotics, complete total 7 days 2020; continue antibiotics day 4/7 follow ID, surgery recommendations 05/11/2021: Patient reports slowly doing better. Tolerating soft diet. Having a couple of loose BMs. Is able to walk to the door. Discharge held for completion of meropenem until 05/13. Patient has a fever today. Denies cough, purulent sputum, abdominal pain, dysuria. Abdominal wound is open and being packed. No significant drainage. The etiology of fever is unclear since he is on meropenem. Will obtain pancultures and chest x-ray. May need to repeat CT abdomen to reassess since patient had an abscess there. 05/12/2021: Spiked fever 103 and developed acute hypoxic respiratory failure as described in detail. Work-up so far showed bilateral groundglass opacities in the lungs concerning for Covid pneumonia. Leukopenia in the face of high fever is also suggestive of viral fever like COVID-19. Since immunocompromised with HIV, pancultures, stool C. difficile and Covid test ordered. Isolation as per PPI for now. NRB currently transitioned to 15 L high flow. If tested positive for COVID-19, the standard treatment should be initiated. Is to monitor very closely. May need to be transferred to [facility]. Discussed with the nursing staff. disposition discharge when stable and cleared by surgery and ID History Interval history: Patient spiked 103 degrees temp yesterday and ~respiratory distress/hypoxia last night needing placement of NRB. Chest x-ray showed no gross findings. Patient doing chest pains or hemoptysis. No purulent sputum. Is alert and oriented. Though in moderate respiratory distress, patient says that he is breathing okay. Continues to have some loose stools 1 to 3-day, unchanged. Denies abdominal pain nausea or vomiting. Continues to tolerate soft diet. Hospitalist Physical - Constitutional Vitals: Temp Pulse Resp BP Pulse Ox 98.3 F 106 H 18 138/87 96 05/12/21 17:28 05/12/21 17:28 05/12/21 17:28 05/12/21 17:28 05/12/21 17:28 General appearance: Present: no acute distress, disheveled, other (Debilitated/malnourished, moderate respiratory distress on NRB) - EENT Eyes: Present: PERRL, EOM intact ENT: other (Oral mucosa dry) - Neck Neck: Present: supple. Absent: masses or JVD - Respiratory Respiratory effort: labored, other (Moderate respiratory distress on NRB) Respiratory: bilateral: diminished (Coarse breath sounds, no wheezes/Rales) - Cardiovascular Rhythm: regular - Extremities Extremities: No edema - Abdominal General gastrointestinal: soft, non-tender, non-distended, normal bowel sounds, other (Infra umbilical laparotomy wound open/packed, no drainage) - Integumentary Integumentary: Absent: rash - Psychiatric Psychiatric: appropriate mood/affect - Neurologic Neurologic: moves all extremities - Additional findings Additional findings: Midline in left upper extremity looks unremarkable. Results - Labs CBC & Chem 7: 05/12/21 14:15 05/12/21 14:15 Labs: Laboratory Last Values WBC 4.4 K/mm3 (4.5-11.0) L 05/12/21 14:15 RBC 4.60 M/mm3 (3.65-5.03) 05/12/21 14:15 Hgb 13.4 gm/dl (11.8-15.2) 05/12/21 14:15 Hct 39.3 % (35.5-45.6) 05/12/21 14:15 MCV 86 fl (84-94) 05/12/21 14:15 MCH 29 pg (28-32) 05/12/21 14:15 MCHC 34 % (32-34) 05/12/21 14:15 RDW 14.9 % (13.2-15.2) 05/12/21 14:15 Plt Count 212 K/mm3 (140-440) 05/12/21 14:15 Lymph % (Auto) 36.5 % (13.4-35.0) H 05/12/21 14:15 [place] % (Auto) 4.1 % (0.0-7.3) 05/12/21 14:15 Eos % (Auto) 0.1 % (0.0-4.3) 05/12/21 14:15 Baso % (Auto) 0.4 % (0.0-1.8) 05/12/21 14:15 Lymph # (Auto) 1.6 K/mm3 (1.2-5.4) 05/12/21 14:15 [place] # (Auto) 0.2 K/mm3 (0.0-0.8) 05/12/21 14:15 Eos # (Auto) 0.0 K/mm3 (0.0-0.4) 05/12/21 14:15 Baso # (Auto) 0.0 K/mm3 (0.0-0.1) 05/12/21 14:15 Seg Neutrophils % 58.9 % (40.0-70.0) 05/12/21 14:15 Seg Neutrophils # 2.6 K/mm3 (1.8-7.7) 05/12/21 14:15 ABG pH 7.524 (7.320-7.450) H 05/11/21 20:51 POC ABG pCO2 30.2 mmHg (32.0-48.0) L 05/11/21 20:51 POC ABG pO2 66.3 mmHg (83-108) L 05/11/21 20:51 POC ABG HCO3 24.3 05/11/21 20:51 ABG O2 Saturation 93.6 (0-100) 05/11/21 20:51 POC ABG Base Excess 2.4 05/11/21 20:51 ABG Hemoglobin 13.7 (12.0-17.5) 05/11/21 20:51 ABG Oxyhemoglobin 92.8 (94-98) L 05/11/21 20:51 ABG Methemoglobin 0.3 (0.0-1.5) 05/11/21 20:51 ABG Sodium 110.2 mmol/L (136.0-145.0) L 05/11/21 20:51 ABG Potassium 3.0 mmol/L (3.40-4.50) L 05/11/21 20:51 ABG Chloride 102.0 mmol/L (98-107) 05/11/21 20:51 ABG Glucose 90 mg/dL (65-95) 05/11/21 20:51 Carboxyhemoglobin 0.6 (0.5-1.5) 05/11/21 20:51 FiO2 % 100.0 05/11/21 20:51 Sodium 136 mmol/L (137-145) L 05/12/21 14:15 Potassium 4.1 mmol/L (3.6-5.0) D 05/12/21 14:15 Chloride 101.8 mmol/L (98-107) 05/12/21 14:15 Carbon Dioxide 28 mmol/L (22-30) 05/12/21 14:15 Anion Gap 10 mmol/L 05/12/21 14:15 BUN 9 mg/dL (9-20) 05/12/21 14:15 Creatinine 0.6 mg/dL (0.8-1.3) L 05/12/21 14:15 Estimated GFR > 60 ml/min 05/12/21 14:15 BUN/Creatinine Ratio 15 % 05/12/21 14:15 Glucose 91 mg/dL (75-100) 05/12/21 14:15 POC Glucose 66 mg/dL (70-105) L 05/12/21 07:28 Lactic Acid 1.10 mmol/L (0.7-2.0) 05/12/21 14:15 Calcium 8.2 mg/dL (8.4-10.2) L 05/12/21 14:15 Magnesium 2.20 mg/dL (1.7-2.3) 05/12/21 14:15 Total Bilirubin 0.50 mg/dL (0.1-1.2) 05/12/21 14:15 AST 68 units/L (5-40) H 05/12/21 14:15 ALT 23 units/L (7-56) 05/12/21 14:15 Alkaline Phosphatase 50 units/L (35-129) 05/12/21 14:15 Total Protein 7.0 g/dL (6.3-8.2) D 05/12/21 14:15 Albumin 2.6 g/dL (3.9-5) L 05/12/21 14:15 Albumin/Globulin Ratio 0.6 % 05/12/21 14:15 Lipase 25 units/L (13-60) 04/30/21 19:52 Arterial Blood Glucose 90 mg/dL (65-95) 05/11/21 20:51 Arterial Blood Ionized Calcium 4.2 mg/dL (4.6-5.3) L 05/11/21 20:51 Urine Color Dory (Yellow) 04/30/21 Unknown Urine Turbidity Slightly-cloudy (Clear) 04/30/21 Unknown Urine pH 5.0 (5.0-7.0) 04/30/21 Unknown Ur Specific [place] 1.026 (1.003-1.030) 04/30/21 Unknown Urine Protein 100 mg/dl mg/dL (Negative) 04/30/21 Unknown Urine Glucose (UA) Neg mg/dL (Negative) 04/30/21 Unknown Urine Ketones Neg mg/dL (Negative) 04/30/21 Unknown Urine Blood Mod (Negative) 04/30/21 Unknown Urine Nitrite Neg (Negative) 04/30/21 Unknown Urine Bilirubin Neg (Negative) 04/30/21 Unknown Urine Urobilinogen 2.0 mg/dL (<2.0) 04/30/21 Unknown Ur Leukocyte Esterase Neg (Negative) 04/30/21 Unknown Urine WBC (Auto) 7.0 /HPF (0.0-6.0) H 04/30/21 Unknown Urine RBC (Auto) 6.0 /HPF (0.0-6.0) 04/30/21 Unknown U Epithel Cells (Auto) 1.0 /HPF (0-13.0) 04/30/21 Unknown Hyaline Casts 3 /LPF 04/30/21 Unknown Urine Mucus 3+ /HPF 04/30/21 Unknown Microbiology: Microbiology 05/11/21 13:00 Peripheral/Venous Blood Culture - Preliminary NO GROWTH AFTER 24 HOURS 05/11/21 13:45 Peripheral/Venous Blood Culture - Preliminary NO GROWTH AFTER 24 HOURS Montoya/IV: Voiding Method Urinal Active Medications - Current Medications Current Medications: Generic Name Dose Route Start Last Admin Trade Name Freq PRN Reason Stop Dose Admin Acetaminophen 650 mg 05/01/21 15:01 05/11/21 20:56 Acetaminophen 325 Mg Tab PO 650 mg Q4H PRN Administration Pain MILD(1-3)/Fever >100.5/SMALLS Atazanavir 300 mg 05/02/21 10:00 05/12/21 10:18 Atazanavir 150 Mg Cap PO Not Given DAILY GULSHAN Chlorpromazine HCl 25 mg 05/05/21 22:15 05/11/21 01:20 Chlorpromazine 25 Mg Tab PO 25 mg Q6H PRN Administration Hiccups Emtricitabine 200 mg 05/02/21 10:00 05/12/21 10:18 Emtricitabine 200 Mg Cap PO Not Given QDAY GULSHAN Enoxaparin Sodium 40 mg 05/06/21 22:00 05/11/21 21:00 Enoxaparin 40 Mg/0.4 Ml Inj SUB-Q 40 mg QDAY@2200 [facility] Administration Protocol Hydrophilic Ointment 1 applic 05/12/21 03:37 05/12/21 06:30 Lip Therapy Vaseline TP 1 applic DIRECT PRN Administration Dry Lips Sodium Chloride 1,000 mls @ 125 mls/hr 05/01/21 15:15 05/12/21 04:55 Nacl 0.9% 1000 Ml IV 125 mls/hr DIRECT GULSHAN Administration MEROPENEM/NS 1 GRAM/100 ML 1 gram in 100 mls @ 100 mls/hr 05/06/21 22:00 05/12/21 14:29 Merrem/Ns 1 Gram/100 Ml IV 05/13/21 14:59 100 mls/hr Q8H GULSHAN Administration Protocol Magnesium Hydroxide 30 ml 05/05/21 13:00 05/09/21 05:08 Magnesium Hydroxide (Mom) Oral Liqd Udc PO 30 ml QDAY PRN Administration Constipation Morphine Sulfate 2 mg 05/08/21 07:42 05/12/21 14:29 Morphine 2 Mg/1 Ml Inj IV 2 mg Q12H PRN Administration Pain, Moderate (4-6) Ondansetron HCl 4 mg 05/01/21 15:01 05/12/21 14:30 Ondansetron 4 Mg/2 Ml Inj IV 4 mg Q8H PRN Administration Nausea And Vomiting Oxycodone/Acetaminophen 2 tab 05/04/21 11:00 05/06/21 10:35 Oxycodone /Acetaminophen 5-325mg Tab PO 2 tab Q4H PRN Administration Pain, Moderate (4-6) Ritonavir 100 mg 05/02/21 10:00 05/12/21 10:27 Ritonavir 100 Mg Tab PO Not Given QDAY GULSHAN Simethicone 80 mg 05/07/21 03:05 05/10/21 20:50 Simethicone 80 Mg Chew Tab PO 80 mg Q6H PRN Administration Gas pain Sodium Chloride 10 ml 05/01/21 22:00 05/12/21 10:31 Sodium Chloride 0.9% 10 Ml Flush Syringe IV 10 ml BID GULSHAN Administration Sodium Chloride 10 ml 05/01/21 15:01 05/09/21 17:16 Sodium Chloride 0.9% 10 Ml Flush Syringe IV 10 ml PRN PRN Administration LINE FLUSH Sodium Hypochlorite 1 applic 05/03/21 10:00 05/10/21 02:30 Sodium Hypochlorite, Dakin's Full Strength (0.5%) 473 Ml Topical Soln TP 1 bottle Q12H PRN Administration Wound Care Tenofovir Disoproxil Fumarate 300 mg 05/02/21 10:00 05/12/21 10:19 Tenofovir 300 Mg Tab PO Not Given QDAY GULSHAN Nutrition/Malnutrition Assess - Dietary Evaluation Nutrition/Malnutrition Findings: Nutrition Notes Start: 05/02/21 14:43 Freq: Status: Active Protocol: Document 05/12/21 16:11 RILEY (Rec: 05/12/21 16:13 RILEY [id number]) Nutrition Notes Initial or Follow up Brief Note Current Diagnosis Small Bowel Obstruction Other Pertinent Diagnosis HIV, acute appendicitis Current Diet mech soft Height 5 ft 10 in Weight 72.8 kg [place] Body Weight (kg) 75.45 BMI 23.0 Subjective/Other Information RN reports pt eating 20-25% of meals. He is drinking the ONS . Percent of energy/protein needs met: 41%/52% Current % PO Poor (25-49%) Minimum of two criteria Yes Energy Intake (severe) < or equal to 50% Estimated Energy Requirement > or equal to 5 days Interpretation of Weight Loss (severe) >2% in 1 week #1 Nutrition Diagnosis Malnutrition As Evidenced by Signs and Symptoms pt eating 20-25% of meals Diagnosis Progress(for reassessment Worsened documentation) Is patient on ventilator? No Is Patient Ambulatory and/or Out of Bed Yes REE-([facility]-ambulatory/OOB) [ 2007.525 [id number]] Calculation Used for Recommendations [facility] Additional Notes Protein: (1.2-1.5g/kg) 81-101g Fluid: 1 ml/kcal or per MD Nutrition Intervention Add Supplement/Snack (indicate name/kcal Ensure Enlive BID /protein ) Provides kCal: 700 Provides Protein (gm) 40 Goal #1 Meet at least 75% of protein and kcal needs via PO and ONS intakes. Follow-Up By: 05/17/21 Additional Comments F/U: intakes and ONS tolerance
[2021-05-12] MEDS: ACETAMINOPHEN 325 MG TAB PO PRN (19:34)
[2021-05-12 19:55] LABS: Bilirubin,Urine NEG (Negative); Blood,Urine SM (Negative); Color,Urine Straw (Yellow); Urobilinogen,Urine < 2.0 mg/dL (<2.0)
[2021-05-12] MEDS: ENOXAPARIN 40 MG/0.4 ML INJ SUB-Q SCH (21:24)
[2021-05-13] MEDS: MORPHINE 2 MG/1 ML INJ IV PRN ×2 (02:55→20:57)
[2021-05-13] MEDS: ONDANSETRON 4 MG/2 ML INJ IV PRN ×2 (02:56→20:57)
[2021-05-13] MEDS: MEROPENEM/NS 1 GRAM/100 ML 1 GRAM/100 ML BAG IV SCH (06:08)
[2021-05-13] MEDS: SODIUM CHLORIDE 0.9% 1000 ML 1,000 ML IV SCH (06:10)
[2021-05-13] MEDS: TENOFOVIR 300 MG TAB PO SCH (12:01)
[2021-05-13] MEDS: RITONAVIR 100 MG TAB PO SCH (12:01)
[2021-05-13] MEDS: ATAZANAVIR 150 MG CAP PO SCH (12:01)
[2021-05-13] MEDS: EMTRICITABINE 200 MG CAP PO SCH (12:01)
--- NOTE | 2021-05-13 12:21 | Consultation ---
History of Present Illness Consult date: 05/13/21 Requesting physician: DAISY KRISHNAN Reason for consult: hypoxemia History of present illness: 61 admitted to the hospital 10 days ago for abdominal issues, acute appendicitis with ex-lap, now with ESBL growing from cultures who developed acute hypoxic respiratory failure as best I can tell on yesterday evening. CT of chest was done, negative for PE but shows bilateral upper lobe predominant airspace disease with bilateral effusions, left greater than right. Patient also spiked temp of 101.3 on yesterday too. ID has been following and is currently on Merrem for ESBL Past History Past Medical History: HIV/AIDS, other (See HPI) Past Surgical History: Other (Lipoma excision, right knee surgery) Social history: single. denies: smoking, alcohol abuse, prescription drug abuse Family history: hypertension Medications and Allergies Allergies Allergy/AdvReac Type Severity Reaction Status Date / Time No Known Allergies Allergy Unverified 08/06/13 14:52 Home Medications Medication Instructions Recorded Confirmed Last Taken Type Atazanavir (Nf) [Reyataz] 200 mg PO QDAY 08/06/13 05/04/21 08/05/13 21:00 Histor y Emtricitabin/Tenofovir [TRUVADA 1 tab PO QDAY 08/06/13 05/04/21 08/05/13 21:00 History 200-300 mg] Ibuprofen [Motrin 800 MG tab] 800 mg PO TID #30 tablet 08/06/13 05/04/21 Unknown Rx Ritonavir [Norvir] 100 mg PO QDAY 08/06/13 05/04/21 08/05/13 20:00 History oxyCODONE /ACETAMINOPHEN [Percocet 1 tab PO Q6H PRN #20 tablet 05/05/21 Unknown Rx 5/325 mg] Active Meds: Active Medications Acetaminophen (Acetaminophen 325 Mg Tab) 650 mg PO Q4H PRN PRN Reason: Pain MILD(1-3)/Fever >100.5/SMALLS Last Admin: 05/12/21 19:34 Dose: 650 mg Documented by: Atazanavir (Atazanavir 150 Mg Cap) 300 mg PO DAILY GULSHAN Last Admin: 05/13/21 12:01 Dose: Not Given Documented by: Chlorpromazine HCl (Chlorpromazine 25 Mg Tab) 25 mg PO Q6H PRN PRN Reason: Hiccups Last Admin: 05/11/21 01:20 Dose: 25 mg Documented by: Emtricitabine (Emtricitabine 200 Mg Cap) 200 mg PO QDAY [facility] Last Admin: 05/13/21 12:01 Dose: Not Given Documented by: Enoxaparin Sodium (Enoxaparin 40 Mg/0.4 Ml Inj) 40 mg SUB-Q QDAY@2200 GULSHAN; Protocol Last Admin: 05/12/21 21:24 Dose: 40 mg Documented by: Hydrophilic Ointment (Lip Therapy Vaseline) 1 applic TP DIRECT PRN PRN Reason: Dry Lips Last Admin: 05/12/21 06:30 Dose: 1 applic Documented by: Sodium Chloride (Nacl 0.9% 1000 Ml) 1,000 mls @ 125 mls/hr IV DIRECT GULSHAN Last Admin: 05/13/21 06:10 Dose: 125 mls/hr Documented by: MEROPENEM/NS 1 GRAM/100 ML (Merrem/Ns 1 Gram/100 Ml) 1 gram in 100 mls @ 100 ml s/hr IV Q8H [facility]; Protocol Stop: 05/13/21 14:59 Last Admin: 05/13/21 06:08 Dose: 100 mls/hr Documented by: Magnesium Hydroxide (Magnesium Hydroxide (Mom) Oral Liqd Udc) 30 ml PO QDAY PRN PRN Reason: Constipation Last Admin: 05/09/21 05:08 Dose: 30 ml Documented by: Morphine Sulfate (Morphine 2 Mg/1 Ml Inj) 2 mg IV Q12H PRN PRN Reason: Pain, Moderate (4-6) Last Admin: 05/13/21 02:55 Dose: 2 mg Documented by: Ondansetron HCl (Ondansetron 4 Mg/2 Ml Inj) 4 mg IV Q8H PRN PRN Reason: Nausea And Vomiting Last Admin: 05/13/21 02:56 Dose: 4 mg Documented by: Oxycodone/Acetaminophen (Oxycodone /Acetaminophen 5-325mg Tab) 2 tab PO Q4H PRN PRN Reason: Pain, Moderate (4-6) Last Admin: 05/06/21 10:35 Dose: 2 tab Documented by: Ritonavir (Ritonavir 100 Mg Tab) 100 mg PO QDAY [facility] Last Admin: 05/13/21 12:01 Dose: Not Given Documented by: Simethicone (Simethicone 80 Mg Chew Tab) 80 mg PO Q6H PRN PRN Reason: Gas pain Last Admin: 05/10/21 20:50 Dose: 80 mg Documented by: Sodium Chloride (Sodium Chloride 0.9% 10 Ml Flush Syringe) 10 ml IV BID [facility] Last Admin: 05/13/21 12:01 Dose: 10 ml Documented by: Sodium Chloride (Sodium Chloride 0.9% 10 Ml Flush Syringe) 10 ml IV PRN PRN PRN Reason: LINE FLUSH Last Admin: 05/09/21 17:16 Dose: 10 ml Documented by: Sodium Hypochlorite (Sodium Hypochlorite, Dakin's Full Strength (0.5%) 473 Ml Topical Soln) 1 applic TP Q12H PRN PRN Reason: Wound Care Last Admin: 05/10/21 02:30 Dose: 1 bottle Documented by: Tenofovir Disoproxil Fumarate (Tenofovir 300 Mg Tab) 300 mg PO QDAY [facility] Last Admin: 05/13/21 12:01 Dose: Not Given Documented by: Physical Examination Vital signs: Vital Signs Temp Pulse Resp BP Pulse Ox 98.2 F 101 H 18 165/92 97 04/30/21 19:41 04/30/21 19:41 04/30/21 19:41 04/30/21 19:41 04/30/21 19:41 Results - Laboratory Findings CBC and BMP: 05/12/21 14:15 05/17/21 04:41 ABG ABG pH 7.524 (7.320-7.450) H 05/11/21 20:51 POC ABG pCO2 30.2 mmHg (32.0-48.0) L 05/11/21 20:51 POC ABG pO2 66.3 mmHg (83-108) L 05/11/21 20:51 POC ABG HCO3 24.3 05/11/21 20:51 ABG O2 Saturation 93.6 (0-100) 05/11/21 20:51 Abnormal lab findings: Abnormal Labs 04/30/21 04/30/21 04/30/21 19:52 19:52 Unknown WBC RBC 5.38 H Hgb 16.0 H Hct 46.7 H MCHC RDW 15.8 H Lymph % (Auto) [place] % (Auto) 8.1 H ABG pH POC ABG pCO2 POC ABG pO2 ABG Oxyhemoglobin ABG Sodium ABG Potassium Sodium Potassium Chloride BUN 21 H Creatinine Glucose POC Glucose Calcium Magnesium Ferritin AST Lactate Dehydrogenase C-Reactive Protein Total Protein 9.1 H Albumin 3.8 L Arterial Blood Ionized Calcium Ur Specific [place] Urine WBC (Auto) 7.0 H 05/02/21 05/02/21 05/04/21 08:32 08:32 05:49 WBC RBC Hgb Hct MCHC 35 H 35 H RDW 15.3 H Lymph % (Auto) [place] % (Auto) 8.3 H ABG pH POC ABG pCO2 POC ABG pO2 ABG Oxyhemoglobin ABG Sodium ABG Potassium Sodium Potassium Chloride 109.2 H BUN Creatinine Glucose 73 L POC Glucose Calcium Magnesium Ferritin AST Lactate Dehydrogenase C-Reactive Protein Total Protein Albumin Arterial Blood Ionized Calcium Ur Specific [place] Urine WBC (Auto) 05/05/21 05/05/21 05/09/21 04:37 04:37 04:27 WBC RBC Hgb Hct MCHC 35 H RDW Lymph % (Auto) [place] % (Auto) 10.9 H ABG pH POC ABG pCO2 POC ABG pO2 ABG Oxyhemoglobin ABG Sodium ABG Potassium Sodium Potassium 3.1 L Chloride BUN 7 L Creatinine Glucose POC Glucose Calcium Magnesium 2.50 H Ferritin AST Lactate Dehydrogenase C-Reactive Protein Total Protein Albumin Arterial Blood Ionized Calcium Ur Specific [place] Urine WBC (Auto) 05/11/21 05/11/21 05/11/21 13:00 13:00 20:51 WBC 4.1 L RBC Hgb 11.4 L Hct 33.4 L D MCHC RDW Lymph % (Auto) 38.1 H [place] % (Auto) ABG pH 7.524 H POC ABG pCO2 30.2 L POC ABG pO2 66.3 L ABG Oxyhemoglobin 92.8 L ABG Sodium 110.2 L ABG Potassium 3.0 L Sodium Potassium 3.0 L Chloride BUN Creatinine 0.7 L Glucose POC Glucose Calcium 7.5 L Magnesium Ferritin AST Lactate Dehydrogenase C-Reactive Protein Total Protein 5.8 L Albumin 2.3 L Arterial Blood Ionized Calcium 4.2 L Ur Specific [place] Urine WBC (Auto) 05/12/21 05/12/21 05/12/21 07:28 14:15 14:15 WBC 4.4 L RBC Hgb Hct MCHC RDW Lymph % (Auto) 36.5 H [place] % (Auto) ABG pH POC ABG pCO2 POC ABG pO2 ABG Oxyhemoglobin ABG Sodium ABG Potassium Sodium 136 L Potassium Chloride BUN Creatinine 0.6 L Glucose POC Glucose 66 L Calcium 8.2 L Magnesium Ferritin AST 68 H Lactate Dehydrogenase C-Reactive Protein Total Protein Albumin 2.6 L Arterial Blood Ionized Calcium Ur Specific [place] Urine WBC (Auto) 05/12/21 05/12/21 05/12/21 19:37 19:38 19:38 WBC RBC Hgb Hct MCHC RDW Lymph % (Auto) [place] % (Auto) ABG pH POC ABG pCO2 POC ABG pO2 ABG Oxyhemoglobin ABG Sodium ABG Potassium Sodium Potassium Chloride BUN Creatinine Glucose POC Glucose Calcium Magnesium Ferritin 1136.0 H AST Lactate Dehydrogenase 477 H C-Reactive Protein 9.30 H Total Protein Albumin Arterial Blood Ionized Calcium Ur Specific [place] Urine WBC (Auto) 05/12/21 Unknown WBC RBC Hgb Hct MCHC RDW Lymph % (Auto) [place] % (Auto) ABG pH POC ABG pCO2 POC ABG pO2 ABG Oxyhemoglobin ABG Sodium ABG Potassium Sodium Potassium Chloride BUN Creatinine Glucose POC Glucose Calcium Magnesium Ferritin AST Lactate Dehydrogenase C-Reactive Protein Total Protein Albumin Arterial Blood Ionized Calcium Ur Specific [place] 1.038 H Urine WBC (Auto) - Diagnostic Findings CT scan - chest: image reviewed Assessment and Plan 61 y/o male with HIV for 30+ years on therapy, now with acute respiratory failure with abnormal CXR and CT of chest. Unfortunately, no comparison imaging and no imaging of chest done on admit. CT also not typical of COVID, especially with effusions. Suggest the followin. Repeat blood cultures if not already ordered along with urine 2. ID is following but would suggest adding Vancomycin to regimen. He has been hospitalized several days and this is an acute change in respiratory status 3. If producing sputum, please send for culture 4. Ideally needs bronch however current oxygen requirement precludes this, if improves over the weekend can consider maybe trying on Sunday? Called endo and they cannot. first available would be . Told them I could do anytime on that day. 5. LDH is elevated. PJP. Will defer to ID. If and when bronched, can send for this as well. 6. Agree with isolation. Hopeful he is not COVID positive Guarded prognosis.
--- NOTE | 2021-05-13 18:55 | Progress Note ---
Assessment and Plan Assessment and plan: --ESBL positive surgical wound culture; Current Visit: Yes Status: Acute ID ID recommended 7 days of meropenem starting from 05/06/2021 evening dose, Midline is placed patient is self-pay and cannot afford these antibiotics patient will complete antibiotics inpatient --Sepsis due to ESBL infection Current Visit: Yes Status: Acute ID evaluation noted, total 7 days of IV meropenem every 8 hours -- Acute appendicitis with abscess Iatrogenic sigmoid colon injury Current Visit: Yes Status: Acute Surgery evaluated the patient s/p surgery 05/02/2021 1) Diagnostic laparoscopy 2) Open appendectomy with drainage of appendiceal abscess 3) Open repair of iatrogenic sigmoid colon injury Plan to discharge the patient today per Dr. Novak's recommendation However wound cultures came back positive for ESBL Discharge held ID evaluated, started on meropenem Contact isolation, closely monitor --Hiccups; Current Visit: Yes Status: Acute IV and oral Thorazine Advised to drink plenty of oral fluids Sitting the chair upright after every meal for half an hour --Small bowel obstruction Current Visit: Yes Status: Acute Resolved, surgeon advance diet --History of HIV (human immunodeficiency virus infection) Current Visit: Yes Status: Chronic Continue prehospital antiretroviral therapy, outpatient infectious disease follow-up. Upon discharge --DVT prophylaxis Current Visit: Yes Status: Acute Subcu Lovenox Discharge held due to positive ESBL surgical cultures, ID recommend total 7 days of IV meropenem Midline requested, DC planning per case management We will closely monitor the patient and adjust the management as needed Daily hospital course; 05/05/2021; Dr. Novak evaluated the patient, cleared for discharge for tomorrow However no ride available 05/06/2021; Patient's discharge is held due to positive ESBL surgical cultures ID consulted, started on meropenem, continue supportive care 05/07/2021; Patient is receiving imipenem as recommended by ID Total 8 days of IV meropenem, midline requested case management to assist with discharge planning and medications DC planning per CM ,disposition per surgery Patient has hiccups, Thorazine ordered I spoke with patient's sister Ms. Jung and discussed in detail patient's condition treatment and discharge plan She had many questions about DC planning, advised her to call back tomorrow and speak with the case management. She verbalized understanding 05/08/2021; Patient is receiving meropenem day 2/7 Case management assisting with home antibiotics Received midline,Intermittent hiccups, continue Thorazine Ambulate in the hallway as tolerated 05/09/2021 Patient feels better, hiccups have significantly improved Continue IV antibiotics, complete total 7 days February 07, 2021; continue antibiotics day 4 follow ID, surgery recommendations disposition discharge when stable and cleared by surgery and ID Resume service today; 05/13/2021; Means PCR test is positive COVID-19 infection Isolation precautions Transfer the patient to third floor[Covid floor\ Reconsult ID Pulmonary consulted possible bronchoscopy History Interval history: I have seen and examined the patient at bedside Patient's chart and medications reviewed CT chest, CT abdomen and pelvis findings consistent with Bilateral patchy infiltrates Means PCR test is done Positive Hospitalist Physical - Constitutional Vitals: Temp Pulse Resp BP Pulse Ox 98.7 F 106 H 20 126/79 87 05/13/21 11:53 05/13/21 11:56 05/13/21 11:53 05/13/21 11:53 05/13/21 11:56 General appearance: Present: mild distress, well-nourished, disheveled, other (Debilitated/malnourished, moderate respiratory distress on NRB) - EENT Eyes: Present: PERRL, EOM intact ENT: hearing intact, clear oral mucosa - Neck Neck: Present: supple, normal ROM - Respiratory Respiratory effort: normal Respiratory: bilateral: diminished, negative: rales, rhonchi, wheezing - Cardiovascular Rhythm: regular Heart Sounds: Present: S1 & S2 - Extremities Extremities: no ischemia - Abdominal General gastrointestinal: soft, non-tender, non-distended, normal bowel sounds - Integumentary Integumentary: Present: clear, warm - Psychiatric Psychiatric: appropriate mood/affect, cooperative - Neurologic Neurologic: CNII-XII intact, moves all extremities Results - Labs CBC & Chem 7: 05/12/21 14:15 05/12/21 14:15 Labs: Laboratory Last Values WBC 4.4 K/mm3 (4.5-11.0) L 05/12/21 14:15 RBC 4.60 M/mm3 (3.65-5.03) 05/12/21 14:15 Hgb 13.4 gm/dl (11.8-15.2) 05/12/21 14:15 Hct 39.3 % (35.5-45.6) 05/12/21 14:15 MCV 86 fl (84-94) 05/12/21 14:15 MCH 29 pg (28-32) 05/12/21 14:15 MCHC 34 % (32-34) 05/12/21 14:15 RDW 14.9 % (13.2-15.2) 05/12/21 14:15 Plt Count 212 K/mm3 (140-440) 05/12/21 14:15 Lymph % (Auto) 36.5 % (13.4-35.0) H 05/12/21 14:15 [place] % (Auto) 4.1 % (0.0-7.3) 05/12/21 14:15 Eos % (Auto) 0.1 % (0.0-4.3) 05/12/21 14:15 Baso % (Auto) 0.4 % (0.0-1.8) 05/12/21 14:15 Lymph # (Auto) 1.6 K/mm3 (1.2-5.4) 05/12/21 14:15 [place] # (Auto) 0.2 K/mm3 (0.0-0.8) 05/12/21 14:15 Eos # (Auto) 0.0 K/mm3 (0.0-0.4) 05/12/21 14:15 Baso # (Auto) 0.0 K/mm3 (0.0-0.1) 05/12/21 14:15 Seg Neutrophils % 58.9 % (40.0-70.0) 05/12/21 14:15 Seg Neutrophils # 2.6 K/mm3 (1.8-7.7) 05/12/21 14:15 ABG pH 7.524 (7.320-7.450) H 05/11/21 20:51 POC ABG pCO2 30.2 mmHg (32.0-48.0) L 05/11/21 20:51 POC ABG pO2 66.3 mmHg (83-108) L 05/11/21 20:51 POC ABG HCO3 24.3 05/11/21 20:51 ABG O2 Saturation 93.6 (0-100) 05/11/21 20:51 POC ABG Base Excess 2.4 05/11/21 20:51 ABG Hemoglobin 13.7 (12.0-17.5) 05/11/21 20:51 ABG Oxyhemoglobin 92.8 (94-98) L 05/11/21 20:51 ABG Methemoglobin 0.3 (0.0-1.5) 05/11/21 20:51 ABG Sodium 110.2 mmol/L (136.0-145.0) L 05/11/21 20:51 ABG Potassium 3.0 mmol/L (3.40-4.50) L 05/11/21 20:51 ABG Chloride 102.0 mmol/L (98-107) 05/11/21 20:51 ABG Glucose 90 mg/dL (65-95) 05/11/21 20:51 Carboxyhemoglobin 0.6 (0.5-1.5) 05/11/21 20:51 FiO2 % 100.0 05/11/21 20:51 Sodium 136 mmol/L (137-145) L 05/12/21 14:15 Potassium 4.1 mmol/L (3.6-5.0) D 05/12/21 14:15 Chloride 101.8 mmol/L (98-107) 05/12/21 14:15 Carbon Dioxide 28 mmol/L (22-30) 05/12/21 14:15 Anion Gap 10 mmol/L 05/12/21 14:15 BUN 9 mg/dL (9-20) 05/12/21 14:15 Creatinine 0.6 mg/dL (0.8-1.3) L 05/12/21 14:15 Estimated GFR > 60 ml/min 05/12/21 14:15 BUN/Creatinine Ratio 15 % 05/12/21 14:15 Glucose 91 mg/dL (75-100) 05/12/21 14:15 POC Glucose 66 mg/dL (70-105) L 05/12/21 07:28 Lactic Acid 1.10 mmol/L (0.7-2.0) 05/12/21 14:15 Calcium 8.2 mg/dL (8.4-10.2) L 05/12/21 14:15 Magnesium 2.20 mg/dL (1.7-2.3) 05/12/21 14:15 Ferritin 1136.0 ng/mL (30.0-300.0) H 05/12/21 19:37 Total Bilirubin 0.50 mg/dL (0.1-1.2) 05/12/21 14:15 AST 68 units/L (5-40) H 05/12/21 14:15 ALT 23 units/L (7-56) 05/12/21 14:15 Alkaline Phosphatase 50 units/L (35-129) 05/12/21 14:15 Lactate Dehydrogenase 477 units/L (91-180) H 05/12/21 19:38 C-Reactive Protein 9.30 mg/dL (0.00-1.30) H 05/12/21 19:38 Total Protein 7.0 g/dL (6.3-8.2) D 05/12/21 14:15 Albumin 2.6 g/dL (3.9-5) L 05/12/21 14:15 Albumin/Globulin Ratio 0.6 % 05/12/21 14:15 Lipase 25 units/L (13-60) 04/30/21 19:52 Arterial Blood Glucose 90 mg/dL (65-95) 05/11/21 20:51 Arterial Blood Ionized Calcium 4.2 mg/dL (4.6-5.3) L 05/11/21 20:51 Urine Color Straw (Yellow) 05/12/21 Unknown Urine Turbidity Clear (Clear) 05/12/21 Unknown Urine pH 7.0 (5.0-7.0) 05/12/21 Unknown Ur Specific [place] 1.038 (1.003-1.030) H 05/12/21 Unknown Urine Protein 30 mg/dl mg/dL (Negative) 05/12/21 Unknown Urine Glucose (UA) Neg mg/dL (Negative) 05/12/21 Unknown Urine Ketones 20 mg/dL (Negative) 05/12/21 Unknown Urine Blood Sm (Negative) 05/12/21 Unknown Urine Nitrite Neg (Negative) 05/12/21 Unknown Urine Bilirubin Neg (Negative) 05/12/21 Unknown Urine Urobilinogen < 2.0 mg/dL (<2.0) 05/12/21 Unknown Ur Leukocyte Esterase Neg (Negative) 05/12/21 Unknown Urine WBC (Auto) 3.0 /HPF (0.0-6.0) 05/12/21 Unknown Urine RBC (Auto) 4.0 /HPF (0.0-6.0) 05/12/21 Unknown U Epithel Cells (Auto) 1.0 /HPF (0-13.0) 04/30/21 Unknown Hyaline Casts 3 /LPF 04/30/21 Unknown Urine Mucus 3+ /HPF 04/30/21 Unknown Coronavirus (PCR) Positive (Negative) A 05/13/21 08:15 Microbiology: Microbiology 05/11/21 13:00 Peripheral/Venous Blood Culture - Preliminary NO GROWTH AFTER 48 HOURS 05/11/21 13:45 Peripheral/Venous Blood Culture - Preliminary NO GROWTH AFTER 48 HOURS [place]/IV: Voiding Method Urinal Active Medications - Current Medications Current Medications: Generic Name Dose Route Start Last Admin Trade Name Freq PRN Reason Stop Dose Admin Acetaminophen 650 mg 05/01/21 15:01 05/12/21 19:34 Acetaminophen 325 Mg Tab PO 650 mg Q4H PRN Administration Pain MILD(1-3)/Fever >100.5/SMALLS Atazanavir 300 mg 05/02/21 10:00 05/13/21 12:01 Atazanavir 150 Mg Cap PO Not Given DAILY GULSHAN Chlorpromazine HCl 25 mg 05/05/21 22:15 05/11/21 01:20 Chlorpromazine 25 Mg Tab PO 25 mg Q6H PRN Administration Hiccups Emtricitabine 200 mg 05/02/21 10:00 05/13/21 12:01 Emtricitabine 200 Mg Cap PO Not Given QDAY GULSHAN Enoxaparin Sodium 40 mg 05/06/21 22:00 05/12/21 21:24 Enoxaparin 40 Mg/0.4 Ml Inj SUB-Q 40 mg QDAY@2200 GULSHAN Administration Protocol Hydrophilic Ointment 1 applic 05/12/21 03:37 05/12/21 06:30 Lip Therapy Vaseline TP 1 applic DIRECT PRN Administration Dry Lips Sodium Chloride 1,000 mls @ 125 mls/hr 05/01/21 15:15 05/13/21 06:10 Nacl 0.9% 1000 Ml IV 125 mls/hr DIRECT GULSHAN Administration Magnesium Hydroxide 30 ml 05/05/21 13:00 05/09/21 05:08 Magnesium Hydroxide (Mom) Oral Liqd Udc PO 30 ml QDAY PRN Administration Constipation Methylprednisolone Sodium Succinate 125 mg 05/13/21 17:00 Methylprednisolone Sod Succinate 125 Mg/2 Ml Inj IV Q8HR [facility] Morphine Sulfate 2 mg 05/08/21 07:42 05/13/21 02:55 Morphine 2 Mg/1 Ml Inj IV 2 mg Q12H PRN Administration Pain, Moderate (4-6) Ondansetron HCl 4 mg 05/01/21 15:01 05/13/21 02:56 Ondansetron 4 Mg/2 Ml Inj IV 4 mg Q8H PRN Administration Nausea And Vomiting Oxycodone/Acetaminophen 2 tab 05/04/21 11:00 05/06/21 10:35 Oxycodone /Acetaminophen 5-325mg Tab PO 2 tab Q4H PRN Administration Pain, Moderate (4-6) Ritonavir 100 mg 05/02/21 10:00 05/13/21 12:01 Ritonavir 100 Mg Tab PO Not Given QDAY [facility] Simethicone 80 mg 05/07/21 03:05 05/10/21 20:50 Simethicone 80 Mg Chew Tab PO 80 mg Q6H PRN Administration Gas pain Sodium Chloride 10 ml 05/01/21 22:00 05/13/21 12:01 Sodium Chloride 0.9% 10 Ml Flush Syringe IV 10 ml BID GULSHAN Administration Sodium Chloride 10 ml 05/01/21 15:01 05/09/21 17:16 Sodium Chloride 0.9% 10 Ml Flush Syringe IV 10 ml PRN PRN Administration LINE FLUSH Sodium Hypochlorite 1 applic 05/03/21 10:00 05/10/21 02:30 Sodium Hypochlorite, Dakin's Full Strength (0.5%) 473 Ml Topical Soln TP 1 bottle Q12H PRN Administration Wound Care Tenofovir Disoproxil Fumarate 300 mg 05/02/21 10:00 05/13/21 12:01 Tenofovir 300 Mg Tab PO Not Given QDAY [facility] Nutrition/Malnutrition Assess - Dietary Evaluation Nutrition/Malnutrition Findings: Nutrition Notes Start: 05/02/21 14:43 Freq: Status: Active Protocol: Document 05/12/21 16:11 RILEY (Rec: 05/12/21 16:13 RILEY [id number]) Nutrition Notes Initial or Follow up Brief Note Current Diagnosis Small Bowel Obstruction Other Pertinent Diagnosis HIV, acute appendicitis Current Diet mech soft Height 5 ft 10 in Weight 72.8 kg [place] Body Weight (kg) 75.45 BMI 23.0 Subjective/Other Information RN reports pt eating 20-25% of meals. He is drinking the ONS . Percent of energy/protein needs met: 41%/52% Current % PO Poor (25-49%) Minimum of two criteria Yes Energy Intake (severe) < or equal to 50% Estimated Energy Requirement > or equal to 5 days Interpretation of Weight Loss (severe) >2% in 1 week #1 Nutrition Diagnosis Malnutrition As Evidenced by Signs and Symptoms pt eating 20-25% of meals Diagnosis Progress(for reassessment Worsened documentation) Is patient on ventilator? No Is Patient Ambulatory and/or Out of Bed Yes [facility]OOB) [ 2007.525 [id number]] Calculation Used for Recommendations [facility] Additional Notes Protein: (1.2-1.5g/kg) 81-101g Fluid: 1 ml/kcal or per MD Nutrition Intervention Add Supplement/Snack (indicate name/kcal Ensure Enlive BID /protein ) Provides kCal: 700 Provides Protein (gm) 40 Goal #1 Meet at least 75% of protein and kcal needs via PO and ONS intakes. Follow-Up By: 05/17/21 Additional Comments F/U: intakes and ONS tolerance
[2021-05-13] MEDS: ENOXAPARIN 40 MG/0.4 ML INJ SUB-Q SCH (21:01)
[2021-05-13] MEDS: methylPREDNISolone Sod Succinate 125 MG/2 ML INJ IV SCH (21:01)
[2021-05-14] MEDS: SODIUM HYPOCHLORITE, DAKIN'S FULL STRENGTH (0.5%) 473 ML TOPICAL SOLN TP PRN (05:04)
[2021-05-14] MEDS: methylPREDNISolone Sod Succinate 125 MG/2 ML INJ IV SCH ×3 (05:05→21:44)
[2021-05-14] MEDS: EMTRICITABINE 200 MG CAP PO SCH ×2 (09:55→10:33)
[2021-05-14] MEDS: ATAZANAVIR 150 MG CAP PO SCH ×2 (09:55→10:35)
[2021-05-14] MEDS: TENOFOVIR 300 MG TAB PO SCH ×2 (09:55→10:35)
[2021-05-14] MEDS: RITONAVIR 100 MG TAB PO SCH ×2 (09:55→10:35)
--- NOTE | 2021-05-14 12:09 | Event Note ---
Date: 05/14/21 I called patient's sister Ms. Katie Jung at [phone] and discussed about the patient's condition treatment plan .recent Covid positive test, and the treatment plan I answered all her questions, she verbalized understanding
--- NOTE | 2021-05-14 12:10 | Progress Note ---
Assessment and Plan Assessment and plan: --abnormal chest x-ray/groundglass appearance/ hospital-acquired pneumonia/COVID-19 pneumonia Current Visit: Yes Status: Acute Chest x-ray 05/12/2021 diffuse scattered groundglass opacities throughout bilateral lungs which can be seen with Covid pneumonia can be seen in Covid pneumonia Pulmonary evaluation and recommend noted and appreciated , recommend to start vancomycin Possible bronchoscopy next week, repeat blood and urine cultures --Means PCR test positive/COVID-19 infection Current Visit: Yes Status: Acute Isolation precautions, transferred from telemetry to medical floor ID reconsulted --ESBL positive surgical wound culture; Current Visit: Yes Status: Acute ID ID recommended 7 days of meropenem starting from 05/06/2021 evening dose, Midline is placed patient is self-pay and cannot afford these antibiotics patient will complete antibiotics inpatient --Sepsis due to ESBL infection Current Visit: Yes Status: Acute ID evaluation noted, total 7 days of IV meropenem every 8 hours -- Acute appendicitis with abscess Iatrogenic sigmoid colon injury Current Visit: Yes Status: Acute Surgery evaluated the patient s/p surgery 05/02/2021 1) Diagnostic laparoscopy 2) Open appendectomy with drainage of appendiceal abscess 3) Open repair of iatrogenic sigmoid colon injury Plan to discharge the patient today per Dr. Novak's recommendation However wound cultures came back positive for ESBL Discharge held ID evaluated, started on meropenem Contact isolation, closely monitor --Hiccups; Current Visit: Yes Status: Acute IV and oral Thorazine Advised to drink plenty of oral fluids Sitting the chair upright after every meal for half an hour --Small bowel obstruction Current Visit: Yes Status: Acute Resolved, surgeon advance diet --History of HIV (human immunodeficiency virus infection) Current Visit: Yes Status: Chronic Continue prehospital antiretroviral therapy, outpatient infectious disease follow-up. Upon discharge --DVT prophylaxis Current Visit: Yes Status: Acute Subcu Lovenox Discharge held due to positive ESBL surgical cultures, ID recommend total 7 days of IV meropenem Midline requested, DC planning per case management We will closely monitor the patient and adjust the management as needed Daily hospital course; 05/05/2021; Dr. Novak evaluated the patient, cleared for discharge for tomorrow However no ride available 05/06/2021; Patient's discharge is held due to positive ESBL surgical cultures ID consulted, started on meropenem, continue supportive care 05/07/2021; Patient is receiving imipenem as recommended by ID Total 8 days of IV meropenem, midline requested case management to assist with discharge planning and medications DC planning per CM ,disposition per surgery Patient has hiccups, Thorazine ordered I spoke with patient's sister Ms. Jung and discussed in detail patient's condition treatment and discharge plan She had many questions about DC planning, advised her to call back tomorrow and speak with the case management. She verbalized understanding 05/08/2021; Patient is receiving meropenem day 2/7 Case management assisting with home antibiotics Received midline,Intermittent hiccups, continue Thorazine Ambulate in the hallway as tolerated 05/09/2021 Patient feels better, hiccups have significantly improved Continue IV antibiotics, complete total 7 days February 07, 2021; continue antibiotics day 12/15 follow ID, surgery recommendations Resume service today; 05/13/2021; Means PCR test is positive COVID-19 infection Isolation precautions, Reconsult ID Transfer the patient to third floor 05/14/2021; Patient evaluated by pulmonary Planning bronchoscopy Recommend vancomycin Pulmonary consulted possible bronchoscopy Started vancomycin, status History Interval history: I have seen and examined the patient at the bedside Isolation precautions PPE protocols followed Patient tested positive COVID-19 Patient feels slightly weak No other complaints Vital signs reviewed Hospitalist Physical - Constitutional Vitals: Temp Pulse Resp BP Pulse Ox 98.0 F 90 16 130/90 92 05/14/21 10:39 05/14/21 10:39 05/14/21 10:39 05/14/21 10:39 05/14/21 10:39 General appearance: Present: mild distress, well-nourished, disheveled, other (Debilitated/malnourished, moderate respiratory distress on NRB) - EENT Eyes: Present: PERRL, EOM intact - Neck Neck: Present: supple, normal ROM - Respiratory Respiratory effort: normal Respiratory: bilateral: diminished, rhonchi, negative: rales, wheezing - Cardiovascular Rhythm: regular Heart Sounds: Present: S1 & S2 - Extremities Extremities: no ischemia, No edema - Abdominal General gastrointestinal: soft, non-tender, non-distended, normal bowel sounds - Integumentary Integumentary: Present: clear, warm - Psychiatric Psychiatric: appropriate mood/affect, cooperative - Neurologic Neurologic: CNII-XII intact, moves all extremities Results - Labs CBC & Chem 7: 05/12/21 14:15 05/14/21 14:21 Labs: Laboratory Last Values WBC 4.4 K/mm3 (4.5-11.0) L 05/12/21 14:15 RBC 4.60 M/mm3 (3.65-5.03) 05/12/21 14:15 Hgb 13.4 gm/dl (11.8-15.2) 05/12/21 14:15 Hct 39.3 % (35.5-45.6) 05/12/21 14:15 MCV 86 fl (84-94) 05/12/21 14:15 MCH 29 pg (28-32) 05/12/21 14:15 MCHC 34 % (32-34) 05/12/21 14:15 RDW 14.9 % (13.2-15.2) 05/12/21 14:15 Plt Count 212 K/mm3 (140-440) 05/12/21 14:15 Lymph % (Auto) 36.5 % (13.4-35.0) H 05/12/21 14:15 [place] % (Auto) 4.1 % (0.0-7.3) 05/12/21 14:15 Eos % (Auto) 0.1 % (0.0-4.3) 05/12/21 14:15 Baso % (Auto) 0.4 % (0.0-1.8) 05/12/21 14:15 Lymph # (Auto) 1.6 K/mm3 (1.2-5.4) 05/12/21 14:15 [place] # (Auto) 0.2 K/mm3 (0.0-0.8) 05/12/21 14:15 Eos # (Auto) 0.0 K/mm3 (0.0-0.4) 05/12/21 14:15 Baso # (Auto) 0.0 K/mm3 (0.0-0.1) 05/12/21 14:15 Seg Neutrophils % 58.9 % (40.0-70.0) 05/12/21 14:15 Seg Neutrophils # 2.6 K/mm3 (1.8-7.7) 05/12/21 14:15 ABG pH 7.524 (7.320-7.450) H 05/11/21 20:51 POC ABG pCO2 30.2 mmHg (32.0-48.0) L 05/11/21 20:51 POC ABG pO2 66.3 mmHg (83-108) L 05/11/21 20:51 POC ABG HCO3 24.3 05/11/21 20:51 ABG O2 Saturation 93.6 (0-100) 05/11/21 20:51 POC ABG Base Excess 2.4 05/11/21 20:51 ABG Hemoglobin 13.7 (12.0-17.5) 05/11/21 20:51 ABG Oxyhemoglobin 92.8 (94-98) L 05/11/21 20:51 ABG Methemoglobin 0.3 (0.0-1.5) 05/11/21 20:51 ABG Sodium 110.2 mmol/L (136.0-145.0) L 05/11/21 20:51 ABG Potassium 3.0 mmol/L (3.40-4.50) L 05/11/21 20:51 ABG Chloride 102.0 mmol/L (98-107) 05/11/21 20:51 ABG Glucose 90 mg/dL (65-95) 05/11/21 20:51 Carboxyhemoglobin 0.6 (0.5-1.5) 05/11/21 20:51 FiO2 % 100.0 05/11/21 20:51 Sodium 136 mmol/L (137-145) L 05/12/21 14:15 Potassium 4.1 mmol/L (3.6-5.0) D 05/12/21 14:15 Chloride 101.8 mmol/L (98-107) 05/12/21 14:15 Carbon Dioxide 28 mmol/L (22-30) 05/12/21 14:15 Anion Gap 10 mmol/L 05/12/21 14:15 BUN 9 mg/dL (9-20) 05/12/21 14:15 Creatinine 0.6 mg/dL (0.8-1.3) L 05/12/21 14:15 Estimated GFR > 60 ml/min 05/12/21 14:15 BUN/Creatinine Ratio 15 % 05/12/21 14:15 Glucose 91 mg/dL (75-100) 05/12/21 14:15 POC Glucose 66 mg/dL (70-105) L 05/12/21 07:28 Lactic Acid 1.10 mmol/L (0.7-2.0) 05/12/21 14:15 Calcium 8.2 mg/dL (8.4-10.2) L 05/12/21 14:15 Magnesium 2.20 mg/dL (1.7-2.3) 05/12/21 14:15 Ferritin 1136.0 ng/mL (30.0-300.0) H 05/12/21 19:37 Total Bilirubin 0.50 mg/dL (0.1-1.2) 05/12/21 14:15 AST 68 units/L (5-40) H 05/12/21 14:15 ALT 23 units/L (7-56) 05/12/21 14:15 Alkaline Phosphatase 50 units/L (35-129) 05/12/21 14:15 Lactate Dehydrogenase 477 units/L (91-180) H 05/12/21 19:38 C-Reactive Protein 9.30 mg/dL (0.00-1.30) H 05/12/21 19:38 Total Protein 7.0 g/dL (6.3-8.2) D 05/12/21 14:15 Albumin 2.6 g/dL (3.9-5) L 05/12/21 14:15 Albumin/Globulin Ratio 0.6 % 05/12/21 14:15 Lipase 25 units/L (13-60) 04/30/21 19:52 Arterial Blood Glucose 90 mg/dL (65-95) 05/11/21 20:51 Arterial Blood Ionized Calcium 4.2 mg/dL (4.6-5.3) L 05/11/21 20:51 Urine Color Straw (Yellow) 05/12/21 Unknown Urine Turbidity Clear (Clear) 05/12/21 Unknown Urine pH 7.0 (5.0-7.0) 05/12/21 Unknown Ur Specific [place] 1.038 (1.003-1.030) H 05/12/21 Unknown Urine Protein 30 mg/dl mg/dL (Negative) 05/12/21 Unknown Urine Glucose (UA) Neg mg/dL (Negative) 05/12/21 Unknown Urine Ketones 20 mg/dL (Negative) 05/12/21 Unknown Urine Blood Sm (Negative) 05/12/21 Unknown Urine Nitrite Neg (Negative) 05/12/21 Unknown Urine Bilirubin Neg (Negative) 05/12/21 Unknown Urine Urobilinogen < 2.0 mg/dL (<2.0) 05/12/21 Unknown Ur Leukocyte Esterase Neg (Negative) 05/12/21 Unknown Urine WBC (Auto) 3.0 /HPF (0.0-6.0) 05/12/21 Unknown Urine RBC (Auto) 4.0 /HPF (0.0-6.0) 05/12/21 Unknown U Epithel Cells (Auto) 1.0 /HPF (0-13.0) 04/30/21 Unknown Hyaline Casts 3 /LPF 04/30/21 Unknown Urine Mucus 3+ /HPF 04/30/21 Unknown Coronavirus (PCR) Positive (Negative) A 05/13/21 08:15 Microbiology: Microbiology 05/11/21 13:00 Peripheral/Venous Blood Culture - Preliminary NO GROWTH AFTER 48 HOURS 05/11/21 13:45 Peripheral/Venous Blood Culture - Preliminary NO GROWTH AFTER 48 HOURS [place]/IV: Voiding Method Urinal Active Medications - Current Medications Current Medications: Generic Name Dose Route Start Last Admin Trade Name Freq PRN Reason Stop Dose Admin Acetaminophen 650 mg 05/01/21 15:01 05/12/21 19:34 Acetaminophen 325 Mg Tab PO 650 mg Q4H PRN Administration Pain MILD(1-3)/Fever >100.5/SMALLS Atazanavir 300 mg 05/02/21 10:00 05/14/21 10:35 Atazanavir 150 Mg Cap PO Not Given DAILY [facility] Chlorpromazine HCl 25 mg 05/05/21 22:15 05/11/21 01:20 Chlorpromazine 25 Mg Tab PO 25 mg Q6H PRN Administration Hiccups Emtricitabine 200 mg 05/02/21 10:00 05/14/21 10:33 Emtricitabine 200 Mg Cap PO Not Given QDAY GULSHAN Enoxaparin Sodium 40 mg 05/06/21 22:00 05/13/21 21:01 Enoxaparin 40 Mg/0.4 Ml Inj SUB-Q 40 mg QDAY@2200 [facility] Administration Protocol Hydrophilic Ointment 1 applic 05/12/21 03:37 05/12/21 06:30 Lip Therapy Vaseline TP 1 applic DIRECT PRN Administration Dry Lips Sodium Chloride 1,000 mls @ 125 mls/hr 05/01/21 15:15 05/13/21 06:10 Nacl 0.9% 1000 Ml IV 125 mls/hr DIRECT GULSHAN Administration Magnesium Hydroxide 30 ml 05/05/21 13:00 05/09/21 05:08 Magnesium Hydroxide (Mom) Oral Liqd Udc PO 30 ml QDAY PRN Administration Constipation Methylprednisolone Sodium Succinate 125 mg 05/13/21 17:00 05/14/21 05:05 Methylprednisolone Sod Succinate 125 Mg/2 Ml Inj IV 125 mg Q8HR GULSHAN Administration Morphine Sulfate 2 mg 05/08/21 07:42 05/13/21 20:57 Morphine 2 Mg/1 Ml Inj IV 2 mg Q12H PRN Administration Pain, Moderate (4-6) Ondansetron HCl 4 mg 05/01/21 15:01 05/13/21 20:57 Ondansetron 4 Mg/2 Ml Inj IV 4 mg Q8H PRN Administration Nausea And Vomiting Oxycodone/Acetaminophen 2 tab 05/04/21 11:00 05/06/21 10:35 Oxycodone /Acetaminophen 5-325mg Tab PO 2 tab Q4H PRN Administration Pain, Moderate (4-6) Ritonavir 100 mg 05/02/21 10:00 05/14/21 10:35 Ritonavir 100 Mg Tab PO Not Given QDAY GULSHAN Simethicone 80 mg 05/07/21 03:05 05/10/21 20:50 Simethicone 80 Mg Chew Tab PO 80 mg Q6H PRN Administration Gas pain Sodium Chloride 10 ml 05/01/21 22:00 05/14/21 09:57 Sodium Chloride 0.9% 10 Ml Flush Syringe IV 10 ml BID GULSHAN Administration Sodium Chloride 10 ml 05/01/21 15:01 05/09/21 17:16 Sodium Chloride 0.9% 10 Ml Flush Syringe IV 10 ml PRN PRN Administration LINE FLUSH Sodium Hypochlorite 1 applic 05/03/21 10:00 05/14/21 05:04 Sodium Hypochlorite, [place]'s Full Strength (0.5%) 473 Ml Topical Soln TP 1 bottle Q12H PRN Administration Wound Care Tenofovir Disoproxil Fumarate 300 mg 05/02/21 10:00 05/14/21 10:35 Tenofovir 300 Mg Tab PO Not Given QDAY GULSHAN Nutrition/Malnutrition Assess - Dietary Evaluation Nutrition/Malnutrition Findings: Nutrition Notes Start: 05/02/21 14:43 Freq: Status: Active Protocol: Document 05/12/21 16:11 RILEY (Rec: 05/12/21 16:13 RILEY [id number]) Nutrition Notes Initial or Follow up Brief Note Current Diagnosis Small Bowel Obstruction Other Pertinent Diagnosis HIV, acute appendicitis Current Diet mech soft Height 5 ft 10 in Weight 72.8 kg [place] Body Weight (kg) 75.45 BMI 23.0 Subjective/Other Information RN reports pt eating 20-25% of meals. He is drinking the ONS . Percent of energy/protein needs met: 41%/52% Current % PO Poor (25-49%) Minimum of two criteria Yes Energy Intake (severe) < or equal to 50% Estimated Energy Requirement > or equal to 5 days Interpretation of Weight Loss (severe) >2% in 1 week #1 Nutrition Diagnosis Malnutrition As Evidenced by Signs and Symptoms pt eating 20-25% of meals Diagnosis Progress(for reassessment Worsened documentation) Is patient on ventilator? No Is Patient Ambulatory and/or Out of Bed Yes REE-([facility]-ambulatory/OOB) [ 2007.525 [id number]] Calculation Used for Recommendations [facility] Additional Notes Protein: (1.2-1.5g/kg) 81-101g Fluid: 1 ml/kcal or per MD Nutrition Intervention Add Supplement/Snack (indicate name/kcal Ensure Enlive BID /protein ) Provides kCal: 700 Provides Protein (gm) 40 Goal #1 Meet at least 75% of protein and kcal needs via PO and ONS intakes. Follow-Up By: 05/17/21 Additional Comments F/U: intakes and ONS tolerance
--- NOTE | 2021-05-14 13:12 | Progress Note ---
Assessment and Plan 61 y/o male with HIV for 30+ years on therapy, now with acute respiratory failure with abnormal CXR and CT of chest. Positive COVID-19 test. Unfortunately, no comparison imaging and no imaging of chest done on admit. CT also not typical of COVID, especially with effusions. Suggest the followin. Repeat blood cultures if not already ordered along with urine 2. ID was following but signed off few days ago. Would recommend reconsulting ID. Would suggest adding Vancomycin to regimen. He has been hospitalized several days and this is an acute change in respiratory status 3. If producing sputum, please send for culture. 4. Will add remdesivir and steroids. 5. Consult ID. Guarded prognosis. Subjective Date of service: 05/14/21 Interval history: Patient reports feeling better wants to go home. Patient was admitted with appendicitis was about to discharge home developed shortness of breath, hypoxemia and new bilateral upper lobe infiltrate and now Covid positive. Objective - Exam Narrative Exam: Physical Exam: Constitutional: Alert, cooperative. No acute distress Head, Ears, Nose: Normocephalic, atraumatic. External ears, nose normal Eyes: Conjunctivae/corneas clear. No icterus. No ptosis. Neck: Supple, no meningeal signs Oral: dentition fair, no thrush Cardiovascular: S1, S2 normal. Respiratory: Good air entry, clear to auscultation bilaterally GI: Midline incision with surgical dressing Musculoskeletal: No pedal edema, no cyanosis. Skin: No rash or abscess Hem/Lymphatic: No palpable cervical or supraclavicular nodes. No lymphangitis Psych: Mood ok. Affect normal Neurological: Awake, alert, oriented. No gross abnormality Vital Signs - 12hr 05/14/21 05/14/21 04:50 10:39 Temperature 97.1 F L 98.0 F Pulse Rate 95 H 90 Respiratory 20 16 Rate Blood Pressure 128/86 130/90 O2 Sat by Pulse 88 92 Oximetry Constitutional: other (Appears to be dyspneic.) Ascultation: Bilateral: rhonchi Cardiovascular: regular rate and rhythm (Tachycardic) Gastrointestinal: soft, tender CBC and BMP: 05/12/21 14:15 05/12/21 14:15 ABG, PT/INR, D-dimer: ABG ABG pH 7.524 (7.320-7.450) H 05/11/21 20:51 POC ABG pCO2 30.2 mmHg (32.0-48.0) L 05/11/21 20:51 POC ABG pO2 66.3 mmHg (83-108) L 05/11/21 20:51 POC ABG HCO3 24.3 05/11/21 20:51 ABG O2 Saturation 93.6 (0-100) 05/11/21 20:51 Abnormal lab findings: Abnormal Labs 04/30/21 04/30/21 04/30/21 19:52 19:52 Unknown WBC RBC 5.38 H Hgb 16.0 H Hct 46.7 H MCHC RDW 15.8 H Lymph % (Auto) [place] % (Auto) 8.1 H ABG pH POC ABG pCO2 POC ABG pO2 ABG Oxyhemoglobin ABG Sodium ABG Potassium Sodium Potassium Chloride BUN 21 H Creatinine Glucose POC Glucose Calcium Magnesium Ferritin AST Lactate Dehydrogenase C-Reactive Protein Total Protein 9.1 H Albumin 3.8 L Arterial Blood Ionized Calcium Ur Specific [place] Urine WBC (Auto) 7.0 H Coronavirus (PCR) 05/02/21 05/02/21 05/04/21 08:32 08:32 05:49 WBC RBC Hgb Hct MCHC 35 H 35 H RDW 15.3 H Lymph % (Auto) [place] % (Auto) 8.3 H ABG pH POC ABG pCO2 POC ABG pO2 ABG Oxyhemoglobin ABG Sodium ABG Potassium Sodium Potassium Chloride 109.2 H BUN Creatinine Glucose 73 L POC Glucose Calcium Magnesium Ferritin AST Lactate Dehydrogenase C-Reactive Protein Total Protein Albumin Arterial Blood Ionized Calcium Ur Specific [place] Urine WBC (Auto) Coronavirus (PCR) 05/05/21 05/05/21 05/09/21 04:37 04:37 04:27 WBC RBC Hgb Hct MCHC 35 H RDW Lymph % (Auto) [place] % (Auto) 10.9 H ABG pH POC ABG pCO2 POC ABG pO2 ABG Oxyhemoglobin ABG Sodium ABG Potassium Sodium Potassium 3.1 L Chloride BUN 7 L Creatinine Glucose POC Glucose Calcium Magnesium 2.50 H Ferritin AST Lactate Dehydrogenase C-Reactive Protein Total Protein Albumin Arterial Blood Ionized Calcium Ur Specific [place] Urine WBC (Auto) Coronavirus (PCR) 05/11/21 05/11/21 05/11/21 13:00 13:00 20:51 WBC 4.1 L RBC Hgb 11.4 L Hct 33.4 L D MCHC RDW Lymph % (Auto) 38.1 H [place] % (Auto) ABG pH 7.524 H POC ABG pCO2 30.2 L POC ABG pO2 66.3 L ABG Oxyhemoglobin 92.8 L ABG Sodium 110.2 L ABG Potassium 3.0 L Sodium Potassium 3.0 L Chloride BUN Creatinine 0.7 L Glucose POC Glucose Calcium 7.5 L Magnesium Ferritin AST Lactate Dehydrogenase C-Reactive Protein Total Protein 5.8 L Albumin 2.3 L Arterial Blood Ionized Calcium 4.2 L Ur Specific [place] Urine WBC (Auto) Coronavirus (PCR) 05/12/21 05/12/21 05/12/21 07:28 14:15 14:15 WBC 4.4 L RBC Hgb Hct MCHC RDW Lymph % (Auto) 36.5 H [place] % (Auto) ABG pH POC ABG pCO2 POC ABG pO2 ABG Oxyhemoglobin ABG Sodium ABG Potassium Sodium 136 L Potassium Chloride BUN Creatinine 0.6 L Glucose POC Glucose 66 L Calcium 8.2 L Magnesium Ferritin AST 68 H Lactate Dehydrogenase C-Reactive Protein Total Protein Albumin 2.6 L Arterial Blood Ionized Calcium Ur Specific [place] Urine WBC (Auto) Coronavirus (PCR) 05/12/21 05/12/21 05/12/21 19:37 19:38 19:38 WBC RBC Hgb Hct MCHC RDW Lymph % (Auto) [place] % (Auto) ABG pH POC ABG pCO2 POC ABG pO2 ABG Oxyhemoglobin ABG Sodium ABG Potassium Sodium Potassium Chloride BUN Creatinine Glucose POC Glucose Calcium Magnesium Ferritin 1136.0 H AST Lactate Dehydrogenase 477 H C-Reactive Protein 9.30 H Total Protein Albumin Arterial Blood Ionized Calcium Ur Specific [place] Urine WBC (Auto) Coronavirus (PCR) 05/12/21 05/13/21 Unknown 08:15 WBC RBC Hgb Hct MCHC RDW Lymph % (Auto) [place] % (Auto) ABG pH POC ABG pCO2 POC ABG pO2 ABG Oxyhemoglobin ABG Sodium ABG Potassium Sodium Potassium Chloride BUN Creatinine Glucose POC Glucose Calcium Magnesium Ferritin AST Lactate Dehydrogenase C-Reactive Protein Total Protein Albumin Arterial Blood Ionized Calcium Ur Specific [place] 1.038 H Urine WBC (Auto) Coronavirus (PCR) Positive A CT scan - chest: image reviewed (No PE bilateral infiltrate)
[2021-05-14] MEDS ORDERED: REMDESIVIR 200 MG in SODIUM CHLORIDE 0.9% 250ML 250 ML IV ONE (15:00)
[2021-05-14 15:05] LABS: Alanine Aminotransferase 33 units/L (7-56); Albumin 3.2 g/dL (3.9-5); Blood Urea Nitrogen 18 mg/dL (9-20); Calcium 8.9 mg/dL (8.4-10.2); Hemolysis Index 20
[2021-05-14 15:45] LABS: BUN/Creatinine Ratio 30
[2021-05-14] MEDS: SODIUM CHLORIDE 0.9% 50 ML IVPB IV SCH (16:27)
[2021-05-14] MEDS ORDERED: VANCOMYCIN 1,500 MG in SODIUM CHLORIDE 0.9% 500 ML 500 ML IV ONE (17:00)
[2021-05-14] MEDS ORDERED: VANCOMYCIN/NS 1 GM/250 ML 1 GM/250 ML BAG IV SCH (17:00)
[2021-05-14] MEDS ORDERED: VANCOMYCIN PHARMACY TO DOSE IV SCH (17:51)
[2021-05-14] MEDS: ENOXAPARIN 40 MG/0.4 ML INJ SUB-Q SCH (21:44)
[2021-05-15] MEDS: VANCOMYCIN/NS 1 GM/250 ML 1 GM/250 ML BAG IV SCH ×3 (02:12→16:54)
[2021-05-15] MEDS: oxyCODONE /ACETAMINOPHEN 5-325MG TAB PO PRN (02:12)
[2021-05-15] MEDS: MORPHINE 2 MG/1 ML INJ IV PRN (03:44)
[2021-05-15] MEDS: methylPREDNISolone Sod Succinate 125 MG/2 ML INJ IV SCH ×4 (06:16→22:41)
[2021-05-15] MEDS: ONDANSETRON 4 MG/2 ML INJ IV PRN (06:16)
[2021-05-15 08:29] LABS: Alanine Aminotransferase 36 units/L (7-56); Albumin 2.8 g/dL (3.9-5); Blood Urea Nitrogen 21 mg/dL (9-20); Calcium 8.8 mg/dL (8.4-10.2); Hemolysis Index 3
[2021-05-15 08:42] LABS: BUN/Creatinine Ratio 35
[2021-05-15] MEDS: ATAZANAVIR 150 MG CAP PO SCH (10:56)
[2021-05-15] MEDS: RITONAVIR 100 MG TAB PO SCH (10:57)
[2021-05-15] MEDS: TENOFOVIR 300 MG TAB PO SCH (10:57)
[2021-05-15] MEDS: EMTRICITABINE 200 MG CAP PO SCH (10:57)
--- NOTE | 2021-05-15 11:57 | Progress Note ---
Assessment and Plan 61 y/o male with HIV for 30+ years on therapy, now with acute respiratory failure with abnormal CXR and CT of chest. Positive COVID-19 test. Unfortunately, no comparison imaging and no imaging of chest done on admit. CT also not typical of COVID, especially with effusions. Covid 19+ pulmonary changes likely related to COVID pneumonia and being treated accordingly. 1. ID was following but signed off few days ago. Would recommend reconsulting ID. Would suggest adding Vancomycin to regimen. He has been hospitalized several days and this is an acute change in respiratory status 2. Will add remdesivir and steroids. 3. Consult ID. Guarded prognosis. Subjective Date of service: 05/15/21 Interval history: Reports breathing better on nasal cannula on remdesivir and steroids. Objective - Exam Narrative Exam: Physical Exam: Constitutional: Alert, cooperative. No acute distress Head, Ears, Nose: Normocephalic, atraumatic. External ears, nose normal Eyes: Conjunctivae/corneas clear. No icterus. No ptosis. Neck: Supple, no meningeal signs Oral: dentition fair, no thrush Cardiovascular: S1, S2 normal. Respiratory: Good air entry, clear to auscultation bilaterally GI: Midline incision with surgical dressing Musculoskeletal: No pedal edema, no cyanosis. Skin: No rash or abscess Hem/Lymphatic: No palpable cervical or supraclavicular nodes. No lymphangitis Psych: Mood ok. Affect normal Neurological: Awake, alert, oriented. No gross abnormality Vital Signs - 12hr 05/15/21 05/15/21 03:44 04:14 Respiratory 20 18 Rate Constitutional: other (Appears to be dyspneic.) Ascultation: Bilateral: rhonchi Cardiovascular: regular rate and rhythm (Tachycardic) Gastrointestinal: soft, tender CBC and BMP: 05/12/21 14:15 05/15/21 07:28 ABG, PT/INR, D-dimer: ABG ABG pH 7.524 (7.320-7.450) H 05/11/21 20:51 POC ABG pCO2 30.2 mmHg (32.0-48.0) L 05/11/21 20:51 POC ABG pO2 66.3 mmHg (83-108) L 05/11/21 20:51 POC ABG HCO3 24.3 05/11/21 20:51 ABG O2 Saturation 93.6 (0-100) 05/11/21 20:51 Abnormal lab findings: Abnormal Labs 04/30/21 04/30/21 04/30/21 19:52 19:52 Unknown WBC RBC 5.38 H Hgb 16.0 H Hct 46.7 H MCHC RDW 15.8 H Lymph % (Auto) [place] % (Auto) 8.1 H ABG pH POC ABG pCO2 POC ABG pO2 ABG Oxyhemoglobin ABG Sodium ABG Potassium Sodium Potassium Chloride BUN 21 H Creatinine Glucose POC Glucose Calcium Magnesium Ferritin AST Lactate Dehydrogenase C-Reactive Protein Total Protein 9.1 H Albumin 3.8 L Arterial Blood Ionized Calcium Ur Specific [place] Urine WBC (Auto) 7.0 H Coronavirus (PCR) 05/02/21 05/02/21 05/04/21 08:32 08:32 05:49 WBC RBC Hgb Hct MCHC 35 H 35 H RDW 15.3 H Lymph % (Auto) [place] % (Auto) 8.3 H ABG pH POC ABG pCO2 POC ABG pO2 ABG Oxyhemoglobin ABG Sodium ABG Potassium Sodium Potassium Chloride 109.2 H BUN Creatinine Glucose 73 L POC Glucose Calcium Magnesium Ferritin AST Lactate Dehydrogenase C-Reactive Protein Total Protein Albumin Arterial Blood Ionized Calcium Ur Specific [place] Urine WBC (Auto) Coronavirus (PCR) 05/05/21 05/05/21 05/09/21 04:37 04:37 04:27 WBC RBC Hgb Hct MCHC 35 H RDW Lymph % (Auto) [place] % (Auto) 10.9 H ABG pH POC ABG pCO2 POC ABG pO2 ABG Oxyhemoglobin ABG Sodium ABG Potassium Sodium Potassium 3.1 L Chloride BUN 7 L Creatinine Glucose POC Glucose Calcium Magnesium 2.50 H Ferritin AST Lactate Dehydrogenase C-Reactive Protein Total Protein Albumin Arterial Blood Ionized Calcium Ur Specific [place] Urine WBC (Auto) Coronavirus (PCR) 05/11/21 05/11/21 05/11/21 13:00 13:00 20:51 WBC 4.1 L RBC Hgb 11.4 L Hct 33.4 L D MCHC RDW Lymph % (Auto) 38.1 H [place] % (Auto) ABG pH 7.524 H POC ABG pCO2 30.2 L POC ABG pO2 66.3 L ABG Oxyhemoglobin 92.8 L ABG Sodium 110.2 L ABG Potassium 3.0 L Sodium Potassium 3.0 L Chloride BUN Creatinine 0.7 L Glucose POC Glucose Calcium 7.5 L Magnesium Ferritin AST Lactate Dehydrogenase C-Reactive Protein Total Protein 5.8 L Albumin 2.3 L Arterial Blood Ionized Calcium 4.2 L Ur Specific [place] Urine WBC (Auto) Coronavirus (PCR) 05/12/21 05/12/21 05/12/21 07:28 14:15 14:15 WBC 4.4 L RBC Hgb Hct MCHC RDW Lymph % (Auto) 36.5 H [place] % (Auto) ABG pH POC ABG pCO2 POC ABG pO2 ABG Oxyhemoglobin ABG Sodium ABG Potassium Sodium 136 L Potassium Chloride BUN Creatinine 0.6 L Glucose POC Glucose 66 L Calcium 8.2 L Magnesium Ferritin AST 68 H Lactate Dehydrogenase C-Reactive Protein Total Protein Albumin 2.6 L Arterial Blood Ionized Calcium Ur Specific [place] Urine WBC (Auto) Coronavirus (PCR) 05/12/21 05/12/21 05/12/21 19:37 19:38 19:38 WBC RBC Hgb Hct MCHC RDW Lymph % (Auto) [place] % (Auto) ABG pH POC ABG pCO2 POC ABG pO2 ABG Oxyhemoglobin ABG Sodium ABG Potassium Sodium Potassium Chloride BUN Creatinine Glucose POC Glucose Calcium Magnesium Ferritin 1136.0 H AST Lactate Dehydrogenase 477 H C-Reactive Protein 9.30 H Total Protein Albumin Arterial Blood Ionized Calcium Ur Specific [place] Urine WBC (Auto) Coronavirus (PCR) 05/12/21 05/13/21 05/14/21 Unknown 08:15 14:21 WBC RBC Hgb Hct MCHC RDW Lymph % (Auto) [place] % (Auto) ABG pH POC ABG pCO2 POC ABG pO2 ABG Oxyhemoglobin ABG Sodium ABG Potassium Sodium Potassium Chloride BUN Creatinine 0.6 L Glucose 136 H POC Glucose Calcium Magnesium Ferritin AST 71 H Lactate Dehydrogenase C-Reactive Protein Total Protein Albumin 3.2 L Arterial Blood Ionized Calcium Ur Specific [place] 1.038 H Urine WBC (Auto) Coronavirus (PCR) Positive A 05/15/21 07:28 WBC RBC Hgb Hct MCHC RDW Lymph % (Auto) [place] % (Auto) ABG pH POC ABG pCO2 POC ABG pO2 ABG Oxyhemoglobin ABG Sodium ABG Potassium Sodium Potassium Chloride 107.8 H BUN 21 H Creatinine 0.6 L Glucose 124 H POC Glucose Calcium Magnesium Ferritin AST 70 H Lactate Dehydrogenase C-Reactive Protein Total Protein Albumin 2.8 L Arterial Blood Ionized Calcium Ur Specific [place] Urine WBC (Auto) Coronavirus (PCR)
--- NOTE | 2021-05-15 13:54 | Progress Note ---
Assessment and Plan Assessment and plan: --abnormal chest x-ray/groundglass appearance/ hospital-acquired pneumonia/COVID-19 pneumonia Current Visit: Yes Status: Acute Chest x-ray 05/12/2021 diffuse scattered groundglass opacities throughout bilateral lungs which can be seen with Covid pneumonia can be seen in Covid pneumonia Pulmonary evaluation and recommend noted and appreciated , recommend to start vancomycin Possible bronchoscopy next week, repeat blood and urine cultures --Means PCR test positive/COVID-19 infection Current Visit: Yes Status: Acute Isolation precautions, transferred from telemetry to medical floor ID reconsulted --ESBL positive surgical wound culture; Current Visit: Yes Status: Acute ID ID recommended 7 days of meropenem starting from 05/06/2021 evening dose, Midline is placed patient is self-pay and cannot afford these antibiotics patient will complete antibiotics inpatient --Sepsis due to ESBL infection Current Visit: Yes Status: Acute ID evaluation noted, total 7 days of IV meropenem every 8 hours -- Acute appendicitis with abscess Iatrogenic sigmoid colon injury Current Visit: Yes Status: Acute Surgery evaluated the patient s/p surgery 05/02/2021 1) Diagnostic laparoscopy 2) Open appendectomy with drainage of appendiceal abscess 3) Open repair of iatrogenic sigmoid colon injury Plan to discharge the patient today per Dr. Novak's recommendation However wound cultures came back positive for ESBL Discharge held ID evaluated, started on meropenem Contact isolation, closely monitor --Hiccups; Current Visit: Yes Status: Acute IV and oral Thorazine Advised to drink plenty of oral fluids Sitting the chair upright after every meal for half an hour --Small bowel obstruction Current Visit: Yes Status: Acute Resolved, surgeon advance diet --History of HIV (human immunodeficiency virus infection) Current Visit: Yes Status: Chronic Continue prehospital antiretroviral therapy, outpatient infectious disease follow-up. Upon discharge --severe malnutrition/hypoalbuminemia Current Visit: Yes Status: Chronic Nutrition supplements, nutrition consult Supportive care --DVT prophylaxis Current Visit: Yes Status: Acute Subcu Lovenox Discharge held due to positive ESBL surgical cultures, ID recommend total 7 days of IV meropenem Midline requested, DC planning per case management We will closely monitor the patient and adjust the management as needed Daily hospital course; 05/05/2021; Dr. Novak evaluated the patient, cleared for discharge for tomorrow However no ride available 05/06/2021; Patient's discharge is held due to positive ESBL surgical cultures ID consulted, started on meropenem, continue supportive care 05/07/2021; Patient is receiving imipenem as recommended by ID Total 8 days of IV meropenem, midline requested case management to assist with discharge planning and medications DC planning per CM ,disposition per surgery Patient has hiccups, Thorazine ordered I spoke with patient's sister Ms. Jung and discussed in detail patient's condition treatment and discharge plan She had many questions about DC planning, advised her to call back tomorrow and speak with the case management. She verbalized understanding 05/08/2021; Patient is receiving meropenem day 2/ Case management assisting with home antibiotics Received midline,Intermittent hiccups, continue Thorazine Ambulate in the hallway as tolerated 05/09/2021 Patient feels better, hiccups have significantly improved Continue IV antibiotics, complete total 7 days February 07, 2021; continue antibiotics day 4 follow ID, surgery recommendations Resume service today; 05/13/2021; Means PCR test is positive COVID-19 infection Isolation precautions, Reconsult ID Transfer the patient to third floor 05/14/2021; Patient evaluated by pulmonary Planning bronchoscopy Recommend vancomycin Pulmonary consulted possible bronchoscopy Started vancomycin, status 05/15/2021; ID reconsulted, continue vancomycin Consultants recommendations noted and appreciated Possible bronchoscopy next week as per Pulmonary History Interval history: I have seen and examined the patient at the bedside Patient's chart and medications reviewed Patient feels slightly better, no new complaints Anxious to go home Vital signs noted Hospitalist Physical - Constitutional Vitals: Temp Pulse Resp BP Pulse Ox 97.5 F L 80 24 132/78 91 05/15/21 10:58 05/15/21 10:58 05/15/21 10:58 05/15/21 10:58 05/15/21 10:58 General appearance: Present: mild distress, well-nourished, disheveled, other (Debilitated/malnourished, moderate respiratory distress on NRB) - EENT Eyes: Present: PERRL, EOM intact - Neck Neck: Present: supple, normal ROM - Respiratory Respiratory effort: normal Respiratory: bilateral: diminished, rhonchi, negative: rales, wheezing - Cardiovascular Rhythm: regular Heart Sounds: Present: S1 & S2 - Extremities Extremities: no ischemia, No edema Peripheral Pulses: within normal limits - Abdominal General gastrointestinal: soft, non-tender, non-distended, normal bowel sounds - Integumentary Integumentary: Present: clear, warm - Psychiatric Psychiatric: appropriate mood/affect, cooperative - Neurologic Neurologic: CNII-XII intact, moves all extremities Results - Labs CBC & Chem 7: 05/12/21 14:15 05/15/21 07:28 Labs: Laboratory Last Values WBC 4.4 K/mm3 (4.5-11.0) L 05/12/21 14:15 RBC 4.60 M/mm3 (3.65-5.03) 05/12/21 14:15 Hgb 13.4 gm/dl (11.8-15.2) 05/12/21 14:15 Hct 39.3 % (35.5-45.6) 05/12/21 14:15 MCV 86 fl (84-94) 05/12/21 14:15 MCH 29 pg (28-32) 05/12/21 14:15 MCHC 34 % (32-34) 05/12/21 14:15 RDW 14.9 % (13.2-15.2) 05/12/21 14:15 Plt Count 212 K/mm3 (140-440) 05/12/21 14:15 Lymph % (Auto) 36.5 % (13.4-35.0) H 05/12/21 14:15 [place] % (Auto) 4.1 % (0.0-7.3) 05/12/21 14:15 Eos % (Auto) 0.1 % (0.0-4.3) 05/12/21 14:15 Baso % (Auto) 0.4 % (0.0-1.8) 05/12/21 14:15 Lymph # (Auto) 1.6 K/mm3 (1.2-5.4) 05/12/21 14:15 [place] # (Auto) 0.2 K/mm3 (0.0-0.8) 05/12/21 14:15 Eos # (Auto) 0.0 K/mm3 (0.0-0.4) 05/12/21 14:15 Baso # (Auto) 0.0 K/mm3 (0.0-0.1) 05/12/21 14:15 Seg Neutrophils % 58.9 % (40.0-70.0) 05/12/21 14:15 Seg Neutrophils # 2.6 K/mm3 (1.8-7.7) 05/12/21 14:15 ABG pH 7.524 (7.320-7.450) H 05/11/21 20:51 POC ABG pCO2 30.2 mmHg (32.0-48.0) L 05/11/21 20:51 POC ABG pO2 66.3 mmHg (83-108) L 05/11/21 20:51 POC ABG HCO3 24.3 05/11/21 20:51 ABG O2 Saturation 93.6 (0-100) 05/11/21 20:51 POC ABG Base Excess 2.4 05/11/21 20:51 ABG Hemoglobin 13.7 (12.0-17.5) 05/11/21 20:51 ABG Oxyhemoglobin 92.8 (94-98) L 05/11/21 20:51 ABG Methemoglobin 0.3 (0.0-1.5) 05/11/21 20:51 ABG Sodium 110.2 mmol/L (136.0-145.0) L 05/11/21 20:51 ABG Potassium 3.0 mmol/L (3.40-4.50) L 05/11/21 20:51 ABG Chloride 102.0 mmol/L (98-107) 05/11/21 20:51 ABG Glucose 90 mg/dL (65-95) 05/11/21 20:51 Carboxyhemoglobin 0.6 (0.5-1.5) 05/11/21 20:51 FiO2 % 100.0 05/11/21 20:51 Sodium 143 mmol/L (137-145) 05/15/21 07:28 Potassium 3.6 mmol/L (3.6-5.0) D 05/15/21 07:28 Chloride 107.8 mmol/L (98-107) H 05/15/21 07:28 Carbon Dioxide 28 mmol/L (22-30) 05/15/21 07:28 Anion Gap 11 mmol/L 05/15/21 07:28 BUN 21 mg/dL (9-20) H 05/15/21 07:28 Creatinine 0.6 mg/dL (0.8-1.3) L 05/15/21 07:28 Estimated GFR > 60 ml/min 05/15/21 07:28 BUN/Creatinine Ratio 35 % 05/15/21 07:28 Glucose 124 mg/dL (75-100) H 05/15/21 07:28 POC Glucose 66 mg/dL (70-105) L 05/12/21 07:28 Lactic Acid 1.10 mmol/L (0.7-2.0) 05/12/21 14:15 Calcium 8.8 mg/dL (8.4-10.2) 05/15/21 07:28 Magnesium 2.20 mg/dL (1.7-2.3) 05/12/21 14:15 Ferritin 1136.0 ng/mL (30.0-300.0) H 05/12/21 19:37 Total Bilirubin 0.50 mg/dL (0.1-1.2) 05/15/21 07:28 AST 70 units/L (5-40) H 05/15/21 07:28 ALT 36 units/L (7-56) 05/15/21 07:28 Alkaline Phosphatase 64 units/L (35-129) 05/15/21 07:28 Lactate Dehydrogenase 477 units/L (91-180) H 05/12/21 19:38 C-Reactive Protein 9.30 mg/dL (0.00-1.30) H 05/12/21 19:38 Total Protein 7.3 g/dL (6.3-8.2) 05/15/21 07:28 Albumin 2.8 g/dL (3.9-5) L 05/15/21 07:28 Albumin/Globulin Ratio 0.6 % 05/15/21 07:28 Lipase 25 units/L (13-60) 04/30/21 19:52 Arterial Blood Glucose 90 mg/dL (65-95) 05/11/21 20:51 Arterial Blood Ionized Calcium 4.2 mg/dL (4.6-5.3) L 05/11/21 20:51 Urine Color Straw (Yellow) 05/12/21 Unknown Urine Turbidity Clear (Clear) 05/12/21 Unknown Urine pH 7.0 (5.0-7.0) 05/12/21 Unknown Ur Specific [place] 1.038 (1.003-1.030) H 05/12/21 Unknown Urine Protein 30 mg/dl mg/dL (Negative) 05/12/21 Unknown Urine Glucose (UA) Neg mg/dL (Negative) 05/12/21 Unknown Urine Ketones 20 mg/dL (Negative) 05/12/21 Unknown Urine Blood Sm (Negative) 05/12/21 Unknown Urine Nitrite Neg (Negative) 05/12/21 Unknown Urine Bilirubin Neg (Negative) 05/12/21 Unknown Urine Urobilinogen < 2.0 mg/dL (<2.0) 05/12/21 Unknown Ur Leukocyte Esterase Neg (Negative) 05/12/21 Unknown Urine WBC (Auto) 3.0 /HPF (0.0-6.0) 05/12/21 Unknown Urine RBC (Auto) 4.0 /HPF (0.0-6.0) 05/12/21 Unknown U Epithel Cells (Auto) 1.0 /HPF (0-13.0) 04/30/21 Unknown Hyaline Casts 3 /LPF 04/30/21 Unknown Urine Mucus 3+ /HPF 04/30/21 Unknown Coronavirus (PCR) Positive (Negative) A 05/13/21 08:15 Microbiology: Microbiology 05/12/21 19:11 Urine,Clean Catch Urine Culture - Final NO GROWTH AFTER 48 HOURS 05/14/21 19:30 Peripheral/Venous Blood Culture - Preliminary Culture in Progress 05/14/21 19:30 Peripheral/Venous Blood Culture - Preliminary Culture in Progress 05/11/21 13:00 Peripheral/Venous Blood Culture - Preliminary NO GROWTH AFTER 72 HOURS 05/11/21 13:45 Peripheral/Venous Blood Culture - Preliminary NO GROWTH AFTER 72 HOURS Montoya/IV: Voiding Method Urinal Active Medications - Current Medications Current Medications: Generic Name Dose Route Start Last Admin Trade Name Freq PRN Reason Stop Dose Admin Acetaminophen 650 mg 05/01/21 15:01 05/12/21 19:34 Acetaminophen 325 Mg Tab PO 650 mg Q4H PRN Administration Pain MILD(1-3)/Fever >100.5/SMALLS Atazanavir 300 mg 05/02/21 10:00 05/15/21 10:56 Atazanavir 150 Mg Cap PO 300 mg DAILY GULSHAN Administration Chlorpromazine HCl 25 mg 05/05/21 22:15 05/11/21 01:20 Chlorpromazine 25 Mg Tab PO 25 mg Q6H PRN Administration Hiccups Emtricitabine 200 mg 05/02/21 10:00 05/15/21 10:57 Emtricitabine 200 Mg Cap PO 200 mg QDAY GULSHAN Administration Enoxaparin Sodium 40 mg 05/06/21 22:00 05/14/21 21:44 Enoxaparin 40 Mg/0.4 Ml Inj SUB-Q 40 mg QDAY@2200 GULSHAN Administration Protocol Hydrophilic Ointment 1 applic 05/12/21 03:37 05/12/21 06:30 Lip Therapy Vaseline TP 1 applic DIRECT PRN Administration Dry Lips Sodium Chloride 1,000 mls @ 125 mls/hr 05/01/21 15:15 05/13/21 06:10 Nacl 0.9% 1000 Ml IV 125 mls/hr DIRECT GULSHAN Administration REMDESIVIR 100 mg/ Sodium 250 mls @ 500 mls/hr 05/15/21 21:00 Chloride IV 05/18/21 21:29 Q24HR@2100 GULSHAN Vancomycin HCl 1 gm in 250 mls @ 166.667 mls/hr 05/15/21 01:00 05/15/21 10:57 Vancomycin/Ns 1 Gm/250 Ml IV 166.667 mls/hr Q8H GULSHAN Administration Magnesium Hydroxide 30 ml 05/05/21 13:00 05/09/21 05:08 Magnesium Hydroxide (Mom) Oral Liqd Udc PO 30 ml QDAY PRN Administration Constipation Methylprednisolone Sodium Succinate 125 mg 05/13/21 17:00 05/15/21 06:16 Methylprednisolone Sod Succinate 125 Mg/2 Ml Inj IV 125 mg Q8HR GULSHAN Administration Morphine Sulfate 2 mg 05/08/21 07:42 05/15/21 03:44 Morphine 2 Mg/1 Ml Inj IV 2 mg Q12H PRN Administration Pain, Moderate (4-6) Ondansetron HCl 4 mg 05/01/21 15:01 05/15/21 06:16 Ondansetron 4 Mg/2 Ml Inj IV 4 mg Q8H PRN Administration Nausea And Vomiting Oxycodone/Acetaminophen 2 tab 05/04/21 11:00 05/06/21 10:35 Oxycodone /Acetaminophen 5-325mg Tab PO 2 tab Q4H PRN Administration Pain, Moderate (4-6) Ritonavir 100 mg 05/02/21 10:00 05/15/21 10:57 Ritonavir 100 Mg Tab PO 100 mg QDAY GULSHAN Administration Simethicone 80 mg 05/07/21 03:05 05/10/21 20:50 Simethicone 80 Mg Chew Tab PO 80 mg Q6H PRN Administration Gas pain Sodium Chloride 10 ml 05/01/21 22:00 05/15/21 10:58 Sodium Chloride 0.9% 10 Ml Flush Syringe IV 10 ml BID GULSHAN Administration Sodium Chloride 10 ml 05/01/21 15:01 05/09/21 17:16 Sodium Chloride 0.9% 10 Ml Flush Syringe IV 10 ml PRN PRN Administration LINE FLUSH Sodium Chloride 50 ml 05/14/21 15:30 05/14/21 16:27 Sodium Chloride 0.9% 50 Ml Ivpb IV 05/18/21 21:01 50 ml Q24HR@2100 GULSHAN Administration Sodium Hypochlorite 1 applic 05/03/21 10:00 05/14/21 05:04 Sodium Hypochlorite, Dakin's Full Strength (0.5%) 473 Ml Topical Soln TP 1 bottle Q12H PRN Administration Wound Care Tenofovir Disoproxil Fumarate 300 mg 05/02/21 10:00 05/15/21 10:57 Tenofovir 300 Mg Tab PO 300 mg QDAY GULSHAN Administration Nutrition/Malnutrition Assess - Dietary Evaluation Nutrition/Malnutrition Findings: Nutrition Notes Start: 05/02/21 14:43 Freq: Status: Active Protocol: Document 05/14/21 14:07 CW (Rec: 05/14/21 14:08 CW [id number]) Nutrition Notes Initial or Follow up Brief Note Current Diagnosis Small Bowel Obstruction Other Pertinent Diagnosis HIV, acute appendicitis Current Diet mech soft Subjective/Other Information Pt requesting diet advancement . [employer] alerted Nutrition Intervention Anticipated Discharge Needs: Regular Follow-Up By: 05/17/21 Additional Comments F/U: intakes and ONS tolerance
--- NOTE | 2021-05-15 14:11 | Progress Note ---
Assessment and Plan Cultures: 05/02/2021 surgical culture: ESBL E. coli, group C streptococcus A/P: 61-year-old male with HIV admitted with: #COVID: tested positive #Acute hypoxic respiratory failure: currently on nasal cannula #Acute appendicitis, appendiceal abscess: Surgery complicated by "1.5 cm full-thickness tear was created in the sigmoid colon without cross- contamination", needed open appendectomy. 1.5 cm appendiceal abscess which was drained. Completed meropenem #HIV: reports being on treatment for almost 30+ years, well-controlled, on Biktarvy. Follows at [facility] Recs: -Continue steroids for 10 days as well as remdesivir -Check MRSA nares and procalcitonin -Stop vancomycin if blood cultures remain negative or MRSA test negative -Patient is taking his own Biktarvy, continue since it is non-formulary here Okay for discharge midline in place and home antibiotics arranged. ID will sign off, please call if questions. Brett Manzo MD [facility] O: [phone] F: [phone] Subjective Date of service: 05/15/21 Interval history: Called back to case due to positive Covid testing. Last fever was on 05/12/21, afebrile since then. Currently on steroids and remdesivir. Completed course of meropenem. Blood cultures remain no growth so far. Currently on nasal cannula. Imaging personally reviewed: Chest CTA: No evidence of pulmonary embolism, scattered groundglass. CT abdomen pelvis: Fluid-filled loops of bowel Objective - Exam Narrative Exam: Physical Exam: Constitutional: Alert, cooperative. No acute distress Head, Ears, Nose: Normocephalic, atraumatic. External ears, nose normal Eyes: Conjunctivae/corneas clear. No icterus. No ptosis. Neck: Supple, no meningeal signs Oral: dentition fair, no thrush Cardiovascular: S1, S2 normal. Respiratory: Good air entry, clear to auscultation bilaterally GI: Midline incision with surgical dressing Musculoskeletal: No pedal edema, no cyanosis. Skin: No rash or abscess Hem/Lymphatic: No palpable cervical or supraclavicular nodes. No lymphangitis Psych: Mood ok. Affect normal Neurological: Awake, alert, oriented. No gross abnormality - Constitutional Vitals: Vital Signs Temp Pulse Resp BP Pulse Ox 97.5 F L 80 24 132/78 91 05/15/21 10:58 05/15/21 10:58 05/15/21 10:58 05/15/21 10:58 05/15/21 10:58 Temperature -Last 24 Hours Temperature 97.5 F Temperature 97.5 F Temperature 97.4 F Temperature 97.5 F - Labs CBC & Chem 7: 05/12/21 14:15 05/15/21 07:28 Labs: Abnormal lab results 05/14/21 05/15/21 Range/Units 14:21 07:28 Chloride 107.8 H (98-107) mmol/L BUN 21 H (9-20) mg/dL Creatinine 0.6 L 0.6 L (0.8-1.3) mg/dL Glucose 136 H 124 H (75-100) mg/dL AST 71 H 70 H (5-40) units/L Albumin 3.2 L 2.8 L (3.9-5) g/dL
[2021-05-15] MEDS: REMDESIVIR 100 MG in SODIUM CHLORIDE 0.9% 250ML 250 ML IV SCH (22:41)
[2021-05-15] MEDS: SODIUM CHLORIDE 0.9% 50 ML IVPB IV SCH (22:42)
[2021-05-15] MEDS: ENOXAPARIN 40 MG/0.4 ML INJ SUB-Q SCH (22:42)
[2021-05-16] MEDS: MORPHINE 2 MG/1 ML INJ IV PRN ×2 (00:57→00:59)
[2021-05-16] MEDS: VANCOMYCIN/NS 1 GM/250 ML 1 GM/250 ML BAG IV SCH ×2 (02:54→09:04)
[2021-05-16] MEDS: methylPREDNISolone Sod Succinate 125 MG/2 ML INJ IV SCH ×3 (05:42→23:59)
[2021-05-16 08:32] LABS: Alanine Aminotransferase 38 units/L (7-56); Albumin 2.9 g/dL (3.9-5); Blood Urea Nitrogen 20 mg/dL (9-20); Calcium 8.7 mg/dL (8.4-10.2); Hemolysis Index 2
[2021-05-16 08:43] LABS: BUN/Creatinine Ratio 33
[2021-05-16] MEDS: TENOFOVIR 300 MG TAB PO SCH (09:07)
[2021-05-16] MEDS: EMTRICITABINE 200 MG CAP PO SCH (09:07)
[2021-05-16] MEDS: RITONAVIR 100 MG TAB PO SCH (09:07)
[2021-05-16] MEDS: ATAZANAVIR 150 MG CAP PO SCH (09:07)
--- NOTE | 2021-05-16 09:08 | XRay Report ---
CHEST 1 VIEW 05/16/2021 8:23 AM INDICATION / CLINICAL INFORMATION: pneumonia. COMPARISON: 05/11/2021 FINDINGS: SUPPORT DEVICES: None. HEART / MEDIASTINUM: Stable. LUNGS / PLEURA: No significant change in bilateral airspace disease. No pneumothorax. ADDITIONAL FINDINGS: No significant additional findings. IMPRESSION: 1. No significant change in bilateral airspace disease. Signer Name: Juan Alberto Hylton MD Signed: 05/16/2021 9:03 AM Workstation Name: [email or web address]
--- NOTE | 2021-05-16 10:48 | Progress Note ---
Assessment and Plan 61 y/o male with HIV for 30+ years on therapy, now with acute respiratory failure with abnormal CXR and CT of chest. 05/16/21: No bronch now with COVID positive state so will cancel. cOntinue steroids and remdesivir. Wean FiO2 as tolerated. Guarded prognosis. Unfortunately, no comparison imaging and no imaging of chest done on admit. CT also not typical of COVID, especially with effusions. Suggest the followin. Repeat blood cultures if not already ordered along with urine 2. ID is following but would suggest adding Vancomycin to regimen. He has been hospitalized several days and this is an acute change in respiratory status 3. If producing sputum, please send for culture 4. Ideally needs bronch however current oxygen requirement precludes this, if improves over the weekend can consider maybe trying on Sunday? Called endo and they cannot. first available would be . Told them I could do anytime on that day. 5. LDH is elevated. PJP. Will defer to ID. If and when bronched, can send for this as well. 6. Agree with isolation. Hopeful he is not COVID positive Guarded prognosis. Subjective Date of service: 05/16/21 Interval history: patient was covid positive. Now on steriods and remdesivir. Improving. Objective Vital Signs - 12hr 05/15/21 05/16/21 22:52 04:40 Temperature 97.6 F 97.6 F Pulse Rate 72 71 Respiratory 20 20 Rate Blood Pressure 123/74 125/67 O2 Sat by Pulse 91 95 Oximetry Constitutional: other (Appears to be dyspneic.) Ascultation: Bilateral: rhonchi Cardiovascular: regular rate and rhythm (Tachycardic) Gastrointestinal: soft, tender CBC and BMP: 05/12/21 14:15 05/16/21 07:32 ABG, PT/INR, D-dimer: ABG ABG pH 7.524 (7.320-7.450) H 05/11/21 20:51 POC ABG pCO2 30.2 mmHg (32.0-48.0) L 05/11/21 20:51 POC ABG pO2 66.3 mmHg (83-108) L 05/11/21 20:51 POC ABG HCO3 24.3 05/11/21 20:51 ABG O2 Saturation 93.6 (0-100) 05/11/21 20:51 PT/INR, D-dimer D-Dimer 734.18 ng/mlDDU (0-234) H 05/15/21 15:26 Abnormal lab findings: Abnormal Labs 04/30/21 04/30/21 04/30/21 19:52 19:52 Unknown WBC RBC 5.38 H Hgb 16.0 H Hct 46.7 H MCHC RDW 15.8 H Lymph % (Auto) [place] % (Auto) 8.1 H D-Dimer ABG pH POC ABG pCO2 POC ABG pO2 ABG Oxyhemoglobin ABG Sodium ABG Potassium Sodium Potassium Chloride BUN 21 H Creatinine Glucose POC Glucose Calcium Magnesium Ferritin AST Lactate Dehydrogenase C-Reactive Protein Total Protein 9.1 H Albumin 3.8 L Arterial Blood Ionized Calcium Ur Specific [place] Urine WBC (Auto) 7.0 H Vancomycin Trough Coronavirus (PCR) 05/02/21 05/02/21 05/04/21 08:32 08:32 05:49 WBC RBC Hgb Hct MCHC 35 H 35 H RDW 15.3 H Lymph % (Auto) [place] % (Auto) 8.3 H D-Dimer ABG pH POC ABG pCO2 POC ABG pO2 ABG Oxyhemoglobin ABG Sodium ABG Potassium Sodium Potassium Chloride 109.2 H BUN Creatinine Glucose 73 L POC Glucose Calcium Magnesium Ferritin AST Lactate Dehydrogenase C-Reactive Protein Total Protein Albumin Arterial Blood Ionized Calcium Ur Specific [place] Urine WBC (Auto) Vancomycin Trough Coronavirus (PCR) 05/05/21 05/05/21 05/09/21 04:37 04:37 04:27 WBC RBC Hgb Hct MCHC 35 H RDW Lymph % (Auto) [place] % (Auto) 10.9 H D-Dimer ABG pH POC ABG pCO2 POC ABG pO2 ABG Oxyhemoglobin ABG Sodium ABG Potassium Sodium Potassium 3.1 L Chloride BUN 7 L Creatinine Glucose POC Glucose Calcium Magnesium 2.50 H Ferritin AST Lactate Dehydrogenase C-Reactive Protein Total Protein Albumin Arterial Blood Ionized Calcium Ur Specific [place] Urine WBC (Auto) Vancomycin Trough Coronavirus (PCR) 05/11/21 05/11/21 05/11/21 13:00 13:00 20:51 WBC 4.1 L RBC Hgb 11.4 L Hct 33.4 L D MCHC RDW Lymph % (Auto) 38.1 H [place] % (Auto) D-Dimer ABG pH 7.524 H POC ABG pCO2 30.2 L POC ABG pO2 66.3 L ABG Oxyhemoglobin 92.8 L ABG Sodium 110.2 L ABG Potassium 3.0 L Sodium Potassium 3.0 L Chloride BUN Creatinine 0.7 L Glucose POC Glucose Calcium 7.5 L Magnesium Ferritin AST Lactate Dehydrogenase C-Reactive Protein Total Protein 5.8 L Albumin 2.3 L Arterial Blood Ionized Calcium 4.2 L Ur Specific [place] Urine WBC (Auto) Vancomycin Trough Coronavirus (PCR) 05/12/21 05/12/21 05/12/21 07:28 14:15 14:15 WBC 4.4 L RBC Hgb Hct MCHC RDW Lymph % (Auto) 36.5 H [place] % (Auto) D-Dimer ABG pH POC ABG pCO2 POC ABG pO2 ABG Oxyhemoglobin ABG Sodium ABG Potassium Sodium 136 L Potassium Chloride BUN Creatinine 0.6 L Glucose POC Glucose 66 L Calcium 8.2 L Magnesium Ferritin AST 68 H Lactate Dehydrogenase C-Reactive Protein Total Protein Albumin 2.6 L Arterial Blood Ionized Calcium Ur Specific [place] Urine WBC (Auto) Vancomycin Trough Coronavirus (PCR) 05/12/21 05/12/21 05/12/21 19:37 19:38 19:38 WBC RBC Hgb Hct MCHC RDW Lymph % (Auto) [place] % (Auto) D-Dimer ABG pH POC ABG pCO2 POC ABG pO2 ABG Oxyhemoglobin ABG Sodium ABG Potassium Sodium Potassium Chloride BUN Creatinine Glucose POC Glucose Calcium Magnesium Ferritin 1136.0 H AST Lactate Dehydrogenase 477 H C-Reactive Protein 9.30 H Total Protein Albumin Arterial Blood Ionized Calcium Ur Specific [place] Urine WBC (Auto) Vancomycin Trough Coronavirus (PCR) 05/12/21 05/13/21 05/14/21 Unknown 08:15 14:21 WBC RBC Hgb Hct MCHC RDW Lymph % (Auto) [place] % (Auto) D-Dimer ABG pH POC ABG pCO2 POC ABG pO2 ABG Oxyhemoglobin ABG Sodium ABG Potassium Sodium Potassium Chloride BUN Creatinine 0.6 L Glucose 136 H POC Glucose Calcium Magnesium Ferritin AST 71 H Lactate Dehydrogenase C-Reactive Protein Total Protein Albumin 3.2 L Arterial Blood Ionized Calcium Ur Specific [place] 1.038 H Urine WBC (Auto) Vancomycin Trough Coronavirus (PCR) Positive A 05/15/21 05/15/21 05/15/21 07:28 15:26 15:26 WBC RBC Hgb Hct MCHC RDW Lymph % (Auto) [place] % (Auto) D-Dimer 734.18 H ABG pH POC ABG pCO2 POC ABG pO2 ABG Oxyhemoglobin ABG Sodium ABG Potassium Sodium Potassium Chloride 107.8 H BUN 21 H Creatinine 0.6 L Glucose 124 H POC Glucose Calcium Magnesium Ferritin AST 70 H Lactate Dehydrogenase C-Reactive Protein 2.10 H Total Protein Albumin 2.8 L Arterial Blood Ionized Calcium Ur Specific [place] Urine WBC (Auto) Vancomycin Trough Coronavirus (PCR) 05/15/21 05/15/21 05/16/21 15:26 15:26 07:32 WBC RBC Hgb Hct MCHC RDW Lymph % (Auto) [place] % (Auto) D-Dimer ABG pH POC ABG pCO2 POC ABG pO2 ABG Oxyhemoglobin ABG Sodium ABG Potassium Sodium Potassium Chloride 108.2 H BUN Creatinine 0.6 L Glucose 123 H POC Glucose Calcium Magnesium Ferritin 1206.0 H AST 52 H Lactate Dehydrogenase 437 H C-Reactive Protein Total Protein Albumin 2.9 L Arterial Blood Ionized Calcium Ur Specific [place] Urine WBC (Auto) Vancomycin Trough Coronavirus (PCR) 05/16/21 07:32 WBC RBC Hgb Hct MCHC RDW Lymph % (Auto) [place] % (Auto) D-Dimer ABG pH POC ABG pCO2 POC ABG pO2 ABG Oxyhemoglobin ABG Sodium ABG Potassium Sodium Potassium Chloride BUN Creatinine Glucose POC Glucose Calcium Magnesium Ferritin AST Lactate Dehydrogenase C-Reactive Protein Total Protein Albumin Arterial Blood Ionized Calcium Ur Specific [place] Urine WBC (Auto) Vancomycin Trough 40.1 H Coronavirus (PCR)
--- NOTE | 2021-05-16 11:13 | Progress Note ---
Assessment and Plan Assessment and plan: --abnormal chest x-ray/groundglass appearance/ hospital-acquired pneumonia/COVID-19 pneumonia Current Visit: Yes Status: Acute Chest x-ray 05/12/2021 diffuse scattered groundglass opacities throughout bilateral lungs which can be seen with Covid pneumonia can be seen in Covid pneumonia Pulmonary following, recommend to start vancomycin Possible bronchoscopy next week, repeat blood and urine cultures --Means PCR test positive/COVID-19 infection Current Visit: Yes Status: Acute Isolation precautions, transferred from telemetry to medical floor ID reconsulted, no hypoxia, no need for steroid and remdesivir Follow inflammatory markers Follow ID evaluation recommendations --ESBL positive surgical wound culture; completed treatment Current Visit: Yes Status: Acute ID ID recommended 7 days of meropenem starting from 05/06/2021 completed 7 days treatment --Sepsis due to ESBL infection Current Visit: Yes Status: Acute ID evaluation noted, completed total 7 days of IV meropenem every 8 hours -- Acute appendicitis with abscess Iatrogenic sigmoid colon injury Current Visit: Yes Status: Acute Surgery evaluated the patient s/p surgery 05/02/2021 1) Diagnostic laparoscopy 2) Open appendectomy with drainage of appendiceal abscess 3) Open repair of iatrogenic sigmoid colon injury Plan to discharge the patient today per Dr. Novak's recommendation However wound cultures came back positive for ESBL Discharge held ID evaluated, started on meropenem Contact isolation, closely monitor --Hiccups; resolved Current Visit: Yes Status: Acute Supportive care, oral Thorazine as needed --Small bowel obstruction Current Visit: Yes Status: Acute Resolved, surgeon advance diet --History of HIV (human immunodeficiency virus infection) Current Visit: Yes Status: Chronic Continue antiretroviral therapy, outpatient infectious disease follow-up. Upon discharge --severe malnutrition/hypoalbuminemia Current Visit: Yes Status: Chronic Nutrition supplements, nutrition consult Supportive care --DVT prophylaxis Current Visit: Yes Status: Acute Subcu Lovenox Closely monitor patient and adjust the management as needed Midline requested, DC planning per case management We will closely monitor the patient and adjust the management as needed Patient is being treated for bilateral pneumonia and COVID-19 Daily hospital course; 05/05/2021; Dr. Novak evaluated the patient, cleared for discharge for tomorrow However no ride available 05/06/2021; Patient's discharge is held due to positive ESBL surgical cultures ID consulted, started on meropenem, continue supportive care 05/07/2021; Patient is receiving imipenem as recommended by ID Total 8 days of IV meropenem, midline requested case management to assist with discharge planning and medications DC planning per CM ,disposition per surgery Patient has hiccups, Thorazine ordered I spoke with patient's sister Ms. Jung and discussed in detail patient's condition treatment and discharge plan She had many questions about DC planning, advised her to call back tomorrow and speak with the case management. She verbalized understanding 05/08/2021; Patient is receiving meropenem day 2 Case management assisting with home antibiotics Received midline,Intermittent hiccups, continue Thorazine Ambulate in the hallway as tolerated 05/09/2021 Patient feels better, hiccups have significantly improved Continue IV antibiotics, complete total 7 days February 07, 2021; continue antibiotics day 12/15 follow ID, surgery recommendations Resume service today; 05/13/2021; Means PCR test is positive COVID-19 infection Isolation precautions, Reconsult ID Transfer the patient to third floor 05/14/2021; Patient evaluated by pulmonary Planning bronchoscopy Recommend vancomycin Pulmonary consulted possible bronchoscopy Started vancomycin, status 05/15/2021; ID reconsulted, continue vancomycin Consultants recommendations noted and appreciated Possible bronchoscopy next week as per Pulmonary 05/16/21; Now that patient is Covid positive Pulmonary canceled bronchoscopy Continue antibiotics for bilateral pneumonia Follow ID pulmonary evaluation recommendations Patient is critically ill with multiple medical problems History Interval history: I have seen and examined the patient at the bedside Patient's chart and medications reviewed Patient feels better, complains of generalized weakness Hospitalist Physical - Constitutional Vitals: Temp Pulse Resp BP Pulse Ox 97.6 F 71 20 125/67 95 05/16/21 04:40 05/16/21 04:40 05/16/21 04:40 05/16/21 04:40 05/16/21 04:40 General appearance: Present: mild distress, well-nourished, disheveled - EENT Eyes: Present: PERRL, EOM intact - Neck Neck: Present: supple, normal ROM - Respiratory Respiratory effort: normal Respiratory: bilateral: diminished, negative: rales, rhonchi, wheezing - Cardiovascular Rhythm: regular Heart Sounds: Present: S1 & S2 - Extremities Extremities: no ischemia, No edema - Abdominal General gastrointestinal: soft, non-tender, non-distended, normal bowel sounds - Integumentary Integumentary: Present: clear, warm - Psychiatric Psychiatric: appropriate mood/affect, cooperative - Neurologic Neurologic: CNII-XII intact, moves all extremities Results - Labs CBC & Chem 7: 05/12/21 14:15 05/16/21 07:32 Labs: Laboratory Last Values WBC 4.4 K/mm3 (4.5-11.0) L 05/12/21 14:15 RBC 4.60 M/mm3 (3.65-5.03) 05/12/21 14:15 Hgb 13.4 gm/dl (11.8-15.2) 05/12/21 14:15 Hct 39.3 % (35.5-45.6) 05/12/21 14:15 MCV 86 fl (84-94) 05/12/21 14:15 MCH 29 pg (28-32) 05/12/21 14:15 MCHC 34 % (32-34) 05/12/21 14:15 RDW 14.9 % (13.2-15.2) 05/12/21 14:15 Plt Count 212 K/mm3 (140-440) 05/12/21 14:15 Lymph % (Auto) 36.5 % (13.4-35.0) H 05/12/21 14:15 [place] % (Auto) 4.1 % (0.0-7.3) 05/12/21 14:15 Eos % (Auto) 0.1 % (0.0-4.3) 05/12/21 14:15 Baso % (Auto) 0.4 % (0.0-1.8) 05/12/21 14:15 Lymph # (Auto) 1.6 K/mm3 (1.2-5.4) 05/12/21 14:15 [place] # (Auto) 0.2 K/mm3 (0.0-0.8) 05/12/21 14:15 Eos # (Auto) 0.0 K/mm3 (0.0-0.4) 05/12/21 14:15 Baso # (Auto) 0.0 K/mm3 (0.0-0.1) 05/12/21 14:15 Seg Neutrophils % 58.9 % (40.0-70.0) 05/12/21 14:15 Seg Neutrophils # 2.6 K/mm3 (1.8-7.7) 05/12/21 14:15 D-Dimer 734.18 ng/mlDDU (0-234) H 05/15/21 15:26 ABG pH 7.524 (7.320-7.450) H 05/11/21 20:51 POC ABG pCO2 30.2 mmHg (32.0-48.0) L 05/11/21 20:51 POC ABG pO2 66.3 mmHg (83-108) L 05/11/21 20:51 POC ABG HCO3 24.3 05/11/21 20:51 ABG O2 Saturation 93.6 (0-100) 05/11/21 20:51 POC ABG Base Excess 2.4 05/11/21 20:51 ABG Hemoglobin 13.7 (12.0-17.5) 05/11/21 20:51 ABG Oxyhemoglobin 92.8 (94-98) L 05/11/21 20:51 ABG Methemoglobin 0.3 (0.0-1.5) 05/11/21 20:51 ABG Sodium 110.2 mmol/L (136.0-145.0) L 05/11/21 20:51 ABG Potassium 3.0 mmol/L (3.40-4.50) L 05/11/21 20:51 ABG Chloride 102.0 mmol/L (98-107) 05/11/21 20:51 ABG Glucose 90 mg/dL (65-95) 05/11/21 20:51 Carboxyhemoglobin 0.6 (0.5-1.5) 05/11/21 20:51 FiO2 % 100.0 05/11/21 20:51 Sodium 144 mmol/L (137-145) 05/16/21 07:32 Potassium 4.0 mmol/L (3.6-5.0) 05/16/21 07:32 Chloride 108.2 mmol/L (98-107) H 05/16/21 07:32 Carbon Dioxide 30 mmol/L (22-30) 05/16/21 07:32 Anion Gap 10 mmol/L 05/16/21 07:32 BUN 20 mg/dL (9-20) 05/16/21 07:32 Creatinine 0.6 mg/dL (0.8-1.3) L 05/16/21 07:32 Estimated GFR > 60 ml/min 05/16/21 07:32 BUN/Creatinine Ratio 33 % 05/16/21 07:32 Glucose 123 mg/dL (75-100) H 05/16/21 07:32 POC Glucose 66 mg/dL (70-105) L 05/12/21 07:28 Lactic Acid 1.10 mmol/L (0.7-2.0) 05/12/21 14:15 Calcium 8.7 mg/dL (8.4-10.2) 05/16/21 07:32 Magnesium 2.20 mg/dL (1.7-2.3) 05/12/21 14:15 Ferritin 1206.0 ng/mL (30.0-300.0) H 05/15/21 15:26 Total Bilirubin 0.40 mg/dL (0.1-1.2) 05/16/21 07:32 AST 52 units/L (5-40) H 05/16/21 07:32 ALT 38 units/L (7-56) 05/16/21 07:32 Alkaline Phosphatase 66 units/L (35-129) 05/16/21 07:32 Lactate Dehydrogenase 437 units/L (91-180) H 05/15/21 15:26 C-Reactive Protein 2.10 mg/dL (0.00-1.30) H 05/15/21 15:26 Total Protein 6.8 g/dL (6.3-8.2) 05/16/21 07:32 Albumin 2.9 g/dL (3.9-5) L 05/16/21 07:32 Albumin/Globulin Ratio 0.7 % 05/16/21 07:32 Lipase 25 units/L (13-60) 04/30/21 19:52 Arterial Blood Glucose 90 mg/dL (65-95) 05/11/21 20:51 Arterial Blood Ionized Calcium 4.2 mg/dL (4.6-5.3) L 05/11/21 20:51 Urine Color Straw (Yellow) 05/12/21 Unknown Urine Turbidity Clear (Clear) 05/12/21 Unknown Urine pH 7.0 (5.0-7.0) 05/12/21 Unknown Ur Specific [place] 1.038 (1.003-1.030) H 05/12/21 Unknown Urine Protein 30 mg/dl mg/dL (Negative) 05/12/21 Unknown Urine Glucose (UA) Neg mg/dL (Negative) 05/12/21 Unknown Urine Ketones 20 mg/dL (Negative) 05/12/21 Unknown Urine Blood Sm (Negative) 05/12/21 Unknown Urine Nitrite Neg (Negative) 05/12/21 Unknown Urine Bilirubin Neg (Negative) 05/12/21 Unknown Urine Urobilinogen < 2.0 mg/dL (<2.0) 05/12/21 Unknown Ur Leukocyte Esterase Neg (Negative) 05/12/21 Unknown Urine WBC (Auto) 3.0 /HPF (0.0-6.0) 05/12/21 Unknown Urine RBC (Auto) 4.0 /HPF (0.0-6.0) 05/12/21 Unknown U Epithel Cells (Auto) 1.0 /HPF (0-13.0) 04/30/21 Unknown Hyaline Casts 3 /LPF 04/30/21 Unknown Urine Mucus 3+ /HPF 04/30/21 Unknown Vancomycin Trough 40.1 ug/mL (5.0-20.0) H 05/16/21 07:32 Coronavirus (PCR) Positive (Negative) A 05/13/21 08:15 Microbiology: Microbiology 05/14/21 19:30 Peripheral/Venous Blood Culture - Preliminary NO GROWTH AFTER 24 HOURS 05/14/21 19:30 Peripheral/Venous Blood Culture - Preliminary NO GROWTH AFTER 24 HOURS 05/11/21 13:00 Peripheral/Venous Blood Culture - Preliminary NO GROWTH AFTER 4 DAYS 05/11/21 13:45 Peripheral/Venous Blood Culture - Preliminary NO GROWTH AFTER 4 DAYS 05/12/21 19:11 Urine,Clean Catch Urine Culture - Final NO GROWTH AFTER 48 HOURS Montoya/IV: Voiding Method Urinal Active Medications - Current Medications Current Medications: Generic Name Dose Route Start Last Admin Trade Name Freq PRN Reason Stop Dose Admin Acetaminophen 650 mg 05/01/21 15:01 05/12/21 19:34 Acetaminophen 325 Mg Tab PO 650 mg Q4H PRN Administration Pain MILD(1-3)/Fever >100.5/SMALLS Atazanavir 300 mg 05/02/21 10:00 05/16/21 09:07 Atazanavir 150 Mg Cap PO Not Given DAILY GULSHAN Chlorpromazine HCl 25 mg 05/05/21 22:15 05/11/21 01:20 Chlorpromazine 25 Mg Tab PO 25 mg Q6H PRN Administration Hiccups Emtricitabine 200 mg 05/02/21 10:00 05/16/21 09:07 Emtricitabine 200 Mg Cap PO Not Given QDAY GULSHAN Enoxaparin Sodium 40 mg 05/06/21 22:00 05/15/21 22:42 Enoxaparin 40 Mg/0.4 Ml Inj SUB-Q 40 mg QDAY@2200 GULSHAN Administration Protocol Hydrophilic Ointment 1 applic 05/12/21 03:37 05/12/21 06:30 Lip Therapy Vaseline TP 1 applic DIRECT PRN Administration Dry Lips Sodium Chloride 1,000 mls @ 125 mls/hr 05/01/21 15:15 05/13/21 06:10 Nacl 0.9% 1000 Ml IV 125 mls/hr DIRECT GULSHAN Administration REMDESIVIR 100 mg/ Sodium 250 mls @ 500 mls/hr 05/15/21 21:00 05/15/21 22:41 Chloride IV 05/18/21 21:29 500 mls/hr Q24HR@2100 GULSHAN Administration Vancomycin HCl 1 gm in 250 mls @ 166.667 mls/hr 05/15/21 01:00 05/16/21 09:04 Vancomycin/Ns 1 Gm/250 Ml IV 166.667 mls/hr Q8H GULSHAN Administration Magnesium Hydroxide 30 ml 05/05/21 13:00 05/09/21 05:08 Magnesium Hydroxide (Mom) Oral Liqd Udc PO 30 ml QDAY PRN Administration Constipation Methylprednisolone Sodium Succinate 125 mg 05/13/21 17:00 05/16/21 05:42 Methylprednisolone Sod Succinate 125 Mg/2 Ml Inj IV 125 mg Q8HR GULSHAN Administration Morphine Sulfate 2 mg 05/08/21 07:42 05/16/21 00:59 Morphine 2 Mg/1 Ml Inj IV 2 mg Q12H PRN Administration Pain, Moderate (4-6) Ondansetron HCl 4 mg 05/01/21 15:01 05/15/21 06:16 Ondansetron 4 Mg/2 Ml Inj IV 4 mg Q8H PRN Administration Nausea And Vomiting Oxycodone/Acetaminophen 2 tab 05/04/21 11:00 05/06/21 10:35 Oxycodone /Acetaminophen 5-325mg Tab PO 2 tab Q4H PRN Administration Pain, Moderate (4-6) Ritonavir 100 mg 05/02/21 10:00 05/16/21 09:07 Ritonavir 100 Mg Tab PO Not Given QDAY GULSHAN Simethicone 80 mg 05/07/21 03:05 05/10/21 20:50 Simethicone 80 Mg Chew Tab PO 80 mg Q6H PRN Administration Gas pain Sodium Chloride 10 ml 05/01/21 22:00 05/16/21 09:07 Sodium Chloride 0.9% 10 Ml Flush Syringe IV 10 ml BID GULSHAN Administration Sodium Chloride 10 ml 05/01/21 15:01 05/09/21 17:16 Sodium Chloride 0.9% 10 Ml Flush Syringe IV 10 ml PRN PRN Administration LINE FLUSH Sodium Chloride 50 ml 05/14/21 15:30 05/15/21 22:42 Sodium Chloride 0.9% 50 Ml Ivpb IV 05/18/21 21:01 50 ml Q24HR@2100 GULSHAN Administration Sodium Hypochlorite 1 applic 05/03/21 10:00 05/14/21 05:04 Sodium Hypochlorite, [place]'s Full Strength (0.5%) 473 Ml Topical Soln TP 1 bottle Q12H PRN Administration Wound Care Tenofovir Disoproxil Fumarate 300 mg 05/02/21 10:00 05/16/21 09:07 Tenofovir 300 Mg Tab PO Not Given QDAY [facility] Nutrition/Malnutrition Assess - Dietary Evaluation Nutrition/Malnutrition Findings: Nutrition Notes Start: 05/02/21 14:43 Freq: Status: Active Protocol: Document 05/14/21 14:07 CW (Rec: 05/14/21 14:08 CW [id number]) Nutrition Notes Initial or Follow up Brief Note Current Diagnosis Small Bowel Obstruction Other Pertinent Diagnosis HIV, acute appendicitis Current Diet mech soft Subjective/Other Information Pt requesting diet advancement . [employer] alerted Nutrition Intervention Anticipated Discharge Needs: Regular Follow-Up By: 05/17/21 Additional Comments F/U: intakes and ONS tolerance
[2021-05-16] MEDS: ONDANSETRON 4 MG/2 ML INJ IV PRN (15:03)
[2021-05-16] MEDS: REMDESIVIR 100 MG in SODIUM CHLORIDE 0.9% 250ML 250 ML IV SCH (23:58)
[2021-05-16] MEDS: SODIUM CHLORIDE 0.9% 50 ML IVPB IV SCH (23:58)
[2021-05-16] MEDS: ENOXAPARIN 40 MG/0.4 ML INJ SUB-Q SCH (23:59)
[2021-05-17] MEDS: ONDANSETRON 4 MG/2 ML INJ IV PRN ×2 (00:01→22:14)
[2021-05-17 05:52] LABS: Alanine Aminotransferase 43 units/L (7-56); Albumin 2.7 g/dL (3.9-5); Blood Urea Nitrogen 17 mg/dL (9-20); Calcium 8.1 mg/dL (8.4-10.2); Hemolysis Index 4
[2021-05-17 06:05] LABS: BUN/Creatinine Ratio 28
--- NOTE | 2021-05-17 08:49 | Progress Note ---
Assessment and Plan 61 y/o male with HIV for 30+ years on therapy, now with acute respiratory failure with abnormal CXR and CT of chest.\ 05/17/21: Suggest stopping IVF's if not absolutely needed. Continue steroids and remdesivir. Guarded prognosis. Unfortunately, no comparison imaging and no imaging of chest done on admit. CT also not typical of COVID, especially with effusions. Suggest the followin. Repeat blood cultures if not already ordered along with urine 2. ID is following but would suggest adding Vancomycin to regimen. He has been hospitalized several days and this is an acute change in respiratory status 3. If producing sputum, please send for culture 4. Ideally needs bronch however current oxygen requirement precludes this, if improves over the weekend can consider maybe trying on Sunday? Called endo and they cannot. first available would be . Told them I could do anytime on that day. 5. LDH is elevated. PJP. Will defer to ID. If and when bronched, can send for this as well. 6. Agree with isolation. Hopeful he is not COVID positive Guarded prognosis. Subjective Date of service: 05/17/21 Interval history: Down to 5 liters NC. Objective Vital Signs - 12hr 05/16/21 05/17/21 20:59 08:11 Temperature 97.5 F L Pulse Rate 88 Respiratory 20 16 Rate Blood Pressure 133/80 O2 Sat by Pulse 94 94 Oximetry Constitutional: other (Appears to be dyspneic.) Ascultation: Bilateral: rhonchi Cardiovascular: regular rate and rhythm (Tachycardic) Gastrointestinal: soft, tender CBC and BMP: 05/12/21 14:15 05/17/21 04:41 ABG, PT/INR, D-dimer: ABG ABG pH 7.524 (7.320-7.450) H 05/11/21 20:51 POC ABG pCO2 30.2 mmHg (32.0-48.0) L 05/11/21 20:51 POC ABG pO2 66.3 mmHg (83-108) L 05/11/21 20:51 POC ABG HCO3 24.3 05/11/21 20:51 ABG O2 Saturation 93.6 (0-100) 05/11/21 20:51 PT/INR, D-dimer D-Dimer 734.18 ng/mlDDU (0-234) H 05/15/21 15:26 Abnormal lab findings: Abnormal Labs 04/30/21 04/30/21 04/30/21 19:52 19:52 Unknown WBC RBC 5.38 H Hgb 16.0 H Hct 46.7 H MCHC RDW 15.8 H Lymph % (Auto) [place] % (Auto) 8.1 H D-Dimer ABG pH POC ABG pCO2 POC ABG pO2 ABG Oxyhemoglobin ABG Sodium ABG Potassium Sodium Potassium Chloride BUN 21 H Creatinine Glucose POC Glucose Calcium Magnesium Ferritin AST Lactate Dehydrogenase C-Reactive Protein Total Protein 9.1 H Albumin 3.8 L Arterial Blood Ionized Calcium Ur Specific [place] Urine WBC (Auto) 7.0 H Vancomycin Trough Coronavirus (PCR) 05/02/21 05/02/21 05/04/21 08:32 08:32 05:49 WBC RBC Hgb Hct MCHC 35 H 35 H RDW 15.3 H Lymph % (Auto) [place] % (Auto) 8.3 H D-Dimer ABG pH POC ABG pCO2 POC ABG pO2 ABG Oxyhemoglobin ABG Sodium ABG Potassium Sodium Potassium Chloride 109.2 H BUN Creatinine Glucose 73 L POC Glucose Calcium Magnesium Ferritin AST Lactate Dehydrogenase C-Reactive Protein Total Protein Albumin Arterial Blood Ionized Calcium Ur Specific [place] Urine WBC (Auto) Vancomycin Trough Coronavirus (PCR) 05/05/21 05/05/21 05/09/21 04:37 04:37 04:27 WBC RBC Hgb Hct MCHC 35 H RDW Lymph % (Auto) [place] % (Auto) 10.9 H D-Dimer ABG pH POC ABG pCO2 POC ABG pO2 ABG Oxyhemoglobin ABG Sodium ABG Potassium Sodium Potassium 3.1 L Chloride BUN 7 L Creatinine Glucose POC Glucose Calcium Magnesium 2.50 H Ferritin AST Lactate Dehydrogenase C-Reactive Protein Total Protein Albumin Arterial Blood Ionized Calcium Ur Specific [place] Urine WBC (Auto) Vancomycin Trough Coronavirus (PCR) 05/11/21 05/11/21 05/11/21 13:00 13:00 20:51 WBC 4.1 L RBC Hgb 11.4 L Hct 33.4 L D MCHC RDW Lymph % (Auto) 38.1 H [place] % (Auto) D-Dimer ABG pH 7.524 H POC ABG pCO2 30.2 L POC ABG pO2 66.3 L ABG Oxyhemoglobin 92.8 L ABG Sodium 110.2 L ABG Potassium 3.0 L Sodium Potassium 3.0 L Chloride BUN Creatinine 0.7 L Glucose POC Glucose Calcium 7.5 L Magnesium Ferritin AST Lactate Dehydrogenase C-Reactive Protein Total Protein 5.8 L Albumin 2.3 L Arterial Blood Ionized Calcium 4.2 L Ur Specific [place] Urine WBC (Auto) Vancomycin Trough Coronavirus (PCR) 05/12/21 05/12/21 05/12/21 07:28 14:15 14:15 WBC 4.4 L RBC Hgb Hct MCHC RDW Lymph % (Auto) 36.5 H [place] % (Auto) D-Dimer ABG pH POC ABG pCO2 POC ABG pO2 ABG Oxyhemoglobin ABG Sodium ABG Potassium Sodium 136 L Potassium Chloride BUN Creatinine 0.6 L Glucose POC Glucose 66 L Calcium 8.2 L Magnesium Ferritin AST 68 H Lactate Dehydrogenase C-Reactive Protein Total Protein Albumin 2.6 L Arterial Blood Ionized Calcium Ur Specific [place] Urine WBC (Auto) Vancomycin Trough Coronavirus (PCR) 05/12/21 05/12/21 05/12/21 19:37 19:38 19:38 WBC RBC Hgb Hct MCHC RDW Lymph % (Auto) [place] % (Auto) D-Dimer ABG pH POC ABG pCO2 POC ABG pO2 ABG Oxyhemoglobin ABG Sodium ABG Potassium Sodium Potassium Chloride BUN Creatinine Glucose POC Glucose Calcium Magnesium Ferritin 1136.0 H AST Lactate Dehydrogenase 477 H C-Reactive Protein 9.30 H Total Protein Albumin Arterial Blood Ionized Calcium Ur Specific [place] Urine WBC (Auto) Vancomycin Trough Coronavirus (PCR) 05/12/21 05/13/21 05/14/21 Unknown 08:15 14:21 WBC RBC Hgb Hct MCHC RDW Lymph % (Auto) [place] % (Auto) D-Dimer ABG pH POC ABG pCO2 POC ABG pO2 ABG Oxyhemoglobin ABG Sodium ABG Potassium Sodium Potassium Chloride BUN Creatinine 0.6 L Glucose 136 H POC Glucose Calcium Magnesium Ferritin AST 71 H Lactate Dehydrogenase C-Reactive Protein Total Protein Albumin 3.2 L Arterial Blood Ionized Calcium Ur Specific [place] 1.038 H Urine WBC (Auto) Vancomycin Trough Coronavirus (PCR) Positive A 05/15/21 05/15/21 05/15/21 07:28 15:26 15:26 WBC RBC Hgb Hct MCHC RDW Lymph % (Auto) [place] % (Auto) D-Dimer 734.18 H ABG pH POC ABG pCO2 POC ABG pO2 ABG Oxyhemoglobin ABG Sodium ABG Potassium Sodium Potassium Chloride 107.8 H BUN 21 H Creatinine 0.6 L Glucose 124 H POC Glucose Calcium Magnesium Ferritin AST 70 H Lactate Dehydrogenase C-Reactive Protein 2.10 H Total Protein Albumin 2.8 L Arterial Blood Ionized Calcium Ur Specific [place] Urine WBC (Auto) Vancomycin Trough Coronavirus (PCR) 05/15/21 05/15/21 05/16/21 15:26 15:26 07:32 WBC RBC Hgb Hct MCHC RDW Lymph % (Auto) [place] % (Auto) D-Dimer ABG pH POC ABG pCO2 POC ABG pO2 ABG Oxyhemoglobin ABG Sodium ABG Potassium Sodium Potassium Chloride 108.2 H BUN Creatinine 0.6 L Glucose 123 H POC Glucose Calcium Magnesium Ferritin 1206.0 H AST 52 H Lactate Dehydrogenase 437 H C-Reactive Protein Total Protein Albumin 2.9 L Arterial Blood Ionized Calcium Ur Specific [place] Urine WBC (Auto) Vancomycin Trough Coronavirus (PCR) 05/16/21 05/17/21 07:32 04:41 WBC RBC Hgb Hct MCHC RDW Lymph % (Auto) [place] % (Auto) D-Dimer ABG pH POC ABG pCO2 POC ABG pO2 ABG Oxyhemoglobin ABG Sodium ABG Potassium Sodium Potassium Chloride 107.2 H BUN Creatinine 0.6 L Glucose 133 H POC Glucose Calcium 8.1 L Magnesium Ferritin AST 45 H Lactate Dehydrogenase C-Reactive Protein Total Protein Albumin 2.7 L Arterial Blood Ionized Calcium Ur Specific [place] Urine WBC (Auto) Vancomycin Trough 40.1 H Coronavirus (PCR)
--- NOTE | 2021-05-17 09:56 | Progress Note ---
Assessment and Plan Assessment and plan: --abnormal chest x-ray/groundglass appearance/ hospital-acquired pneumonia/COVID-19 pneumonia Current Visit: Yes Status: Acute Chest x-ray 05/12/2021 diffuse scattered groundglass opacities throughout bilateral lungs which can be seen with Covid pneumonia can be seen in Covid pneumonia Pulmonary following, recommend to start vancomycin Possible bronchoscopy next week, repeat blood and urine cultures --Means PCR test positive/COVID-19 infection Current Visit: Yes Status: Acute Isolation precautions, transferred from telemetry to medical floor ID reconsulted, no hypoxia, no need for steroid and remdesivir Follow inflammatory markers Follow ID evaluation recommendations --ESBL positive surgical wound culture; completed treatment Current Visit: Yes Status: Acute ID ID recommended 7 days of meropenem starting from 05/06/2021 completed 7 days treatment --Sepsis due to ESBL infection Current Visit: Yes Status: Acute ID evaluation noted, completed total 7 days of IV meropenem every 8 hours -- Acute appendicitis with abscess Iatrogenic sigmoid colon injury Current Visit: Yes Status: Acute Surgery evaluated the patient s/p surgery 05/02/2021 1) Diagnostic laparoscopy 2) Open appendectomy with drainage of appendiceal abscess 3) Open repair of iatrogenic sigmoid colon injury Plan to discharge the patient today per Dr. Novak's recommendation However wound cultures came back positive for ESBL Discharge held ID evaluated, started on meropenem Contact isolation, closely monitor --Hiccups; resolved Current Visit: Yes Status: Acute Supportive care, oral Thorazine as needed --Small bowel obstruction Current Visit: Yes Status: Acute Resolved, surgeon advance diet --History of HIV (human immunodeficiency virus infection) Current Visit: Yes Status: Chronic Continue antiretroviral therapy, outpatient infectious disease follow-up. Upon discharge --severe malnutrition/hypoalbuminemia Current Visit: Yes Status: Chronic Nutrition supplements, nutrition consult Supportive care --DVT prophylaxis Current Visit: Yes Status: Acute Subcu Lovenox Closely monitor patient and adjust the management as needed Midline requested, DC planning per case management We will closely monitor the patient and adjust the management as needed Patient is being treated for bilateral pneumonia and COVID-19 Daily hospital course; 05/05/2021; Dr. Novak evaluated the patient, cleared for discharge for tomorrow However no ride available 05/06/2021; Patient's discharge is held due to positive ESBL surgical cultures ID consulted, started on meropenem, continue supportive care 05/07/2021; Patient is receiving imipenem as recommended by ID Total 8 days of IV meropenem, midline requested case management to assist with discharge planning and medications DC planning per CM ,disposition per surgery Patient has hiccups, Thorazine ordered I spoke with patient's sister Ms. Jung and discussed in detail patient's condition treatment and discharge plan She had many questions about DC planning, advised her to call back tomorrow and speak with the case management. She verbalized understanding 05/08/2021; Patient is receiving meropenem day 2 Case management assisting with home antibiotics Received midline,Intermittent hiccups, continue Thorazine Ambulate in the hallway as tolerated 05/09/2021 Patient feels better, hiccups have significantly improved Continue IV antibiotics, complete total 7 days February 07, 2021; continue antibiotics day 12/15 follow ID, surgery recommendations Resume service today; 05/13/2021; Means PCR test is positive COVID-19 infection Isolation precautions, Reconsult ID Transfer the patient to third floor 05/14/2021; Patient evaluated by pulmonary Planning bronchoscopy Recommend vancomycin Pulmonary consulted possible bronchoscopy Started vancomycin, status 05/15/2021; ID reconsulted, continue vancomycin Consultants recommendations noted and appreciated Possible bronchoscopy next week as per Pulmonary 05/16/21; Now that patient is Covid positive Pulmonary canceled bronchoscopy Continue antibiotics for bilateral pneumonia Follow ID pulmonary evaluation recommendations Patient is critically ill with multiple medical problems 09/16/2020; Patient feels better Ambulate as tolerated Physical therapy if needed Possible discharge in 1 to 2 days if stable And cleared by surgery, ID History Interval history: I have seen and examined the patient at the bedside Patient's chart and medications reviewed Patient feels better anxious to go home Vital signs noted Hospitalist Physical - Constitutional Vitals: Temp Pulse Resp BP Pulse Ox 97.5 F L 88 16 133/80 94 05/16/21 20:59 05/16/21 20:59 05/17/21 08:11 05/16/21 20:59 05/17/21 08:11 General appearance: Present: no acute distress, well-nourished, disheveled - EENT Eyes: Present: PERRL, EOM intact - Neck Neck: Present: supple, normal ROM - Respiratory Respiratory effort: normal Respiratory: bilateral: diminished, negative: rales, rhonchi, wheezing - Cardiovascular Rhythm: regular Heart Sounds: Present: S1 & S2 - Extremities Extremities: no ischemia, No edema - Abdominal General gastrointestinal: soft, non-tender, non-distended, normal bowel sounds - Integumentary Integumentary: Present: clear, warm - Psychiatric Psychiatric: appropriate mood/affect, cooperative - Neurologic Neurologic: CNII-XII intact, moves all extremities Results - Labs CBC & Chem 7: 05/12/21 14:15 05/17/21 04:41 Labs: Laboratory Last Values WBC 4.4 K/mm3 (4.5-11.0) L 05/12/21 14:15 RBC 4.60 M/mm3 (3.65-5.03) 05/12/21 14:15 Hgb 13.4 gm/dl (11.8-15.2) 05/12/21 14:15 Hct 39.3 % (35.5-45.6) 05/12/21 14:15 MCV 86 fl (84-94) 05/12/21 14:15 MCH 29 pg (28-32) 05/12/21 14:15 MCHC 34 % (32-34) 05/12/21 14:15 RDW 14.9 % (13.2-15.2) 05/12/21 14:15 Plt Count 212 K/mm3 (140-440) 05/12/21 14:15 Lymph % (Auto) 36.5 % (13.4-35.0) H 05/12/21 14:15 [place] % (Auto) 4.1 % (0.0-7.3) 05/12/21 14:15 Eos % (Auto) 0.1 % (0.0-4.3) 05/12/21 14:15 Baso % (Auto) 0.4 % (0.0-1.8) 05/12/21 14:15 Lymph # (Auto) 1.6 K/mm3 (1.2-5.4) 05/12/21 14:15 [place]th # (Auto) 0.2 K/mm3 (0.0-0.8) 05/12/21 14:15 Eos # (Auto) 0.0 K/mm3 (0.0-0.4) 05/12/21 14:15 Baso # (Auto) 0.0 K/mm3 (0.0-0.1) 05/12/21 14:15 Seg Neutrophils % 58.9 % (40.0-70.0) 05/12/21 14:15 Seg Neutrophils # 2.6 K/mm3 (1.8-7.7) 05/12/21 14:15 D-Dimer 734.18 ng/mlDDU (0-234) H 05/15/21 15:26 ABG pH 7.524 (7.320-7.450) H 05/11/21 20:51 POC ABG pCO2 30.2 mmHg (32.0-48.0) L 05/11/21 20:51 POC ABG pO2 66.3 mmHg (83-108) L 05/11/21 20:51 POC ABG HCO3 24.3 05/11/21 20:51 ABG O2 Saturation 93.6 (0-100) 05/11/21 20:51 POC ABG Base Excess 2.4 05/11/21 20:51 ABG Hemoglobin 13.7 (12.0-17.5) 05/11/21 20:51 ABG Oxyhemoglobin 92.8 (94-98) L 05/11/21 20:51 ABG Methemoglobin 0.3 (0.0-1.5) 05/11/21 20:51 ABG Sodium 110.2 mmol/L (136.0-145.0) L 05/11/21 20:51 ABG Potassium 3.0 mmol/L (3.40-4.50) L 05/11/21 20:51 ABG Chloride 102.0 mmol/L (98-107) 05/11/21 20:51 ABG Glucose 90 mg/dL (65-95) 05/11/21 20:51 Carboxyhemoglobin 0.6 (0.5-1.5) 05/11/21 20:51 FiO2 % 100.0 05/11/21 20:51 Sodium 143 mmol/L (137-145) 05/17/21 04:41 Potassium 3.7 mmol/L (3.6-5.0) 05/17/21 04:41 Chloride 107.2 mmol/L (98-107) H 05/17/21 04:41 Carbon Dioxide 27 mmol/L (22-30) 05/17/21 04:41 Anion Gap 13 mmol/L 05/17/21 04:41 BUN 17 mg/dL (9-20) 05/17/21 04:41 Creatinine 0.6 mg/dL (0.8-1.3) L 05/17/21 04:41 Estimated GFR > 60 ml/min 05/17/21 04:41 BUN/Creatinine Ratio 28 % 05/17/21 04:41 Glucose 133 mg/dL (75-100) H 05/17/21 04:41 POC Glucose 66 mg/dL (70-105) L 05/12/21 07:28 Lactic Acid 1.10 mmol/L (0.7-2.0) 05/12/21 14:15 Calcium 8.1 mg/dL (8.4-10.2) L 05/17/21 04:41 Magnesium 2.20 mg/dL (1.7-2.3) 05/12/21 14:15 Ferritin 1206.0 ng/mL (30.0-300.0) H 05/15/21 15:26 Total Bilirubin 0.30 mg/dL (0.1-1.2) 05/17/21 04:41 AST 45 units/L (5-40) H 05/17/21 04:41 ALT 43 units/L (7-56) 05/17/21 04:41 Alkaline Phosphatase 64 units/L (35-129) 05/17/21 04:41 Lactate Dehydrogenase 437 units/L (91-180) H 05/15/21 15:26 C-Reactive Protein 2.10 mg/dL (0.00-1.30) H 05/15/21 15:26 Total Protein 6.3 g/dL (6.3-8.2) 05/17/21 04:41 Albumin 2.7 g/dL (3.9-5) L 05/17/21 04:41 Albumin/Globulin Ratio 0.8 % 05/17/21 04:41 Lipase 25 units/L (13-60) 04/30/21 19:52 Procalcitonin < 0.05 ng/mL (<0.15) 05/16/21 07:32 Arterial Blood Glucose 90 mg/dL (65-95) 05/11/21 20:51 Arterial Blood Ionized Calcium 4.2 mg/dL (4.6-5.3) L 05/11/21 20:51 Urine Color Straw (Yellow) 05/12/21 Unknown Urine Turbidity Clear (Clear) 05/12/21 Unknown Urine pH 7.0 (5.0-7.0) 05/12/21 Unknown Ur Specific [place] 1.038 (1.003-1.030) H 05/12/21 Unknown Urine Protein 30 mg/dl mg/dL (Negative) 05/12/21 Unknown Urine Glucose (UA) Neg mg/dL (Negative) 05/12/21 Unknown Urine Ketones 20 mg/dL (Negative) 05/12/21 Unknown Urine Blood Sm (Negative) 05/12/21 Unknown Urine Nitrite Neg (Negative) 05/12/21 Unknown Urine Bilirubin Neg (Negative) 05/12/21 Unknown Urine Urobilinogen < 2.0 mg/dL (<2.0) 05/12/21 Unknown Ur Leukocyte Esterase Neg (Negative) 05/12/21 Unknown Urine WBC (Auto) 3.0 /HPF (0.0-6.0) 05/12/21 Unknown Urine RBC (Auto) 4.0 /HPF (0.0-6.0) 05/12/21 Unknown U Epithel Cells (Auto) 1.0 /HPF (0-13.0) 04/30/21 Unknown Hyaline Casts 3 /LPF 04/30/21 Unknown Urine Mucus 3+ /HPF 04/30/21 Unknown Vancomycin Trough 40.1 ug/mL (5.0-20.0) H 05/16/21 07:32 Coronavirus (PCR) Positive (Negative) A 05/13/21 08:15 Microbiology: Microbiology 05/14/21 19:30 Peripheral/Venous Blood Culture - Preliminary NO GROWTH AFTER 48 HOURS 05/14/21 19:30 Peripheral/Venous Blood Culture - Preliminary NO GROWTH AFTER 48 HOURS 05/11/21 13:00 Peripheral/Venous Blood Culture - Final NO GROWTH AFTER 5 DAYS 05/11/21 13:45 Peripheral/Venous Blood Culture - Final NO GROWTH AFTER 5 DAYS Montoya/IV: Voiding Method Urinal Active Medications - Current Medications Current Medications: Generic Name Dose Route Start Last Admin Trade Name Freq PRN Reason Stop Dose Admin Acetaminophen 650 mg 05/01/21 15:01 05/12/21 19:34 Acetaminophen 325 Mg Tab PO 650 mg Q4H PRN Administration Pain MILD(1-3)/Fever >100.5/SMALLS Atazanavir 300 mg 05/02/21 10:00 05/16/21 09:07 Atazanavir 150 Mg Cap PO Not Given DAILY GULSHAN Chlorpromazine HCl 25 mg 05/05/21 22:15 05/11/21 01:20 Chlorpromazine 25 Mg Tab PO 25 mg Q6H PRN Administration Hiccups Emtricitabine 200 mg 05/02/21 10:00 05/16/21 09:07 Emtricitabine 200 Mg Cap PO Not Given QDAY GULSHAN Enoxaparin Sodium 40 mg 05/06/21 22:00 05/16/21 23:59 Enoxaparin 40 Mg/0.4 Ml Inj SUB-Q 40 mg QDAY@2200 GULSHAN Administration Protocol Hydrophilic Ointment 1 applic 05/12/21 03:37 05/12/21 06:30 Lip Therapy Vaseline TP 1 applic DIRECT PRN Administration Dry Lips Sodium Chloride 1,000 mls @ 125 mls/hr 05/01/21 15:15 05/13/21 06:10 Nacl 0.9% 1000 Ml IV 125 mls/hr DIRECT GULSHAN Administration REMDESIVIR 100 mg/ Sodium 250 mls @ 500 mls/hr 05/15/21 21:00 05/16/21 23:58 Chloride IV 05/18/21 21:29 500 mls/hr Q24HR@2100 GULSHAN Administration Magnesium Hydroxide 30 ml 05/05/21 13:00 05/09/21 05:08 Magnesium Hydroxide (Mom) Oral Liqd Udc PO 30 ml QDAY PRN Administration Constipation Methylprednisolone Sodium Succinate 125 mg 05/13/21 17:00 05/16/21 23:59 Methylprednisolone Sod Succinate 125 Mg/2 Ml Inj IV 125 mg Q8HR GULSHAN Administration Morphine Sulfate 2 mg 05/08/21 07:42 05/16/21 00:59 Morphine 2 Mg/1 Ml Inj IV 2 mg Q12H PRN Administration Pain, Moderate (4-6) Ondansetron HCl 4 mg 05/01/21 15:01 05/17/21 00:01 Ondansetron 4 Mg/2 Ml Inj IV 4 mg Q8H PRN Administration Nausea And Vomiting Oxycodone/Acetaminophen 2 tab 05/04/21 11:00 05/06/21 10:35 Oxycodone /Acetaminophen 5-325mg Tab PO 2 tab Q4H PRN Administration Pain, Moderate (4-6) Ritonavir 100 mg 05/02/21 10:00 05/16/21 09:07 Ritonavir 100 Mg Tab PO Not Given QDAY GULSHAN Simethicone 80 mg 05/07/21 03:05 05/10/21 20:50 Simethicone 80 Mg Chew Tab PO 80 mg Q6H PRN Administration Gas pain Sodium Chloride 10 ml 05/01/21 22:00 05/16/21 23:59 Sodium Chloride 0.9% 10 Ml Flush Syringe IV 10 ml BID GULSHAN Administration Sodium Chloride 10 ml 05/01/21 15:01 05/09/21 17:16 Sodium Chloride 0.9% 10 Ml Flush Syringe IV 10 ml PRN PRN Administration LINE FLUSH Sodium Chloride 50 ml 05/14/21 15:30 05/16/21 23:58 Sodium Chloride 0.9% 50 Ml Ivpb IV 05/18/21 21:01 50 ml Q24HR@2100 GULSHAN Administration Sodium Hypochlorite 1 applic 05/03/21 10:00 05/14/21 05:04 Sodium Hypochlorite, Dakin's Full Strength (0.5%) 473 Ml Topical Soln TP 1 bottle Q12H PRN Administration Wound Care Tenofovir Disoproxil Fumarate 300 mg 05/02/21 10:00 05/16/21 09:07 Tenofovir 300 Mg Tab PO Not Given QDAY [facility] Nutrition/Malnutrition Assess - Dietary Evaluation Nutrition/Malnutrition Findings: Nutrition Notes Start: 05/02/21 14:43 Freq: Status: Active Protocol: Document 05/14/21 14:07 CW (Rec: 05/14/21 14:08 CW [id number]) Nutrition Notes Initial or Follow up Brief Note Current Diagnosis Small Bowel Obstruction Other Pertinent Diagnosis HIV, acute appendicitis Current Diet mech soft Subjective/Other Information Pt requesting diet advancement . SAMPLING EXPERT alerted Nutrition Intervention Anticipated Discharge Needs: Regular Follow-Up By: 05/17/21 Additional Comments F/U: intakes and ONS tolerance
[2021-05-17] MEDS: TENOFOVIR 300 MG TAB PO SCH (10:03)
[2021-05-17] MEDS: EMTRICITABINE 200 MG CAP PO SCH (10:03)
[2021-05-17] MEDS: ATAZANAVIR 150 MG CAP PO SCH (10:03)
[2021-05-17] MEDS: RITONAVIR 100 MG TAB PO SCH (10:03)
--- NOTE | 2021-05-17 11:22 | Progress Note ---
Assessment and Plan Cultures: 05/02/2021 surgical culture: ESBL E. coli, group C streptococcus A/P: 61-year-old male with HIV admitted with: #COVID: tested positive #Acute hypoxic respiratory failure: currently on nasal cannula #Acute appendicitis, appendiceal abscess: Surgery complicated by "1.5 cm full-thickness tear was created in the sigmoid colon without cross- contamination", needed open appendectomy. 1.5 cm appendiceal abscess which was drained. Completed meropenem #HIV: reports being on treatment for almost 30+ years, well-controlled, on Biktarvy. Follows at [facility] Recs: -Continue steroids for 10 days as well as remdesivir -Normal procalcitonin. -Stopped vancomycin -Given compliance with Biktarvy feel PJP is less likely. -Ordered CD4 and viral load -Patient is taking his own Biktarvy, continue since it is non-formulary here Brett Manzo MD [facility], [place] O: [phone] F: [phone] Subjective Date of service: 05/17/21 Interval history: Afebrile, no acute change. Imaging personally reviewed: Chest x-ray: No change in bilateral airspace disease. Objective - Exam Narrative Exam: Physical Exam: Constitutional: Alert, cooperative. No acute distress Head, Ears, Nose: Normocephalic, atraumatic. External ears, nose normal Eyes: Conjunctivae/corneas clear. No icterus. No ptosis. Neck: Supple, no meningeal signs Oral: dentition fair, no thrush Cardiovascular: S1, S2 normal. Respiratory: Good air entry, clear to auscultation bilaterally GI: Midline incision with surgical dressing Musculoskeletal: No pedal edema, no cyanosis. Skin: No rash or abscess Hem/Lymphatic: No palpable cervical or supraclavicular nodes. No lymphangitis Psych: Mood ok. Affect normal Neurological: Awake, alert, oriented. No gross abnormality - Constitutional Vitals: Vital Signs Temp Pulse Resp BP Pulse Ox 97.5 F L 88 16 133/80 94 05/16/21 20:59 05/16/21 20:59 05/17/21 08:11 05/16/21 20:59 05/17/21 08:11 Temperature -Last 24 Hours Temperature 97.5 F Temperature 97.7 F - Labs CBC & Chem 7: 05/12/21 14:15 05/17/21 04:41 Labs: Abnormal lab results 05/17/21 Range/Units 04:41 Chloride 107.2 H (98-107) mmol/L Creatinine 0.6 L (0.8-1.3) mg/dL Glucose 133 H (75-100) mg/dL Calcium 8.1 L (8.4-10.2) mg/dL AST 45 H (5-40) units/L Albumin 2.7 L (3.9-5) g/dL
[2021-05-17] MEDS: methylPREDNISolone Sod Succinate 125 MG/2 ML INJ IV SCH ×3 (14:42→22:01)
[2021-05-17] MEDS: ENOXAPARIN 40 MG/0.4 ML INJ SUB-Q SCH (22:00)
[2021-05-17] MEDS: SODIUM CHLORIDE 0.9% 50 ML IVPB IV SCH (22:00)
[2021-05-17] MEDS: REMDESIVIR 100 MG in SODIUM CHLORIDE 0.9% 250ML 250 ML IV SCH (22:00)
[2021-05-18] MEDS: methylPREDNISolone Sod Succinate 125 MG/2 ML INJ IV SCH ×3 (05:42→22:28)
--- NOTE | 2021-05-18 08:49 | Progress Note ---
Assessment and Plan Assessment and plan: --abnormal chest x-ray/groundglass appearance/ hospital-acquired pneumonia/COVID-19 pneumonia Current Visit: Yes Status: Acute Chest x-ray 05/12/2021 diffuse scattered groundglass opacities throughout bilateral lungs Pulmonary following, recommend to start vancomycin ID felt no need for vancomycin and discontinued Initially pulmonary wanted bronchoscopy, however due to Covid positive status No bronchoscopy planned at this time --Means PCR test positive/COVID-19 infection Current Visit: Yes Status: Acute Isolation precautions, transferred from telemetry to medical floor ID recommendations noted, high-dose Solu-Medrol 125 every 8 hours Remdesivir per protocol, Follow inflammatory markers Oxygen evaluation, prone positioning --ESBL positive surgical wound culture; completed treatment Current Visit: Yes Status: Acute Completed 7 days of meropenem per ID --Sepsis due to ESBL infection Current Visit: Yes Status: Acute Completed 7 days of meropenem -- Acute appendicitis with abscess Iatrogenic sigmoid colon injury Current Visit: Yes Status: Acute Surgery evaluated the patient s/p surgery 05/02/2021 1) Diagnostic laparoscopy 2) Open appendectomy with drainage of appendiceal abscess 3) Open repair of iatrogenic sigmoid colon injury Patient feels better tolerating regular diet Surgery cleared for discharge, however patient patient has multiple medical issues --Hiccups; resolved Current Visit: Yes Status: Acute Supportive care, oral Thorazine as needed --Small bowel obstruction Current Visit: Yes Status: Acute Resolved, tolerating regular diet --History of HIV (human immunodeficiency virus infection) Current Visit: Yes Status: Chronic Continue antiretroviral therapy, patient is taking his nonformulary medications outpatient infectious disease follow-up. Upon discharge --severe malnutrition/hypoalbuminemia Current Visit: Yes Status: Chronic Nutrition supplements, nutrition consult --DVT prophylaxis Current Visit: Yes Status: Acute Subcu Lovenox Closely monitor patient and adjust the management as needed Midline requested, DC planning per case management We will closely monitor the patient and adjust the management as needed Patient is being treated for bilateral pneumonia and COVID-19 Daily hospital course; 05/05/2021; Dr. Novak evaluated the patient, cleared for discharge for tomorrow However no ride available 05/06/2021; Patient's discharge is held due to positive ESBL surgical cultures ID consulted, started on meropenem, continue supportive care 05/07/2021; Patient is receiving imipenem as recommended by ID Total 8 days of IV meropenem, midline requested case management to assist with discharge planning and medications DC planning per CM ,disposition per surgery Patient has hiccups, Thorazine ordered I spoke with patient's sister Ms. Jung and discussed in detail patient's condition treatment and discharge plan She had many questions about DC planning, advised her to call back tomorrow and speak with the case management. She verbalized understanding 05/08/2021; Patient is receiving meropenem day 2 Case management assisting with home antibiotics Received midline,Intermittent hiccups, continue Thorazine Ambulate in the hallway as tolerated 05/09/2021 Patient feels better, hiccups have significantly improved Continue IV antibiotics, complete total 7 days February 07, 2021; continue antibiotics day 12/15 follow ID, surgery recommendations Resume service today; 05/13/2021; Means PCR test is positive COVID-19 infection Isolation precautions, Reconsult ID Transfer the patient to third floor 05/14/2021; Patient evaluated by pulmonary Planning bronchoscopy Recommend vancomycin Pulmonary consulted possible bronchoscopy Started vancomycin, status 05/15/2021; ID reconsulted, continue vancomycin Consultants recommendations noted and appreciated Possible bronchoscopy next week as per Pulmonary 05/16/21; Now that patient is Covid positive Pulmonary canceled bronchoscopy Continue antibiotics for bilateral pneumonia Follow ID pulmonary evaluation recommendations Patient is critically ill with multiple medical problems 05/17/2021; Patient feels better Ambulate as tolerated Physical therapy if needed Possible discharge in 1 to 2 days if stable And cleared by surgery, ID 05/18/2021; patient is on high flow dose steroids Solu-Medrol 125 mg 3 times a day per pulmonary On remdesivir last dose. Gas Load Dispatcher recommendations noted and appreciated History Interval history: I have seen and examined the patient in his room at the bedside this morning Patient's chart and medications reviewed Patient feels slightly better no new complaints Receiving high-dose steroids and remdesivir Vital signs noted Hospitalist Physical - Constitutional Vitals: Temp Pulse Resp BP Pulse Ox 97.7 F 66 20 140/90 94 05/17/21 22:00 05/17/21 15:51 05/17/21 22:00 05/17/21 22:00 05/17/21 22:00 General appearance: Present: no acute distress, well-nourished, disheveled - EENT Eyes: Present: PERRL, EOM intact - Neck Neck: Present: supple, normal ROM - Respiratory Respiratory effort: normal Respiratory: bilateral: diminished, rhonchi, negative: rales, wheezing - Cardiovascular Rhythm: regular Heart Sounds: Present: S1 & S2 - Extremities Extremities: no ischemia, No edema - Abdominal General gastrointestinal: soft, non-tender, non-distended, normal bowel sounds - Integumentary Integumentary: Present: clear, warm - Psychiatric Psychiatric: appropriate mood/affect, cooperative - Neurologic Neurologic: moves all extremities Results - Labs CBC & Chem 7: 05/12/21 14:15 05/17/21 04:41 Labs: Laboratory Last Values WBC 4.4 K/mm3 (4.5-11.0) L 05/12/21 14:15 RBC 4.60 M/mm3 (3.65-5.03) 05/12/21 14:15 Hgb 13.4 gm/dl (11.8-15.2) 05/12/21 14:15 Hct 39.3 % (35.5-45.6) 05/12/21 14:15 MCV 86 fl (84-94) 05/12/21 14:15 MCH 29 pg (28-32) 05/12/21 14:15 MCHC 34 % (32-34) 05/12/21 14:15 RDW 14.9 % (13.2-15.2) 05/12/21 14:15 Plt Count 212 K/mm3 (140-440) 05/12/21 14:15 Lymph % (Auto) 36.5 % (13.4-35.0) H 05/12/21 14:15 [place] % (Auto) 4.1 % (0.0-7.3) 05/12/21 14:15 Eos % (Auto) 0.1 % (0.0-4.3) 05/12/21 14:15 Baso % (Auto) 0.4 % (0.0-1.8) 05/12/21 14:15 Lymph # (Auto) 1.6 K/mm3 (1.2-5.4) 05/12/21 14:15 [place] # (Auto) 0.2 K/mm3 (0.0-0.8) 05/12/21 14:15 Eos # (Auto) 0.0 K/mm3 (0.0-0.4) 05/12/21 14:15 Baso # (Auto) 0.0 K/mm3 (0.0-0.1) 05/12/21 14:15 Seg Neutrophils % 58.9 % (40.0-70.0) 05/12/21 14:15 Seg Neutrophils # 2.6 K/mm3 (1.8-7.7) 05/12/21 14:15 D-Dimer 734.18 ng/mlDDU (0-234) H 05/15/21 15:26 ABG pH 7.524 (7.320-7.450) H 05/11/21 20:51 POC ABG pCO2 30.2 mmHg (32.0-48.0) L 05/11/21 20:51 POC ABG pO2 66.3 mmHg (83-108) L 05/11/21 20:51 POC ABG HCO3 24.3 05/11/21 20:51 ABG O2 Saturation 93.6 (0-100) 05/11/21 20:51 POC ABG Base Excess 2.4 05/11/21 20:51 ABG Hemoglobin 13.7 (12.0-17.5) 05/11/21 20:51 ABG Oxyhemoglobin 92.8 (94-98) L 05/11/21 20:51 ABG Methemoglobin 0.3 (0.0-1.5) 05/11/21 20:51 ABG Sodium 110.2 mmol/L (136.0-145.0) L 05/11/21 20:51 ABG Potassium 3.0 mmol/L (3.40-4.50) L 05/11/21 20:51 ABG Chloride 102.0 mmol/L (98-107) 05/11/21 20:51 ABG Glucose 90 mg/dL (65-95) 05/11/21 20:51 Carboxyhemoglobin 0.6 (0.5-1.5) 05/11/21 20:51 FiO2 % 100.0 05/11/21 20:51 Sodium 143 mmol/L (137-145) 05/17/21 04:41 Potassium 3.7 mmol/L (3.6-5.0) 05/17/21 04:41 Chloride 107.2 mmol/L (98-107) H 05/17/21 04:41 Carbon Dioxide 27 mmol/L (22-30) 05/17/21 04:41 Anion Gap 13 mmol/L 05/17/21 04:41 BUN 17 mg/dL (9-20) 05/17/21 04:41 Creatinine 0.6 mg/dL (0.8-1.3) L 05/17/21 04:41 Estimated GFR > 60 ml/min 05/17/21 04:41 BUN/Creatinine Ratio 28 % 05/17/21 04:41 Glucose 133 mg/dL (75-100) H 05/17/21 04:41 POC Glucose 66 mg/dL (70-105) L 05/12/21 07:28 Lactic Acid 1.10 mmol/L (0.7-2.0) 05/12/21 14:15 Calcium 8.1 mg/dL (8.4-10.2) L 05/17/21 04:41 Magnesium 2.20 mg/dL (1.7-2.3) 05/12/21 14:15 Ferritin 1206.0 ng/mL (30.0-300.0) H 05/15/21 15:26 Total Bilirubin 0.30 mg/dL (0.1-1.2) 05/17/21 04:41 AST 45 units/L (5-40) H 05/17/21 04:41 ALT 43 units/L (7-56) 05/17/21 04:41 Alkaline Phosphatase 64 units/L (35-129) 05/17/21 04:41 Lactate Dehydrogenase 437 units/L (91-180) H 05/15/21 15:26 C-Reactive Protein 2.10 mg/dL (0.00-1.30) H 05/15/21 15:26 Total Protein 6.3 g/dL (6.3-8.2) 05/17/21 04:41 Albumin 2.7 g/dL (3.9-5) L 05/17/21 04:41 Albumin/Globulin Ratio 0.8 % 05/17/21 04:41 Lipase 25 units/L (13-60) 04/30/21 19:52 Procalcitonin < 0.05 ng/mL (<0.15) 05/16/21 07:32 Arterial Blood Glucose 90 mg/dL (65-95) 05/11/21 20:51 Arterial Blood Ionized Calcium 4.2 mg/dL (4.6-5.3) L 05/11/21 20:51 Urine Color Straw (Yellow) 05/12/21 Unknown Urine Turbidity Clear (Clear) 05/12/21 Unknown Urine pH 7.0 (5.0-7.0) 05/12/21 Unknown Ur Specific [place] 1.038 (1.003-1.030) H 05/12/21 Unknown Urine Protein 30 mg/dl mg/dL (Negative) 05/12/21 Unknown Urine Glucose (UA) Neg mg/dL (Negative) 05/12/21 Unknown Urine Ketones 20 mg/dL (Negative) 05/12/21 Unknown Urine Blood Sm (Negative) 05/12/21 Unknown Urine Nitrite Neg (Negative) 05/12/21 Unknown Urine Bilirubin Neg (Negative) 05/12/21 Unknown Urine Urobilinogen < 2.0 mg/dL (<2.0) 05/12/21 Unknown Ur Leukocyte Esterase Neg (Negative) 05/12/21 Unknown Urine WBC (Auto) 3.0 /HPF (0.0-6.0) 05/12/21 Unknown Urine RBC (Auto) 4.0 /HPF (0.0-6.0) 05/12/21 Unknown U Epithel Cells (Auto) 1.0 /HPF (0-13.0) 04/30/21 Unknown Hyaline Casts 3 /LPF 04/30/21 Unknown Urine Mucus 3+ /HPF 04/30/21 Unknown Vancomycin Trough 40.1 ug/mL (5.0-20.0) H 05/16/21 07:32 Coronavirus (PCR) Positive (Negative) A 05/13/21 08:15 Microbiology: Microbiology 05/14/21 19:30 Peripheral/Venous Blood Culture - Preliminary NO GROWTH AFTER 72 HOURS 05/14/21 19:30 Peripheral/Venous Blood Culture - Preliminary NO GROWTH AFTER 72 HOURS [place]/IV: Voiding Method Bedside Commode Active Medications - Current Medications Current Medications: Generic Name Dose Route Start Last Admin Trade Name Freq PRN Reason Stop Dose Admin Acetaminophen 650 mg 05/01/21 15:01 05/12/21 19:34 Acetaminophen 325 Mg Tab PO 650 mg Q4H PRN Administration Pain MILD(1-3)/Fever >100.5/SMALLS Atazanavir 300 mg 05/02/21 10:00 05/17/21 10:03 Atazanavir 150 Mg Cap PO Not Given DAILY [facility] Chlorpromazine HCl 25 mg 05/05/21 22:15 05/11/21 01:20 Chlorpromazine 25 Mg Tab PO 25 mg Q6H PRN Administration Hiccups Emtricitabine 200 mg 05/02/21 10:00 05/17/21 10:03 Emtricitabine 200 Mg Cap PO Not Given QDAY [facility] Enoxaparin Sodium 40 mg 05/06/21 22:00 05/17/21 22:00 Enoxaparin 40 Mg/0.4 Ml Inj SUB-Q 40 mg QDAY@2200 GULSHAN Administration Protocol Hydrophilic Ointment 1 applic 05/12/21 03:37 05/12/21 06:30 Lip Therapy Vaseline TP 1 applic DIRECT PRN Administration Dry Lips Sodium Chloride 1,000 mls @ 125 mls/hr 05/01/21 15:15 05/13/21 06:10 Nacl 0.9% 1000 Ml IV 125 mls/hr DIRECT GULSHAN Administration REMDESIVIR 100 mg/ Sodium 250 mls @ 500 mls/hr 05/15/21 21:00 05/17/21 22:00 Chloride IV 05/18/21 21:29 500 mls/hr Q24HR@2100 GULSHAN Administration Magnesium Hydroxide 30 ml 05/05/21 13:00 05/09/21 05:08 Magnesium Hydroxide (Mom) Oral Liqd Udc PO 30 ml QDAY PRN Administration Constipation Methylprednisolone Sodium Succinate 125 mg 05/13/21 17:00 05/18/21 05:42 Methylprednisolone Sod Succinate 125 Mg/2 Ml Inj IV 125 mg Q8HR GULSHAN Administration Morphine Sulfate 2 mg 05/08/21 07:42 05/16/21 00:59 Morphine 2 Mg/1 Ml Inj IV 2 mg Q12H PRN Administration Pain, Moderate (4-6) Ondansetron HCl 4 mg 05/01/21 15:01 05/17/21 22:14 Ondansetron 4 Mg/2 Ml Inj IV 4 mg Q8H PRN Administration Nausea And Vomiting Oxycodone/Acetaminophen 2 tab 05/04/21 11:00 05/06/21 10:35 Oxycodone /Acetaminophen 5-325mg Tab PO 2 tab Q4H PRN Administration Pain, Moderate (4-6) Ritonavir 100 mg 05/02/21 10:00 05/17/21 10:03 Ritonavir 100 Mg Tab PO Not Given QDAY GULSHAN Simethicone 80 mg 05/07/21 03:05 05/10/21 20:50 Simethicone 80 Mg Chew Tab PO 80 mg Q6H PRN Administration Gas pain Sodium Chloride 10 ml 05/01/21 22:00 05/17/21 22:01 Sodium Chloride 0.9% 10 Ml Flush Syringe IV 10 ml BID GULSHAN Administration Sodium Chloride 10 ml 05/01/21 15:01 05/09/21 17:16 Sodium Chloride 0.9% 10 Ml Flush Syringe IV 10 ml PRN PRN Administration LINE FLUSH Sodium Chloride 50 ml 05/14/21 15:30 05/17/21 22:00 Sodium Chloride 0.9% 50 Ml Ivpb IV 05/18/21 21:01 50 ml Q24HR@2100 GULSHAN Administration Sodium Hypochlorite 1 applic 05/03/21 10:00 05/14/21 05:04 Sodium Hypochlorite, Dakin's Full Strength (0.5%) 473 Ml Topical Soln TP 1 bottle Q12H PRN Administration Wound Care Tenofovir Disoproxil Fumarate 300 mg 05/02/21 10:00 05/17/21 10:03 Tenofovir 300 Mg Tab PO Not Given QDAY [facility] Nutrition/Malnutrition Assess - Dietary Evaluation Nutrition/Malnutrition Findings: Nutrition Notes Start: 05/02/21 14:43 Freq: Status: Active Protocol: Document 05/17/21 13:01 RILEY (Rec: 05/17/21 13:09 [email or web address]) Nutrition Notes Initial or Follow up Reassessment Current Diagnosis Small Bowel Obstruction Other Pertinent Diagnosis HIV, acute appendicitis, COVID -19 [facility] Labs/Tests BG 133 Pertinent Medications Zofran Height 5 ft 10 in Weight 72.8 kg [place] Body Weight (kg) 75.45 BMI 23.0 Weight Status Appropriate Subjective/Other Information Pt reports having nausea. He has been finishing half of meals and drinking 100% of 2 ONS. Pt reports no issues chewing or swallowing. Percent of energy/protein needs met: 86%/100% Burn Absent Trauma Absent Current % PO Good (75-100%) Minimum of two criteria Yes Energy Intake (severe) < or equal to 50% Estimated Energy Requirement > or equal to 5 days Interpretation of Weight Loss (severe) >2% in 1 week #1 Nutrition Diagnosis Malnutrition As Evidenced by Signs and Symptoms pt meeting 86%/100% of calorie and protein needs Diagnosis Progress(for reassessment Improved documentation) Is patient on ventilator? No Is Patient Ambulatory and/or Out of Bed Yes REE-([facility]-ambulatory/OOB) [ 2007.525 [id number]] Calculation Used for Recommendations [facility] Additional Notes Protein: (1.2-1.5g/kg) 81-101g Fluid: 1 ml/kcal or per MD Nutrition Intervention Change Diet Order: continue Add Supplement/Snack (indicate name/kcal Ensure Enlive BID /protein ) Provides kCal: 700 Provides Protein (gm) 40 Goal #1 Meet at least 75% of protein and kcal needs via PO and ONS intakes. Anticipated Discharge Needs: Regular Follow-Up By: 05/20/21 Additional Comments F/U: intakes and ONS tolerance
[2021-05-18] MEDS: EMTRICITABINE 200 MG CAP PO SCH (09:59)
[2021-05-18] MEDS: ATAZANAVIR 150 MG CAP PO SCH (10:00)
[2021-05-18] MEDS: RITONAVIR 100 MG TAB PO SCH (10:00)
[2021-05-18] MEDS: TENOFOVIR 300 MG TAB PO SCH (10:00)
--- NOTE | 2021-05-18 14:21 | Progress Note ---
Assessment and Plan Cultures: 05/02/2021 surgical culture: ESBL E. coli, group C streptococcus A/P: 61-year-old male with HIV admitted with: #COVID: tested positive #Acute hypoxic respiratory failure: currently on nasal cannula #Acute appendicitis, appendiceal abscess: Surgery complicated by "1.5 cm full-thickness tear was created in the sigmoid colon without cross- contamination", needed open appendectomy. 1.5 cm appendiceal abscess which was drained. Completed meropenem #HIV: reports being on treatment for almost 30+ years, well-controlled, on Biktarvy. Follows at [place] [facility] Recs: -Continue steroids for 10 days as well as remdesivir -Normal procalcitonin. -Stopped vancomycin -Given compliance with Biktarvy feel PJP is less likely. -Ordered CD4 and viral load -Patient is taking his own Biktarvy, continue since it is non-formulary here Brett Manzo MD [facility] O: [phone] F: [phone] Subjective Date of service: 05/18/21 Interval history: Afebrile, no acute change. Objective - Exam Narrative Exam: Physical Exam: Constitutional: Alert, cooperative. No acute distress Head, Ears, Nose: Normocephalic, atraumatic. External ears, nose normal Eyes: Conjunctivae/corneas clear. No icterus. No ptosis. Neck: Supple, no meningeal signs Oral: dentition fair, no thrush Cardiovascular: S1, S2 normal. Respiratory: Good air entry, clear to auscultation bilaterally GI: Midline incision with surgical dressing Musculoskeletal: No pedal edema, no cyanosis. Skin: No rash or abscess Hem/Lymphatic: No palpable cervical or supraclavicular nodes. No lymphangitis Psych: Mood ok. Affect normal Neurological: Awake, alert, oriented. No gross abnormality - Constitutional Vitals: Vital Signs Temp Pulse Resp BP Pulse Ox 97.9 F 93 H 18 123/90 96 05/18/21 11:30 05/18/21 11:30 05/18/21 11:30 05/18/21 11:30 05/18/21 11:30 Temperature -Last 24 Hours Temperature 97.9 F Temperature 98.7 F Temperature 97.7 F Temperature 97.8 F - Labs CBC & Chem 7: 05/12/21 14:15 05/17/21 04:41
--- NOTE | 2021-05-18 16:23 | Progress Note ---
Assessment and Plan 61 y/o male with HIV for 30+ years on therapy, now with acute respiratory failure with abnormal CXR and CT of chest. 05/18/21: Still reccommend stopping fluids if not absolutely needed. COntinue to wean FiO2. Will start to wean steroids maybe in the next 24-48 hours. 05/17/21: Suggest stopping IVF's if not absolutely needed. Continue steroids and remdesivir. Guarded prognosis. Unfortunately, no comparison imaging and no imaging of chest done on admit. CT also not typical of COVID, especially with effusions. Suggest the followin. Repeat blood cultures if not already ordered along with urine 2. ID is following but would suggest adding Vancomycin to regimen. He has been hospitalized several days and this is an acute change in respiratory status 3. If producing sputum, please send for culture 4. Ideally needs bronch however current oxygen requirement precludes this, if improves over the weekend can consider maybe trying on Sunday? Called endo and they cannot. first available would be . Told them I could do anytime on that day. 5. LDH is elevated. PJP. Will defer to ID. If and when bronched, can send for this as well. 6. Agree with isolation. Hopeful he is not COVID positive Guarded prognosis. Subjective Date of service: 05/18/21 Interval history: No acute events. Objective Vital Signs - 12hr 05/18/21 05/18/21 04:46 11:30 Temperature 98.7 F 97.9 F Pulse Rate 79 93 H Respiratory 20 18 Rate Blood Pressure 135/94 123/90 O2 Sat by Pulse 98 96 Oximetry Constitutional: other (Appears to be dyspneic.) Ascultation: Bilateral: rhonchi Cardiovascular: regular rate and rhythm (Tachycardic) Gastrointestinal: soft, tender CBC and BMP: 05/12/21 14:15 05/17/21 04:41 ABG, PT/INR, D-dimer: ABG ABG pH 7.524 (7.320-7.450) H 05/11/21 20:51 POC ABG pCO2 30.2 mmHg (32.0-48.0) L 05/11/21 20:51 POC ABG pO2 66.3 mmHg (83-108) L 05/11/21 20:51 POC ABG HCO3 24.3 05/11/21 20:51 ABG O2 Saturation 93.6 (0-100) 05/11/21 20:51 PT/INR, D-dimer D-Dimer 734.18 ng/mlDDU (0-234) H 05/15/21 15:26 Abnormal lab findings: Abnormal Labs 04/30/21 04/30/21 04/30/21 19:52 19:52 Unknown WBC RBC 5.38 H Hgb 16.0 H Hct 46.7 H MCHC RDW 15.8 H Lymph % (Auto) [place] % (Auto) 8.1 H D-Dimer ABG pH POC ABG pCO2 POC ABG pO2 ABG Oxyhemoglobin ABG Sodium ABG Potassium Sodium Potassium Chloride BUN 21 H Creatinine Glucose POC Glucose Calcium Magnesium Ferritin AST Lactate Dehydrogenase C-Reactive Protein Total Protein 9.1 H Albumin 3.8 L Arterial Blood Ionized Calcium Ur Specific [place] Urine WBC (Auto) 7.0 H Vancomycin Trough Coronavirus (PCR) 05/02/21 05/02/21 05/04/21 08:32 08:32 05:49 WBC RBC Hgb Hct MCHC 35 H 35 H RDW 15.3 H Lymph % (Auto) [place] % (Auto) 8.3 H D-Dimer ABG pH POC ABG pCO2 POC ABG pO2 ABG Oxyhemoglobin ABG Sodium ABG Potassium Sodium Potassium Chloride 109.2 H BUN Creatinine Glucose 73 L POC Glucose Calcium Magnesium Ferritin AST Lactate Dehydrogenase C-Reactive Protein Total Protein Albumin Arterial Blood Ionized Calcium Ur Specific [place] Urine WBC (Auto) Vancomycin Trough Coronavirus (PCR) 05/05/21 05/05/21 05/09/21 04:37 04:37 04:27 WBC RBC Hgb Hct MCHC 35 H RDW Lymph % (Auto) [place] % (Auto) 10.9 H D-Dimer ABG pH POC ABG pCO2 POC ABG pO2 ABG Oxyhemoglobin ABG Sodium ABG Potassium Sodium Potassium 3.1 L Chloride BUN 7 L Creatinine Glucose POC Glucose Calcium Magnesium 2.50 H Ferritin AST Lactate Dehydrogenase C-Reactive Protein Total Protein Albumin Arterial Blood Ionized Calcium Ur Specific [place] Urine WBC (Auto) Vancomycin Trough Coronavirus (PCR) 05/11/21 05/11/21 05/11/21 13:00 13:00 20:51 WBC 4.1 L RBC Hgb 11.4 L Hct 33.4 L D MCHC RDW Lymph % (Auto) 38.1 H [place] % (Auto) D-Dimer ABG pH 7.524 H POC ABG pCO2 30.2 L POC ABG pO2 66.3 L ABG Oxyhemoglobin 92.8 L ABG Sodium 110.2 L ABG Potassium 3.0 L Sodium Potassium 3.0 L Chloride BUN Creatinine 0.7 L Glucose POC Glucose Calcium 7.5 L Magnesium Ferritin AST Lactate Dehydrogenase C-Reactive Protein Total Protein 5.8 L Albumin 2.3 L Arterial Blood Ionized Calcium 4.2 L Ur Specific [place] Urine WBC (Auto) Vancomycin Trough Coronavirus (PCR) 05/12/21 05/12/21 05/12/21 07:28 14:15 14:15 WBC 4.4 L RBC Hgb Hct MCHC RDW Lymph % (Auto) 36.5 H [place] % (Auto) D-Dimer ABG pH POC ABG pCO2 POC ABG pO2 ABG Oxyhemoglobin ABG Sodium ABG Potassium Sodium 136 L Potassium Chloride BUN Creatinine 0.6 L Glucose POC Glucose 66 L Calcium 8.2 L Magnesium Ferritin AST 68 H Lactate Dehydrogenase C-Reactive Protein Total Protein Albumin 2.6 L Arterial Blood Ionized Calcium Ur Specific [place] Urine WBC (Auto) Vancomycin Trough Coronavirus (PCR) 05/12/21 05/12/21 05/12/21 19:37 19:38 19:38 WBC RBC Hgb Hct MCHC RDW Lymph % (Auto) [place] % (Auto) D-Dimer ABG pH POC ABG pCO2 POC ABG pO2 ABG Oxyhemoglobin ABG Sodium ABG Potassium Sodium Potassium Chloride BUN Creatinine Glucose POC Glucose Calcium Magnesium Ferritin 1136.0 H AST Lactate Dehydrogenase 477 H C-Reactive Protein 9.30 H Total Protein Albumin Arterial Blood Ionized Calcium Ur Specific [place] Urine WBC (Auto) Vancomycin Trough Coronavirus (PCR) 05/12/21 05/13/21 05/14/21 Unknown 08:15 14:21 WBC RBC Hgb Hct MCHC RDW Lymph % (Auto) [place] % (Auto) D-Dimer ABG pH POC ABG pCO2 POC ABG pO2 ABG Oxyhemoglobin ABG Sodium ABG Potassium Sodium Potassium Chloride BUN Creatinine 0.6 L Glucose 136 H POC Glucose Calcium Magnesium Ferritin AST 71 H Lactate Dehydrogenase C-Reactive Protein Total Protein Albumin 3.2 L Arterial Blood Ionized Calcium Ur Specific [place] 1.038 H Urine WBC (Auto) Vancomycin Trough Coronavirus (PCR) Positive A 05/15/21 05/15/21 05/15/21 07:28 15:26 15:26 WBC RBC Hgb Hct MCHC RDW Lymph % (Auto) [place] % (Auto) D-Dimer 734.18 H ABG pH POC ABG pCO2 POC ABG pO2 ABG Oxyhemoglobin ABG Sodium ABG Potassium Sodium Potassium Chloride 107.8 H BUN 21 H Creatinine 0.6 L Glucose 124 H POC Glucose Calcium Magnesium Ferritin AST 70 H Lactate Dehydrogenase C-Reactive Protein 2.10 H Total Protein Albumin 2.8 L Arterial Blood Ionized Calcium Ur Specific [place] Urine WBC (Auto) Vancomycin Trough Coronavirus (PCR) 05/15/21 05/15/21 05/16/21 15:26 15:26 07:32 WBC RBC Hgb Hct MCHC RDW Lymph % (Auto) [place] % (Auto) D-Dimer ABG pH POC ABG pCO2 POC ABG pO2 ABG Oxyhemoglobin ABG Sodium ABG Potassium Sodium Potassium Chloride 108.2 H BUN Creatinine 0.6 L Glucose 123 H POC Glucose Calcium Magnesium Ferritin 1206.0 H AST 52 H Lactate Dehydrogenase 437 H C-Reactive Protein Total Protein Albumin 2.9 L Arterial Blood Ionized Calcium Ur Specific [place] Urine WBC (Auto) Vancomycin Trough Coronavirus (PCR) 05/16/21 05/17/21 07:32 04:41 WBC RBC Hgb Hct MCHC RDW Lymph % (Auto) [place] % (Auto) D-Dimer ABG pH POC ABG pCO2 POC ABG pO2 ABG Oxyhemoglobin ABG Sodium ABG Potassium Sodium Potassium Chloride 107.2 H BUN Creatinine 0.6 L Glucose 133 H POC Glucose Calcium 8.1 L Magnesium Ferritin AST 45 H Lactate Dehydrogenase C-Reactive Protein Total Protein Albumin 2.7 L Arterial Blood Ionized Calcium Ur Specific [place] Urine WBC (Auto) Vancomycin Trough 40.1 H Coronavirus (PCR)
[2021-05-18] MEDS: SODIUM CHLORIDE 0.9% 50 ML IVPB IV SCH (22:27)
[2021-05-18] MEDS: REMDESIVIR 100 MG in SODIUM CHLORIDE 0.9% 250ML 250 ML IV SCH (22:28)
[2021-05-18] MEDS: ONDANSETRON 4 MG/2 ML INJ IV PRN (22:28)
[2021-05-18] MEDS: ENOXAPARIN 40 MG/0.4 ML INJ SUB-Q SCH (22:28)
[2021-05-19] MEDS: methylPREDNISolone Sod Succinate 125 MG/2 ML INJ IV SCH ×3 (06:04→22:12)
[2021-05-19 11:23] LABS: C-Reactive Protein 0.3 mg/dL (0.00-1.30)
[2021-05-19] MEDS: EMTRICITABINE 200 MG CAP PO SCH (12:08)
[2021-05-19] MEDS: ATAZANAVIR 150 MG CAP PO SCH (12:08)
[2021-05-19] MEDS: RITONAVIR 100 MG TAB PO SCH (12:08)
[2021-05-19] MEDS: TENOFOVIR 300 MG TAB PO SCH (12:09)
--- NOTE | 2021-05-19 13:10 | Progress Note ---
Assessment and Plan Cultures: 05/02/2021 surgical culture: ESBL E. coli, group C streptococcus A/P: 61-year-old male with HIV admitted with: #COVID: tested positive #Acute hypoxic respiratory failure: currently on 4L nasal cannula #Acute appendicitis, appendiceal abscess: Surgery complicated by "1.5 cm full-thickness tear was created in the sigmoid colon without cross- contamination", needed open appendectomy. 1.5 cm appendiceal abscess which was drained. Completed meropenem #HIV: reports being on treatment for almost 30+ years, well-controlled, on Biktarvy. Follows at [place] [facility] Recs: -Continue steroids for 10 days as well as remdesivir -Given compliance with Biktarvy feel PJP is less likely. -Ordered CD4 and viral load -Patient is taking his own Biktarvy, continue since it is non-formulary here Brett Manzo MD [facility] ([facility]) O: [phone] F: [phone] Subjective Date of service: 05/19/21 Interval history: Afebrile, no acute change. on 4L NC. Objective - Exam Narrative Exam: Physical exam deferred to reduce risk of transmission of COVID-19. Please refer to primary team's note. - Constitutional Vitals: Vital Signs Temp Pulse Resp BP Pulse Ox 97.7 F 77 20 129/77 98 05/18/21 22:26 05/18/21 22:26 05/18/21 22:26 05/18/21 22:26 05/19/21 10:34 Temperature -Last 24 Hours Temperature 97.7 F Temperature 98.3 F - Labs CBC & Chem 7: 05/12/21 14:15 05/17/21 04:41 Labs: Abnormal lab results 05/19/21 05/19/21 05/19/21 Range/Units 10:30 10:30 10:30 D-Dimer 613.27 H (0-234) ng/mlDDU Ferritin 678.3 H (30.0-300.0) ng/mL Lactate Dehydrogenase 248 H (91-180) units/L
--- NOTE | 2021-05-19 14:44 | Progress Note ---
Assessment and Plan Assessment and plan: 68-year-old female with known history of hypertension, diabetes mellitus and obstructive sleep apnea on CPAP at home presents to the emergency room today via EMS for evaluation of shortness of breath. Patient states that her daughter was recently diagnosed with COVID-19. She has been having some low-grade fever and chills. She denies any headache or dizziness, no diaphoresis, no headache or dizziness, no nausea or vomiting and no diarrhea. Patient admits that she has not had a COVID-19 vaccination. Patient was hypoxic upon arrival in the emergency room. Oxygen saturation in the low 90s. She was subsequently placed on a nonrebreather. Work-up in the emergency room today, chest x-ray reveals moderate patchy bilateral pulmonary infiltrates. Patient being admitted with pneumonia with possible COVID-19. Acute Hypoxic respiratory failure. Patient with a PO2 of 54 on admission. Bilateral pneumonia with parapneumonic effusion. Chest x-ray reveals moderate patchy bilateral pulmonary infiltrates. Bilateral pleural effusion Sepsis. Patient meets criteria given the tachycardia, tachypnea and diagnosis of pneumonia. TAMMIE/OHS. Obesity. Atrial Fibrillation with RVR Diabetes mellitus type 2 Hypertension. 05/01/2021. Patient currently with nonrebreather 15 L O2. Wean oxygen as tolerated. BiPAP as clinically indicated. Follow-up Covid PCR testing. Melly nue pneumonia pathway and Covid protocols. Continue dexamethasone IV for now. Patient will likely need remdesivir if Covid positive. Continue empiric antibiotics of ceftriaxone and azithromycin. Follow-up procalcitonin levels. Inflammatory markers ordered and trend over the course of the hospitalization. Anticoagulation based on D-dimer results. ID and pulmonary consultation pending. 05/02/2021. Patient with Vapotherm 36 L O2 at 100%. Wean oxygen as tolerated. BiPAP as clinically indicated. Covid PCR testing positive on 05/01. Continue pneumonia pathway and Covid protocols. Continue dexamethasone and remdesivir. Continue empiric antibiotics of ceftriaxone and azithromycin. Follow-up procalcitonin levels. Inflammatory markers ordered and trend over the course of the hospitalization. Anticoagulation based on D-dimer results. ID consultation pending. Pulm following. 05/03: Patient on high flow with NRBM Continue supportive care, changed to full dose anticoagulation due to elevated d.dimer. Continue steroids, Ordered Remdesivir and Actemra. Patient with guarded prognosis. 05/04: Restart home meds, Metoprolol, isosorbide, will add lasix instead of home dose cholethalidone to keep negative fluid balance, monitor renal function. Continue Remdesivir and Actemra wean oxygen as tolerated, guarded prognosis. 05/05: She was requesting transfer to [facility] I did advise her about the current condition in the country and in [place] with very few hospital beds. We will co kervin current management here. Her records have been requested from [facility]. Blood pressure is stable. Continue remdesivir and high-dose steroids. Wean with improvement. Pulmonary input ID input appreciated. Reassurance provided. Plan of care discussed in detail. Unable to contact family as there is no family information available for me prognosis remains guarded. 05/10: Taken over care today. Patient remains on high flow and nonrebreather. She is down to 90% FiO2 on the high flow. Continue supportive care. Wean oxygen as tolerated. Continue steroid treatment. 05/11: Patient seen and examined, down to 90% High flow and not on the non- rebreather. Continue supportive care, wean as tolerated. Prognosis is guarded 05/12: Patient seen showing some improvement and oxygen demand FiO2 down to 80%. Try to encourage her to prone she says she is unable to. Otherwise continue current management pulmonary input noted 05/13: Continue supportive care, wean oxygen as tolerated, Increase Insulin lantus for better management, plan discussed with the patient 05/14: Patient seen and examined, continues to wean and now down to 60% FIO2, if stable in am will wean steroids down to 60mg q8hrs, Continue supportive care. Plan discussed with Nursing team. May need LTAC as prolonged oxygen wean an ticipated. 05/15: Patient continues on high flow, also elevated blood glucose level. Continue supportive care, wean oxygen as tolerated, adjust insulin for better control of Blood glucose. 05/16: Patient seen and examined, noted Atrial fibrillation, Patient on BB and Anticoagulation, she continues on high flow, weaning oxygen down to 80%. Patient continues on high dose steriod and also S/P Remdesivr and Actmera 05/17; patient remains on 30 L high flow nasal cannula oxygen, wean as tolerated, continue current management Consults and recommendations noted and appreciated Hospitalist Physical - Constitutional Vitals: Temp Pulse Resp BP Pulse Ox 98.1 F 88 22 124/80 97 05/19/21 10:51 05/19/21 10:51 05/19/21 10:51 05/19/21 10:51 05/19/21 10:51 General appearance: Present: no acute distress, well-nourished, disheveled Results - Labs CBC & Chem 7: 05/12/21 14:15 05/17/21 04:41 Labs: Laboratory Last Values WBC 4.4 K/mm3 (4.5-11.0) L 05/12/21 14:15 RBC 4.60 M/mm3 (3.65-5.03) 05/12/21 14:15 Hgb 13.4 gm/dl (11.8-15.2) 05/12/21 14:15 Hct 39.3 % (35.5-45.6) 05/12/21 14:15 MCV 86 fl (84-94) 05/12/21 14:15 MCH 29 pg (28-32) 05/12/21 14:15 MCHC 34 % (32-34) 05/12/21 14:15 RDW 14.9 % (13.2-15.2) 05/12/21 14:15 Plt Count 212 K/mm3 (140-440) 05/12/21 14:15 Lymph % (Auto) 36.5 % (13.4-35.0) H 05/12/21 14:15 [place] % (Auto) 4.1 % (0.0-7.3) 05/12/21 14:15 Eos % (Auto) 0.1 % (0.0-4.3) 05/12/21 14:15 Baso % (Auto) 0.4 % (0.0-1.8) 05/12/21 14:15 Lymph # (Auto) 1.6 K/mm3 (1.2-5.4) 05/12/21 14:15 [place] # (Auto) 0.2 K/mm3 (0.0-0.8) 05/12/21 14:15 Eos # (Auto) 0.0 K/mm3 (0.0-0.4) 05/12/21 14:15 Baso # (Auto) 0.0 K/mm3 (0.0-0.1) 05/12/21 14:15 Seg Neutrophils % 58.9 % (40.0-70.0) 05/12/21 14:15 Seg Neutrophils # 2.6 K/mm3 (1.8-7.7) 05/12/21 14:15 D-Dimer 613.27 ng/mlDDU (0-234) H 05/19/21 10:30 ABG pH 7.524 (7.320-7.450) H 05/11/21 20:51 POC ABG pCO2 30.2 mmHg (32.0-48.0) L 05/11/21 20:51 POC ABG pO2 66.3 mmHg (83-108) L 05/11/21 20:51 POC ABG HCO3 24.3 05/11/21 20:51 ABG O2 Saturation 93.6 (0-100) 05/11/21 20:51 POC ABG Base Excess 2.4 05/11/21 20:51 ABG Hemoglobin 13.7 (12.0-17.5) 05/11/21 20:51 ABG Oxyhemoglobin 92.8 (94-98) L 05/11/21 20:51 ABG Methemoglobin 0.3 (0.0-1.5) 05/11/21 20:51 ABG Sodium 110.2 mmol/L (136.0-145.0) L 05/11/21 20:51 ABG Potassium 3.0 mmol/L (3.40-4.50) L 05/11/21 20:51 ABG Chloride 102.0 mmol/L (98-107) 05/11/21 20:51 ABG Glucose 90 mg/dL (65-95) 05/11/21 20:51 Carboxyhemoglobin 0.6 (0.5-1.5) 05/11/21 20:51 FiO2 % 100.0 05/11/21 20:51 Sodium 143 mmol/L (137-145) 05/17/21 04:41 Potassium 3.7 mmol/L (3.6-5.0) 05/17/21 04:41 Chloride 107.2 mmol/L (98-107) H 05/17/21 04:41 Carbon Dioxide 27 mmol/L (22-30) 05/17/21 04:41 Anion Gap 13 mmol/L 05/17/21 04:41 BUN 17 mg/dL (9-20) 05/17/21 04:41 Creatinine 0.6 mg/dL (0.8-1.3) L 05/17/21 04:41 Estimated GFR > 60 ml/min 05/17/21 04:41 BUN/Creatinine Ratio 28 % 05/17/21 04:41 Glucose 133 mg/dL (75-100) H 05/17/21 04:41 POC Glucose 66 mg/dL (70-105) L 05/12/21 07:28 Lactic Acid 1.10 mmol/L (0.7-2.0) 05/12/21 14:15 Calcium 8.1 mg/dL (8.4-10.2) L 05/17/21 04:41 Magnesium 2.20 mg/dL (1.7-2.3) 05/12/21 14:15 Ferritin 678.3 ng/mL (30.0-300.0) H 05/19/21 10:30 Total Bilirubin 0.30 mg/dL (0.1-1.2) 05/17/21 04:41 AST 45 units/L (5-40) H 05/17/21 04:41 ALT 43 units/L (7-56) 05/17/21 04:41 Alkaline Phosphatase 64 units/L (35-129) 05/17/21 04:41 Lactate Dehydrogenase 248 units/L (91-180) H 05/19/21 10:30 C-Reactive Protein 0.30 mg/dL (0.00-1.30) 05/19/21 10:30 Total Protein 6.3 g/dL (6.3-8.2) 05/17/21 04:41 Albumin 2.7 g/dL (3.9-5) L 05/17/21 04:41 Albumin/Globulin Ratio 0.8 % 05/17/21 04:41 Lipase 25 units/L (13-60) 04/30/21 19:52 Procalcitonin < 0.05 ng/mL (<0.15) 05/16/21 07:32 Arterial Blood Glucose 90 mg/dL (65-95) 05/11/21 20:51 Arterial Blood Ionized Calcium 4.2 mg/dL (4.6-5.3) L 05/11/21 20:51 Urine Color Straw (Yellow) 05/12/21 Unknown Urine Turbidity Clear (Clear) 05/12/21 Unknown Urine pH 7.0 (5.0-7.0) 05/12/21 Unknown Ur Specific [place] 1.038 (1.003-1.030) H 05/12/21 Unknown Urine Protein 30 mg/dl mg/dL (Negative) 05/12/21 Unknown Urine Glucose (UA) Neg mg/dL (Negative) 05/12/21 Unknown Urine Ketones 20 mg/dL (Negative) 05/12/21 Unknown Urine Blood Sm (Negative) 05/12/21 Unknown Urine Nitrite Neg (Negative) 05/12/21 Unknown Urine Bilirubin Neg (Negative) 05/12/21 Unknown Urine Urobilinogen < 2.0 mg/dL (<2.0) 05/12/21 Unknown Ur Leukocyte Esterase Neg (Negative) 05/12/21 Unknown Urine WBC (Auto) 3.0 /HPF (0.0-6.0) 05/12/21 Unknown Urine RBC (Auto) 4.0 /HPF (0.0-6.0) 05/12/21 Unknown U Epithel Cells (Auto) 1.0 /HPF (0-13.0) 04/30/21 Unknown Hyaline Casts 3 /LPF 04/30/21 Unknown Urine Mucus 3+ /HPF 04/30/21 Unknown Nasal Screen MRSA (PCR) Positive (Negative) 05/17/21 14:23 Vancomycin Trough 40.1 ug/mL (5.0-20.0) H 05/16/21 07:32 Coronavirus (PCR) Positive (Negative) A 05/13/21 08:15 Microbiology: Microbiology 05/14/21 19:30 Peripheral/Venous Blood Culture - Preliminary NO GROWTH AFTER 4 DAYS 05/14/21 19:30 Peripheral/Venous Blood Culture - Preliminary NO GROWTH AFTER 4 DAYS Mont[place]/IV: Voiding Method Bedside Commode Active Medications - Current Medications Current Medications: Generic Name Dose Route Start Last Admin Trade Name Freq PRN Reason Stop Dose Admin Acetaminophen 650 mg 05/01/21 15:01 05/12/21 19:34 Acetaminophen 325 Mg Tab PO 650 mg Q4H PRN Administration Pain MILD(1-3)/Fever >100.5/SMALLS Atazanavir 300 mg 05/02/21 10:00 05/19/21 12:08 Atazanavir 150 Mg Cap PO Not Given DAILY GULSHAN Chlorpromazine HCl 25 mg 05/05/21 22:15 05/11/21 01:20 Chlorpromazine 25 Mg Tab PO 25 mg Q6H PRN Administration Hiccups Emtricitabine 200 mg 05/02/21 10:00 05/19/21 12:08 Emtricitabine 200 Mg Cap PO Not Given QDAY [facility] Enoxaparin Sodium 40 mg 05/06/21 22:00 05/18/21 22:28 Enoxaparin 40 Mg/0.4 Ml Inj SUB-Q 40 mg QDAY@2200 GULSHAN Administration Protocol Hydrophilic Ointment 1 applic 05/12/21 03:37 05/12/21 06:30 Lip Therapy Vaseline TP 1 applic DIRECT PRN Administration Dry Lips Sodium Chloride 1,000 mls @ 125 mls/hr 05/01/21 15:15 05/13/21 06:10 Nacl 0.9% 1000 Ml IV 125 mls/hr DIRECT GULSHAN Administration Magnesium Hydroxide 30 ml 05/05/21 13:00 05/09/21 05:08 Magnesium Hydroxide (Mom) Oral Liqd Udc PO 30 ml QDAY PRN Administration Constipation Methylprednisolone Sodium Succinate 125 mg 05/13/21 17:00 05/19/21 06:04 Methylprednisolone Sod Succinate 125 Mg/2 Ml Inj IV 125 mg Q8HR GULSHAN Administration Morphine Sulfate 2 mg 05/08/21 07:42 05/16/21 00:59 Morphine 2 Mg/1 Ml Inj IV 2 mg Q12H PRN Administration Pain, Moderate (4-6) Ondansetron HCl 4 mg 05/01/21 15:01 05/18/21 22:28 Ondansetron 4 Mg/2 Ml Inj IV 4 mg Q8H PRN Administration Nausea And Vomiting Oxycodone/Acetaminophen 2 tab 05/04/21 11:00 05/06/21 10:35 Oxycodone /Acetaminophen 5-325mg Tab PO 2 tab Q4H PRN Administration Pain, Moderate (4-6) Ritonavir 100 mg 05/02/21 10:00 05/19/21 12:08 Ritonavir 100 Mg Tab PO Not Given QDAY [facility] Simethicone 80 mg 05/07/21 03:05 05/10/21 20:50 Simethicone 80 Mg Chew Tab PO 80 mg Q6H PRN Administration Gas pain Sodium Chloride 10 ml 05/01/21 22:00 05/19/21 12:10 Sodium Chloride 0.9% 10 Ml Flush Syringe IV 10 ml BID GULSHAN Administration Sodium Chloride 10 ml 05/01/21 15:01 05/18/21 14:59 Sodium Chloride 0.9% 10 Ml Flush Syringe IV 10 ml PRN PRN Administration LINE FLUSH Sodium Hypochlorite 1 applic 05/03/21 10:00 05/14/21 05:04 Sodium Hypochlorite, [place]'s Full Strength (0.5%) 473 Ml Topical Soln TP 1 bottle Q12H PRN Administration Wound Care Tenofovir Disoproxil Fumarate 300 mg 05/02/21 10:00 05/19/21 12:09 Tenofovir 300 Mg Tab PO Not Given QDAY [facility] Nutrition/Malnutrition Assess - Dietary Evaluation Nutrition/Malnutrition Findings: Nutrition Notes Start: 05/02/21 14:43 Freq: Status: Active Protocol: Document 05/17/21 13:01 RILEY (Rec: 05/17/21 13:09 RILEY [id number]) Nutrition Notes Initial or Follow up Reassessment Current Diagnosis Small Bowel Obstruction Other Pertinent Diagnosis HIV, acute appendicitis, COVID -19 Current Diet mech soft Labs/Tests BG 133 Pertinent Medications Zofran Height 5 ft 10 in Weight 72.8 kg [place] Body Weight (kg) 75.45 BMI 23.0 Weight Status Appropriate Subjective/Other Information Pt reports having nausea. He has been finishing half of meals and drinking 100% of 2 ONS. Pt reports no issues chewing or swallowing. Percent of energy/protein needs met: 86%/100% Burn Absent Trauma Absent Current % PO Good (75-100%) Minimum of two criteria Yes Energy Intake (severe) < or equal to 50% Estimated Energy Requirement > or equal to 5 days Interpretation of Weight Loss (severe) >2% in 1 week #1 Nutrition Diagnosis Malnutrition As Evidenced by Signs and Symptoms pt meeting 86%/100% of calorie and protein needs Diagnosis Progress(for reassessment Improved documentation) Is patient on ventilator? No Is Patient Ambulatory and/or Out of Bed Yes REE-([place]-ambulatory/OOB) [ 2007.525 [id number]] Calculation Used for Recommendations [place] Additional Notes Protein: (1.2-1.5g/kg) 81-101g Fluid: 1 ml/kcal or per MD Nutrition Intervention Change Diet Order: continue Add Supplement/Snack (indicate name/kcal Ensure Enlive BID /protein ) Provides kCal: 700 Provides Protein (gm) 40 Goal #1 Meet at least 75% of protein and kcal needs via PO and ONS intakes. Anticipated Discharge Needs: Regular Follow-Up By: 05/20/21 Additional Comments F/U: intakes and ONS tolerance
--- NOTE | 2021-05-19 15:03 | Progress Note ---
Assessment and Plan Assessment and plan: --abnormal chest x-ray/groundglass appearance/multilobar pneumonia hospital-acquired pneumonia/COVID-19 pneumonia Chest x-ray 05/12/2021 diffuse scattered groundglass opacities throughout bilate ral lungs Pulmonary following, no bronchoscopy as patient is Covid positive Patient symptoms significantly improved --Means PCR test positive/COVID-19 infection 05/13/2021 Current Visit: Yes Status: Acute Isolation contact and droplet On high-dose Solu-Medrol 125 every 8 hours Completed remdesivir per protocol, Follow inflammatory markers Oxygen evaluation, prone positioning -- Acute appendicitis with abscess Iatrogenic sigmoid colon injury Current Visit: Yes Status: Acute Surgery evaluated the patient s/p surgery 05/02/2021 1) Diagnostic laparoscopy 2) Open appendectomy with drainage of appendiceal abscess 3) Open repair of iatrogenic sigmoid colon injury Patient on regular diet, no complaints Surgery cleared for discharge, however patient has COVID-19, bilateral pneumonia HIV, --ESBL positive surgical wound culture; completed treatment Current Visit: Yes Status: Acute Completed 7 days of meropenem per ID --Sepsis due to ESBL infection Current Visit: Yes Status: Acute Completed 7 days of meropenem --Hiccups; resolved Current Visit: Yes Status: Acute Supportive care, oral Thorazine as needed --Small bowel obstruction Current Visit: Yes Status: Acute Resolved, tolerating regular diet --History of HIV (human immunodeficiency virus infection) Current Visit: Yes Status: Chronic Continue antiretroviral therapy, patient is taking his nonformulary medications f/u outpatient infectious disease upon DC --severe malnutrition/hypoalbuminemia Current Visit: Yes Status: Chronic Nutrition supplements, nutrition consult --DVT prophylaxis Current Visit: Yes Status: Acute Subcu Lovenox Closely monitor patient and adjust the management as needed Midline requested, DC planning per case management We will closely monitor the patient and adjust the management as needed Patient is being treated for bilateral pneumonia and COVID-19 Daily hospital course; 05/05/2021; Dr. Novak evaluated the patient, cleared for discharge for tomorrow 05/06/2021; Patient's discharge is held due to positive ESBL surgical cultures ID consulted, started on meropenem, 05/07/2021; total 7 days of meropenem per ID Case management assisting with home antibiotics Patient has hiccups, Thorazine ordered I spoke with patient's sister Ms. Jung and discussed in detail patient's condition treatment and discharge plan She had many questions about DC planning, advised her to call back tomorrow and speak with the case management. She verbalized understanding 05/08/2021;Patient is receiving meropenem day 2 Case management assisting with home antibiotics Received midline,Intermittent hiccups, continue Thorazine Ambulate in the hallway as tolerated 05/09/2021 Patient feels better, hiccups have significantly improved Continue IV antibiotics, complete total 7 days February 07, 2021; continue antibiotics day 12/15 follow ID, surgery recommendations Resume service today; 05/13/2021; Means PCR test is positive, COVID-19 infection, Isolation precautions, Reconsult ID, Transfer the patient to third floor 05/14/2021; Patient evaluated by pulmonary, Recommend vancomycin , no bronchoscopy due to Covid positive status 05/15/2021; continue current management 05/16/21; patient on high dose Solu-Medrol per pulmonary 05/17/2021;Patient feels better,Ambulate as tolerated, Physical therapy evaluation 05/18/2021; patient is on high dose steroids Solu-Medrol 125 mg 3 times a day per pulmonary Last dose of remdesivir today, follow clinically, discharge planning per case management Home oxygen evaluation 05/19/2021; patient is requiring 4 L of nasal cannula oxygen, continue high-dose steroids, completed remdesivir Wean oxygen as tolerated, home O2 evaluation, physical therapy History Interval history: I have seen and examined the patient at the bedside Patient's chart and medications reviewed Patient feels better anxious to go home Hospitalist Physical - Constitutional Vitals: Temp Pulse Resp BP Pulse Ox 98.1 F 88 22 124/80 97 05/19/21 10:51 05/19/21 10:51 05/19/21 10:51 05/19/21 10:51 05/19/21 10:51 General appearance: Present: no acute distress, well-nourished - EENT Eyes: Present: PERRL, EOM intact - Neck Neck: Present: supple, normal ROM - Respiratory Respiratory effort: normal Respiratory: bilateral: diminished, rhonchi, negative: rales, wheezing - Cardiovascular Rhythm: regular Heart Sounds: Present: S1 & S2 - Extremities Extremities: no ischemia, No edema - Abdominal General gastrointestinal: soft, non-tender, non-distended, normal bowel sounds - Integumentary Integumentary: Present: clear, warm - Psychiatric Psychiatric: appropriate mood/affect, cooperative - Neurologic Neurologic: CNII-XII intact, moves all extremities Results - Labs CBC & Chem 7: 05/12/21 14:15 05/17/21 04:41 Labs: Laboratory Last Values WBC 4.4 K/mm3 (4.5-11.0) L 05/12/21 14:15 RBC 4.60 M/mm3 (3.65-5.03) 05/12/21 14:15 Hgb 13.4 gm/dl (11.8-15.2) 05/12/21 14:15 Hct 39.3 % (35.5-45.6) 05/12/21 14:15 MCV 86 fl (84-94) 05/12/21 14:15 MCH 29 pg (28-32) 05/12/21 14:15 MCHC 34 % (32-34) 05/12/21 14:15 RDW 14.9 % (13.2-15.2) 05/12/21 14:15 Plt Count 212 K/mm3 (140-440) 05/12/21 14:15 Lymph % (Auto) 36.5 % (13.4-35.0) H 05/12/21 14:15 [place] % (Auto) 4.1 % (0.0-7.3) 05/12/21 14:15 Eos % (Auto) 0.1 % (0.0-4.3) 05/12/21 14:15 Baso % (Auto) 0.4 % (0.0-1.8) 05/12/21 14:15 Lymph # (Auto) 1.6 K/mm3 (1.2-5.4) 05/12/21 14:15 [place] # (Auto) 0.2 K/mm3 (0.0-0.8) 05/12/21 14:15 Eos # (Auto) 0.0 K/mm3 (0.0-0.4) 05/12/21 14:15 Baso # (Auto) 0.0 K/mm3 (0.0-0.1) 05/12/21 14:15 Seg Neutrophils % 58.9 % (40.0-70.0) 05/12/21 14:15 Seg Neutrophils # 2.6 K/mm3 (1.8-7.7) 05/12/21 14:15 D-Dimer 613.27 ng/mlDDU (0-234) H 05/19/21 10:30 ABG pH 7.524 (7.320-7.450) H 05/11/21 20:51 POC ABG pCO2 30.2 mmHg (32.0-48.0) L 05/11/21 20:51 POC ABG pO2 66.3 mmHg (83-108) L 05/11/21 20:51 POC ABG HCO3 24.3 05/11/21 20:51 ABG O2 Saturation 93.6 (0-100) 05/11/21 20:51 POC ABG Base Excess 2.4 05/11/21 20:51 ABG Hemoglobin 13.7 (12.0-17.5) 05/11/21 20:51 ABG Oxyhemoglobin 92.8 (94-98) L 05/11/21 20:51 ABG Methemoglobin 0.3 (0.0-1.5) 05/11/21 20:51 ABG Sodium 110.2 mmol/L (136.0-145.0) L 05/11/21 20:51 ABG Potassium 3.0 mmol/L (3.40-4.50) L 05/11/21 20:51 ABG Chloride 102.0 mmol/L (98-107) 05/11/21 20:51 ABG Glucose 90 mg/dL (65-95) 05/11/21 20:51 Carboxyhemoglobin 0.6 (0.5-1.5) 05/11/21 20:51 FiO2 % 100.0 05/11/21 20:51 Sodium 143 mmol/L (137-145) 05/17/21 04:41 Potassium 3.7 mmol/L (3.6-5.0) 05/17/21 04:41 Chloride 107.2 mmol/L (98-107) H 05/17/21 04:41 Carbon Dioxide 27 mmol/L (22-30) 05/17/21 04:41 Anion Gap 13 mmol/L 05/17/21 04:41 BUN 17 mg/dL (9-20) 05/17/21 04:41 Creatinine 0.6 mg/dL (0.8-1.3) L 05/17/21 04:41 Estimated GFR > 60 ml/min 05/17/21 04:41 BUN/Creatinine Ratio 28 % 05/17/21 04:41 Glucose 133 mg/dL (75-100) H 05/17/21 04:41 POC Glucose 66 mg/dL (70-105) L 05/12/21 07:28 Lactic Acid 1.10 mmol/L (0.7-2.0) 05/12/21 14:15 Calcium 8.1 mg/dL (8.4-10.2) L 05/17/21 04:41 Magnesium 2.20 mg/dL (1.7-2.3) 05/12/21 14:15 Ferritin 678.3 ng/mL (30.0-300.0) H 05/19/21 10:30 Total Bilirubin 0.30 mg/dL (0.1-1.2) 05/17/21 04:41 AST 45 units/L (5-40) H 05/17/21 04:41 ALT 43 units/L (7-56) 05/17/21 04:41 Alkaline Phosphatase 64 units/L (35-129) 05/17/21 04:41 Lactate Dehydrogenase 248 units/L (91-180) H 05/19/21 10:30 C-Reactive Protein 0.30 mg/dL (0.00-1.30) 05/19/21 10:30 Total Protein 6.3 g/dL (6.3-8.2) 05/17/21 04:41 Albumin 2.7 g/dL (3.9-5) L 05/17/21 04:41 Albumin/Globulin Ratio 0.8 % 05/17/21 04:41 Lipase 25 units/L (13-60) 04/30/21 19:52 Procalcitonin < 0.05 ng/mL (<0.15) 05/16/21 07:32 Arterial Blood Glucose 90 mg/dL (65-95) 05/11/21 20:51 Arterial Blood Ionized Calcium 4.2 mg/dL (4.6-5.3) L 05/11/21 20:51 Urine Color Straw (Yellow) 05/12/21 Unknown Urine Turbidity Clear (Clear) 05/12/21 Unknown Urine pH 7.0 (5.0-7.0) 05/12/21 Unknown Ur Specific [place] 1.038 (1.003-1.030) H 05/12/21 Unknown Urine Protein 30 mg/dl mg/dL (Negative) 05/12/21 Unknown Urine Glucose (UA) Neg mg/dL (Negative) 05/12/21 Unknown Urine Ketones 20 mg/dL (Negative) 05/12/21 Unknown Urine Blood Sm (Negative) 05/12/21 Unknown Urine Nitrite Neg (Negative) 05/12/21 Unknown Urine Bilirubin Neg (Negative) 05/12/21 Unknown Urine Urobilinogen < 2.0 mg/dL (<2.0) 05/12/21 Unknown Ur Leukocyte Esterase Neg (Negative) 05/12/21 Unknown Urine WBC (Auto) 3.0 /HPF (0.0-6.0) 05/12/21 Unknown Urine RBC (Auto) 4.0 /HPF (0.0-6.0) 05/12/21 Unknown U Epithel Cells (Auto) 1.0 /HPF (0-13.0) 04/30/21 Unknown Hyaline Casts 3 /LPF 04/30/21 Unknown Urine Mucus 3+ /HPF 04/30/21 Unknown Nasal Screen MRSA (PCR) Positive (Negative) 05/17/21 14:23 Vancomycin Trough 40.1 ug/mL (5.0-20.0) H 05/16/21 07:32 Coronavirus (PCR) Positive (Negative) A 05/13/21 08:15 Microbiology: Microbiology 05/14/21 19:30 Peripheral/Venous Blood Culture - Preliminary NO GROWTH AFTER 4 DAYS 05/14/21 19:30 Peripheral/Venous Blood Culture - Preliminary NO GROWTH AFTER 4 DAYS Montoya/IV: Voiding Method Bedside Commode Active Medications - Current Medications Current Medications: Generic Name Dose Route Start Last Admin Trade Name Freq PRN Reason Stop Dose Admin Acetaminophen 650 mg 05/01/21 15:01 05/12/21 19:34 Acetaminophen 325 Mg Tab PO 650 mg Q4H PRN Administration Pain MILD(1-3)/Fever >100.5/SMALLS Atazanavir 300 mg 05/02/21 10:00 05/19/21 12:08 Atazanavir 150 Mg Cap PO Not Given DAILY GULSHAN Chlorpromazine HCl 25 mg 05/05/21 22:15 05/11/21 01:20 Chlorpromazine 25 Mg Tab PO 25 mg Q6H PRN Administration Hiccups Emtricitabine 200 mg 05/02/21 10:00 05/19/21 12:08 Emtricitabine 200 Mg Cap PO Not Given QDAY GULSHAN Enoxaparin Sodium 40 mg 05/06/21 22:00 05/18/21 22:28 Enoxaparin 40 Mg/0.4 Ml Inj SUB-Q 40 mg QDAY@2200 GULSHAN Administration Protocol Hydrophilic Ointment 1 applic 05/12/21 03:37 05/12/21 06:30 Lip Therapy Vaseline TP 1 applic DIRECT PRN Administration Dry Lips Sodium Chloride 1,000 mls @ 125 mls/hr 05/01/21 15:15 05/13/21 06:10 Nacl 0.9% 1000 Ml IV 125 mls/hr DIRECT GULSHAN Administration Magnesium Hydroxide 30 ml 05/05/21 13:00 05/09/21 05:08 Magnesium Hydroxide (Mom) Oral Liqd Udc PO 30 ml QDAY PRN Administration Constipation Methylprednisolone Sodium Succinate 125 mg 05/13/21 17:00 05/19/21 06:04 Methylprednisolone Sod Succinate 125 Mg/2 Ml Inj IV 125 mg Q8HR GULSHAN Administration Morphine Sulfate 2 mg 05/08/21 07:42 05/16/21 00:59 Morphine 2 Mg/1 Ml Inj IV 2 mg Q12H PRN Administration Pain, Moderate (4-6) Ondansetron HCl 4 mg 05/01/21 15:01 05/18/21 22:28 Ondansetron 4 Mg/2 Ml Inj IV 4 mg Q8H PRN Administration Nausea And Vomiting Oxycodone/Acetaminophen 2 tab 05/04/21 11:00 05/06/21 10:35 Oxycodone /Acetaminophen 5-325mg Tab PO 2 tab Q4H PRN Administration Pain, Moderate (4-6) Ritonavir 100 mg 05/02/21 10:00 05/19/21 12:08 Ritonavir 100 Mg Tab PO Not Given QDAY [facility] Simethicone 80 mg 05/07/21 03:05 05/10/21 20:50 Simethicone 80 Mg Chew Tab PO 80 mg Q6H PRN Administration Gas pain Sodium Chloride 10 ml 05/01/21 22:00 05/19/21 12:10 Sodium Chloride 0.9% 10 Ml Flush Syringe IV 10 ml BID GULSHAN Administration Sodium Chloride 10 ml 05/01/21 15:01 05/18/21 14:59 Sodium Chloride 0.9% 10 Ml Flush Syringe IV 10 ml PRN PRN Administration LINE FLUSH Sodium Hypochlorite 1 applic 05/03/21 10:00 05/14/21 05:04 Sodium Hypochlorite, Dakin's Full Strength (0.5%) 473 Ml Topical Soln TP 1 bottle Q12H PRN Administration Wound Care Tenofovir Disoproxil Fumarate 300 mg 05/02/21 10:00 05/19/21 12:09 Tenofovir 300 Mg Tab PO Not Given QDAY GULSHAN Nutrition/Malnutrition Assess - Dietary Evaluation Nutrition/Malnutrition Findings: Nutrition Notes Start: 05/02/21 14:43 Freq: Status: Active Protocol: Document 05/17/21 13:01 RILEY (Rec: 05/17/21 13:09 RILEY [id number]) Nutrition Notes Initial or Follow up Reassessment Current Diagnosis Small Bowel Obstruction Other Pertinent Diagnosis HIV, acute appendicitis, COVID -19 Current Diet mech soft Labs/Tests BG 133 Pertinent Medications Zofran Height 5 ft 10 in Weight 72.8 kg [place] Body Weight (kg) 75.45 BMI 23.0 Weight Status Appropriate Subjective/Other Information Pt reports having nausea. He has been finishing half of meals and drinking 100% of 2 ONS. Pt reports no issues chewing or swallowing. Percent of energy/protein needs met: 86%/100% Burn Absent Trauma Absent Current % PO Good (75-100%) Minimum of two criteria Yes Energy Intake (severe) < or equal to 50% Estimated Energy Requirement > or equal to 5 days Interpretation of Weight Loss (severe) >2% in 1 week #1 Nutrition Diagnosis Malnutrition As Evidenced by Signs and Symptoms pt meeting 86%/100% of calorie and protein needs Diagnosis Progress(for reassessment Improved documentation) Is patient on ventilator? No Is Patient Ambulatory and/or Out of Bed Yes REE-([facility]. Jeor-ambulatory/OOB) [ 2007.525 [id number]] Calculation Used for Recommendations [facility] Additional Notes Protein: (1.2-1.5g/kg) 81-101g Fluid: 1 ml/kcal or per MD Nutrition Intervention Change Diet Order: continue Add Supplement/Snack (indicate name/kcal Ensure Enlive BID /protein ) Provides kCal: 700 Provides Protein (gm) 40 Goal #1 Meet at least 75% of protein and kcal needs via PO and ONS intakes. Anticipated Discharge Needs: Regular Follow-Up By: 05/20/21 Additional Comments F/U: intakes and ONS tolerance
--- NOTE | 2021-05-19 16:03 | Progress Note ---
Assessment and Plan 61 y/o male with HIV for 30+ years on therapy, now with acute respiratory failure with abnormal CXR and CT of chest. 05/19/21: Needs 6 minute walk test to assess oxygen needs if any. Will drop steroids down to 80q8. If discharge tomorrow, would send on Prednisone 60 daily for 5 days, 40 daily for 5 days, 20 daily for 5 days, then 10 daily for 5 days. Can follow up in office if oxygen is needed for repeat walk test to assess continued needs. 05/18/21: Still reccommend stopping fluids if not absolutely needed. COntinue to wean FiO2. Will start to wean steroids maybe in the next 24-48 hours. 05/17/21: Suggest stopping IVF's if not absolutely needed. Continue steroids and remdesivir. Guarded prognosis. Unfortunately, no comparison imaging and no imaging of chest done on admit. CT also not typical of COVID, especially with effusions. Suggest the followin. Repeat blood cultures if not already ordered along with urine 2. ID is following but would suggest adding Vancomycin to regimen. He has been hospitalized several days and this is an acute change in respiratory status 3. If producing sputum, please send for culture 4. Ideally needs bronch however current oxygen requirement precludes this, if improves over the weekend can consider maybe trying on Sunday? Called endo and they cannot. first available would be . Told them I could do anytime on that day. 5. LDH is elevated. PJP. Will defer to ID. If and when bronched, can send for this as well. 6. Agree with isolation. Hopeful he is not COVID positive Guarded prognosis. Subjective Date of service: 05/19/21 Interval history: Weaned down to 2 liters by RT. Objective Vital Signs - 12hr 05/19/21 05/19/21 05/19/21 10:27 10:34 10:51 Temperature 98.1 F Pulse Rate 88 Respiratory 22 Rate Blood Pressure 124/80 O2 Sat by Pulse 99 98 97 Oximetry Constitutional: other (Appears to be dyspneic.) Ascultation: Bilateral: rhonchi Cardiovascular: regular rate and rhythm (Tachycardic) Gastrointestinal: soft, tender CBC and BMP: 05/12/21 14:15 05/17/21 04:41 ABG, PT/INR, D-dimer: ABG ABG pH 7.524 (7.320-7.450) H 05/11/21 20:51 POC ABG pCO2 30.2 mmHg (32.0-48.0) L 05/11/21 20:51 POC ABG pO2 66.3 mmHg (83-108) L 05/11/21 20:51 POC ABG HCO3 24.3 05/11/21 20:51 ABG O2 Saturation 93.6 (0-100) 05/11/21 20:51 PT/INR, D-dimer D-Dimer 613.27 ng/mlDDU (0-234) H 05/19/21 10:30 Abnormal lab findings: Abnormal Labs 04/30/21 04/30/21 04/30/21 19:52 19:52 Unknown WBC RBC 5.38 H Hgb 16.0 H Hct 46.7 H MCHC RDW 15.8 H Lymph % (Auto) White % (Auto) 8.1 H D-Dimer ABG pH POC ABG pCO2 POC ABG pO2 ABG Oxyhemoglobin ABG Sodium ABG Potassium Sodium Potassium Chloride BUN 21 H Creatinine Glucose POC Glucose Calcium Magnesium Ferritin AST Lactate Dehydrogenase C-Reactive Protein Total Protein 9.1 H Albumin 3.8 L Arterial Blood Ionized Calcium Ur Specific [place] Urine WBC (Auto) 7.0 H Vancomycin Trough Coronavirus (PCR) 05/02/21 05/02/21 05/04/21 08:32 08:32 05:49 WBC RBC Hgb Hct MCHC 35 H 35 H RDW 15.3 H Lymph % (Auto) White % (Auto) 8.3 H D-Dimer ABG pH POC ABG pCO2 POC ABG pO2 ABG Oxyhemoglobin ABG Sodium ABG Potassium Sodium Potassium Chloride 109.2 H BUN Creatinine Glucose 73 L POC Glucose Calcium Magnesium Ferritin AST Lactate Dehydrogenase C-Reactive Protein Total Protein Albumin Arterial Blood Ionized Calcium Ur Specific [place] Urine WBC (Auto) Vancomycin Trough Coronavirus (PCR) 05/05/21 05/05/21 05/09/21 04:37 04:37 04:27 WBC RBC Hgb Hct MCHC 35 H RDW Lymph % (Auto) White % (Auto) 10.9 H D-Dimer ABG pH POC ABG pCO2 POC ABG pO2 ABG Oxyhemoglobin ABG Sodium ABG Potassium Sodium Potassium 3.1 L Chloride BUN 7 L Creatinine Glucose POC Glucose Calcium Magnesium 2.50 H Ferritin AST Lactate Dehydrogenase C-Reactive Protein Total Protein Albumin Arterial Blood Ionized Calcium Ur Specific [place] Urine WBC (Auto) Vancomycin Trough Coronavirus (PCR) 05/11/21 05/11/21 05/11/21 13:00 13:00 20:51 WBC 4.1 L RBC Hgb 11.4 L Hct 33.4 L D MCHC RDW Lymph % (Auto) 38.1 H White % (Auto) D-Dimer ABG pH 7.524 H POC ABG pCO2 30.2 L POC ABG pO2 66.3 L ABG Oxyhemoglobin 92.8 L ABG Sodium 110.2 L ABG Potassium 3.0 L Sodium Potassium 3.0 L Chloride BUN Creatinine 0.7 L Glucose POC Glucose Calcium 7.5 L Magnesium Ferritin AST Lactate Dehydrogenase C-Reactive Protein Total Protein 5.8 L Albumin 2.3 L Arterial Blood Ionized Calcium 4.2 L Ur Specific [place] Urine WBC (Auto) Vancomycin Trough Coronavirus (PCR) 05/12/21 05/12/21 05/12/21 07:28 14:15 14:15 WBC 4.4 L RBC Hgb Hct MCHC RDW Lymph % (Auto) 36.5 H White % (Auto) D-Dimer ABG pH POC ABG pCO2 POC ABG pO2 ABG Oxyhemoglobin ABG Sodium ABG Potassium Sodium 136 L Potassium Chloride BUN Creatinine 0.6 L Glucose POC Glucose 66 L Calcium 8.2 L Magnesium Ferritin AST 68 H Lactate Dehydrogenase C-Reactive Protein Total Protein Albumin 2.6 L Arterial Blood Ionized Calcium Ur Specific [place] Urine WBC (Auto) Vancomycin Trough Coronavirus (PCR) 05/12/21 05/12/21 05/12/21 19:37 19:38 19:38 WBC RBC Hgb Hct MCHC RDW Lymph % (Auto) White % (Auto) D-Dimer ABG pH POC ABG pCO2 POC ABG pO2 ABG Oxyhemoglobin ABG Sodium ABG Potassium Sodium Potassium Chloride BUN Creatinine Glucose POC Glucose Calcium Magnesium Ferritin 1136.0 H AST Lactate Dehydrogenase 477 H C-Reactive Protein 9.30 H Total Protein Albumin Arterial Blood Ionized Calcium Ur Specific [place] Urine WBC (Auto) Vancomycin Trough Coronavirus (PCR) 05/12/21 05/13/21 05/14/21 Unknown 08:15 14:21 WBC RBC Hgb Hct MCHC RDW Lymph % (Auto) White % (Auto) D-Dimer ABG pH POC ABG pCO2 POC ABG pO2 ABG Oxyhemoglobin ABG Sodium ABG Potassium Sodium Potassium Chloride BUN Creatinine 0.6 L Glucose 136 H POC Glucose Calcium Magnesium Ferritin AST 71 H Lactate Dehydrogenase C-Reactive Protein Total Protein Albumin 3.2 L Arterial Blood Ionized Calcium Ur Specific [place] 1.038 H Urine WBC (Auto) Vancomycin Trough Coronavirus (PCR) Positive A 05/15/21 05/15/21 05/15/21 07:28 15:26 15:26 WBC RBC Hgb Hct MCHC RDW Lymph % (Auto) White % (Auto) D-Dimer 734.18 H ABG pH POC ABG pCO2 POC ABG pO2 ABG Oxyhemoglobin ABG Sodium ABG Potassium Sodium Potassium Chloride 107.8 H BUN 21 H Creatinine 0.6 L Glucose 124 H POC Glucose Calcium Magnesium Ferritin AST 70 H Lactate Dehydrogenase C-Reactive Protein 2.10 H Total Protein Albumin 2.8 L Arterial Blood Ionized Calcium Ur Specific [place] Urine WBC (Auto) Vancomycin Trough Coronavirus (PCR) 05/15/21 05/15/21 05/16/21 15:26 15:26 07:32 WBC RBC Hgb Hct MCHC RDW Lymph % (Auto) White % (Auto) D-Dimer ABG pH POC ABG pCO2 POC ABG pO2 ABG Oxyhemoglobin ABG Sodium ABG Potassium Sodium Potassium Chloride 108.2 H BUN Creatinine 0.6 L Glucose 123 H POC Glucose Calcium Magnesium Ferritin 1206.0 H AST 52 H Lactate Dehydrogenase 437 H C-Reactive Protein Total Protein Albumin 2.9 L Arterial Blood Ionized Calcium Ur Specific [place] Urine WBC (Auto) Vancomycin Trough Coronavirus (PCR) 05/16/21 05/17/21 05/19/21 07:32 04:41 10:30 WBC RBC Hgb Hct MCHC RDW Lymph % (Auto) White % (Auto) D-Dimer 613.27 H ABG pH POC ABG pCO2 POC ABG pO2 ABG Oxyhemoglobin ABG Sodium ABG Potassium Sodium Potassium Chloride 107.2 H BUN Creatinine 0.6 L Glucose 133 H POC Glucose Calcium 8.1 L Magnesium Ferritin AST 45 H Lactate Dehydrogenase C-Reactive Protein Total Protein Albumin 2.7 L Arterial Blood Ionized Calcium Ur Specific [place] Urine WBC (Auto) Vancomycin Trough 40.1 H Coronavirus (PCR) 05/19/21 05/19/21 10:30 10:30 WBC RBC Hgb Hct MCHC RDW Lymph % (Auto) White % (Auto) D-Dimer ABG pH POC ABG pCO2 POC ABG pO2 ABG Oxyhemoglobin ABG Sodium ABG Potassium Sodium Potassium Chloride BUN Creatinine Glucose POC Glucose Calcium Magnesium Ferritin 678.3 H AST Lactate Dehydrogenase 248 H C-Reactive Protein Total Protein Albumin Arterial Blood Ionized Calcium Ur Specific [place] Urine WBC (Auto) Vancomycin Trough Coronavirus (PCR)
[2021-05-19] MEDS: ENOXAPARIN 40 MG/0.4 ML INJ SUB-Q SCH (22:12)
[2021-05-19] MEDS: ONDANSETRON 4 MG/2 ML INJ IV PRN (22:14)
--- NOTE | 2021-05-20 08:45 | Discharge Summary ---
Providers - Providers Date of Admission: 05/03/21 11:28 Date of discharge: 05/20/21 Attending physician: BEBE FLORES 05/01/21 14:55 Consult to Physician [CONS] Urgent Comment: Consulting Provider: ANA MEDLEY Physician Instructions: Reason For Exam: Acute uncomplicated appendicitis , sbo 05/06/21 09:18 Consult to Physician [CONS] Routine Comment: Consulting Provider: HUGH WEST Physician Instructions: Reason For Exam: ESBL surgical cultures[appendiceal abscess] 05/06/21 12:53 Consult to Case Management [CONS] Routine Services Needed at Discharge: Other Notified:: cm notified Additional Physician Instructions: [facility] ([facility] O: [phone] F: [phone] OUTPATIENT PARENTERAL ANTIBIOTIC THERAPY (OPAT) ORDERS Diagnoses: Intra-abdominal abscess Antimicrobial administration: IV m eropenem 1 g every 8 hours for 7 days ending 05/13/2021 - Remove midline after last dose unless otherwise instructed. Lines: Maintain IV access with weekly dressing changes and locks per protocol. Lab monitoring: - CBC with differential, Creatinine, ALT, AST, CK, once a week every Sunday while on IV antibiotics. Please fax results to [phone] and call [phone] for critical lab results. Hugh West MD [facility] Consult to PICC Line RN [CONS] Routine Reason For Exam: midline Type Line:: Midline 05/12/21 19:10 Consult to Physician [CONS] Routine Comment: Consulting Provider: CHAPINCITO PRESLEY Physician Instructions: Consult pulmonary, Dr. Presley Reason For Exam: Acute hypoxic respiratory failure 05/14/21 15:49 Consult to Physician [CONS] Routine Comment: Consulting Provider: TOMMY ANDREWS Physician Instructions: Reason For Exam: Positive solano PCR/ID re-consult 05/18/21 08:35 Physical Therapy Evaluation and Treat [CONS] Routine Comment: Reason For Exam: weakness 05/18/21 12:30 Consult to Wound/ET Nurse [CONS] Routine Reason For Exam: wound eval Hospitalization Reason for admission: Abdominal pain/acute appendicitis with abscess/COVID-19 positive Condition: Stable Pertinent studies: CT abdomen and pelvis CTA chest Procedures: s/p surgery 05/02/2021 1) Diagnostic laparoscopy 2) Open appendectomy with drainage of appendiceal abscess 3) Open repair of iatrogenic sigmoid colon injury Hospital course: 60-year-old male patient with significant past medical history of HIV admitted through emergency room with abdominal pain initial work-up is consistent with acute appendicitis with appendiceal abscess, evaluated by surgery underwent diagnostic laparoscopy, open appendectomy with drainage of appendiceal abscess and open repair of iatrogenic sigmoid colon injury, patient received appropriate postop care including antibiotics, surgical cultures positive for ESBL bacteremia, ID recommended meropenem for total 7 days which he completed during the hospital stay, patient developed fever and sepsis Solano PCR test is positive ID has taken care of the patient per COVID-19 precautions and protocols. Patient also developed bilateral groundglass appearance of the lungs bilateral multifocal pneumonia evaluated by cigar head perforator and managed appropriately with high-dose of steroids was tapered Patient symptoms slowly but gradually improved, today he is comfortable no new complaints vital signs stable physical examination prior to discharge is unremarkable Patient is hemodynamically and clinically stable at discharge Advised follow-up with private ID for his HIV needs, primary care physician primary cigar head perforator, medications optimized Today he is comfortable no new complaints vital signs stable physical examination prior to discharge unremarkable. Cleared by all the consultants for discharge and follow-up with concerns specialist per schedule Patient also advised to follow-up private MD or health department for his HIV needs Patient verbalized understanding, patient was evaluated for home oxygen requirement Patient is stable at discharge Discharge diagnosis: --abnormal chest x-ray/groundglass appearance/multilobar pneumonia hospital-acquired pneumonia/COVID-19 pneumonia Chest x-ray 05/12/2021 diffuse scattered groundglass opacities throughout bilateral lungs Pulmonary following, no bronchoscopy as patient is Covid positive Patient symptoms significantly improved --Solano PCR test positive/COVID-19 infection 05/13/2021 Current Visit: Yes Status: Acute Isolation contact and droplet On high-dose Solu-Medrol 125 every 8 hours Completed remdesivir per protocol, Follow inflammatory markers Oxygen evaluation, prone positioning -- Acute appendicitis with abscess Iatrogenic sigmoid colon injury Current Visit: Yes Status: Acute Surgery evaluated the patient s/p surgery 05/02/2021 1) Diagnostic laparoscopy 2) Open appendectomy with drainage of appendiceal abscess 3) Open repair of iatrogenic sigmoid colon injury Patient on regular diet, no complaints Surgery cleared for discharge, however patient has COVID-19, bilateral pneumonia HIV, --ESBL positive surgical wound culture; completed treatment Current Visit: Yes Status: Acute Completed 7 days of meropenem per ID --Sepsis due to ESBL infection Current Visit: Yes Status: Acute Completed 7 days of meropenem --Hiccups; resolved Current Visit: Yes Status: Acute Supportive care, oral Thorazine as needed --Small bowel obstruction Current Visit: Yes Status: Acute Resolved, tolerating regular diet --History of HIV (human immunodeficiency virus infection) Current Visit: Yes Status: Chronic Continue antiretroviral therapy, patient is taking his nonformulary medications f/u outpatient infectious disease upon DC --severe malnutrition/hypoalbuminemia Current Visit: Yes Status: Chronic Nutrition supplements, nutrition consult Disposition: HOME HEALTH CARE SERVICE Final Discharge Diagnosis (Prints w/discharge instructions): COVID-19 pneumonia. Multifocal bilateral pneumonia. Acute appendicitis with abscess. s/p open appendectomy. Repair iatrogenic sigmoid: Injury. Sepsis due to ESBL infection/treated. Small bowel obstruction/resolved. Hiccups/resolved. severe malnutrition. History of HIV Time spent for discharge: 35 min Core Measure Documentation - Palliative Care Palliative Care/ Comfort Measures: Not Applicable - Core Measures Any of the following diagnoses?: none Exam - Constitutional Vitals: Temp Pulse Resp BP Pulse Ox 98.3 F 70 20 147/92 97 05/20/21 05:57 05/20/21 05:57 05/20/21 05:57 05/20/21 05:57 05/20/21 05:57 General appearance: Present: no acute distress, well-nourished - EENT Eyes: Present: PERRL, EOM intact - Neck Neck: Present: supple, normal ROM - Respiratory Respiratory effort: normal Respiratory: bilateral: diminished, negative: rales, rhonchi, wheezing - Cardiovascular Rhythm: regular Heart Sounds: Present: S1 & S2 - Extremities Extremities: no ischemia, No edema - Abdominal General gastrointestinal: Present: soft, non-tender, non-distended, normal bowel sounds - Integumentary Integumentary: Present: clear, warm - Musculoskeletal Musculoskeletal: strength equal bilaterally, generalized weakness - Psychiatric Psychiatric: appropriate mood/affect, cooperative - Neurologic Neurologic: CNII-XII intact, moves all extremities Plan Activity: advance as tolerated, fall precautions Diet: regular Additional Instructions: Patient is resting room air oxygen is 100%, ambulatory 6 minutes room air oxygen is about 96% No indication for home oxygen. Advised to comply with medications diet and follow-up visits. Advised to continue your own HIV medications as before. If you have worsening symptoms, contact MD or go to the nearest emergency room as needed, Follow up with: ZHANE,CARO [Other] - 3-5 Days ANA MEDLEY MD [Staff Physician] - 14 Days CHAPINCITO PRESLEY MD [Staff Physician] - 14 Days TOMMY ANDREWS MD [Staff Physician] - 7 Days Prescriptions: Simethicone [Gas-X] 62.5 mg PO BID PRN #20 strip PRN Reason: Gas Pain oxyCODONE /ACETAMINOPHEN [Percocet 5/325 mg] 1 tab PO Q6H PRN #20 tablet PRN Reason: Pain, Moderate (4-6) predniSONE 6 tab PO DAILY #65 tablet Albuterol Mdi (or & Nicu Only) [ProAir HFA Inhaler] 2 puff IH QID PRN #8.5 gram PRN Reason: Shortness Of Breath Pantoprazole [Protonix TAB] 20 mg PO QDAY #30 tablet. chlorproMAZINE [Thorazine] 25 mg PO Q6H PRN #20 tablet PRN Reason: Hiccups
[2021-05-20] MEDS: methylPREDNISolone Sod Succinate 125 MG/2 ML INJ IV SCH (08:49)
[2021-05-20] MEDS: SIMETHICONE 80 MG CHEW TAB PO PRN (09:43)
[2021-05-20] MEDS ORDERED: methylPREDNISolone Sod Succinate 125 MG/2 ML INJ IV SCH (10:00)
[2021-05-20] MEDS: RITONAVIR 100 MG TAB PO SCH (10:05)
[2021-05-20] MEDS: ATAZANAVIR 150 MG CAP PO SCH (10:05)
[2021-05-20] MEDS: EMTRICITABINE 200 MG CAP PO SCH (10:05)
[2021-05-20] MEDS: TENOFOVIR 300 MG TAB PO SCH (10:05)
--- NOTE | 2021-05-20 12:04 | Progress Note ---
Assessment and Plan Cultures: 05/02/2021 surgical culture: ESBL E. coli, group C streptococcus A/P: 61-year-old male with HIV admitted with: #COVID: tested positive #Acute hypoxic respiratory failure: currently on 4L nasal cannula #Acute appendicitis, appendiceal abscess: Surgery complicated by "1.5 cm full-thickness tear was created in the sigmoid colon without cross- contamination", needed open appendectomy. 1.5 cm appendiceal abscess which was drained. Completed meropenem #HIV: reports being on treatment for almost 30+ years, well-controlled, on Biktarvy. Follows at [facility] Recs: -Continue steroids for 10 days as well as remdesivir -Given compliance with Biktarvy feel PJP is less likely. -Ordered CD4 and viral load -Patient is taking his own Biktarvy, continue since it is non-formulary here ID will sign off. Please call with questions. Brett Manzo MD [facility] ([facility] O: [phone] F: [phone] Subjective Date of service: 05/20/21 Interval history: Afebrile, no acute change. On 2 L nasal cannula. Objective - Exam Narrative Exam: Physical exam deferred to reduce risk of transmission of COVID-19. Please refer to primary team's note. - Constitutional Vitals: Vital Signs Temp Pulse Resp BP Pulse Ox 98.3 F 70 20 147/92 97 05/20/21 05:57 05/20/21 05:57 05/20/21 05:57 05/20/21 05:57 05/20/21 09:09 Temperature -Last 24 Hours Temperature 98.3 F Temperature 97.8 F Temperature 97.5 F - Labs CBC & Chem 7: 05/12/21 14:15 05/17/21 04:41
[2021-05-20 12:32] LABS: CD4/CD8 Ratio 0.08 (0.86-5.00)
[2021-05-20] MEDS: MAGNESIUM HYDROXIDE (MOM) ORAL LIQD UDC PO PRN (13:31)
--- NOTE | 2021-05-20 13:35 | Progress Note ---
Assessment and Plan 61 y/o male with HIV for 30+ years on therapy, now with acute respiratory failure with abnormal CXR and CT of chest. 05/20/21: No objection to discharge today. Same recs as 05/1905/19/21: Needs 6 minute walk test to assess oxygen needs if any. Will drop steroids down to 80q8. If discharge tomorrow, would send on Prednisone 60 daily for 5 days, 40 daily for 5 days, 20 daily for 5 days, then 10 daily for 5 days. Can follow up in office if oxygen is needed for repeat walk test to assess continued needs. 05/18/21: Still reccommend stopping fluids if not absolutely needed. COntinue to wean FiO2. Will start to wean steroids maybe in the next 24-48 hours. 05/17/21: Suggest stopping IVF's if not absolutely needed. Continue steroids and remdesivir. Guarded prognosis. Unfortunately, no comparison imaging and no imaging of chest done on admit. CT also not typical of COVID, especially with effusions. Suggest the followin. Repeat blood cultures if not already ordered along with urine 2. ID is following but would suggest adding Vancomycin to regimen. He has been hospitalized several days and this is an acute change in respiratory status 3. If producing sputum, please send for culture 4. Ideally needs bronch however current oxygen requirement precludes this, if improves over the weekend can consider maybe trying on Sunday? Called endo and they cannot. first available would be . Told them I could do anytime on that day. 5. LDH is elevated. PJP. Will defer to ID. If and when bronched, can send f or this as well. 6. Agree with isolation. Hopeful he is not COVID positive Guarded prognosis. Subjective Date of service: 05/20/21 Interval history: Weaned to 2 liters. Stable. Objective Vital Signs - 12hr 05/20/21 05/20/21 05:57 09:09 Temperature 98.3 F Pulse Rate 70 Respiratory 20 Rate Blood Pressure 147/92 O2 Sat by Pulse 97 97 Oximetry Constitutional: other (Appears to be dyspneic.) Ascultation: Bilateral: rhonchi Cardiovascular: regular rate and rhythm (Tachycardic) Gastrointestinal: soft, tender CBC and BMP: 05/12/21 14:15 05/17/21 04:41 ABG, PT/INR, D-dimer: ABG ABG pH 7.524 (7.320-7.450) H 05/11/21 20:51 POC ABG pCO2 30.2 mmHg (32.0-48.0) L 05/11/21 20:51 POC ABG pO2 66.3 mmHg (83-108) L 05/11/21 20:51 POC ABG HCO3 24.3 05/11/21 20:51 ABG O2 Saturation 93.6 (0-100) 05/11/21 20:51 PT/INR, D-dimer D-Dimer 613.27 ng/mlDDU (0-234) H 05/19/21 10:30 Abnormal lab findings: Abnormal Labs 04/30/21 04/30/21 04/30/21 19:52 19:52 Unknown WBC RBC 5.38 H Hgb 16.0 H Hct 46.7 H MCHC RDW 15.8 H Lymph % (Auto) [place] % (Auto) 8.1 H Abs Lymphs (Manual) D-Dimer ABG pH POC ABG pCO2 POC ABG pO2 ABG Oxyhemoglobin ABG Sodium ABG Potassium Sodium Potassium Chloride BUN 21 H Creatinine Glucose POC Glucose Calcium Magnesium Ferritin AST Lactate Dehydrogenase C-Reactive Protein Total Protein 9.1 H Albumin 3.8 L Arterial Blood Ionized Calcium Ur Specific [place] Urine WBC (Auto) 7.0 H Vancomycin Trough Lymph Enumerat CD4/CD8 Absolute CD3 Count % CD4 Cells Absolute CD4 Count % CD8 Cells Absolute CD19 Count Coronavirus (PCR) 05/02/21 05/02/21 05/04/21 08:32 08:32 05:49 WBC RBC Hgb Hct MCHC 35 H 35 H RDW 15.3 H Lymph % (Auto) [place] % (Auto) 8.3 H Abs Lymphs (Manual) D-Dimer ABG pH POC ABG pCO2 POC ABG pO2 ABG Oxyhemoglobin ABG Sodium ABG Potassium Sodium Potassium Chloride 109.2 H BUN Creatinine Glucose 73 L POC Glucose Calcium Magnesium Ferritin AST Lactate Dehydrogenase C-Reactive Protein Total Protein Albumin Arterial Blood Ionized Calcium Ur Specific [place] Urine WBC (Auto) Vancomycin Trough Lymph Enumerat CD4/CD8 Absolute CD3 Count % CD4 Cells Absolute CD4 Count % CD8 Cells Absolute CD19 Count Coronavirus (PCR) 05/05/21 05/05/21 05/09/21 04:37 04:37 04:27 WBC RBC Hgb Hct MCHC 35 H RDW Lymph % (Auto) [place] % (Auto) 10.9 H Abs Lymphs (Manual) D-Dimer ABG pH POC ABG pCO2 POC ABG pO2 ABG Oxyhemoglobin ABG Sodium ABG Potassium Sodium Potassium 3.1 L Chloride BUN 7 L Creatinine Glucose POC Glucose Calcium Magnesium 2.50 H Ferritin AST Lactate Dehydrogenase C-Reactive Protein Total Protein Albumin Arterial Blood Ionized Calcium Ur Specific [place] Urine WBC (Auto) Vancomycin Trough Lymph Enumerat CD4/CD8 Absolute CD3 Count % CD4 Cells Absolute CD4 Count % CD8 Cells Absolute CD19 Count Coronavirus (PCR) 05/11/21 05/11/21 05/11/21 13:00 13:00 20:51 WBC 4.1 L RBC Hgb 11.4 L Hct 33.4 L D MCHC RDW Lymph % (Auto) 38.1 H Knox % (Auto) Abs Lymphs (Manual) D-Dimer ABG pH 7.524 H POC ABG pCO2 30.2 L POC ABG pO2 66.3 L ABG Oxyhemoglobin 92.8 L ABG Sodium 110.2 L ABG Potassium 3.0 L Sodium Potassium 3.0 L Chloride BUN Creatinine 0.7 L Glucose POC Glucose Calcium 7.5 L Magnesium Ferritin AST Lactate Dehydrogenase C-Reactive Protein Total Protein 5.8 L Albumin 2.3 L Arterial Blood Ionized Calcium 4.2 L Ur Specific [place] Urine WBC (Auto) Vancomycin Trough Lymph Enumerat CD4/CD8 Absolute CD3 Count % CD4 Cells Absolute CD4 Count % CD8 Cells Absolute CD19 Count Coronavirus (PCR) 05/12/21 05/12/21 05/12/21 07:28 14:15 14:15 WBC 4.4 L RBC Hgb Hct MCHC RDW Lymph % (Auto) 36.5 H [place] % (Auto) Abs Lymphs (Manual) D-Dimer ABG pH POC ABG pCO2 POC ABG pO2 ABG Oxyhemoglobin ABG Sodium ABG Potassium Sodium 136 L Potassium Chloride BUN Creatinine 0.6 L Glucose POC Glucose 66 L Calcium 8.2 L Magnesium Ferritin AST 68 H Lactate Dehydrogenase C-Reactive Protein Total Protein Albumin 2.6 L Arterial Blood Ionized Calcium Ur Specific [place] Urine WBC (Auto) Vancomycin Trough Lymph Enumerat CD4/CD8 Absolute CD3 Count % CD4 Cells Absolute CD4 Count % CD8 Cells Absolute CD19 Count Coronavirus (PCR) 09/10/3105/12/21 05/12/21 19:37 19:38 19:38 WBC RBC Hgb Hct MCHC RDW Lymph % (Auto) [place] % (Auto) Abs Lymphs (Manual) D-Dimer ABG pH POC ABG pCO2 POC ABG pO2 ABG Oxyhemoglobin ABG Sodium ABG Potassium Sodium Potassium Chloride BUN Creatinine Glucose POC Glucose Calcium Magnesium Ferritin 1136.0 H AST Lactate Dehydrogenase 477 H C-Reactive Protein 9.30 H Total Protein Albumin Arterial Blood Ionized Calcium Ur Specific [place] Urine WBC (Auto) Vancomycin Trough Lymph Enumerat CD4/CD8 Absolute CD3 Count % CD4 Cells Absolute CD4 Count % CD8 Cells Absolute CD19 Count Coronavirus (PCR) 05/12/21 05/13/21 05/14/21 Unknown 08:15 14:21 WBC RBC Hgb Hct MCHC RDW Lymph % (Auto) [place] % (Auto) Abs Lymphs (Manual) D-Dimer ABG pH POC ABG pCO2 POC ABG pO2 ABG Oxyhemoglobin ABG Sodium ABG Potassium Sodium Potassium Chloride BUN Creatinine 0.6 L Glucose 136 H POC Glucose Calcium Magnesium Ferritin AST 71 H Lactate Dehydrogenase C-Reactive Protein Total Protein Albumin 3.2 L Arterial Blood Ionized Calcium Ur Specific [place] 1.038 H Urine WBC (Auto) Vancomycin Trough Lymph Enumerat CD4/CD8 Absolute CD3 Count % CD4 Cells Absolute CD4 Count % CD8 Cells Absolute CD19 Count Coronavirus (PCR) Positive A 05/15/21 05/15/21 05/15/21 07:28 15:26 15:26 WBC RBC Hgb Hct MCHC RDW Lymph % (Auto) [place] % (Auto) Abs Lymphs (Manual) D-Dimer 734.18 H ABG pH POC ABG pCO2 POC ABG pO2 ABG Oxyhemoglobin ABG Sodium ABG Potassium Sodium Potassium Chloride 107.8 H BUN 21 H Creatinine 0.6 L Glucose 124 H POC Glucose Calcium Magnesium Ferritin AST 70 H Lactate Dehydrogenase C-Reactive Protein 2.10 H Total Protein Albumin 2.8 L Arterial Blood Ionized Calcium Ur Specific [place] Urine WBC (Auto) Vancomycin Trough Lymph Enumerat CD4/CD8 Absolute CD3 Count % CD4 Cells Absolute CD4 Count % CD8 Cells Absolute CD19 Count Coronavirus (PCR) 05/15/21 05/15/21 05/16/21 15:26 15:26 07:32 WBC RBC Hgb Hct MCHC RDW Lymph % (Auto) [place] % (Auto) Abs Lymphs (Manual) D-Dimer ABG pH POC ABG pCO2 POC ABG pO2 ABG Oxyhemoglobin ABG Sodium ABG Potassium Sodium Potassium Chloride 108.2 H BUN Creatinine 0.6 L Glucose 123 H POC Glucose Calcium Magnesium Ferritin 1206.0 H AST 52 H Lactate Dehydrogenase 437 H C-Reactive Protein Total Protein Albumin 2.9 L Arterial Blood Ionized Calcium Ur Specific [place] Urine WBC (Auto) Vancomycin Trough Lymph Enumerat CD4/CD8 Absolute CD3 Count % CD4 Cells Absolute CD4 Count % CD8 Cells Absolute CD19 Count Coronavirus (PCR) 05/16/21 05/17/21 05/18/21 07:32 04:41 07:45 WBC RBC Hgb Hct MCHC RDW Lymph % (Auto) [place] % (Auto) Abs Lymphs (Manual) 516 L D-Dimer ABG pH POC ABG pCO2 POC ABG pO2 ABG Oxyhemoglobin ABG Sodium ABG Potassium Sodium Potassium Chloride 107.2 H BUN Creatinine 0.6 L Glucose 133 H POC Glucose Calcium 8.1 L Magnesium Ferritin AST 45 H Lactate Dehydrogenase C-Reactive Protein Total Protein Albumin 2.7 L Arterial Blood Ionized Calcium Ur Specific [place] Urine WBC (Auto) Vancomycin Trough 40.1 H Lymph Enumerat CD4/CD8 0.08 L Absolute CD3 Count 361 L % CD4 Cells 5 L Absolute CD4 Count 24 L % CD8 Cells 63 H Absolute CD19 Count 75 L Coronavirus (PCR) 05/19/21 05/19/21 05/19/21 10:30 10:30 10:30 WBC RBC Hgb Hct MCHC RDW Lymph % (Auto) [place] % (Auto) Abs Lymphs (Manual) D-Dimer 613.27 H ABG pH POC ABG pCO2 POC ABG pO2 ABG Oxyhemoglobin ABG Sodium ABG Potassium Sodium Potassium Chloride BUN Creatinine Glucose POC Glucose Calcium Magnesium Ferritin 678.3 H AST Lactate Dehydrogenase 248 H C-Reactive Protein Total Protein Albumin Arterial Blood Ionized Calcium Ur Specific [place] Urine WBC (Auto) Vancomycin Trough Lymph Enumerat CD4/CD8 Absolute CD3 Count % CD4 Cells Absolute CD4 Count % CD8 Cells Absolute CD19 Count Coronavirus (PCR)
[2021-05-20 14:49] VITALS: BP 121/71
[2021-05-20 16:57] LABS: HIV-1 RNA QN PCR 4.83 Log cps/mL
== END 2021-05-20 15:48 | disposition home health service (06) | DRG 329 ==
LOC: ED 18:04 → 4A 05-01 15:01 → OBSVTOIN 05-03 11:28 → 3A 05-13 18:38
PROVIDERS: ADMIT Internal Medicine; ATTEND Internal Medicine
PROC: 0DTJ0ZZ Resection of Appendix, Open Approach (ICD-10-PCS; principal; 2021-05-02)
PROC: 0DQN0ZZ Repair Sigmoid Colon, Open Approach (ICD-10-PCS; 2021-05-02)
PROC: 0WJG4ZZ Inspection of Peritoneal Cavity, Percutaneous Endoscopic Approach (ICD-10-PCS; 2021-05-02)
PROC: 05HA33Z Insertion of Infusion Device into Left Brachial Vein, Percutaneous Approach (ICD-10-PCS; 2021-05-06)
PROC: 4A033R1 Measurement of Arterial Saturation, Peripheral, Percutaneous Approach (ICD-10-PCS; 2021-05-11)
PROC: XW033E5 Introduction of Remdesivir Anti-infective into Peripheral Vein, Percutaneous Approach, New Technology Group 5 (ICD-10-PCS; 2021-05-14)
DX: K35.33 Acute appendicitis with perforation, localized peritonitis, and gangrene, with abscess (principal); A41.89 Other specified sepsis; U07.1 COVID-19; E43 Unspecified severe protein-calorie malnutrition; J96.01 Acute respiratory failure with hypoxia; J12.82 Pneumonia due to coronavirus disease 2019; B20 Human immunodeficiency virus [HIV] disease; K56.609 Unspecified intestinal obstruction, unspecified as to partial versus complete obstruction; Z16.12 Extended spectrum beta lactamase (ESBL) resistance; K91.71 Accidental puncture and laceration of a digestive system organ or structure during a digestive system procedure; Z68.23 Body mass index [BMI] 23.0-23.9, adult; D53.9 Nutritional anemia, unspecified; Z82.49 Family history of ischemic heart disease and other diseases of the circulatory system; Y83.8 Other surgical procedures as the cause of abnormal reaction of the patient, or of later complication, without mention of misadventure at the time of the procedure
CPT/HCPCS: 36415; 36600; 71045; 71275; 74177; 80048; 80053; 80202; 81001; 82024; 82140; 82728; 82805; 82962; 83615; 83690; 83735; 84145; 85025; 85379; 86140; 87040; 87075; 87076; 87086; 87116; 87186; 87536; 87641; 88304; 94760; G0378; J0360; J1100; J1170; J1650; J2185; J2270; J2405; J2543; J2704; J2710; J2930; J3370; J7030; J7040; J7050; J7120; Q0161; Q9967; U0003

== ENCOUNTER 2021-06-02 10:20 | Emergency (ER) | payer OTHER, SELFPAY ==
[2021-06-02 10:24] VITALS: BP 135/98
--- NOTE | 2021-06-02 10:49 | Emergency Department Report ---
ED Medical Clearance HPI - General Chief complaint: Medical Clearance Stated complaint: follow up from surgery Time Seen by Provider: 06/02/21 10:27 Source: patient Mode of arrival: Ambulatory Limitations: No Limitations - History of Present Illness Initial comments: This is a 61-year-old male nontoxic, well nourished in appearance, no acute signs of distress presents to the ED for postop evaluation. Patient stated was seen by Dr. Novak last month and had a appendectomy but scheduling appointment for postop with Dr. Novak he was instructed he needs to be a co-pay of $200. Patient then stated came into the ER because he does not have the money. Patient otherwise denies any complaints or symptoms. Denies any fever, chills, drainage, numbness, tingling, abdominal pain, nausea or vomiting, chest pain or shortness of breath. Patient stated has been cleaning wound as instructed by surgeon. Patient denies any allergies. Associated Symptoms: denies other symptoms. denies: chest pain, shortness of breath, palpitations, diaphoresis, confusion, cough, fever/chills, headaches, anorexia, malaise, nausea/vomiting, rash, seizure, syncope, weakness Treatments Prior to Arrival: none Home medications: Home Medications Medication Instructions Recorded Confirmed Last Taken Atazanavir (Nf) [Reyataz] 200 mg PO QDAY 08/06/13 05/04/21 08/05/13 21:00 Emtricitabin/Tenofovir [TRUVADA 1 tab PO QDAY 08/06/13 05/04/21 08/05/13 21:00 200-300 mg] Previous Rx's Medication Instructions Recorded Last Taken Type Ibuprofen [Motrin 800 MG tab] 800 mg PO TID #30 tablet 08/06/13 Unknown Rx oxyCODONE /ACETAMINOPHEN [Percocet 1 tab PO Q6H PRN #20 tablet 05/05/21 Unknown Rx 5/325 mg] Albuterol Mdi (or & Nicu Only) 2 puff IH QID PRN #8.5 gram 05/20/21 Unknown Rx [ProAir HFA Inhaler] Pantoprazole [Protonix TAB] 20 mg PO QDAY #30 tablet. 05/20/21 Unknown Rx Simethicone [Gas-X] 62.5 mg PO BID PRN #20 strip 05/20/21 Unknown Rx chlorproMAZINE [Thorazine] 25 mg PO Q6H PRN #20 tablet 05/20/21 Unknown Rx predniSONE 6 tab PO DAILY #65 tablet 05/20/21 Unknown Rx Allergies/Adverse reactions: Allergies Allergy/AdvReac Type Severity Reaction Status Date / Time No Known Allergies Allergy Verified 06/02/21 10:21 ED Review of Systems ROS: Stated complaint: follow up from surgery Other details as noted in HPI Comment: All other systems reviewed and negative Constitutional: denies: chills, fever Eyes: denies: eye pain, eye discharge, vision change ENT: denies: ear pain, throat pain Respiratory: denies: cough, shortness of breath, wheezing Cardiovascular: denies: chest pain, palpitations Endocrine: no symptoms reported Gastrointestinal: denies: abdominal pain, nausea, diarrhea Genitourinary: denies: urgency, dysuria Musculoskeletal: denies: back pain, joint swelling, arthralgia Skin: denies: rash, lesions Neurological: denies: headache, weakness, paresthesias Psychiatric: denies: anxiety, depression Hematological/Lymphatic: denies: easy bleeding, easy bruising ED Past Medical Hx - Past Medical History Hx Congestive Heart Failure: No Hx Diabetes: No Hx Deep Vein Thrombosis: No Hx Asthma: No Hx COPD: No Hx HIV: Yes Additional medical history: hiv - Surgical History Hx Pacemaker: No Hx Internal Defibrillator: No Hx Appendectomy: Yes Additional Surgical History: lyphomas removed. right knee surgery - Social History Smoking Status: Never Smoker - Medications Home Medications: Home Medications Medication Instructions Recorded Confirmed Last Taken Type Atazanavir (Nf) [Reyataz] 200 mg PO QDAY 08/06/13 05/04/21 08/05/13 21:00 History Emtricitabin/Tenofovir [TRUVADA 1 tab PO QDAY 08/06/13 05/04/21 08/05/13 21:00 History 200-300 mg] Ibuprofen [Motrin 800 MG tab] 800 mg PO TID #30 tablet 08/06/13 05/04/21 Unknown Rx oxyCODONE /ACETAMINOPHEN [Percocet 1 tab PO Q6H PRN #20 tablet 05/05/21 Unknown Rx 5/325 mg] Albuterol Mdi (or & Nicu Only) 2 puff IH QID PRN #8.5 gram 05/20/21 Unknown Rx [ProAir HFA Inhaler] Pantoprazole [Protonix TAB] 20 mg PO QDAY #30 tablet. 05/20/21 Unknown Rx Simethicone [Gas-X] 62.5 mg PO BID PRN #20 strip 05/20/21 Unknown Rx chlorproMAZINE [Thorazine] 25 mg PO Q6H PRN #20 tablet 05/20/21 Unknown Rx predniSONE 6 tab PO DAILY #65 tablet 05/20/21 Unknown Rx ED Physical Exam - General Limitations: No Limitations General appearance: alert, in no apparent distress - Head Head exam: Present: atraumatic, normocephalic - Eye Eye exam: Present: normal appearance - Neck Neck exam: Present: normal inspection, full ROM. Absent: lymphadenopathy - Respiratory Respiratory exam: Absent: respiratory distress - Cardiovascular Cardiovascular Exam: Present: regular rate - GI/Abdominal GI/Abdominal exam: Present: other (dressing placed with normal in apperance. ) - Extremities Exam Extremities exam: Present: full ROM - Back Exam Back exam: Present: full ROM - Neurological Exam Neurological exam: Present: alert, oriented X3 - Psychiatric Psychiatric exam: Present: normal affect, normal mood - Skin Skin exam: Present: warm, dry, intact, normal color. Absent: rash ED Course Vital Signs 06/02/21 10:24 Temperature 97.9 F Pulse Rate 86 Respiratory 18 Rate Blood Pressure 135/98 O2 Sat by Pulse 100 Oximetry - Reevaluation(s) Reevaluation #1: 06/02/21 10:47 Patient is speaking in full sentences with no signs of distress noted. ED Medical Decision Making - Medical Decision Making 61-year-old male that presents with postop evaluation. Patient is stable and was examined by me. Due to a surgical procedure, patient is instructed that he needs to follow-up with his surgeon for postop. I did give a consult for social media marketing manager to see the patient for assistance. Otherwise physical exam is unremarkable. Patient was instructed to follow-up with a surgeon doctor in 3-5 days or if symptoms worsen and continue return to emergency room as soon as possible. At time of discharge, the patient does not seem toxic or ill in appearance. No acute signs of distress noted. Patient agrees to discharge treatment plan of care. No further questions noted by the patient. ED Disposition Clinical Impression: Postop check Disposition: HOME / SELF CARE / HOMELESS Is pt being admited?: No Does the pt Need Aspirin: No Condition: Stable Additional Instructions: Follow-up with a surgeon doctor in 3-5 days or if symptoms worsen and continue return to emergency room as soon as possible. Referrals: PRIMARY CARE, [Referring] - 3-5 Days OSIEL ALBARADO MD [Staff Physician] - 3-5 Days ANA NOVAK MD [Staff Physician] - 3-5 Days Time of Disposition: 10:49
== END 2021-06-02 11:20 | disposition home or self-care (01) ==
LOC: ED 10:20
DX: Z48.89 Encounter for other specified surgical aftercare (principal); Z90.89 Acquired absence of other organs
CPT/HCPCS: 99281